=== PATIENT | female | born 1940 | race Caucasian/White ===

== ENCOUNTER → 2018-07-04 07:26 | Outpatient (CLI) | payer MEDICARE, SELFPAY | PROVIDERS: Family Provider Family Medicine; PCP Family Medicine; Visit Provider Family Medicine | DX: Z12.31 Encounter for screening mammogram for malignant neoplasm of breast (principal) | CPT/HCPCS: 77063; 77067 ==

== ENCOUNTER → 2019-07-22 07:57 | Outpatient (CLI) | payer MEDICARE, SELFPAY ==
--- NOTE | 2019-07-22 08:03 | BI_ITS ---
MAMMOGRAPHY - BILATERAL SCREENING REASON FOR EXAM: Female, 78 years old. Routine annual screening examination. PERTINENT HISTORY: Non-contributory. TECHNIQUE: Digital bilateral breast lori (3D mammographic acquisition) in the CC and MLO projections. 2-D mediolateral oblique (MLO) and craniocaudad (CC) views of both breasts were obtained. CAD: Full Field Digital Mammography with Computer Added Detection was performed. COMPARISON: Comparison is made with prior examination dated July 04, 2018 and May 07, 2017. FINDINGS: Breast Composition: There are scattered areas of fibroglandular density. There are no dominant masses or suspicious calcifications. Stable benign-appearing bilateral axillary lymph nodes. No other significant abnormalities are identified. There has been no significant change since the prior study. BI/SCREEN MAMM (CAD) W/LORI BILAT IMPRESSION: Stable bilateral screening mammogram. Yearly follow-up mammogram recommended. (A) ASSESSMENT CATEGORY: BIRADS Category 2: Benign. A letter regarding these results will be sent to the patient by the facility within 30 days. Approximately 10% of breast cancers are not detected by mammography. A normal mammogram should not delay biopsy of a clinically suspicious abnormality. [id number] Electronically Signed: Souleymane Thompson, at 10:37 EDT , Service support ,
== END ==
PROVIDERS: Family Provider Family Medicine; PCP Family Medicine; Referring Provider Physician Assistant; Visit Provider Physician Assistant
DX: Z12.31 Encounter for screening mammogram for malignant neoplasm of breast (principal)
CPT/HCPCS: 77063; 77067

== ENCOUNTER → 2020-07-28 07:44 | Outpatient (CLI) | payer MEDICARE, SELFPAY ==
--- NOTE | 2020-07-28 07:53 | BI_ITS ---
MAMMOGRAPHY - BILATERAL SCREENING REASON FOR EXAM: Female, 79 years old. Routine annual screening examination. PERTINENT HISTORY: Non-contributory. TECHNIQUE: Digital bilateral breast lori (3D mammographic acquisition) in the CC and MLO projections. 2-D mediolateral oblique (MLO) and craniocaudad (CC) views of both breasts were obtained. CAD: Full Field Digital Mammography with Computer Added Detection was performed. COMPARISON: Comparison is made with prior study 07/22/2019 and 07/04/2018. FINDINGS: Breast Composition: There are scattered areas of fibroglandular density. There are no dominant masses or suspicious calcifications. Stable benign-appearing bilateral axillary lymph nodes. No other significant abnormalities are identified. There has been no significant change since the prior study. BI/SCREEN MAMM (CAD) W/LORI BILAT IMPRESSION: Stable bilateral screening mammogram. Yearly follow-up mammogram recommended. (A) ASSESSMENT CATEGORY: BIRADS Category 2: Benign. A letter regarding these results will be sent to the patient by the facility within 30 days. Approximately 10% of breast cancers are not detected by mammography. A normal mammogram should not delay biopsy of a clinically suspicious abnormality. [id number] Electronically Signed: Souleymane Thompson, at 10:06 EDT , Service support ,
== END ==
PROVIDERS: PCP Family Medicine; Referring Provider Family Medicine; Visit Provider Family Medicine
DX: Z12.31 Encounter for screening mammogram for malignant neoplasm of breast (principal)
CPT/HCPCS: 77063; 77067

== ENCOUNTER → 2021-08-20 15:53 | Outpatient (CLI) | payer MEDICARE, SELFPAY ==
--- NOTE | 2021-08-20 16:00 | BI_ITS ---
MAMMOGRAPHY - BILATERAL SCREENING REASON FOR EXAM: Female, 80 years old. Routine annual screening examination. PERTINENT HISTORY: Non-contributory. TECHNIQUE: Digital bilateral breast lori (3D mammographic acquisition) in the CC and MLO projections. 2-D mediolateral oblique (MLO) and craniocaudad (CC) views of both breasts were obtained. CAD: Full Field Digital Mammography with Computer Added Detection was performed. COMPARISON: Comparison is made with prior study 10/27/2020 and 07/22/2019. FINDINGS: Breast Composition: There are scattered areas of fibroglandular density. There are no dominant masses or suspicious calcifications. Stable benign-appearing bilateral axillary lymph nodes. No other significant abnormalities are identified. There has been no significant change since the prior study. BI/SCRN MAMM (CAD)W/LORI BILAT IMPRESSION: Stable bilateral screening mammogram. Yearly follow-up mammogram recommended. (A) ASSESSMENT CATEGORY: BIRADS Category 2: Benign. A letter regarding these results will be sent to the patient by the facility within 30 days. Approximately 10% of breast cancers are not detected by mammography. A normal mammogram should not delay biopsy of a clinically suspicious abnormality. [id number] Electronically Signed: Souleymane Thompson MD at 8:59 EDT , Service support ,
== END ==
PROVIDERS: PCP Family Medicine; Referring Provider Family Medicine; Visit Provider Family Medicine
DX: Z12.31 Encounter for screening mammogram for malignant neoplasm of breast (principal)
CPT/HCPCS: 77063; 77067

== ENCOUNTER → 2022-08-21 | Outpatient (CLI) | payer MEDICARE, SELFPAY ==
--- NOTE | 2022-08-21 08:57 | BI_ITS ---
MAMMOGRAPHY - BILATERAL SCREENING REASON FOR EXAM: Female, 81 years old. Routine annual screening examination. PERTINENT HISTORY: Non-contributory. TECHNIQUE: Digital bilateral breast lori (3D mammographic acquisition) in the CC and MLO projections. 2-D mediolateral oblique (MLO) and craniocaudad (CC) views of both breasts were obtained. CAD: Full Field Digital Mammography with Computer Added Detection was performed. COMPARISON: Comparison is made with prior examination of 10/20/2021 and 07/28/2020. FINDINGS: Breast Composition: There are scattered areas of fibroglandular density. There are no dominant masses or suspicious calcifications. Stable benign-appearing bilateral axillary No other significant abnormalities are identified. There has been no significant change since the prior study. BI/SCRN MAMM (CAD)W/LORI BILAT IMPRESSION: Stable bilateral screening mammogram. Yearly follow-up mammogram recommended. (A) ASSESSMENT CATEGORY: BIRADS Category 2: Benign. A letter regarding these results will be sent to the patient by the facility within 30 days. Approximately 10% of breast cancers are not detected by mammography. A normal mammogram should not delay biopsy of a clinically suspicious abnormality. [id number] Electronically Signed: Souleymane Thompson MD at 11:23 EDT ,
== END | disposition home or self-care (01) ==
PROVIDERS: PCP Family Medicine; Visit Provider Family Medicine
DX: Z12.31 Encounter for screening mammogram for malignant neoplasm of breast (principal)
CPT/HCPCS: 77063; 77067

== ENCOUNTER → 2023-08-21 | Outpatient (CLI) | payer MEDICARE, SELFPAY ==
--- NOTE | 2023-08-21 07:38 | BI_ITS ---
MAMMOGRAPHY - BILATERAL SCREENING REASON FOR EXAM: Female, 82 years old. Routine annual screening examination. PERTINENT HISTORY: Non-contributory. TECHNIQUE: Digital bilateral breast lori (3D mammographic acquisition) in the CC and MLO projections. 2-D mediolateral oblique (MLO) and craniocaudad (CC) views of both breasts were obtained. CAD: Full Field Digital Mammography with Computer Added Detection was performed. COMPARISON: Comparison is made with prior study dated August 21, 2022 and August 20, 2021. FINDINGS: Breast Composition: There are scattered areas of fibroglandular density. There are no dominant masses or suspicious calcifications. Stable benign-appearing bilateral axillary lymph nodes. No other significant abnormalities are identified. There has been no significant change since the prior study. BI/SCRN MAMM (CAD)W/LORI BILAT IMPRESSION: Stable bilateral screening mammogram. Yearly follow-up mammogram recommended. (A) ASSESSMENT CATEGORY: BIRADS Category 2: Benign. A letter regarding these results will be sent to the patient by the facility within 30 days. Approximately 10% of breast cancers are not detected by mammography. A normal mammogram should not delay biopsy of a clinically suspicious abnormality. [id number] Electronically Signed: Souleymane Thompson MD at 12:05 EDT ,
== END | disposition home or self-care (01) ==
LOC: OPBI 07:36
PROVIDERS: PCP Family Medicine; Referring Provider Family Medicine; Visit Provider Family Medicine
DX: Z12.31 Encounter for screening mammogram for malignant neoplasm of breast (principal)
CPT/HCPCS: 77063; 77067

== ENCOUNTER → 2024-08-26 | Outpatient (CLI) | payer MEDICARE, SELFPAY ==
--- NOTE | 2024-08-26 09:06 | BI_ITS ---
MAMMOGRAPHY - BILATERAL SCREENING 3-D TOMOSYNTHESIS REASON FOR EXAM: Female, 83 years old. SCREENING PERTINENT HISTORY: No significant family history. TECHNIQUE: 2-D mammograms and 3-D Tomosynthesis of the breast (s) were performed. CAD was performed. COMPARISON: 08/21/2023 FINDINGS: The breast composition is composed of scattered fibroglandular density. Scattered benign calcifications are seen. 1 cm oval obscured equal density mass in the retroareolar right breast at posterior depth and focal compression views recommended for further evaluation. No dominant mass left breast. No suspicious calcifications.. No architectural distortion is identified. There is no skin thickening or retraction. BI/SCRN MAMM (CAD)W/LORI BILAT IMPRESSION: Further imaging evaluation is recommended. ASSESSMENT CATEGORY: BIRADS Category 0: Incomplete. Need additional imaging evaluation as above. A letter regarding these results will be sent to the patient by the facility within 30 days. FOLLOW UP RECOMMENDATION: Additional imaging recommended as above. (E) Approximately 10% of breast cancers are not detected by mammography. A normal mammogram should not delay biopsy of a clinically suspicious abnormality. Electronically Signed: Walt Zapata MD at 13:31 EDT ,
== END | disposition home or self-care (01) ==
PROVIDERS: PCP Family Medicine; Referring Provider Family Medicine; Visit Provider Family Medicine
DX: Z12.31 Encounter for screening mammogram for malignant neoplasm of breast (principal)
CPT/HCPCS: 77063; 77067

== ENCOUNTER → 2024-09-01 | Outpatient (CLI) | payer MEDICARE, SELFPAY ==
--- NOTE | 2024-09-01 14:22 | BI_ITS ---
MAMMOGRAPHY - UNILATERAL DIAGNOSTIC: RIGHT BREAST REASON FOR EXAM: Female, 83 years old. Abnormal screening mammogram. PERTINENT HISTORY: Abnormal screening mammogram. TECHNIQUE: Compression spot views were obtained in mediolateral and oblique views.. CAD: Full Field Digital Mammography with Computer Added Detection was performed. COMPARISON: Comparison is made with prior study August 26, 2024. FINDINGS: Breast Composition: There are scattered areas of fibroglandular density. Faint 1 cm nodule is seen in the central retroareolar region of the right breast. Sonographic correlation recommended. No other significant abnormalities are identified. BI/DIAG MAMM W/CAD, UNILAT IMPRESSION: Faint 1 cm nodule seen in the central retroareolar region of the right breast. Sonographic correlation recommended. ASSESSMENT CATEGORY: BIRADS Category 0: Incomplete. Need additional imaging evaluation. A letter regarding these results will be sent to the patient by the facility within 30 days. Approximately 10% of breast cancers are not detected by mammography. A normal mammogram should not delay biopsy of a clinically suspicious abnormality. Electronically Signed: Souleymane Thompson MD at 8:06 EDT ,
--- NOTE | 2024-09-01 14:22 | US_ITS ---
STUDY: ULTRASOUND BREAST - RIGHT REASON FOR EXAM: Female, 83 years old. Abnormal screening mammogram. TECHNIQUE: Axial and longitudinal images of the RIGHT breast were performed with a high resolution ultrasound transducer. # OF IMAGES: 17 COMPARISON: Comparison is made with prior mammogram done earlier in the day as well as prior mammogram dated August 26, 2024. FINDINGS: RIGHT Breast: The retroareolar region of the breast was examined with ultrasound. Fibroglandular tissue is seen. No sonographic antibiotic is present. Routine annual mammographic follow-up recommended. US/Breast Limited Unilateral IMPRESSION: No sonographic adenopathy is present. ASSESSMENT CATEGORY: BIRADS Category 1: Negative. A letter regarding these results will be sent to the patient by the facility within 30 days. Electronically Signed: Souleymane Thompson MD at 8:23 EDT ,
--- OUTSIDE RECORDS SUMMARY | 2024-09-01 18:05 | XMS RPT_ITS | CCD ---
Author Organization [facility] Care Team Providers Care Post Office Manager Name Role Phone PROVIDER, UNKNOWN Unavailable Unavailable NEIL ESQUEDA Unavailable Unavailable PRANEETH NEWELL, RAHEEM Primary Care Physician RAHEEM DACOSTA MD Primary Care Physician Raheem Dacosta MD Primary Care Provider Raheem Dacosta MD Primary Care Provider Raheem Dacosta MD Primary Care Provider Raheem Dacosta MD Primary Care Provider RO JONES, KAYLEN Attending Balwinder Loza MD, RAHEEM Primary Care Unavailable RO JONES, KAYLEN Attending Balwinder Loza MD, RAHEEM Primary Care Unavailable RO JONES, KAYLEN Attending Balwinder Loza MD, RAHEEM Primary Care Unavailable RO JONES, KAYLEN Attending Balwinder Loza MD, RAHEEM Primary Care Unavailable RO JONES, KAYLEN Attending Balwinder Loza MD, RAHEEM Primary Care Unavailable RO JONES, KAYLEN Attending RAHEEM Smith MD Primary Care Unavailable Ronnell Estrada PA-C Primary Care Provider [phone] Raheem Dacosta MD Primary Care Provider Raheem Dacosta MD Primary Care Provider Ronnell ESTRADA Attending Unavailable RAHEEM DACOSTA Primary Care Unavailable PATRICIA VYAS Attending Unavailable RAHEEM DACOSTA Primary Care Unavailable RAHEEM DACOSTA Attending Unavailable Ronnell ESTRADA Primary Care Unavailable Ronnell ESTRADA Primary Care Unavailable Ronnell ESTRADA Referring Unavailable Ronnell ESTRADA Primary Care Unavailable Ronnell ESTRADA Referring Unavailable Medications Current Medications Medication Drug Class(es) Dates Sig (Normalized) Sig (Original) Aluminum Hydroxide / magnesium carbonate (4 sources) Start: 10-19-2020 take 1 tablet by mouth twice daily as needed Gaviscon Extra Strength 160 mg-105 mg oral tablet, chewable Dose = 2 tab(s), Chewed, BID, PRN for indigestion, # 100 tab(s), 0 Refill(s) Start Date: 10/19/20 Status: Ordered aluminum hydroxide 160 mg / magnesium carbonate 105 mg chewable tablet (6 sources) Start: 10-19-2020 take 1 tablet by mouth twice daily as needed Gaviscon Extra Strength 160 mg-105 mg oral tablet, chewable Dose = 2 tab(s), Chewed, BID, PRN for indigestion, # 100 tab(s), 0 Refill(s) Start Date: 10/19/20 Status: Ordered atorvastatin 10 mg oral tablet (20 sources) HMG-CoA Reductase Inhibitor Start: 05-30-2023 End: 08-14-2023 take 1 tablet by mouth once daily at bedtime for hyperlipidemia atorvastatin (LIPITOR) 10 mg tablet Indications: Mixed hyperlipidemia , Hyperglycemia Take 1 tablet by mouth daily at bedtime. For cholesterol. 90 tablet 3 08/14/2023 Active Start: 10-19-2020 End: 01-22-2023 take 1 tablet by mouth once daily at bedtime for hyperlipidemia atorvastatin (LIPITOR) 10 mg tablet Indications: Mixed hyperlipidemia , Hyperglycemia Take 1 tablet by mouth daily at bedtime. For cholesterol. 90 tablet 0 10/23/2022 01/22/2023 Discontinued Start: 03-14-2020 End: 09-07-2020 take 1 tablet by mouth once daily at bedtime for hyperlipidemia atorvastatin (LIPITOR) 10 mg tablet Indications: Mixed hyperlipidemia , Hyperglycemia Take 1 tablet by mouth daily at bedtime. For cholesterol. 90 tablet 1 03/14/2020 09/07/2020 Discontinued Comment on above: Take 1 tablet by micha th daily at bedtime. For cholesterol. enteric contrast (will be provided with radiology test) (4 sources) Start: 2 End: 2 enteric contrast (will be provided with radiology test) For CT ABD/PEL W IVCON Routine order Administer, As Directed One Time Only, via Oral, Rectal, both Oral and Rectal, Enteric Tube, Stoma or Indwelling Catheter, Enteric Contrast as designated per enteric contrast guidelines 1 Each 0 07/12/2022 07/13/2022 Active Comment on above: For CT ABD/PEL W IVC ON Routine order Administer, As Directed One Time Only, via Oral, Rectal, both Oral and Rectal, Enteric Tube, Stoma or Indwelling Catheter, Enteric Contrast as designated per enteric contrast guidelines famotidine 20 mg oral tablet (20 sources) Histamine-2 Receptor Antagonist Start: take 1 tablet by mouth once daily at bedtime famotidine (PEPCID) 20 mg tablet Take 1 tablet by mouth daily at bedtime. 90 tablet 3 08/14/2023 Active Start: 05-02-2023 End: 07-31-2023 take 1 tablet by mouth once daily at bedtime famotidine (PEPCID) 20 mg tablet Take 1 tablet by mouth daily at bedtime. 30 tablet 2 05/02/2023 07/31/2023 Active Start: 10-23-2022 End: 04-22-2023 take 1 tablet by mouth once daily at bedtime famotidine (PEPCID) 20 mg tablet Take 1 tablet by mouth daily at bedtime. 30 tablet 2 10/23/2022 01/22/2023 Discontinued Start: 07-17-2022 End: 10-15-2022 take 1 tablet by mouth once daily at bedtime famotidine (PEPCID) 20 mg tablet Take 1 tablet by mouth daily at bedtime. 30 tablet 2 07/17/2022 10/15/2022 Active Comment on above: Take 1 tablet by micha th daily at bedtime. FLUoxetine 40 mg oral capsule (20 sources) Serotonin Reuptake Inhibitor Start: 07-26-2024 End: 07-26-2025 take 1 capsule by mouth once daily FLUoxetine (PROZAC) 40 mg capsule Take 1 capsule by mouth once daily. 90 capsule 3 07/26/2024 07/26/2025 Active Start: 09-08-2023 End: 07-26-2024 take 1 capsule by mouth once daily FLUoxetine (PROZAC) 20 mg capsule Take 1 capsule by mouth once daily. 90 capsule 1 03/09/2024 07/26/2024 Discontinued Start: 10-19-2020 End: 03-18-2023 take 1 capsule by mouth once daily FLUoxetine (PROZAC) 20 mg capsule Take 1 capsule by mouth once daily. 90 capsule 1 08/30/2022 03/18/2023 Discontinued Start: 03-14-2020 End: 09-25-2020 take 1 capsule by mouth once daily FLUoxetine (PROZAC) 20 mg capsule Take 1 capsule by mouth once daily. 90 capsule 1 03/14/2020 09/25/2020 Discontinued Comment on above: Take 1 capsule by [facility] once daily. hydroCHLOROthiazide 25 mg / triamterene 37.5 mg oral capsule (20 sources) Potassium-sparing Diuretic, Thiazide Diuretic Start: 0 End: 4 take 1 capsule by mouth once daily triamterene-hyd roCHLOROthiazid e (DYAZIDE) 37.5-25 mg per capsule Take 1 capsule by mouth once daily. 90 capsule 3 05/31/2024 Active Start: 06-12-2020 End: 09-06-2020 take 1 capsule by mouth once daily triamterene-hydrochlorothiazide 37.5-25 mg per capsule Take 1 capsule by mouth once daily. 90 capsule 06/12/2020 09/06/2020 Discontinued Comment on above: Take 1 capsule by [facility] once daily. iv contrast (will be provided with radiology test) (4 sources) Start: 07-12-20 End: 07-13-20 iv contrast (will be provided with radiology test) CT ABD/PEL -Inject, intravenously, once for 1 dose.No IV access, insert saline lock prior to the beginning of sedation, infusion, injection of imaging exam. Discontinue saline lock post exam. If Pt. has a central line or IVAD, may access for administration according to line specific nursing protocol. Once exam is complete flush line and de-access according to line specific nursing protocol in the CT contrast administration guidelines link. 1 Each 0 07/12/2022 07/13/2022 Active Comment on above: CT ABD/PEL -Inject, intravenously, once for 1 dose.No IV access, insert saline lock prior to the beginning of sedation, infusion, injection of imaging exam. Discontinue saline lock post exam. If Pt. has a central line or IVAD, may access for administration according to line specific nursing protocol. Once exam is complete flush line and de-access according to line specific nursing protocol in the CT contrast administration guidelines link. levothyroxine sodium 0.088 mg oral tablet (20 sources) l-Thyroxine Start: 09-28-20 End: 03-09-20 take 1 tablet by mouth once daily levothyroxine (SYNTHROID) 88 mcg tablet Indications: Mixed hyperlipidemia , Hypothyroidism, unspecified type , Hyperglycemia Take 1 tablet by mouth once daily. 90 tablet 1 03/09/2024 Active Start: 10-19-2020 levothyroxine 88 mcg (0.088 mg) oral tablet Dose : 88 mcg = 1 tab(s), Oral, qDay, # 30 tab(s), 0 Refill(s) Start Date: 10/19/20 Status: Ordered Start: 10-18-2019 End: 10-10-2020 take 1 tablet by mouth once daily levothyroxine (SYNTHROID) 88 mcg tablet Take 1 tablet by mouth once daily. 90 tablet 3 10/18/2019 10/10/2020 Discontinued Comment on above: Take 1 tablet by micha th once daily. mag carb/aluminum hydrox/algin (GAVISCON ORAL) (20 sources) mag carb/aluminu m hydrox/algin (GAVISCON ORAL) Take by mouth. Active mag carb/aluminu m hydrox/algin (GAVISCON ORAL) Take by mouth. 0 Active Comment on above: Take by mouth. metFORMIN hydrochloride 500 mg oral tablet (20 sources) Biguanide Start: 06-20-20 End: 12-17-19 24 take 1 tablet by mouth once daily in the morning metFORMIN (GLUCOPHAGE) 500 mg tablet Indications: Controlled type 2 diabetes mellitus without complication, without long-term current use of insulin (HCC) take 1 tablet by mouth EVERY MORNING WITH BREAKFAST 90 tablet 3 10/22/2023 Active Comment on above: Take 1 tablet by micha th daily with breakfast. take 1 tablet by micha th EVERY MORNING WITH BREAKFAST naproxen sodium 220 mg oral tablet (10 sources) Nonsteroidal Anti-inflammatory Drug Start: 12-13-19 take 1 capsule by mouth every eight hours as needed for pain Aleve 220 mg oral tablet 1 cap(s), Oral, q8h, PRN as needed for pain, # 40 cap(s), 0 Refill(s) Start Date: 12/13/20 Status: Ordered pantoprazole 40 mg delayed release oral tablet (20 sources) Proton Pump Inhibitor Start: 11-11-19 End: 04-29-20 take 1 tablet by mouth once daily pantoprazole DR (PROTONIX) 40 mg tablet Indications: GERD without esophagitis Take 1 tablet by mouth once daily. 90 tablet 04/29/2024 Active Start: 07-25-2020 End: 08-05-2023 take 1 tablet by mouth once daily pantoprazole DR (PROTONIX) 40 mg tablet Indications: GERD without esophagitis Take 1 tablet by mouth once daily. 90 tablet 0 08/05/2023 Active Comment on above: Take 1 tablet by micha th once daily. polyethylene glycol 3350 539380 mg / potassium chloride 2970 mg / sodium bicarbonate 6740 mg / sodium chloride 5860 mg / sodium sulfate 34121 mg powder for oral solution (1 source) Osmotic Laxative Start: 2 End: 2 peg 3350-Electrolytes (GOLYTELY) 236-22.74-6.74 -5.86 gram suspension Indications: GERD without esophagitis , Change in bowel habit , Abdominal discomfort Take 4,000 mL by mouth one time only for 1 dose. Refer to printed prep instructions from your provider. 4000 mL 0 07/22/2022 07/22/2022 Active Comment on above: Take 4,000 mL by micha th one time only for 1 dose. Refer to printed prep instructions from your provider. tapentadol 50 mg oral tablet (20 sources) Opioid Agonist Start: 3 End: 3 take 1 tablet by mouth every six hours as needed tapentadol (NUCYNTA) 50 mg Indications: DDD (degenerative disc disease), cervical , Scoliosis, unspecified scoliosis type, unspecified spinal region Take 1 tablet by mouth every 6 hours as needed for up to 30 days. 120 tablet 07/23/2023 Active Start: 02-11-2017 End: 06-16-2023 take 1 tablet by mouth every eight hours tapentadol (NUCYNTA) 50 mg tab Take 1 tablet by mouth every 8 hours. 0 02/11/2017 06/16/2023 Discontinued Comment on above: Take 1 tablet by micha th every 8 hours. Take 1 tablet by micha th every 6 hours as needed for up to 30 days. tiZANidine 4 mg oral tablet (20 sources) Central alpha-2 Adrenergic Agonist Start: 04-16-2023 End: 10-13-2023 tiZANidine 4 mg oral tablet Dose : 4 mg = 1 tab(s), Oral, qHS, # 90 tab(s), 1 Refill(s), [facility]: [id number], Bulging of cervical intervertebral disc, 160, cm, 04/16/23 14:51:00 EDT, Height, kg, 04/16/23 14:51:00 EDT, Dosing Weight Start Date: 04/16/23 Stop Date: 10/13/23 Status: Ordered Start: 10-22-2022 End: 02-19-2023 tiZANidine 4 mg oral tablet Dose : 4 mg = 1 tab(s), Oral, qHS, # 30 tab(s), 3 Refill(s), [facility]: [id number], Bulging of cervical intervertebral disc, 160, cm, 10/22/22 7:28:00 EST, Height, kg, 10/22/22 7:28:00 EST, Dosing Weight Start Date: 10/22/22 Stop Date: 02/19/23 Status: Ordered Start: 02-15-2022 End: 06-15-2022 tiZANidine 4 mg oral tablet Dose : 4 mg = 1 tab(s), Oral, qHS, # 30 tab(s), 3 Refill(s), [facility]: [id number], Bulging of cervical intervertebral disc, 155, cm, 02/15/22 7:26:00 EDT, Height, kg, 02/15/22 7:26:00 EDT, Dosing Weight Start Date: 02/15/22 Stop Date: 06/15/22 Status: Ordered Start: 06-18-2021 End: 02-12-2022 tiZANidine 4 mg oral tablet Dose : 4 mg = 1 tab(s), Oral, qHS, # 30 tab(s), 3 Refill(s), [facility], Bulging of cervical intervertebral disc, 162.6, cm, 10/15/21 8:53:00 EST, Height, kg, 10/15/21 8:53:00 EST, Dosing Weight Start Date: 10/15/21 Stop Date: 02/12/22 Status: Ordered Start: 02-11-2017 End: 03-02-2024 take 1 capsule by mouth once daily at bedtime tiZANidine HCl 4 mg capsule Take 1 capsule by mouth daily at bedtime. 02/11/2017 03/02/2024 Discontinued (Course of therapy completed) Comment on above: Take 1 capsule by mo uth daily at bedtime. Completed/Discontinued Medications Medication Drug Class(es) Dates Sig (Normalized) Sig (Original) CPAP (20 sources) Start: 10-16-2022 End: 03-02-2024 CPAP Indications: BALJINDER (obstructive sleep apnea) Initiate Auto PAP @ 5-20 cm of water with humidification. Mask (per patient preference) optional chin strap (if indicated) , filters, tubing, humidifier and lifetime supplies. 1 Each 0 10/16/2022 03/02/2024 Discontinued Start: 10-16-2022 CPAP Indicatio ns: BALJINDER (obstructive sleep apnea) Initiate Auto PAP @ 5-20 cm of water with humidification. Mask (per patient preference) optional chin strap (if indicated) , filters, tubing, humidifier and lifetime supplies. 1 Each 0 10/16/2022 Active Comment on above: Initiate Auto PAP @ 5-20 cm of water with humidification. Mask (per patient preference) optional chin strap (if indicated) , filters, tubing, humidifier and lifetime supplies. Problems Active Problems Problem Classification Problem Date Documented Da te Episodic/Chronic Abdominal pain (5 sources) Abdominal discomfort; Translations: [Unspecified abdominal pain] Episodic Cardiac dysrhythmias (1 source) Palpitations; Translations: [Palpitations] Onset: 8 Episodic Chronic kidney disease (20 sources) Chronic kidney disease stage 3; Translations: [Chronic kidney disease (CKD), stage III (moderate)] Onset: 8 07-30-2018 Chronic Chronic kidney disease (2 sources) Chronic kidney disease; Translations: [Stage 3a chronic kidney disease (HCC)] Onset: 8 Deficiency and other anemia (2 sources) Anemia; Translations: [Anemia, unspecified] Episodic Diabetes mellitus without complication (2 sources) Type 2 diabetes mellitus without complication; Translations: [Type 2 diabetes mellitus without complications] 06-20-2023 Chronic Disorders of lipid metabolism (20 sources) Hyperlipidemia; Translations: [Hyperlipidemia, unspecified] Onset: 2 01-01-2012 Chronic Diverticulosis and diverticulitis (20 sources) Diverticulosis of colon; Translations: [Diverticulosis of large intestine without perforation or abscess without bleeding] Onset: 9 11-24-2008 Chronic Esophageal disorders (20 sources) Gastroesophageal reflux disease; Translations: [Gastro-esophageal reflux disease without esophagitis] Onset: 2 Resolved: 2 09-16-2012 Chronic Essential hypertension (20 sources) Essential (primary) hypertension; Translations: [Hypertensive disorder] Onset: 7 10-19-2020 Chronic Hypertension with complications and secondary hypertension (11 sources) Chronic kidney disease stage 3 due to hypertension; Translations: [Hypertensive chronic kidney disease with stage 1 through stage 4 chronic kidney disease, or unspecified chronic kidney disease] Onset: 1 Resolved: 2 01-09-2022 Chronic Immunizations and screening for infectious disease (2 sources) Needs influenza immunization; Translations: [Encounter for immunization] Onset: 4 08-23-2024 Episodic Malaise and fatigue (1 source) Fatigue; Translations: [Other fatigue] Episodic Miscellaneous mental health disorders (2 sources) Chronic insomnia; Translations: [Psychophysiologic insomnia] Onset: 4 08-23-2024 Chronic Mood disorders (20 sources) Recurrent major depression in partial remission; Translations: [Major depressive disorder, recurrent, in partial remission] Onset: 6 10-25-2015 Chronic Other acquired deformities (20 sources) Scoliosis deformity of spine; Translations: [Scoliosis, unspecified] Onset: 3 02-15-2022 Chronic Other aftercare (1 source) Drug therapy finding; Translations: [Other group home (current) drug therapy] 03-02-2024 Episodic Other and unspecified benign neoplasm (20 sources) History of polyp of colon; Translations: [Personal history of colonic polyps] 08-23-2008 Episodic Other gastrointestinal disorders (4 sources) Alteration in bowel elimination; Translations: [Change in bowel habit] Episodic Other hereditary and degenerative nervous system conditions (20 sources) Essential tremor; Translations: [Essential tremor] Onset: 4 10-19-2020 Chronic Other hereditary and degenerative nervous system conditions (20 sources) Restless legs; Translations: [Restless legs syndrome] Onset: 3 01-21-2023 Chronic Other hereditary and degenerative nervous system conditions (1 source) Essential tremor; Translations: [Essential tremor] Onset: 4 Chronic Other hereditary and degenerative nervous system conditions (1 source) Restless legs syndrome; Translations: [RLS (restless legs syndrome)] Onset: 3 Chronic Other liver diseases (1 source) Fatty (change of) liver, not elsewhere classified; Translations: [Other chronic nonalcoholic liver disease] 03-02-2024 Chronic Other lower respiratory disease (2 sources) Shortness of breath; Translations: [Other forms of dyspnea] Onset: 8 Episodic Other lower respiratory disease (1 source) Rib pain; Translations: [Pleurodynia] 08-28-2020 Episodic Other nervous system disorders (1 source) Impairment of balance; Translations: [Other abnormalities of gait and mobility] 11-13-2022 Episodic Other nervous system disorders (1 source) Ataxia; Translations: [Ataxia, unspecified] 11-13-2022 Episodic Residual codes; unclassified (20 sources) Obstructive sleep apnea syndrome; Translations: [Obstructive sleep apnea (adult) (pediatric)] Onset: 2 Chronic Residual codes; unclassified (1 source) Sleep apnea; Translations: [Sleep apnea, unspecified] Chronic Residual codes; unclassified (1 source) Obstructive sleep apnea (adult) (pediatric); Translations: [BALJINDER (obstructive sleep apnea)] Onset: 2 Chronic Residual codes; unclassified (1 source) Amnesia; Translations: [Other amnesia] 11-13-2022 Episodic Spondylosis; intervertebral disc disorders; other back problems (20 sources) Displacement of cervical intervertebral disc; Translations: [Other cervical disc displacement, unspecified cervical region] Onset: 7 Chronic Spondylosis; intervertebral disc disorders; other back problems (10 sources) Myofascial pain syndrome of neck 08-20-2021 Episodic Thyroid disorders (20 sources) Hypothyroidism; Translations: [Hypothyroidism, unspecified] Onset: 2 01-01-2012 Chronic Varicose veins of lower extremity (1 source) Varicose veins of bilateral lower limbs; Translations: [Asymptomatic varicose veins of bilateral lower extremities] 07-26-2024 Episodic Past or Other Problems Problem Classification Problem Date Documented Date Episodic/Chronic Abdominal hernia (20 sources) Hiatal hernia; Translations: [Diaphragmatic hernia without obstruction or gangrene] Onset: 09-16-2012 09-16-2012 Episodic Diabetes mellitus without complication (20 sources) Prediabetes; Translations: [Prediabetes] Onset: 09-27-2010 08-14-2017 Episodic Fluid and electrolyte disorders (2 sources) Dehydration; Translations: [Dehydration] Onset: 06-01-2024 03-15-2024 Episodic Gastritis and duodenitis (12 sources) Acute gastritis; Translations: [Acute gastritis without bleeding] Onset: 11-13-2005 Resolved: 09-16-2012 09-16-2012 Episodic Other aftercare (1 source) Other group home (current) drug therapy; Translations: [Current use of proton pump inhibitor] Onset: 03-09-2024 Episodic Other and unspecified benign neoplasm (12 sources) Benign neoplasm of colon; Translations: [Benign neoplasm of colon, unspecified] Onset: 11-24-2008 Resolved: 01-09-2022 01-09-2022 Episodic Other connective tissue disease (12 sources) Muscle pain; Translations: [Myalgia, other site] Onset: 08-21-2021 Resolved: 06-16-2023 Episodic Other liver diseases (12 sources) Elevated levels of transaminase & lactic acid dehydrogenase; Translations: [Nonspecific elevation of levels of transaminase or lactic acid dehydrogenase (LDH)] Onset: 10-10-2005 Resolved: 01-09-2022 01-09-2022 Episodic Other screening for suspected conditions (not mental disorders or infectious disease) (20 sources) Patient encounter status; Translations: [Encounter for screening mammogram for malignant neoplasm of breast] Onset: 08-23-2022 Episodic Results Test Name Value Interpretation Reference Range Facility [facility] NENA MANDUJANO ([id number]) 1940 F Date Time Provider Department 08/27/24 RAHEEM DACOSTA During your visit today, we recorded the following information about you: Raheem Dacosta MD 08/27/2024 11:33 AM Signed Mammogram shows she needs additional views of the right breast. Is [facility] automatically ordering or do they require an order from us. Tiffany Theodore LPN 08/27/2024 12:25 PM Signed Left message for Cathi to be sure she was notified by [facility]. I believe the hospital takes care of follow up care and we do not have to send any orders. Tiffany Theodore LPN 08/30/2024 2:41 PM Signed [facility] shows patient scheduled. Allergies As of Date: 08/27/2024 (No Known Allergies) Date Reviewed: 08/23/2024 Reviewed by: Patricia Vyas APRN.PHOTO TECHNOLOGIST - Fully Assessed Reason for Visit: Results [95] Prescriptions as of 08/30/2024 - FLUoxetine (PROZAC) 40 mg capsule Take 1 capsule by mouth once daily. - triamterene-hydroCHLOROthi azide (DYAZIDE) 37.5-25 mg per capsule Take 1 capsule by mouth once daily. - pantoprazole DR (PROTONIX) 40 mg tablet Take 1 tablet by mouth once daily. - levothyroxine (SYNTHROID) 88 mcg tablet Take 1 tablet by mouth once daily. - metFORMIN (GLUCOPHAGE) 500 mg tablet take 1 tablet by mouth EVERY MORNING WITH BREAKFAST - famotidine (PEPCID) 20 mg tablet Take 1 tablet by mouth daily at bedtime. - atorvastatin (LIPITOR) 10 mg tablet Take 1 tablet by mouth daily at bedtime. For cholesterol. - tapentadol (NUCYNTA) 50 mg Take 1 tablet by mouth every 6 hours as needed for up to 30 days. - mag carb/aluminum hydrox/algin (GAVISCON ORAL) Take by mouth. Problem List As Of Date 08/27/2024 Noted Resolved Nonspecific elevation of levels of transaminase*10/10/2005 01/09/2022 Acute gastritis without mention of hemorrhage [*11/13/2005 09/16/2012 Recurrent major depression in partial remission*09/27/2006 Reflux esophagitis [K21.00] 09/16/2012 PERS HX COLONIC POLYPS [Z86.0100] Benign neoplasm of colon [D12.6] 11/24/2008 01/09/2022 DIVERTICULOSIS OF COLON W/O BLEED [K57.30] 11/24/2008 Prediabetes [R73.03] 09/27/2010 Hypothyroidism [E03.9] 01/01/2012 Hyperlipidemia [E78.5] 01/01/2012 GERD (gastroesophageal reflux disease) [K21.9] 09/16/2012 Hiatal hernia [K44.9] 09/16/2012 Essential tremor [G25.0] 11/29/2013 Essential hypertension [I10] 02/11/2017 DDD (degenerative disc disease), cervical [M50.*08/14/2017 CKD (chronic kidney disease) Stage 3, GFR 30-59*07/30/2018 Hypertensive kidney disease with chronic kidney*06/26/2021 01/09/2022 BALJINDER (obstructive sleep apnea) [G47.33] 10/16/2022 RLS (restless legs syndrome) [G25.81] 01/21/2023 Encounter for screening mammogram for malignant*08/23/2022 Diagnosed: 06/16/2023 Muscle pain [M79.10] 08/21/2021 06/16/2023 Diagnosed: 06/16/2023 Scoliosis deformity of spine [M41.9] 06/16/2023 Diagnosed: 06/16/2023 Encounter Status:Closed by TIFFANY THEODORE on 08/30/24 [facility] 08-23-2024 CNOV Office Visit (FAMPWS ) -- NENA MANDUJANO ([id number]) 1940 F Date Time Provider Department 08/23/24 9:20 AM PATRICIA VYAS During your visit today, we recorded the following information about you: Pulse Respiration Blood pressure Weight 73/minute 16/minute 116/70 77.6 kg Patricia Vyas APRN.CNP 08/23/2024 9:59 AM Signed This is a 83 year old female who presents today with: Patient presents with: Depression: 4 week medication follow up HISTORY OF PRESENT ILLNESS: Nena Mandujano is a 83 year old female. 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 They had Covid a couple weeks ago. Mood is so much better. Sleep not as good as she would like. 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 Gets only about 4 hours of sleep a night PAST MEDICAL HISTORY: PAST MEDICAL HISTORY Diagnosis Date Arthritis Benign neoplasm of colon Benign neoplasm of colon Cervical spinal stenosis Diverticulosis of colon (without mention of hemorrhage) Esophageal reflux Essential (primary) hypertension History of transfusion Nonspecific elevation of levels of transaminase or lactic acid dehydrogenase (LDH) Elevated LFT's Occasional tremors essential tremors Other specified gastritis Personal history of colonic polyps Reflux esophagitis Scoliosis (and kyphoscoliosis), idiopathic Scoliosis associated with other condition Thyroid disease PAST SURGICAL HISTORY Procedure Laterality Date APPENDECTOMY APPENDECTOMY HX CHOLECYSTECTOMY Cholecystectomy COLONOSCOPY 01/28/2014 COLONOSCOPY 02/19/2017 COLONOSCOPY 08/19/2022 COLONOSCOPY FLX DX W/COLLJ SPEC WHEN PFRMD 09/2000 Colonoscopy COLONOSCOPY W/BIOPSY SINGLE/MULTIPLE 11/24/2008 EGD 02/19/2017 EGD TRANSORAL BIOPSY SINGLE/MULTIPLE 01/12/2007 EGD TRANSORAL BIOPSY SINGLE/MULTIPLE 03/17/2008 EGD W/O BRSH SPEC VARICIES INJ 08/19/2022 ESOPHAGOGASTRODUODENOSCOPY TRANSORAL DIAGNOSTIC 08/19/2012 EGD GASTROESOPHAG REFLX TEST W/TELEMTRY PH ELTRD 03/17/2008 SKIN BIOPSY HX TOTAL ABDOMINAL HYSTERECT W/WO RMVL TUBE OVARY Hysterectomy, WILLIE VAGINAL HYSTERECTOMY ALLERGIES Patient has no known allergies. MEDICATIONS Current Outpatient Medications Medication Sig FLUoxetine (PROZAC) 40 mg capsule Take 1 capsule by mouth once daily. triamterene-hydroCHLOROthi azide (DYAZIDE) 37.5-25 mg per capsule Take 1 capsule by mouth once daily. pantoprazole DR (PROTONIX) 40 mg tablet Take 1 tablet by mouth once daily. levothyroxine (SYNTHROID) 88 mcg tablet Take 1 tablet by mouth once daily. metFORMIN (GLUCOPHAGE) 500 mg tablet take 1 tablet by mouth EVERY MORNING WITH BREAKFAST famotidine (PEPCID) 20 mg tablet Take 1 tablet by mouth daily at bedtime. atorvastatin (LIPITOR) 10 mg tablet Take 1 tablet by mouth daily at bedtime. For cholesterol. tapentadol (NUCYNTA) 50 mg Take 1 tablet by mouth every 6 hours as needed for up to 30 days. mag carb/aluminum hydrox/algin (GAVISCON ORAL) Take by mouth. No current facility-administered medications for this visit. FAMILY HISTORY Problem Relation Age of Onset Heart Father of heart attack 65 Coronary Artery Disease Father fatal [place] Alcohol/Drug Father Cancer Maternal Grandfather pancreatic, 70 Cancer Paternal Grandfather pancreatic 65 Heart Paternal Grandfather Diabetes Paternal Grandmother 90 other (healthy) Mother healthly and living Social History Tobacco Use Smoking status: Former Types: Cigarettes Smokeless tobacco: Never Vaping Use Vaping status: Never Used Substance Use Topics Alcohol use: Yes Comment: rare Drug use: No EXAM: BP 116/70 Pulse 73 Resp 16 Wt 77.6 kg (171 lb) SpO2 98% BMI 30.30 kg/m? PHYSICAL EXAM: Physical Exam Vitals reviewed. Constitutional: Appearance: Normal appearance. HENT: Head: Normocephalic. Cardiovascular: Rate and Rhythm: Normal rate and regular rhythm. Pulses: Normal pulses. Heart sounds: Normal heart sounds. Pulmonary: Effort: Pulmonary effort is normal. Breath sounds: Normal breath sounds. Abdominal: General: Bowel sounds are normal. There is no distension. Palpations: Abdomen is soft. Tenderness: There is no abdominal tenderness. There is no guarding. Musculoskeletal: Comments: Scoliosis- remains active Moves all ext. Without difficulty Skin: General: Skin is warm and dry. Neurological: General: No focal deficit present. Mental Status: She is alert and oriented to person, place, and time. Psychiatric: Mood and Affect: Mood normal. Behavior: Behavior normal. LABS: ASSESSMENT/PLAN: 1. Essential tremor - ICD9: 333.1, ICD10: G25.0 (primary diagnosis) Stable 2. Essential hypertension - ICD9: 401.9, ICD10: I10 - Controlled - Recommend home blood pressure monitoring, to bring resu (more content not included)... [facility] -- NENA MANDUJANO ([id number]) 1940 F Date Time Provider Department 07/26/24 8:20 AM RAHEEM DACOSTA FAMPWS During your visit today, we recorded the following information about you: Pulse Blood pressure Weight 71/minute 112/72 79.2 kg Raheem Dacosta MD 07/26/2024 8:46 AM Signed Patient presents with: Bump HPI: Patient presents today for office visit for acute visit. Depression: Caring for spouse and feels that may need to increase her depression medication. Fatigue just a lack of energy. Seems to have isolated herself some from her friends. Thinking about placement for him but still on the fence about this. gets angry. She does still safe safe at home. Has a good support system at home. Still working. She is looking at [facility] ideas. Declines counseling. No suicidal ideation, Has lumps that show up different places on her body. Not painful. Come and go. Has been noticing them for about 3 months at least. Usually come and go and pop up for a short while. Mostly on legs. Not red or warm or tender. Sometimes can occur with arms. Scheduled for routine follow up visit next month MEDICATIONS: Current Outpatient Medications Medication Sig triamterene-hydroCHLOROthi azide (DYAZIDE) 37.5-25 mg per capsule Take 1 capsule by mouth once daily. pantoprazole DR (PROTONIX) 40 mg tablet Take 1 tablet by mouth once daily. levothyroxine (SYNTHROID) 88 mcg tablet Take 1 tablet by mouth once daily. FLUoxetine (PROZAC) 20 mg capsule Take 1 capsule by mouth once daily. metFORMIN (GLUCOPHAGE) 500 mg tablet take 1 tablet by mouth EVERY MORNING WITH BREAKFAST famotidine (PEPCID) 20 mg tablet Take 1 tablet by mouth daily at bedtime. atorvastatin (LIPITOR) 10 mg tablet Take 1 tablet by mouth daily at bedtime. For cholesterol. tapentadol (NUCYNTA) 50 mg Take 1 tablet by mouth every 6 hours as needed for up to 30 days. mag carb/aluminum hydrox/algin (GAVISCON ORAL) Take by mouth. No current facility-administered medications for this visit. ALLERGIES: ALLERGIES No Known Allergies PAST MEDICAL HISTORY Diagnosis Date Arthritis Benign neoplasm of colon Benign neoplasm of colon Cervical spinal stenosis Diverticulosis of colon (without mention of hemorrhage) Esophageal reflux Essential (primary) hypertension History of transfusion Nonspecific elevation of levels of transaminase or lactic acid dehydrogenase (LDH) Elevated LFT's Occasional tremors essential tremors Other specified gastritis Personal history of colonic polyps Reflux esophagitis Scoliosis (and kyphoscoliosis), idiopathic Scoliosis associated with other condition Thyroid disease PAST SURGICAL HISTORY Procedure Laterality Date APPENDECTOMY APPENDECTOMY HX CHOLECYSTECTOMY Cholecystectomy COLONOSCOPY 01/28/2014 COLONOSCOPY 02/19/2017 COLONOSCOPY 08/19/2022 COLONOSCOPY FLX DX W/COLLJ SPEC WHEN PFRMD 09/2000 Colonoscopy COLONOSCOPY W/BIOPSY SINGLE/MULTIPLE 11/24/2008 EGD 02/19/2017 EGD TRANSORAL BIOPSY SINGLE/MULTIPLE 01/12/2007 EGD TRANSORAL BIOPSY SINGLE/MULTIPLE 03/17/2008 EGD W/O BRSH SPEC VARICIES INJ 08/19/2022 ESOPHAGOGASTRODUODENOSCOPY TRANSORAL DIAGNOSTIC 08/19/2012 EGD GASTROESOPHAG REFLX TEST W/TELEMTRY PH ELTRD 03/17/2008 SKIN BIOPSY HX TOTAL ABDOMINAL HYSTERECT W/WO RMVL TUBE OVARY Hysterectomy, WILLIE VAGINAL HYSTERECTOMY FAMILY HISTORY Problem Relation Age of Onset Heart Father of heart attack 65 Coronary Artery Disease Father fatal [place] Alcohol/Drug Father Cancer Maternal Grandfather pancreatic, 70 Cancer Paternal Grandfather pancreatic 65 Heart Paternal Grandfather Diabetes Paternal Grandmother 90 other (healthy) Mother healthly and living Social History Tobacco Use Smoking status: Former Types: Cigarettes Smokeless tobacco: Never Vaping Use Vaping status: Never Used Substance Use Topics Alcohol use: Yes Comment: rare Drug use: No Reviewed current medications, allergies, past medical history, surgical history, family history and social history today. REVIEW OF SYSTEMS All other reviewed and negative other than HPI. HEALTH MAINTENANCE: Reviewed health maintenance issues today and recommended the following in detail. Anxiety Screening Never done DTaP,Tdap,Td Vaccine(1 - Tdap) Never done RSV Vaccine(1 - 1-dose 60+ series) Never done Shingrix Vaccine(2 of 3) due on 04/24/2012 Advance Directive Discussion due on 11/10/2023 Covid-19 Vaccine(2022- season) due on 07/11/2024 Influenza Vaccine(1) due on 07/11/2024 VITALS: BP 112/72 Pulse 71 Wt 79.2 kg (174 lb 9.7 oz) SpO2 95% BMI 30.94 kg/m? Last 4 Encounter Wt Readings: Date: Wt: 03/02/2024 76.7 kg (169 lb) 09/01/2023 82.6 kg (182 lb) 08/01/2023 83.6 kg (184 lb 6.4 oz) 06/16/2023 87 kg (191 lb 12.8 oz (more content not included)... Normal [facility] Basic metabolic 2000 panelon 06-01-2024 Anion gap [Moles/Vol] 13 mmol/L Normal 8-15 [facility] Comment on above: Order Comment: Speci men Type: BLOOD SPECIMEN Ordering Facility: [facility] Address: [address] [place] [address] Performed By: #### 2 4321-2 #### [facility] CLIA [id number] [address] [place] [address] [place] Calcium [Mass/Vol] 9.2 mg/dL Normal 8.5-10.2 [facility] Comment on above: Order Comment: Speci men Type: BLOOD SPECIMEN Ordering Facility: [facility] Address: [address] [place] [address] Performed By: #### 2 4321-2 #### [facility] CLIA [id number] [address] [place] [address] [place] Chloride [Moles/Vol] 103 mmol/L Normal 98-107 [facility] Comment on above: Order Comment: Speci men Type: BLOOD SPECIMEN Ordering Facility: [facility] Address: [address] [place] [address] Performed By: #### 2 4321-2 #### [facility] CLIA [id number] [address] [place] [address] [place] CO2 [Moles/Vol] 26 mmol/L Normal 22-30 [facility] Comment on above: Order Comment: Speci men Type: BLOOD SPECIMEN Ordering Facility: [facility] Address: [address] [place] [address] Performed By: #### 2 4321-2 #### [facility] CLIA [id number] [address] [place] [address] [place] Creatinine [Mass/Vol] 1.06 mg/dL High 0.58-0.96 [facility] Comment on above: Order Comment: Speci men Type: BLOOD SPECIMEN Ordering Facility: [facility] Address: [address] [place] [address] Performed By: #### 2 4321-2 #### [facility] CLIA [id number] [address] [place] [address] [place] Creatinine and Glomerular filtration rate.predicted panel (S/P/Bld) 53 mL/min/1.73m??? Low >=60 [facility] Comment on above: Order Comment: Speci men Type: BLOOD SPECIMEN Ordering Facility: [facility] Address: [address] [place] [address] Result Comment: Gina mated Glomerular Filtration Rate (eGFR) is calculated using the 2020 CKD-EPI creatinine equation. This equation utilizes serum creatinine, sex, and age as parameters. The creatinine assay has traceable calibration to isotope dilution-mass spectrometry. Refer to KDIGO guidelines for clinical interpretation. In patients with unstable renal function, e.g. those with acute kidney injury, the eGFR may not accurately reflect actual GFR. Performed By: #### 2 4321-2 #### [facility] CLIA [id number] [address] [place] [address] [place] Glucose [Mass/Vol] 115 mg/dL High 74-99 [facility] Comment on above: Order Comment: Speci men Type: BLOOD SPECIMEN Ordering Facility: [facility] Address: [address] [id number] Result Comment: The [place] Diabetes Association (ADA) provides guidance for cutoff values for fasting glucose and random glucose. The ADA defines fasting as no caloric intake for at least 8 hours. Fasting plasma glucose results between 100 to 125 mg/dL indicate increased risk for diabetes (prediabetes). Fasting plasma glucose results greater than or equal to 126 mg/dL meet the criteria for diagnosis of diabetes. In the absence of unequivocal hyperglycemia, results should be confirmed by repeat testing. In a patient with classic symptoms of hyperglycemia or hyperglycemic crisis, random plasma glucose results greater than or equal to 200 mg/dL meet the criteria for diagnosis of diabetes. Reference: Standards of Medical Care in Diabetes 2016, [place] Diabetes Association. Diabetes Care. 2016.39(Suppl 1). Performed By: #### 2 4321-2 #### [facility] CLIA [id number] [address] [place] [address] [place] Potassium [Moles/Vol] 4.1 mmol/L Normal 3.7-5.1 [facility] Comment on above: Order Comment: Speci men Type: BLOOD SPECIMEN Ordering Facility: [facility] Address: [address] [place] [address] Performed By: #### 2 4321-2 #### [facility] CLIA [id number] [address] [place] [address] [place] Sodium [Moles/Vol] 142 mmol/L Normal 136-144 [facility] Comment on above: Order Comment: Speci men Type: BLOOD SPECIMEN Ordering Facility: [facility] Address: [address] [place] [address] Performed By: #### 2 4321-2 #### [facility] CLIA [id number] [address] [place] [address] [place] Urea nitrogen [Mass/Vol] 25 mg/dL High 7-21 [facility] Comment on above: Order Comment: Speci men Type: BLOOD SPECIMEN Ordering Facility: [facility] Address: [address] [place] [address] Performed By: #### 2 4321-2 #### [facility] CLIA [id number] [address] [place] [address] [place] HbA1c (Bld)on 06-01-2024 Average glucose Estimated from glycated hemoglobin (Bld) [Mass/Vol] 134 mg/dL Normal [facility] Comment on above: Order Comment: Jorden ochoa Type: BLOOD SPECIMEN Ordering Facility: [facility] Address: [address] [place] [address] Result Comment: eAG: (Estimated average glucose) is a calculated value from HgbA1c and is personal financial representative of the average blood glucose level in the last 2-3 month period. Performed By: #### 2 4323-8, 3016-3, 20089-3, #### [facility] CLIA [id number] [address] [place] [address] HbA1c (Bld) [Mass fraction] 6.3 % High 4.3-5.6 [facility] Comment on above: Order Comment: Jorden ochoa Type: BLOOD SPECIMEN Ordering Facility: [facility] Address: [address] [place] [address] Result Comment: Amer [place] Diabetes Association guidelines indicate that patients with HgbA1c in the range 5.7-6.4% are at increased risk for development of diabetes, and intervention by lifestyle modification may be beneficial. HgbA1c greater or equal to 6.5% is considered diagnostic of diabetes. Performed By: #### 2 4323-8, 3016-3, 24680-7, #### [facility] CLIA [id number] [address] [place] [address] [place] CNPGabby 03-15-2024 CNPN Telephone (FAMPWS) -- STACIEDEVINNENA Tapia ([id number]) 1940 F Date Time Provider Department 03/15/24 Ronnell ESTRADA During your visit today, we recorded the following information about you: Ronnell Estrada PA-C 03/15/2024 7:43 AM Signed BUN is dehydrated range- push fluids and recheck in 4 weeks. Likely from [facility]Z Telephone on 03/15/24 BASIC METABOLIC PANEL Thanks, MUKESH Moore Gillian, OCCA 03/15/2024 9:14 AM Signed TC no answer. Left VM to return call. CLARISSA Edward Jacqueline, LPN 03/16/2024 4:25 PM Signed Patient read [facility] message. Allergies As of Date: 03/15/2024 (No Known Allergies) Date Reviewed: 03/02/2024 Reviewed by: Patricia Mancia LPN - Fully Assessed Reason for Visit: Results [95] Primary Visit Diagnosis:Dehydration [E86.0] Order(s):BASIC METABOLIC PANEL [SQBMP] Order #: [id number] FUTURE Prescriptions as of 03/16/2024 - levothyroxine (SYNTHROID) 88 mcg tablet Take 1 tablet by mouth once daily. - FLUoxetine (PROZAC) 20 mg capsule Take 1 capsule by mouth once daily. - pantoprazole DR (PROTONIX) 40 mg tablet Take 1 tablet by mouth once daily. - metFORMIN (GLUCOPHAGE) 500 mg tablet take 1 tablet by mouth EVERY MORNING WITH BREAKFAST - famotidine (PEPCID) 20 mg tablet Take 1 tablet by mouth daily at bedtime. - atorvastatin (LIPITOR) 10 mg tablet Take 1 tablet by mouth daily at bedtime. For cholesterol. - tapentadol (NUCYNTA) 50 mg Take 1 tablet by mouth every 6 hours as needed for up to 30 days. - triamterene-hydroCHLOROthi azide (DYAZIDE) 37.5-25 mg per capsule Take 1 capsule by mouth once daily. - mag carb/aluminum hydrox/algin (GAVISCON ORAL) Take by mouth. Problem List As Of Date 03/15/2024 Noted Resolved Nonspecific elevation of levels of transaminase*10/10/2005 01/09/2022 Acute gastritis without mention of hemorrhage [*11/13/2005 09/16/2012 Recurrent major depression in partial remission*09/27/2006 Reflux esophagitis [K21.00] 09/16/2012 PERS HX COLONIC POLYPS [Z86.010] Benign neoplasm of colon [D12.6] 11/24/2008 01/09/2022 DIVERTICULOSIS OF COLON W/O BLEED [K57.30] 11/24/2008 Prediabetes [R73.03] 09/27/2010 Hypothyroidism [E03.9] 01/01/2012 Hyperlipidemia [E78.5] 01/01/2012 GERD (gastroesophageal reflux disease) [K21.9] 09/16/2012 Hiatal hernia [K44.9] 09/16/2012 Essential tremor [G25.0] 11/29/2013 Essential hypertension [I10] 02/11/2017 DDD (degenerative disc disease), cervical [M50.*08/14/2017 CKD (chronic kidney disease) Stage 3, GFR 30-59*07/30/2018 Hypertensive kidney disease with chronic kidney*06/26/2021 01/09/2022 BALJINDER (obstructive sleep apnea) [G47.33] 10/16/2022 RLS (restless legs syndrome) [G25.81] 01/21/2023 Encounter for screening mammogram for malignant*08/23/2022 Muscle pain [M79.10] 08/21/2021 06/16/2023 Scoliosis deformity of spine [M41.9] 06/16/2023 Encounter Status:Closed by PATRICIA MANCIA on 03/16/24 Normal [facility] CBC W Auto Differential pane l (Bld)on 03-09-2024 Basophils (Bld) [#/Vol] 0.06 10*3/uL Normal <0.11 [facility] Comment on above: Order Comment: Speci men Type: BLOOD SPECIMEN Ordering Facility: [facility] Address: [address] [place] [address] Performed By: #### 2 4323-8, 3016-3, 35480-5, 17158-2 #### [facility] CLIA [id number] [address] [place] [address] [place] [address] [place] Basophils/100 WBC (Bld) 0.8 % Normal [facility] Comment on above: Order Comment: Speci men Type: BLOOD SPECIMEN Ordering Facility: [facility] Address: [address] [place] [address] Performed By: #### 2 4323-8, 3016-3, 96228-4, 60459-7 #### [facility] CLIA [id number] [address] [place] [address] [place] Differential cell count method Nom (Bld) Auto Normal [facility] Comment on above: Order Comment: Speci men Type: BLOOD SPECIMEN Ordering Facility: [facility] Address: [address] [place] [address] Performed By: #### 2 4323-8, 3016-3, 90566-9, #### [facility] CLIA [id number] [address] [place] [address] [place] Eosinophils (Bld) [#/Vol] 0.14 10*3/uL Normal <0.46 [facility] Comment on above: Order Comment: Speci men Type: BLOOD SPECIMEN Ordering Facility: [facility] Address: [address] [place] [address] Performed By: #### 2 4323-8, 3016-3, 88037-3, #### [facility] CLIA [id number] [address] [place] [address] [place] Eosinophils/100 WBC (Bld) 1.9 % Normal [facility] Comment on above: Order Comment: Speci men Type: BLOOD SPECIMEN Ordering Facility: [facility] Address: [address] [place] [address] Performed By: #### 2 4323-8, 3016-3, 29774-3, #### [facility] CLIA [id number] [address] [place] [address] [place] Erythrocyte distribution width (RBC) [Ratio] 14.6 % Normal 11.5-15.0 [facility] Comment on above: Order Comment: Speci men Type: BLOOD SPECIMEN Ordering Facility: [facility] Address: [address] [place] [address] Performed By: #### 2 4323-8, 3016-3, 55505-1, 18288-9 #### [facility] CLIA [id number] [address] [place] [address] [place] Hematocrit (Bld) [Volume fraction] 39.3 % Normal 36.0-46.0 [facility] Comment on above: Order Comment: Speci men Type: BLOOD SPECIMEN Ordering Facility: [facility] Address: [address] [place] [address] Performed By: #### 2 4323-8, 3016-3, 40488-2, #### [facility] CLIA [id number] [address] [place] [address] [place] Hemoglobin (Bld) [Mass/Vol] 12.3 g/dL Normal 11.5-15.5 [facility] Comment on above: Order Comment: Speci men Type: BLOOD SPECIMEN Ordering Facility: [facility] Address: [address] [place] [address] Performed By: #### 2 4323-8, 3016-3, 42740-6, 21735-8 #### [facility] CLIA [id number] [address] [place] [address] [place] Immature granulocytes (Bld) [#/Vol] 10*3/uL Normal <0.10 [facility] Comment on above: Order Comment: Speci men Type: BLOOD SPECIMEN Ordering Facility: [facility] Address: [address] [place] [address] Performed By: #### 2 4323-8, 3016-3, 44690-3, 66226-5 #### [facility] CLIA [id number] [address] [place] [address] [place] Immature granulocytes/100 WBC (Bld) 0.3 % Normal [facility] Comment on above: Order Comment: Speci men Type: BLOOD SPECIMEN Ordering Facility: [facility] Address: [address] [place] [address] Performed By: #### 2 4323-8, 3016-3, 84385-7, 99209-6 #### [facility] CLIA [id number] [address] [place] [address] [place] Lymphocytes (Bld) [#/Vol] 2.35 10*3/uL Normal 1.00-4.00 [facility] Comment on above: Order Comment: Speci men Type: BLOOD SPECIMEN Ordering Facility: [facility] Address: [address] [place] [address] Performed By: #### 2 4323-8, 3016-3, 21340-6, 43031-2 #### [facility] CLIA [id number] [address] [place] [address] [place] Lymphocytes/100 WBC (Bld) 31.6 % Normal [facility] Comment on above: Order Comment: Speci men Type: BLOOD SPECIMEN Ordering Facility: [facility] Address: [address] [place] [address] Performed By: #### 2 4323-8, 3016-3, 31414-4, 99211-0 #### [facility] CLIA [id number] [address] [place] [address] [place] MCH (RBC) [Entitic mass] 27.2 pg Normal 26.0-34.0 [facility] Comment on above: Order Comment: Speci men Type: BLOOD SPECIMEN Ordering Facility: [facility] Address: [address] [place] [address] Performed By: #### 2 4323-8, 3016-3, 29253-1, 16850-4 #### [facility] CLIA [id number] [address] [place] [address] [place] MCHC (RBC) [Mass/Vol] 31.3 g/dL Normal 30.5-36.0 [facility] Comment on above: Order Comment: Speci men Type: BLOOD SPECIMEN Ordering Facility: [facility] Address: [address] [place] [address] Performed By: #### 2 4323-8, 3016-3, 35034-1, 88045-8 #### [facility] CLIA [id number] [address] [place] [address] [place] MCV (RBC) [Entitic vol] 86.9 fL Normal 80.0-100.0 [facility] Comment on above: Order Comment: Speci men Type: BLOOD SPECIMEN Ordering Facility: [facility] Address: [address] [place] [address] Performed By: #### 2 4323-8, 3016-3, 96843-0, #### [facility] CLIA [id number] [address] [place] [address] [place] Monocytes (Bld) [#/Vol] 0.71 10*3/uL Normal <0.87 [facility] Comment on above: Order Comment: Speci men Type: BLOOD SPECIMEN Ordering Facility: [facility] Address: [address] [place] [address] Performed By: #### 2 4323-8, 3016-3, 05451-3, #### [facility] CLIA [id number] [address] [place] [address] [place] Monocytes/100 WBC (Bld) 9.5 % Normal [facility] Comment on above: Order Comment: Speci men Type: BLOOD SPECIMEN Ordering Facility: [facility] Address: [address] [place] [address] Performed By: #### 2 4323-8, 3016-3, 58437-5, 96710-7 #### [facility] CLIA [id number] [address] [place], [place] [address] [place] Neutrophils (Bld) [#/Vol] 4.16 10*3/uL Normal 1.45-7.50 [facility] Comment on above: Order Comment: Speci men Type: BLOOD SPECIMEN Ordering Facility: [facility] Address: [address] [place] [address] Performed By: #### 2 4323-8, 3016-3, 02719-5, 76041-1 #### [facility] CLIA [id number] [address] [place] [address] [place] Neutrophils/100 WBC (Bld) 55.9 % Normal [facility] Comment on above: Order Comment: Speci men Type: BLOOD SPECIMEN Ordering Facility: [facility] Address: [address] [place] [address] Performed By: #### 2 4323-8, 3016-3, 56122-5, 56263-5 #### [facility] CLIA [id number] [address] [place] [address] [place] Nucleated RBC (Bld) [#/Vol] 10*3/uL Normal <0.01 [facility] Comment on above: Order Comment: Speci men Type: BLOOD SPECIMEN Ordering Facility: [facility] Address: [address] [place] [address] Performed By: #### 2 4323-8, 3016-3, 03513-4, 05523-4 #### [facility] CLIA [id number] [address] [place] [address] [place] Nucleated RBC/100 WBC (Bld) [Ratio] 0.0 /100 WBC Normal [facility] Comment on above: Order Comment: Speci men Type: BLOOD SPECIMEN Ordering Facility: [facility] Address: [address] [place] [address] Performed By: #### 2 4323-8, 3016-3, 34999-1, 50554-0 #### [facility] CLIA [id number] [address] [place] [address] [place] Platelet mean volume (Bld) [Entitic vol] 11.7 fL Normal 9.0-12.7 [facility] Comment on above: Order Comment: Speci men Type: BLOOD SPECIMEN Ordering Facility: [facility] Address: [address] [place] [address] Performed By: #### 2 4323-8, 3016-3, 26491-0, 92196-0 #### [facility] CLIA [id number] [address] [place] [address] [place] Platelets (Bld) [#/Vol] 258 10*3/uL Normal 150-400 [facility] Comment on above: Order Comment: Speci men Type: BLOOD SPECIMEN Ordering Facility: [facility] Address: [address] [place] [address] Performed By: #### 2 4323-8, 3016-3, 37232-6, 32056-5 #### [facility] CLIA [id number] [address] [place] [address] [place] RBC (Bld) [#/Vol] 4.52 10*6/uL Normal 3.90-5.20 [facility] Comment on above: Order Comment: Speci men Type: BLOOD SPECIMEN Ordering Facility: [facility] Address: [address] [place] [address] Performed By: #### 2 4323-8, 3016-3, 90497-0, 12303-4 #### [facility] CLIA [id number] [address] [place] [address] [place] WBC (Bld) [#/Vol] 7.44 10*3/uL Normal 3.70-11.00 [facility] Comment on above: Order Comment: Speci men Type: BLOOD SPECIMEN Ordering Facility: [facility] Address: [address] [place] [address] Performed By: #### 2 4323-8, 3016-3, 74053-9, 80867-1 #### [facility] CLIA [id number] [address] [place] [address] [place] Comprehensive metabolic 2000 panelon 03-09-2024 Albumin [Mass/Vol] 4.0 g/dL Normal 3.9-4.9 [facility] Comment on above: Order Comment: Speci men Type: BLOOD SPECIMEN Ordering Facility: [facility] Address: [address] [place] [address] Performed By: #### 2 4323-8, 6-3, 33727-9, #### [facility] CLIA [id number] [address] [place] [address] [place] ALP [Catalytic activity/Vol] 82 U/L Normal 34-123 [facility] Comment on above: Order Comment: Speci men Type: BLOOD SPECIMEN Ordering Facility: [facility] Address: [address] [place] [address] Performed By: #### 2 4323-8, 6-3, 97426-0, #### [facility] CLIA [id number] [address] [place] [address] [place] ALT [Catalytic activity/Vol] 13 U/L Normal 7-38 [facility] Comment on above: Order Comment: Speci men Type: BLOOD SPECIMEN Ordering Facility: [facility] Address: [address] [place] [address] Performed By: #### 2 4323-8, 3016-3, 38129-4, #### [facility] CLIA [id number] [address] [place] [address] [place] Anion gap [Moles/Vol] 10 mmol/L Normal 9-18 [facility] Comment on above: Order Comment: Speci men Type: BLOOD SPECIMEN Ordering Facility: [facility] Address: [address] [place] [address] Performed By: #### 2 4323-8, 3016-3, 53508-5, 60704-8 #### [facility] CLIA [id number] [address] [place] [address] [place] AST [Catalytic activity/Vol] 21 U/L Normal 13-35 [facility] Comment on above: Order Comment: Speci men Type: BLOOD SPECIMEN Ordering Facility: [facility] Address: [address] [place] [address] Performed By: #### 2 4323-8, 3016-3, 86749-7, 66927-6 #### [facility] CLIA [id number] [address] [place] [address] [place] Bilirubin [Mass/Vol] 0.4 mg/dL Normal 0.2-1.3 [facility] Comment on above: Order Comment: Speci men Type: BLOOD SPECIMEN Ordering Facility: [facility] Address: [address] [place] [address] Performed By: #### 2 4323-8, 3016-3, 94955-0, #### [facility] CLIA [id number] [address] [place] [address] [place] Calcium [Mass/Vol] 9.5 mg/dL Normal 8.5-10.2 [facility] Comment on above: Order Comment: Speci men Type: BLOOD SPECIMEN Ordering Facility: [facility] Address: [address] [place] [address] Performed By: #### 2 4323-8, 3016-3, 26948-3, #### [facility] CLIA [id number] [address] [place] [address] [place] Chloride [Moles/Vol] 100 mmol/L Normal 97-105 [facility] Comment on above: Order Comment: Speci men Type: BLOOD SPECIMEN Ordering Facility: [facility] Address: [address] [place] [address] Performed By: #### 2 4323-8, 3016-3, 66419-9, #### [facility] CLIA [id number] [address] [place] [address] [place] CO2 [Moles/Vol] 29 mmol/L Normal 22-30 [facility] Comment on above: Order Comment: Speci men Type: BLOOD SPECIMEN Ordering Facility: [facility] Address: [address] [place] [address] Performed By: #### 2 4323-8, 3016-3, 79466-2, #### [facility] CLIA [id number] [address] [place] [address] [place] Creatinine [Mass/Vol] 1.20 mg/dL High 0.58-0.96 [facility] Comment on above: Order Comment: Speci men Type: BLOOD SPECIMEN Ordering Facility: [facility] Address: [address] [place] [address] Performed By: #### 2 4323-8, 3016-3, 83521-5, #### [facility] CLIA [id number] [address] [place] [address] [place] Creatinine and Glomerular filtration rate.predicted panel (S/P/Bld) 45 mL/min/1.73m??? Low >=60 [facility] Comment on above: Order Comment: Speci men Type: BLOOD SPECIMEN Ordering Facility: [facility] Address: [address] [place] [address] Result Comment: Gina mated Glomerular Filtration Rate (eGFR) is calculated using the 2020 CKD-EPI creatinine equation. This equation utilizes serum creatinine, sex, and age as parameters. The creatinine assay has traceable calibration to isotope dilution-mass spectrometry. Refer to KDIGO guidelines for clinical interpretation. In patients with unstable renal function, e.g. those with acute kidney injury, the eGFR may not accurately reflect actual GFR. Performed By: #### 2 4323-8, 3016-3, 91612-1, #### [facility] CLIA [id number] [address] [place] [address] [place] Glucose [Mass/Vol] 108 mg/dL High 74-99 [facility] Comment on above: Order Comment: Jorden ochoa Type: BLOOD SPECIMEN Ordering Facility: [facility] Address: [address] [place] [address] Result Comment: The [place] Diabetes Association (ADA) provides guidance for cutoff values for fasting glucose and random glucose. The ADA defines fasting as no caloric intake for at least 8 hours. Fasting plasma glucose results between 100 to 125 mg/dL indicate increased risk for diabetes (prediabetes). Fasting plasma glucose results greater than or equal to 126 mg/dL meet the criteria for diagnosis of diabetes. In the absence of unequivocal hyperglycemia, results should be confirmed by repeat testing. In a patient with classic symptoms of hyperglycemia or hyperglycemic crisis, random plasma glucose results greater than or equal to 200 mg/dL meet the criteria for diagnosis of diabetes. Reference: Standards of Medical Care in Diabetes 2016, [place] Diabetes Association. Diabetes Care. 2016.39(Suppl 1). Performed By: #### 2 4323-8, 3016-3, 68102-2, 03774-6 #### [facility] CLIA [id number] [address] [place] [address] [place] Potassium [Moles/Vol] 4.2 mmol/L Normal 3.7-5.1 [facility] Comment on above: Order Comment: Jorden ochoa Type: BLOOD SPECIMEN Ordering Facility: [facility] Address: [address] [place] [address] Performed By: #### 2 4323-8, 3016-3, 50213-5, 09331-9 #### [facility] CLIA [id number] [address] [place] [address] [place] Protein [Mass/Vol] 7.0 g/dL Normal 6.3-8.0 [facility] Comment on above: Order Comment: Jorden ochoa Type: BLOOD SPECIMEN Ordering Facility: [facility] Address: [address] [place] [address] Performed By: #### 2 4323-8, 3016-3, 55676-1, 82467-1 #### [facility] CLIA [id number] [address] [place] [address] [place] Sodium [Moles/Vol] 139 mmol/L Normal 136-144 [facility] Comment on above: Order Comment: Speci men Type: BLOOD SPECIMEN Ordering Facility: [facility] Address: [address] [place] [address] Performed By: #### 2 4323-8, 3016-3, 26261-0, #### [facility] CLIA [id number] [address] [place] [address] [place] Urea nitrogen [Mass/Vol] 37 mg/dL High 7-21 [facility] Comment on above: Order Comment: Speci men Type: BLOOD SPECIMEN Ordering Facility: [facility] Address: [address] [place] [address] Performed By: #### 2 4323-8, 3016-3, 15412-8, #### [facility] CLIA [id number] [address] [place] [address] [place] Lipid 1996 panelon 4 Cholesterol [Mass/Vol] 180 mg/dL Normal <200 [facility] Comment on above: Order Comment: Speci men Type: BLOOD SPECIMEN Ordering Facility: [facility] Address: [address] [place] [address] Result Comment: <200 mg/dL, Desirable 200-239 mg/dL, Borderline high >239 mg/dL, High Performed By: #### 2 4323-8, 3016-3, 79704-4, #### [facility] CLIA [id number] [address] [place] [address] [place] Cholesterol in HDL [Mass/Vol] 86 mg/dL Normal >39 [facility] Comment on above: Order Comment: Speci men Type: BLOOD SPECIMEN Ordering Facility: [facility] Address: [address] [place] [address] Result Comment: 40-5 9 mg/dL, Acceptable >59 mg/dL, High: Negative risk factor for coronary heart disease <40 mg/dL, Low: Positive risk factor for coronary heart disease Performed By: #### 2 4323-8, 3016-3, 20621-9, #### [facility] CLIA [id number] [address] [place] [address] [place] Cholesterol in LDL [Mass/Vol] 85 mg/dL Normal <100 [facility] Comment on above: Order Comment: Jorden ochoa Type: BLOOD SPECIMEN Ordering Facility: [facility] Address: [address] [place] [address] Result Comment: <100 mg/dL, Optimal 100-129 mg/dL, Near optimal/above optimal 130-159 mg/dL, Borderline high 160-189 mg/dL, High >189 mg/dL, Very high Secondary prevention optimal LDL Cholesterol levels are recommended to be < 70 mg/dL Performed By: #### 2 4323-8, 3016-3, 94378-0, #### [facility] CLIA [id number] [address] [place] [address] [place] Cholesterol in LDL/Cholesterol in HDL [Mass ratio] 0.99 {ratio} Normal <2.54 [facility] Comment on above: Order Comment: Jorden ochoa Type: BLOOD SPECIMEN Ordering Facility: [facility] Address: [address] [place] [address] Result Comment: Refe rence: 1. National Cholesterol Education Program ATP III Guideline At-A-Glance Quick Desk Reference: National Heart, Lung, and Blood [place]. National Institutes of Health. 2001: NIH Publication No. 01-3305. 2. An International Atherosclerosis Society position paper: global recommendations for the management of dyslipidemia: executive summary, Atherosclerosis. 2014: 232(2):410-413. Performed By: #### 2 4323-8, 3016-3, 92556-0, #### [facility] CLIA [id number] [address] [place], [place] [address] [place] Cholesterol in VLDL [Mass/Vol] 9 mg/dL Normal <30 [facility] Comment on above: Order Comment: Speci men Type: BLOOD SPECIMEN Ordering Facility: [facility] Address: [address] [place], [place] [id number] Performed By: #### 2 4323-8, 3016-3, 85704-0, #### [facility] CLIA [id number] [address] [place], [place] [address] [place] Cholesterol non HDL [Mass/Vol] 94 mg/dL Normal <130 [facility] Comment on above: Order Comment: Speci men Type: BLOOD SPECIMEN Ordering Facility: [facility] Address: [address] [place] [address] Result Comment: <130 mg/dL, Optimal 130-159 mg/dL, Near optimal/above optimal 160-189 mg/dL, Borderline high 190-219 mg/dL, High >219 mg/dL, Very high Secondary prevention optimal non HDL Cholesterol levels are recommended to be <100 mg/dL Performed By: #### 2 4323-8, 6-3, 91490-9, #### [facility] CLIA [id number] [address] [place] [address] [place] Cholesterol.total/ Cholesterol in HDL [Mass ratio] 2.09 {ratio} Normal <5.10 [facility] Comment on above: Order Comment: Speci men Type: BLOOD SPECIMEN Ordering Facility: [facility] Address: [address] [place], [place] [address] Performed By: #### 2 4323-8, 3016-3, 67765-5, #### [facility] CLIA [id number] [address] [place] [address] [place] FASTING TIME 11 hrs Normal [facility] Comment on above: Order Comment: Speci men Type: BLOOD SPECIMEN Ordering Facility: [facility] Address: [address] [place] [address] Performed By: #### 2 4323-8, 3016-3, 80059-2, #### [facility] CLIA [id number] [address] [place] [address] [place] Triglyceride [Mass/Vol] 46 mg/dL Normal <150 [facility] Comment on above: Order Comment: Speci men Type: BLOOD SPECIMEN Ordering Facility: [facility] Address: [address] [place] [address] Result Comment: <150 mg/dL, Normal 150-199 mg/dL, Borderline high 200-499 mg/dL, High >499 mg/dL, Very high Performed By: #### 2 4323-8, 6-3, 08571-0, #### [facility] CLIA [id number] [address] [place] [address] [place] Magnesium SerPl-mCncon 03-09 Magnesium [Mass/Vol] 2.0 mg/dL Normal 1.7-2.3 [facility] Comment on above: Order Comment: Speci men Type: BLOOD SPECIMEN Ordering Facility: [facility] Address: [address] [place] [address] Performed By: #### 2 4323-8, 6-3, 54280-6, #### [facility] CLIA [id number] [address] [place] [address] [place] TSH SerPl-aCncon 03-09-2024 TSH Qn 3.030 m[IU]/L Normal 0.270-4.200 [facility] Comment on above: Order Comment: Speci men Type: BLOOD SPECIMEN Ordering Facility: [facility] Address: [address] [place] [address] Performed By: #### 2 4323-8, 3016-3, 61148-1, #### [facility] CLIA [id number] [address] [place] [address] [facility] CNOVon 03-02-2024 CNOV Office Visit ([facility]AMP[facility] ) -- NENA MANDUJANO ([id number]) 1940 F Date Time Provider Department 03/02/24 8:00 AM [facility] During your visit today, we recorded the following information about you: Pulse Respiration Blood pressure Weight 75/minute 16/minute 136/72 76.7 kg Ronnell Estrada PA-C 03/02/2024 12:18 PM Signed 83 year old female with c/o 6 month follow up Hit a brick wall, taking care of Ray, forgetful, trouble knowing where the bathroom or bedroom is. If they go out, makes comments without filter, like talks about fat people. Makes similar comments to her. Doesn't want to go to bed or get out of bed Only one who does anything. Going to caregivers support group for caregivers. Tired but otherwise doing okay Baljinder (obstructive sleep apnea) (primary encounter diagnosis) CPAP Essential hypertension Stage 3 chronic kidney disease, unspecified whether stage 3a or 3b ckd (hcc): Current meds: Triamterene-HCTZ 37.5-HCTZ 25mg daily Patient is compliant with meds No Monitors bp at home: No. If yes, readings: Denies side effects: No. Chest pain: No. Dyspnea: No. Edema: No. Palpitations: No. Syncope: No. Headache: No. Dizziness: No. Last 3 Encounter BP Readings: Date: BP: 03/02/2024 136/72 09/01/2023 132/74 08/01/2023 122/72 Last 2 Encounter Wt Readings: Date: Wt: 03/02/2024 76.7 kg (169 lb) 09/01/2023 82.6 kg (182 lb) Mixed hyperlipidemia Current medication Atorvastatin 10mg daily Taking medication consistently Yes Observing low cholesterol high fiber diet No Muscle aches No Stomach complaints/ diarrhea No Last 2 Lipids: Latest Ref Rng 01/04/2022 06/19/2023 Cholesterol, Total <200 mg/dL 182 174 Triglyceride <150 mg/dL 57 71 HDL Cholesterol >39 mg/dL 80 69 LDL Cholesterol <100 mg/dL 91 91 Non HDL Cholesterol <130 mg/dL 102 105 Fasting Time hrs 12 13 VLDL Cholesterol <30 mg/dL 11 14 TC:HDL Ratio <5.10 2.28 2.52 LDL:HDL Ratio <2.54 1.14 1.32 Prediabetes Current medications: Metformin 500mg daily Watching diet, nice weight loss Hemoglobin A1C (%) Date Value 06/19/2023 6.5 07/11/2022 6.3 09/01/2020 6.4 09/29/2019 6.4 Hypothyroidism, unspecified type Current medication: Levothyroxine 88mcg daily Taking as directed on an empty stomach? Yes. Thyroid pain: No. Mass effect: No. Change in energy level/ fatigue? 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 Sleep disturbance ?4-5 hours, interrupted by stress, bathroom. Temperature Intolerance: cold No, hot Yes. Change in bowel habits? No. Usually every other day, no issues Weight changes?Yes. intentional Change in hair or skin? Note losing hair. If yes: Other symptoms: TSH Date Value 06/19/2023 3.120 mIU/L 07/12/2022 2.830 mIU/L 01/04/2022 2.980 uU/mL 09/01/2020 3.660 uU/mL ) Gastroesophageal reflux disease without esophagitis Hiatal hernia Current medication: Pantoprazole DR 40mg daily. Current symptoms: so far, so good Still using gaviscon 4 times a day Better with weight loss, no eating fried foods or greasy foods. Last Mg level if on PPI chronically: due. Heartburn is controlled: Yes. Dysphagia: No. Bloody or black stools: No. Bowel changes: No. Rls (restless legs syndrome) Current medications: Tapentadol 50mg daily Dr. Callejas (retired) pain management in [place] initially Takes edge of pain to where she can function Seeing Dr. Almaguer Getting foraminal injections in tailbone. HISTORIES FAMILY HISTORY Problem Relation Age of Onset Heart Father of heart attack 65 Coronary Artery Disease Father fatal [place] Alcohol/Drug Father Cancer Maternal Grandfather pancreatic, 70 Cancer Paternal Grandfather pancreatic 65 Heart Paternal Grandfather Diabetes Paternal Grandmother 90 other (healthy) Mother healthly and living PAST MEDICAL HISTORY Diagnosis Date Arthritis Benign neoplasm of colon Benign neoplasm of colon Cervical spinal stenosis Diverticulosis of colon (without mention of hemorrhage) Esophageal reflux Essential (primary) hypertension History of transfusion Nonspecific elevation of levels of transaminase or lactic acid dehydrogenase (LDH) Elevated LFT's Occasional tremors essential tremors Other specified gastritis Personal history of colonic polyps Reflux esophagitis Scoliosis (and kyphoscoliosis), idiopathic Scoliosis associated with other condition Thyroid disease PAST SURGICAL HISTORY Procedure Laterality Date APPENDECTOMY APPENDECTOMY HX CHOLECYSTECTOMY Cholecystectomy COLONOSCOPY 01/28/2014 COLONOSCOPY 02/19/2017 COLONOSCOPY 08/19/2022 COLONOSCOPY FLX DX W/COLLJ SPEC WHEN PFRMD 09/2000 Colonoscopy COLONOSCOPY W/BIOPSY SINGLE/MULTIPLE 11/24/2008 EGD 02/19/2017 EGD TRANSORAL BIOPSY SINGLE/MULTI (more content not included)... Normal [facility] No Panel Informationon 09-03 IMPRESSION: Moderate-severe lumbar scoliosis with moderately advanced multilevel lumbar spondylosis. Cytotechnologist Supervisor: PSCB Transcribe Date/Time: Sep 03 2023 10:39A Dictated by : MICH LEDESMA DO This examination was interpreted and the report reviewed and electronically signed by: MICH LEDESMA DO on Sep 03 2023 10:52AM [facility] DIVISION OF RADIOLOGY [facility] XR Lumbar spine AP and Later zeb 09-03-2023 * * *Final Report* * * DATE OF EXAM: Sep 01 2023 9:47AM WOX 5229 - XR LUMBAR 2V AP/LAT / PROCEDURE REASON: m51.37 * * * * Physician Interpretation * * * * EXAMINATION: XR LUMBAR 2V AP/LAT, XR THORACIC 3V AP/LAT/SWIMMERS PATIENT/TECHNOLOGIST PROVIDED HISTORY: Chronic left sided back pain and scoliosis. Left toe numbness CLINICAL INFORMATION: 82 years old Female with m51.37 TECHNIQUE: XR LUMBAR 2V AP/LAT, XR THORACIC 3V AP/LAT/SWIMMERS Laterality: NOT APPLICABLE Number of different views (projections): 3 views of the thoracic spine and 2 views of the lumbar spine. COMPARISON: CT abdomen pelvis 07/12/2022 RESULT: Thoracic Spine: Counting reference: 12 paired ribs with vertebral body articulating with first set of ribs designated as T1. Post-op assessment: N/A Alignment: Alignment is satisfactory. Vertebral bodies: Vertebral body heights are maintained. Spine articulations: Mild multilevel endplate degenerative changes throughout the thoracic spine. Other: Cervical spine degenerative changes better evaluated on concurrently performed cervical spine radiographs. Atherosclerotic calcification of the thoracic aorta. Lumbar spine: Counting reference: Lumbosacral junction. For the purposes of this report, L4-5 is considered the level of the iliac crest and there are 5 lumbar-type vertebrae. 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 Post-op assessment: N/A Alignment: Moderate-severe scoliosis with levoconvex curvature of the upper lumbar spine and lateral convex curvature of the lower lumbar spine. Leftward lateral listhesis of L2 on L3 and L3 on L4. Exaggeration of the lumbar lordosis. Vertebral bodies: Vertebral body heights are difficult to assess due to significant curvature. Bones appear demineralized. Spine articulations: Multilevel disc height loss with endplate degenerative changes and facet degenerative changes throughout the lumbar spine. Other: Sacroiliac joints are within normal limits. Atherosclerotic calcification of the abdominal aorta. DIVISION OF RADIOLOGY Provider, [facility] - 09/03/2023 * * *Final Report* * * DATE OF EXAM: Sep 01 2023 9:47AM WOX 5229 - XR LUMBAR 2V AP/LAT / PROCEDURE REASON: m51.37 * * * * Physician Interpretation * * * * EXAMINATION: XR LUMBAR 2V AP/LAT, XR THORACIC 3V AP/LAT/SWIMMERS PATIENT/TECHNOLOGIST PROVIDED HISTORY: Chronic left sided back pain and scoliosis. Left toe numbness CLINICAL INFORMATION: 82 years old Female with m51.37 TECHNIQUE: XR LUMBAR 2V AP/LAT, XR THORACIC 3V AP/LAT/SWIMMERS Laterality: NOT APPLICABLE Number of different views (projections): 3 views of the thoracic spine and 2 views of the lumbar spine. COMPARISON: CT abdomen pelvis 07/12/2022 RESULT: Thoracic Spine: Counting reference: 12 paired ribs with vertebral body articulating with first set of ribs designated as T1. Post-op assessment: N/A Alignment: Alignment is satisfactory. Vertebral bodies: Vertebral body heights are maintained. Spine articulations: Mild multilevel endplate degenerative changes throughout the thoracic spine. Other: Cervical spine degenerative changes better evaluated on concurrently performed cervical spine radiographs. Atherosclerotic calcification of the thoracic aorta. Lumbar spine: Counting reference: Lumbosacral junction. For the purposes of this report, L4-5 is considered the level of the iliac crest and there are 5 lumbar-type vertebrae. 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 Post-op assessment: N/A Alignment: Moderate-severe scoliosis with levoconvex curvature of the upper lumbar spine and lateral convex curvature of the lower lumbar spine. Leftward lateral listhesis of L2 on L3 and L3 on L4. Exaggeration of the lumbar lordosis. Vertebral bodies: Vertebral body heights are difficult to assess due to significant curvature. Bones appear demineralized. Spine articulations: Multilevel disc height loss with endplate degenerative changes and facet degenerative changes throughout the lumbar spine. Other: Sacroiliac joints are within normal limits. Atherosclerotic calcification of the abdominal aorta. IMPRESSION IMPRESSION: Moderate-severe lumbar scoliosis with moderately advanced multilevel lumbar spondylosis. Cytotechnologist Supervisor: KIARRA Transcribe Date/Time: Sep 03 2023 10:39A Dictated by : MICH LEDESMA DO This examination was interpreted and the report reviewed and electronically signed by: MICH LEDESMA DO on Sep 03 2023 10:52AM [facility] XR Thoracic spine AP and Lat eral and [place] 09-03-2023 * * *Final Report* * * DATE OF EXAM: Sep 01 2023 9:47AM WOX 5261 - XR THORACIC 3V AP/LAT/SWIMMERS / PROCEDURE REASON: m51.34 * * * * Physician Interpretation * * * * EXAMINATION: XR LUMBAR 2V AP/LAT, XR THORACIC 3V AP/LAT/SWIMMERS PATIENT/TECHNOLOGIST PROVIDED HISTORY: Chronic left sided back pain and scoliosis. Left toe numbness CLINICAL INFORMATION: 82 years old Female with m51.37 TECHNIQUE: XR LUMBAR 2V AP/LAT, XR THORACIC 3V AP/LAT/SWIMMERS Laterality: NOT APPLICABLE Number of different views (projections): 3 views of the thoracic spine and 2 views of the lumbar spine. COMPARISON: CT abdomen pelvis 07/12/2022 RESULT: Thoracic Spine: Counting reference: 12 paired ribs with vertebral body articulating with first set of ribs designated as T1. Post-op assessment: N/A Alignment: Alignment is satisfactory. Vertebral bodies: Vertebral body heights are maintained. Spine articulations: Mild multilevel endplate degenerative changes throughout the thoracic spine. Other: Cervical spine degenerative changes better evaluated on concurrently performed cervical spine radiographs. Atherosclerotic calcification of the thoracic aorta. Lumbar spine: Counting reference: Lumbosacral junction. For the purposes of this report, L4-5 is considered the level of the iliac crest and there are 5 lumbar-type vertebrae. 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 Post-op assessment: N/A Alignment: Moderate-severe scoliosis with levoconvex curvature of the upper lumbar spine and lateral convex curvature of the lower lumbar spine. Leftward lateral listhesis of L2 on L3 and L3 on L4. Exaggeration of the lumbar lordosis. Vertebral bodies: Vertebral body heights are difficult to assess due to significant curvature. Bones appear demineralized. Spine articulations: Multilevel disc height loss with endplate degenerative changes and facet degenerative changes throughout the lumbar spine. Other: Sacroiliac joints are within normal limits. Atherosclerotic calcification of the abdominal aorta. DIVISION OF RADIOLOGY Provider, [facility] - 09/03/2023 * * *Final Report* * * DATE OF EXAM: Sep 01 2023 9:47AM WOX 5261 - XR THORACIC 3V AP/LAT/SWIMMERS / PROCEDURE REASON: m51.34 * * * * Physician Interpretation * * * * EXAMINATION: XR LUMBAR 2V AP/LAT, XR THORACIC 3V AP/LAT/SWIMMERS PATIENT/TECHNOLOGIST PROVIDED HISTORY: Chronic left sided back pain and scoliosis. Left toe numbness CLINICAL INFORMATION: 82 years old Female with m51.37 TECHNIQUE: XR LUMBAR 2V AP/LAT, XR THORACIC 3V AP/LAT/SWIMMERS Laterality: NOT APPLICABLE Number of different views (projections): 3 views of the thoracic spine and 2 views of the lumbar spine. COMPARISON: CT abdomen pelvis 07/12/2022 RESULT: Thoracic Spine: Counting reference: 12 paired ribs with vertebral body articulating with first set of ribs designated as T1. Post-op assessment: N/A Alignment: Alignment is satisfactory. Vertebral bodies: Vertebral body heights are maintained. Spine articulations: Mild multilevel endplate degenerative changes throughout the thoracic spine. Other: Cervical spine degenerative changes better evaluated on concurrently performed cervical spine radiographs. Atherosclerotic calcification of the thoracic aorta. Lumbar spine: Counting reference: Lumbosacral junction. For the purposes of this report, L4-5 is considered the level of the iliac crest and there are 5 lumbar-type vertebrae. 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 Post-op assessment: N/A Alignment: Moderate-severe scoliosis with levoconvex curvature of the upper lumbar spine and lateral convex curvature of the lower lumbar spine. Leftward lateral listhesis of L2 on L3 and L3 on L4. Exaggeration of the lumbar lordosis. Vertebral bodies: Vertebral body heights are difficult to assess due to significant curvature. Bones appear demineralized. Spine articulations: Multilevel disc height loss with endplate degenerative changes and facet degenerative changes throughout the lumbar spine. Other: Sacroiliac joints are within normal limits. Atherosclerotic calcification of the abdominal aorta. IMPRESSION IMPRESSION: Moderate-severe lumbar scoliosis with moderately advanced multilevel lumbar spondylosis. Cytotechnologist Supervisor: KIARRA Transcribe Date/Time: Sep 03 2023 10:39A Dictated by : MICH LEDESMA DO This examination was interpreted and the report reviewed and electronically signed by: MICH LEDESMA DO on Sep 03 2023 10:52AM [facility] XR Cervical spine AP and Lat [facility] 09-02-2023 IMPRESSION: DEGENERATIVE CHANGE AND ALIGNMENT ABNORMALITIES DESCRIBED. MILD REVERSAL OF THE NORMAL LORDOSIS Cytotechnologist Supervisor: KIARRA Transcribe Date/Time: Sep 02 2023 5:03P Dictated by : MARY GOETZ MD This examination was interpreted and the report reviewed and electronically signed by: MARY GOETZ MD on Sep 02 2023 5:05PM [facility] DIVISION OF RADIOLOGY * * *Final Report* * * DATE OF EXAM: Sep 01 2023 9:47AM WOX 5308 - XR CERVICAL 2V AP/LAT / PROCEDURE REASON: m50.30 * * * * Physician Interpretation * * * * Examination: XR CERVICAL 2V AP/LAT History: m50.30 Technique: XR CERVICAL 2V AP/LAT Comparison: None RESULT: Straightening of the normal lordosis is seen. Mild anterior position of C3 on C4. Mild reversal of the curve in the mid cervical region. Moderate disc space narrowing and osteophytosis at C4-5 and C5-6. No fracture or prevertebral swelling. DIVISION OF RADIOLOGY Provider, Corey Connell - 09/02/2023 * * *Final Report* * * DATE OF EXAM: Sep 01 2023 9:47AM WOX 5308 - XR CERVICAL 2V AP/LAT / PROCEDURE REASON: m50.30 * * * * Physician Interpretation * * * * Examination: XR CERVICAL 2V AP/LAT History: m50.30 Technique: XR CERVICAL 2V AP/LAT Comparison: None RESULT: Straightening of the normal lordosis is seen. Mild anterior position of C3 on C4. Mild reversal of the curve in the mid cervical region. Moderate disc space narrowing and osteophytosis at C4-5 and C5-6. No fracture or prevertebral swelling. IMPRESSION IMPRESSION: DEGENERATIVE CHANGE AND ALIGNMENT ABNORMALITIES DESCRIBED. MILD REVERSAL OF THE NORMAL LORDOSIS Cytotechnologist Supervisor: [facility] Transcribe Date/Time: Sep 02 2023 5:03P Dictated by : MARY GOETZ MD This examination was interpreted and the report reviewed and electronically signed by: MARY GOETZ MD on Sep 02 2023 5:05PM EST [facility] XR Cervical spine AP and Lat eralOrdered By: [facility] Provider on 09-02-2023 [facility] No Panel Informationon 09-01 Radiology Study observation (narrative) [facility] No Panel Informationon 11-13 [facility] COLONOSCOPY (THERAPEUTIC)on 08-19-2022 [facility] EGD DIAGNOSTICon 08-19-2022 [facility] Basic metabolic 2000 panelon 07-12-2022 Anion gap [Moles/Vol] 9 mmol/L Normal 9-18 [facility] Comment on above: Order Comment: Speci men Type: BLOOD SPECIMEN Ordering Facility: [facility] Address: [address] [place] [address] Performed By: #### 2 4325-3, 3040-3, 53517-9, 3016-3 #### [facility] CLIA [id number] [address] [place] [address] [place] Calcium [Mass/Vol] 9.2 mg/dL Normal 8.5-10.2 [facility] Comment on above: Order Comment: Speci men Type: BLOOD SPECIMEN Ordering Facility: [facility] Address: [address] [place] [address] Performed By: #### 2 4325-3, 3040-3, 22745-3, 3016-3 #### [facility] CLIA [id number] [address] [place] [address] [place] Chloride [Moles/Vol] 102 mmol/L Normal 97-105 [facility] Comment on above: Order Comment: Speci men Type: BLOOD SPECIMEN Ordering Facility: [facility] Address: [address] [place] [address] Performed By: #### 2 4325-3, 3040-3, 59840-5, 3016-3 #### [facility] CLIA [id number] [address] [place] [address] [place] CO2 [Moles/Vol] 31 mmol/L High 22-30 [facility] Comment on above: Order Comment: Speci men Type: BLOOD SPECIMEN Ordering Facility: [facility] Address: [address] [place] [address] Performed By: #### 2 4325-3, 3040-3, 02510-4, 3016-3 #### [facility] CLIA [id number] [address] [place] [address] [place] Creatinine [Mass/Vol] 1.05 mg/dL High 0.58-0.96 [facility] Comment on above: Order Comment: Speci men Type: BLOOD SPECIMEN Ordering Facility: [facility] Address: [address] [place] [address] Performed By: #### 2 4325-3, 3040-3, 82027-0, 3016-3 #### [facility] CLIA [id number] [address] [facility] [place] [address] [place] ESTIMATED GLOMERULAR FILTRATION RATE 54 mL/min/1.73m??? Low >=60 [facility] Comment on above: Order Comment: Jorden ochoa Type: BLOOD SPECIMEN Ordering Facility: [facility] Address: [address] [place] [address] Result Comment: Gina mated Glomerular Filtration Rate (eGFR) is calculated using the 2020 CKD-EPI creatinine equation. This equation utilizes serum creatinine, sex, and age as parameters. The creatinine assay has traceable calibration to isotope dilution-mass spectrometry. Refer to KDIGO guidelines for clinical interpretation. In patients with unstable renal function, e.g. those with acute kidney injury, the eGFR may not accurately reflect actual GFR. Performed By: #### 2 4325-3, 3040-3, 73236-6, 3016-3 #### [facility] CLIA [id number] [address] [place] [address] [place] Glucose [Mass/Vol] 104 mg/dL High 74-99 [facility] Comment on above: Order Comment: Jorden ochoa Type: BLOOD SPECIMEN Ordering Facility: [facility] Address: [address] [place] [address] Result Comment: The [place] Diabetes Association (ADA) provides guidance for cutoff values for fasting glucose and random glucose. The ADA defines fasting as no caloric intake for at least 8 hours. Fasting plasma glucose results between 100 to 125 mg/dL indicate increased risk for diabetes (prediabetes). Fasting plasma glucose results greater than or equal to 126 mg/dL meet the criteria for diagnosis of diabetes. In the absence of unequivocal hyperglycemia, results should be confirmed by repeat testing. In a patient with classic symptoms of hyperglycemia or hyperglycemic crisis, random plasma glucose results greater than or equal to 200 mg/dL meet the criteria for diagnosis of diabetes. Reference: Standards of Medical Care in Diabetes 2016, [place] Diabetes Association. Diabetes Care. 2016.39(Suppl 1). Performed By: #### 2 4325-3, 3040-3, 64223-2, 6-3 #### [facility] CLIA [id number] [address] [place] [address] [place] Potassium [Moles/Vol] 4.1 mmol/L Normal 3.7-5.1 [facility] Comment on above: Order Comment: Jorden ochoa Type: BLOOD SPECIMEN Ordering Facility: [facility] Address: [address] [place] [address] Performed By: #### 2 4325-3, 3040-3, 66269-7, 3016-3 #### [facility] CLIA [id number] [address] [place] [address] [place] Sodium [Moles/Vol] 142 mmol/L Normal 136-144 [facility] Comment on above: Order Comment: Speci men Type: BLOOD SPECIMEN Ordering Facility: [facility] Address: [address] [place] [address] Performed By: #### 2 4325-3, 3040-3, 76966-9, 3016-3 #### [facility] CLIA [id number] [address] [place] Urea nitrogen [Mass/Vol] 21 mg/dL Normal 7-21 [facility] Comment on above: Order Comment: Speci men Type: BLOOD SPECIMEN Ordering Facility: [facility] Address: [address] [place] [address] Performed By: #### 2 4325-3, 3040-3, 09113-5, 3016-3 #### [facility] CLIA [id number] [address] [place] [address] [place] CBC W Auto Differential pane l (Bld)on 07-12-2022 Basophils (Bld) [#/Vol] 10*3/uL Normal <0.11 [facility] Comment on above: Order Comment: Speci men Type: BLOOD SPECIMEN Ordering Facility: [facility] Address: [address] [place] [address] Performed By: #### 5 7021-8 #### [facility] CLIA [id number] [address] [place] [address] [place] Basophils/100 WBC (Bld) 0.4 % Normal [facility] Comment on above: Order Comment: Speci men Type: BLOOD SPECIMEN Ordering Facility: [facility] Address: [address] [place] [address] Performed By: #### 5 7021-8 #### [facility] CLIA [id number] [address] [place] Differential cell count method Nom (Bld) Auto Normal [facility] Comment on above: Order Comment: Speci men Type: BLOOD SPECIMEN Ordering Facility: [facility] Address: [address] [place] [address] Performed By: #### 5 7021-8 #### [facility] CLIA [id number] [address] [place] [address] [place] Eosinophils (Bld) [#/Vol] 0.10 10*3/uL Normal <0.46 [facility] Comment on above: Order Comment: Speci men Type: BLOOD SPECIMEN Ordering Facility: [facility] Address: [address] [place] [address] Performed By: #### 5 7021-8 #### [facility] CLIA [id number] [address] [place] [address] Eosinophils/100 WBC (Bld) 1.9 % Normal [facility] Comment on above: Order Comment: Speci men Type: BLOOD SPECIMEN Ordering Facility: [facility] Address: [address] [place] [address] Performed By: #### 5 7021-8 #### [facility] CLIA [id number] [address] [place] Erythrocyte distribution width (RBC) [Ratio] 13.8 % Normal 11.5-15.0 [facility] Comment on above: Order Comment: Speci men Type: BLOOD SPECIMEN Ordering Facility: [facility] Address: [address] [place] [address] Performed By: #### 5 7021-8 #### [facility] CLIA [id number] [address] [place] [address] [facility] [place] Hematocrit (Bld) [Volume fraction] 35.6 % Low 36.0-46.0 [facility] Comment on above: Order Comment: Speci men Type: BLOOD SPECIMEN Ordering Facility: [facility] Address: [address] [place] [address] Performed By: #### 5 7021-8 #### [facility] CLIA [id number] [address] [place] [id number] [place] [address] [place] Hemoglobin (Bld) [Mass/Vol] 11.1 g/dL Low 11.5-15.5 [facility] Comment on above: Order Comment: Speci men Type: BLOOD SPECIMEN Ordering Facility: [facility] Address: [address] [place] [address] Performed By: #### 5 7021-8 #### [facility] CLIA [id number] [address] [place] [address] [place] Lymphocytes (Bld) [#/Vol] 1.75 10*3/uL Normal 1.00-4.00 [facility] Comment on above: Order Comment: Speci men Type: BLOOD SPECIMEN Ordering Facility: [facility] Address: [address] [place] [address] Performed By: #### 5 7021-8 #### [facility] CLIA [id number] [address] [place] [address] Lymphocytes/100 WBC (Bld) 33.8 % Normal [facility] Comment on above: Order Comment: Speci men Type: BLOOD SPECIMEN Ordering Facility: [facility] Address: [address] [place] [address] Performed By: #### 5 7021-8 #### [facility] CLIA [id number] [address] [place] MCH (RBC) [Entitic mass] 26.7 pg Normal 26.0-34.0 [facility] Comment on above: Order Comment: Speci men Type: BLOOD SPECIMEN Ordering Facility: [facility] Address: [address] [place] [address] Performed By: #### 5 7021-8 #### [facility] CLIA [id number] [address] [place] [facility] MCHC (RBC) [Mass/Vol] 31.2 g/dL Normal 30.5-36.0 [facility] Comment on above: Order Comment: Speci men Type: BLOOD SPECIMEN Ordering Facility: [facility] Address: [address] [place] [address] Performed By: #### 5 7021-8 #### [facility] CLIA [id number] [address] [place] [address] [place] MCV (RBC) [Entitic vol] 85.8 fL Normal 80.0-100.0 [facility] Comment on above: Order Comment: Speci men Type: BLOOD SPECIMEN Ordering Facility: [facility] Address: [address] [place] [address] Performed By: #### 5 7021-8 #### [facility] CLIA [id number] [address] [place] [address] [place] Monocytes (Bld) [#/Vol] 0.49 10*3/uL Normal <0.87 [facility] Comment on above: Order Comment: Speci men Type: BLOOD SPECIMEN Ordering Facility: [facility] Address: [address] [place] [address] Performed By: #### 5 7021-8 #### [facility] CLIA [id number] [address] [place] [address] Monocytes/100 WBC (Bld) 9.5 % Normal [facility] Comment on above: Order Comment: Speci men Type: BLOOD SPECIMEN Ordering Facility: [facility] Address: [address] [place] [address] Performed By: #### 5 7021-8 #### [facility] CLIA [id number] [address] [place] Neutrophils (Bld) [#/Vol] 2.82 10*3/uL Normal 1.45-7.50 [facility] Comment on above: Order Comment: Speci men Type: BLOOD SPECIMEN Ordering Facility: [facility] Address: [address] [place] [address] Performed By: #### 5 7021-8 #### [facility] CLIA [id number] [address] [place] [address] [place] Neutrophils/100 WBC (Bld) 54.4 % Normal [facility] Comment on above: Order Comment: Speci men Type: BLOOD SPECIMEN Ordering Facility: [facility] Address: [address] [place] [address] Performed By: #### 5 7021-8 #### [facility] CLIA [id number] [address] [place] [address] [place] Platelet mean volume (Bld) [Entitic vol] 10.6 fL Normal 9.0-12.7 [facility] Comment on above: Order Comment: Speci men Type: BLOOD SPECIMEN Ordering Facility: [facility] Address: [address] [place] [address] Performed By: #### 5 7021-8 #### [facility] CLIA [id number] [address] [place] [address] [place] Platelets (Bld) [#/Vol] 220 10*3/uL Normal 150-400 [facility] Center Comment on above: Order Comment: Speci men Type: BLOOD SPECIMEN Ordering Facility: [facility] Address: [address] [place] [address] Performed By: #### 5 7021-8 #### [facility] CLIA [id number] [address] [place] [address] [place] RBC (Bld) [#/Vol] 4.15 10*6/uL Normal 3.90-5.20 [facility] Comment on above: Order Comment: Speci men Type: BLOOD SPECIMEN Ordering Facility: [facility] Address: [address] [place] [address] Performed By: #### 5 7021-8 #### [facility] CLIA [id number] [address] [place] [address] [place] WBC (Bld) [#/Vol] 5.18 10*3/uL Normal 3.70-11.00 [facility] Comment on above: Order Comment: Speci men Type: BLOOD SPECIMEN Ordering Facility: [facility] Address: [address] [place] [address] [place] [address] Performed By: #### 5 7021-8 #### [facility] CLIA [id number] [address] [place] [address] [facility] [place] Basophils (Bld) [#/Vol] <0.11 k/uL [facility] Basophils/100 WBC (Bld) 0.4 % [facility] Differential cell count method Nom (Bld) Auto [facility] Eosinophils (Bld) [#/Vol] 0.10 10*3/uL <0.46 k/uL [facility] Eosinophils/100 WBC (Bld) 1.9 % [facility] Erythrocyte distribution width (RBC) [Ratio] 13.8 % 11.5 - 15.0 % [facility] Hematocrit (Bld) [Volume fraction] 35.6 % Low 36.0 - 46.0 % [facility] Hemoglobin (Bld) [Mass/Vol] 11.1 g/dL Low 11.5 - 15.5 g/dL [facility] Lymphocytes (Bld) [#/Vol] 1.75 10*3/uL 1.00 - 4.00 k/uL [facility] Lymphocytes/100 WBC (Bld) 33.8 % [facility] MCH (RBC) [Entitic mass] 26.7 pg 26.0 - 34.0 pg [facility] MCHC (RBC) [Mass/Vol] 31.2 g/dL 30.5 - 36.0 g/dL [facility] MCV (RBC) [Entitic vol] 85.8 fL 80.0 - 100.0 fL [facility] Monocytes (Bld) [#/Vol] 0.49 10*3/uL <0.87 k/uL [facility] Monocytes/100 WBC (Bld) 9.5 % [facility] Neutrophils (Bld) [#/Vol] 2.82 10*3/uL 1.45 - 7.50 k/uL [facility] Neutrophils/100 WBC (Bld) 54.4 % [facility] Platelet mean volume (Bld) [Entitic vol] 10.6 fL 9.0 - 12.7 fL [facility] Platelets (Bld) [#/Vol] 220 10*3/uL 150 - 400 k/uL [facility] RBC (Bld) [#/Vol] 4.15 10*6/uL 3.90 - 5.2 0 m/uL [facility] WBC (Bld) [#/Vol] 5.18 10*3/uL 3.70 - 11. 00 k/uL [facility] CT ABD/PEL W IVCONon 022 CT ABD/PEL W IVCON * * *Final Report* * * DATE OF EXAM: Jul 12 2022 3:26PM [facility] 0530 - CT ABD/PEL W IVCON / PROCEDURE REASON: Abdominal discomfort * * * * Physician Interpretation * * * * EXAMINATION: CT ABDOMEN AND PELVIS WITH IV CONTRAST CLINICAL HISTORY: Change in bowel movements; upper abdominal pain TECHNIQUE: CT of the abdomen and pelvis was performed using standard technique, scanning from just above the dome of the diaphragm to the symphysis pubis. MQ: CTAP_3 Contrast: IV: 100 ml of Omnipaque 350 Oral: 50 ml of 50ML Omnipaque [address] Radiation dose: Integrated Dose-length product (DLP) for this visit = 881.32 mGy*cm. CT Dose Reduction Employed: Automated exposure control (AEC) COMPARISON: None. RESULT: Liver: No mass. Biliary: No bile duct dilation. Cholecystectomy. Spleen: No mass. No splenomegaly. Pancreas: No mass or duct dilation. Adrenals: No mass. Kidneys: No mass, calculus or hydronephrosis. GI tract: There is a small sliding-type hiatal hernia. The stomach is otherwise unremarkable. No small bowel dilatation, focal wall thickening or evidence of obstruction. Mild colonic diverticulosis.. Appendix is not well visualized, however there is no evidence of acute appendicitis. Lymph nodes: No abdominal or pelvic lymphadenopathy. Mesentery/Peritoneum: No ascites or mass. Retroperitoneum: No mass. Vasculature: No aortic aneurysm. Pelvis: Prior hysterectomy. Bones/Soft Tissues: There is severe scoliotic curvature of the lumbar spine with multilevel degenerative disc disease. No acute osseous injury is seen. Lower thorax: Unremarkable. [employer] (topogram) images: IMPRESSION: 1. No acute intra-abdominal abnormality is seen. 2. Small hiatal hernia 3. Mild colonic diverticulosis Cytotechnologist Supervisor: KIARRA Transcribe Date/Time: Jul 12 2022 4:29P Dictated by : CARITO MUNSON MD This examination was interpreted and the report reviewed and electronically signed by: CARITO MUNSON MD on Jul 12 2022 4:38PM EST [id number] Normal [facility] Hepatic function 2000 panelo n 07-12-2022 Albumin [Mass/Vol] 4.2 g/dL Normal 3.9-4.9 [facility] Comment on above: Order Comment: Speci men Type: BLOOD SPECIMEN Ordering Facility: [facility] Address: [address] [place] [address] Performed By: #### 2 4325-3, 3040-3, 93331-7, 3016-3 #### [facility] CLIA [id number] [address] [place] [id number] [place] [address] [facility] ALP [Catalytic activity/Vol] 121 U/L Normal 34-123 [facility] Comment on above: Order Comment: Speci men Type: BLOOD SPECIMEN Ordering Facility: [facility] Address: [address] [place] [address] Performed By: #### 2 4325-3, 3040-3, 41598-8, 3016-3 #### [facility] CLIA [id number] [address] [place] [id number] [place] [address] [facility] ALT With P-5'-P [Catalytic activity/Vol] 12 U/L Normal 7-38 [facility] Comment on above: Order Comment: Speci men Type: BLOOD SPECIMEN Ordering Facility: [facility] Address: [address] [place] [address] Performed By: #### 2 4325-3, 3040-3, 32293-2, 3016-3 #### [facility] CLIA [id number] [address] [place] [address] [facility] AST With P-5'-P [Catalytic activity/Vol] 20 U/L Normal 13-35 [facility] Comment on above: Order Comment: Speci men Type: BLOOD SPECIMEN Ordering Facility: [facility] Address: [address] [place] [address] Performed By: #### 2 4325-3, 3040-3, 59265-2, 3016-3 #### [facility] CLIA [id number] [address] [place] [address] [place] Bilirubin [Mass/Vol] 0.4 mg/dL Normal 0.2-1.3 [facility] Comment on above: Order Comment: Speci men Type: BLOOD SPECIMEN Ordering Facility: [facility] Address: [address] [place] [address] Performed By: #### 2 4325-3, 3040-3, 04277-3, 3016-3 #### [facility] CLIA [id number] [address] [place] [address] [place] Bilirubin.direct [Mass/Vol] mg/dL Normal <0.2 [facility] Comment on above: Order Comment: Speci men Type: BLOOD SPECIMEN Ordering Facility: [facility] Address: [address] [place] [address] Performed By: #### 2 4325-3, 3040-3, 97640-8, 3016-3 #### [facility] CLIA [id number] [address] [place] [address] [place] Protein [Mass/Vol] 6.8 g/dL Normal 6.3-8.0 [facility] Comment on above: Order Comment: Speci men Type: BLOOD SPECIMEN Ordering Facility: [facility] Address: [address] [place] [address] Performed By: #### 2 4325-3, 3040-3, 57050-6, 3016-3 #### [facility] CLIA [id number] [address] [place] [address] [place] Lipase SerPl-cCncon 07-12-20 22 Lipase [Catalytic activity/Vol] 27 U/L Normal 16-61 [facility] Comment on above: Order Comment: Speci men Type: BLOOD SPECIMEN Ordering Facility: [facility] Address: [address] [place] [address] Performed By: #### 2 4325-3, 3040-3, 68974-2, 3016-3 #### [facility] CLIA [id number] [address] [place] [address] [facility] [place] TSH SerPl-aCncon 07-12-2022 TSH Qn 2.830 m[IU]/L Normal 0.270-4.200 [facility] Comment on above: Order Comment: Speci men Type: BLOOD SPECIMEN Ordering Facility: [facility] Address: [address] [place] [address] Performed By: #### 2 4325-3, 3040-3, 52107-7, 3016-3 #### [facility] CLIA [id number] [address] [place] Urinalysis complete panel (U )on 07-12-2022 Bilirubin Ql (U) Negative Normal Negative [facility] Comment on above: Order Comment: Speci men Type: URINE SPECIMEN Ordering Facility: [facility] Address: [address] [place] [address] Performed By: #### 2 4356-8 #### [facility] CLIA [id number] [address] [place] [address] [place] Clarity (Unsp spec) Clear Normal Clear [facility] Comment on above: Order Comment: Speci men Type: URINE SPECIMEN Ordering Facility: [facility] Address: [address] [place] [address] Performed By: #### 2 4356-8 #### [facility] CLIA [id number] [address] [place] [address] [facility] Color (U) Yellow Normal Yellow [facility] Comment on above: Order Comment: Speci men Type: URINE SPECIMEN Ordering Facility: [facility] Address: [address] [place] [address] Performed By: #### 2 4356-8 #### [facility] CLIA [id number] [address] [place] [address] [facility] [place] Glucose Test strip (U) [Mass/Vol] Negative Normal Negative [facility] Comment on above: Order Comment: Speci men Type: URINE SPECIMEN Ordering Facility: [facility] Address: [address] [place] [address] Performed By: #### 2 4356-8 #### [facility] CLIA [id number] [address] [place] [address] [place] Hemoglobin Ql (U) Negative Normal Negative [facility] Comment on above: Order Comment: Speci men Type: URINE SPECIMEN Ordering Facility: [facility] Address: [address] [place] [address] Performed By: #### 2 4356-8 #### [facility] CLIA [id number] [address] [place] [address] [place] Ketones Ql (U) Negative Normal Negative [facility] Comment on above: Order Comment: Speci men Type: URINE SPECIMEN Ordering Facility: [facility] Address: [address] [place] [address] Performed By: #### 2 4356-8 #### [facility] CLIA [id number] [address] [place] [address] [place] Leukocyte esterase Test strip Ql (U) Negative Normal Negative [facility] Comment on above: Order Comment: Speci men Type: URINE SPECIMEN Ordering Facility: [facility] Address: [address] [place] [address] Performed By: #### 2 4356-8 #### [facility] CLIA [id number] [address] [place] [address] [place] Nitrite Ql (U) Negative Normal Negative [facility] Comment on above: Order Comment: Speci men Type: URINE SPECIMEN Ordering Facility: [facility] Address: [address] [place] [address] Performed By: #### 2 4356-8 #### [facility] CLIA [id number] [address] pH (U) 6.0 [pH] Normal 5.0-8.0 [facility] Comment on above: Order Comment: Speci men Type: URINE SPECIMEN Ordering Facility: [facility] Address: [address] [place] [address] Performed By: #### 2 4356-8 #### [facility] CLIA [id number] [address] STATES [facility] Protein (U) [Mass/Vol] Negative Normal Negative [facility] Comment on above: Order Comment: Speci men Type: URINE SPECIMEN Ordering Facility: [facility] Address: [address] [place] [address] Performed By: #### 2 4356-8 #### [facility] CLIA [id number] [address] STATES [facility] RBC LM.HPF (Urine sed) [#/Area] 0-3 /HPF Normal 0-3 /HPF [facility] Comment on above: Order Comment: Speci men Type: URINE SPECIMEN Ordering Facility: [facility] Address: [address] [place] [address] Performed By: #### 2 4356-8 #### [facility] CLIA [id number] [address] [place] [address] [place] Specific gravity (U) [Rel density] 1.015 Normal 1.005-1.030 [facility] Comment on above: Order Comment: Speci men Type: URINE SPECIMEN Ordering Facility: [facility] Address: [address] [place] [address] Performed By: #### 2 4356-8 #### [facility] CLIA [id number] [address] [place] [id number] [facility] Urobilinogen Ql (U) 0.2 EU/dL Normal 0.2-1.0 EU/dL [facility] Comment on above: Order Comment: Speci men Type: URINE SPECIMEN Ordering Facility: [facility] Address: [address] [place], [place] [id number] Performed By: #### 2 4356-8 #### [facility] CLIA [id number] [address] [place] [id number] [facility] WBC LM.HPF (Urine sed) [#/Area] 0-5 /HPF Normal 0-5 /HPF [facility] Comment on above: Order Comment: Speci men Type: URINE SPECIMEN Ordering Facility: [facility] Address: [address] [place] [address] Performed By: #### 2 4356-8 #### [facility] CLIA [id number] [address] [place] [id number] [facility] XR Ribs - right Views and est PAon 08-28-2020 IMPRESSION: Negative ribs. Cytotechnologist Supervisor: KIARRA Transcribe Date/Time: Aug 28 2020 6:29P Dictated by : CARL ALEJANDRO MD This examination was interpreted and the report reviewed and electronically signed by: CARL ALEJANDRO MD on Aug 28 2020 6:34PM [facility] DIVISION OF RADIOLOGY * * *Final Report* * * DATE OF EXAM: Aug 28 2020 10:42AM WOX [id number] - XR RIB/CHST 3V AP RIB/OBL/CHST R / PROCEDURE REASON: Rib pain on right side * * * * Physician Interpretation * * * * EXAMINATION: XR RIB/CHST 3V AP RIB/OBL/CHST R HISTORY: low right anterior rib pain for 6 months. Rib pain on right side. TECHNIQUE: XR RIB/CHST 3V AP RIB/OBL/CHST R Laterality: RIGHT Number of different views (projections): 3 M: XB_1 COMPARISON: There are no prior studies for comparison RESULT: Frontal radiograph of the chest and dedicated views of the right ribs show no evidence of pneumothorax, hemothorax or pulmonary contusion. The visualized bony structures are intact without apparent displaced or nondisplaced rib fracture. DIVISION OF RADIOLOGY Provider, [facility]cf Faby Connell - 08/28/2020 * * *Final Report* * * DATE OF EXAM: Aug 28 2020 10:42AM WOX [id number] - XR RIB/CHST 3V AP RIB/OBL/CHST R / PROCEDURE REASON: Rib pain on right side * * * * Physician Interpretation * * * * EXAMINATION: XR RIB/CHST 3V AP RIB/OBL/CHST R HISTORY: low right anterior rib pain for 6 months. Rib pain on right side. TECHNIQUE: XR RIB/CHST 3V AP RIB/OBL/CHST R Laterality: RIGHT Number of different views (projections): 3 M: XB_1 COMPARISON: There are no prior studies for comparison RESULT: Frontal radiograph of the chest and dedicated views of the right ribs show no evidence of pneumothorax, hemothorax or pulmonary contusion. The visualized bony structures are intact without apparent displaced or nondisplaced rib fracture. IMPRESSION IMPRESSION: Negative ribs. Cytotechnologist Supervisor: PSCB Transcribe Date/Time: Aug 28 2020 6:29P Dictated by : CARL ALEJANDRO MD This examination was interpreted and the report reviewed and electronically signed by: CARL ALEJANDRO MD on Aug 28 2020 6:34PM EST [facility] Radiology Study observation (narrative) [facility] XR Ribs - right Views and Ch est PAOrdered By: Ccf Provider on 08-28-2020 [facility] NM CARDIAC PERF STRESS/PHARM on 04-16-2018 NM CARDIAC PERF STRESS/PHARM * * *Final Report* * *DATE OF EXAM: Apr 16 2018 10:35AM [facility]IA GUADALU[facility] 0006 - NM CARDIAC PERF STRESS/PHARM / REASON: multiple diagnoses * * * * Physician Interpretation * * * * PATIENT:Name: NENA Soriano MICHAELN: [id number]: 77 yearsGender: FCONCLUSIONS: 1. SPECT Perfusion Study: Normal. 2. There is no scintigraphic evidence for inducible ischemia. 3. No evidence of scarred myocardium. 4. Functional capacity N/A (pharmacological). 5. Left ventricle is normal in size. The left ventricle systolic function is normal. 6. Right ventricle is normal in size. 7. This is a low risk scan. LVEF % 71Prior Study Comparison Prior nuclear cardiology exam was performed on 07/22/12.Nuclear Med Report:1-Day Tc-Tetrofosmin Gated SPECT Myocardial Perfusion with Regadenoson Stress: Myocardial perfusion imaging was performed at rest 30 minutes following the IV injection of Tc-99m tetrofosmin. The patient received 0.4 mg of regadenoson, via rapid IV push, immediately followed by Tc-99m tetrofosmin IV. Gated post stress tomographic imaging was performed 30 to 60 minutes later. See administered doses below.[facility]: 04/16/2018 8:33:44 AMAccession #: [id number]: Dyspnea.Interpreting physician: Zay Martinez DOPatient History:History of hypertension, diabetes mellitus, dyslipidemia and Prior smoker. Medications currently taking are statins and diuretic.Height: 162.56 cm BSA: 2.06 m?Weight: 93.90 kg BMI: 35.5 kg/m?Imaging ProtocolLimitation Reason G.I. uptake and Breast attenuation.Primary Rhythm: Sinus.Secondary Rhythm: Sinus. Exam Type: Rest Stress Radiopharm: Tc-99m Tetrofosmin Tc-99m Tetrofosmin Dosage(mCi): 13.8 33.9Atten Correction: not performed not performed Stress Agent: Regadenoson 0.4mg Supply provided from [facility] PharmacyResting Heart Rate: 62 bpmResting Blood Press: 185/82 mmHgImage QualityThe overall study imaging quality was deemed to be poor. The following technical issues were noted: G.I. uptake and Breast attenuation.FINDINGS:LVEF: 71 %LEFT VENTRICLEThe left ventricle is normal in size. Left ventricular systolic function is normal.Right VentricleThe right ventricle is normal in size.Stress Test Findings:There is no scintigraphic evidence for inducible ischemia. There is no evidence of scarring.The stress test was terminated due to the following: End of Protocol.Peak HR 90 bpm. (63 % MPHR)Peak BP 169 mmHg/82 mmHgPatient experienced shortness of breath and headache during stress.Stress ECG normal ST segment response and normal sinus rhythm.Stress complications: none. Final Cytotechnologist Supervisor: SHAKILATransregino Date/Time: Apr 16 2018 8:33ADictated by : Dona CAPONE examination was interpreted and the report reviewed and electronically signed by: ZAY MARTINEZ DO on Apr 16 2018 4:10PM [id number] [facility] NUCLEAR STRESS LEXISCAN (CAR D)on 04-16-2018 NUCLEAR STRESS LEXISCAN (CARD) NAME : STACIEDEVINNENA TapiaJANE : [id number] : 1940 Gender : FemaleRace : ORD : [id number] Procedure Date : Apr 16 2018 09:12:58Edit Date : Apr 20 2018 10:44:58 Conclusions:PLEASE REFER TO IMAGING SECTION IN EPIC FOR COMPLETE INTERPRETATION OF STRESS TEST AND MYOCARDIAL PERFUSION IMAGING Protocol Name : LEXISCAN Time In Exercise Phase : 00:06:00 Max. Systolic BP : 185 mmHgMax Diastolic BP : 82 mmHgMax Heart Rate : 90 BPMMax Predicted Heart Rate : 144 BPMRecovery ECG Response (OLD) : Reason For Termination : End of Protocol Test Reason : Dyspnea with Exercise Location :NSL Overread By : ZAY MARTINEZ D.O.Edited By : Sera Cr By : NEIL ESQUEDAAcquired by : JEANNE ROWELL [facility] Pankaj 04-15-2018 CNPN Telephone (CDLBME) PAWEL MANDUJANO ([id number]) 1940 FDate Time Provider Department04/15/18 MELODY ARECHIGA (RN) ESTELALBME During your visit today, we recorded the following information about you:Melody Arechiga RN, RN 04/15/2018 12:48 PM SignedSpoke with patient regarding reminder for stress test tomorrow and giveninstructionsAllergies As of Date: 04/15/2018(No Known Allergies)Date Reviewed: 03/27/2018Reviewed by: Uriel Mcmillan - Fully AssessedReason for Visit: Reminder Call [[id number]]Prescriptions as of 04/15/2018 Sig: OMEPRAZOLE MAGNESIUM 20 MG TA* Take 1 tablet by mouth daily * ATORVASTATIN 10 MG TABLET Take 1 tablet by mouth daily * TRIAMTERENE 37.5 MG-HYDROCHLO* Take 1 capsule by mouth once * FLUOXETINE 20 MG CAPSULE TAKE 1 CAPSULE BY MOUTH ONCE * LEVOTHYROXINE 88 MCG TABLET TAKE 1 TABLET BY MOUTH ONCE D* TIZANIDINE 4 MG CAPSULE Take 1 capsule by mouth daily* TAPENTADOL 50 MG TABLET Take 1 tablet by mouth every * ESOMEPRAZOLE MAGNESIUM 20 MG * Take 20 mg by mouth DAILY (6 * COMPOUNDED PRESCRIPTION Gaviscon, take as directed.Problem List As Of Date 04/15/2018 Noted Resolved ELEV TRANSAMINASE/LDH [R74.0] INVALID FOR* Acute gastritis without mention of hemorrhage [*INVALID FOR*09/16/2012 Recurrent major depression in partial remission*INVALID FOR* Reflux esophagitis [K21.0] 09/16/2012 PERS HX COLONIC POLYPS [Z86.010] More... BENIGN NEOPLASM LG BOWEL [D12.6] INVALID FOR* DIVERTICULOSIS OF COLON W/O BLEED [K57.30] INVALID FOR* Prediabetes [R73.03] INVALID FOR* Hypothyroidism [E03.9] INVALID FOR* Hyperlipidemia [E78.5] INVALID FOR* GERD (gastroesophageal reflux disease) [K21.9] INVALID FOR* Hiatal hernia [K44.9] INVALID FOR* Essential tremor [G25.0] INVALID FOR* Essential hypertension [I10] INVALID FOR* DDD (degenerative disc disease), cervical [M50.*INVALID FOR* More... Status:Closed by MELODY ARECHIGA on 04/15/18 [facility] Pankaj 03-27-2018 CNP Telephone (CDLBME) PAWEL MANDUJANO ([id number]) 1940 FDate Time Provider Department03/27/18 MELODY ARECHIGA (RN) CDLBME During your visit today, we recorded the following information about you:Melody Arechiga RN, RN 03/27/2018 12:39 PM SignedLeft message regarding reminder for stress test tomorrow and given instructionsAllergies As of Date: 03/27/2018(No Known Allergies)Date Reviewed: 03/27/2018Reviewed by: Otf) Hipolito - Fully AssessedReason for Visit: Reminder Call [[id number]]Prescriptions as of 03/27/2018 Sig: OMEPRAZOLE MAGNESIUM 20 MG TA* Take 1 tablet by mouth daily * ATORVASTATIN 10 MG TABLET Take 1 tablet by mouth daily * TRIAMTERENE 37.5 MG-HYDROCHLO* Take 1 capsule by mouth once * FLUOXETINE 20 MG CAPSULE TAKE 1 CAPSULE BY MOUTH ONCE * LEVOTHYROXINE 88 MCG TABLET TAKE 1 TABLET BY MOUTH ONCE D* TIZANIDINE 4 MG CAPSULE Take 1 capsule by mouth daily* TAPENTADOL 50 MG TABLET Take 1 tablet by mouth every * ESOMEPRAZOLE MAGNESIUM 20 MG * Take 20 mg by mouth DAILY (6 * COMPOUNDED PRESCRIPTION Gaviscon, take as directed.Problem List As Of Date 03/27/2018 Noted Resolved ELEV TRANSAMINASE/LDH [R74.0] INVALID FOR* Acute gastritis without mention of hemorrhage [*INVALID FOR*09/16/2012 Recurrent major depression in partial remission*INVALID FOR* Reflux esophagitis [K21.0] 09/16/2012 PERS HX COLONIC POLYPS [Z86.010] More... BENIGN NEOPLASM LG BOWEL [D12.6] INVALID FOR* DIVERTICULOSIS OF COLON W/O BLEED [K57.30] INVALID FOR* Prediabetes [R73.03] INVALID FOR* Hypothyroidism [E03.9] INVALID FOR* Hyperlipidemia [E78.5] INVALID FOR* GERD (gastroesophageal reflux disease) [K21.9] INVALID FOR* Hiatal hernia [K44.9] INVALID FOR* Essential tremor [G25.0] INVALID FOR* Essential hypertension [I10] INVALID FOR* DDD (degenerative disc disease), cervical [M50.*INVALID FOR* More... Status:Closed by MELODY ARECHIGA on 03/27/18 [facility] Vital Signs Date Time Vital Sign Value Performing [facility] Facility 08-23-2024 09:06-0400 Body mass index (BMI) [Ratio] 30.3 kg/m2 Patricia Suppan DISABILITY HEARING OFFICER.PHOTO TECHNOLOGIST Work Phone: [facility] 08-23-2024 09:06-0400 Body weight 77.56 kg Patricia Suppan DISABILITY HEARING OFFICER.PHOTO TECHNOLOGIST Work Phone: [facility] 08-23-2024 09:06-0400 Diastolic blood pressure 70 mm[Hg] Patricia Suppan DISABILITY HEARING OFFICER.PHOTO TECHNOLOGIST Work Phone: [facility] 08-23-2024 09:06-0400 Heart rate 73 /min Patricia Suppan DISABILITY HEARING OFFICER.PHOTO TECHNOLOGIST Work Phone: [facility] 08-23-2024 09:06-0400 Respiratory rate 16 /min Patricia Suppan DISABILITY HEARING OFFICER.PHOTO TECHNOLOGIST Work Phone: [facility] 08-23-2024 09:06-0400 SaO2% (BldA) [Mass fraction] 98 % Patricia Suppan DISABILITY HEARING OFFICER.PHOTO TECHNOLOGIST Work Phone: [facility] 08-23-2024 09:06-0400 Systolic blood pressure 116 mm[Hg] Patricia Suppan DISABILITY HEARING OFFICER.PHOTO TECHNOLOGIST Work Phone: [facility] 07-26-2024 08:03-0400 Body mass index (BMI) [Ratio] 30.94 kg/m2 Raheem Dacosta MD Work Phone: [facility] 07-26-2024 08:03-0400 Body weight 79.2 kg Raheem Daocsta MD Work Phone: [facility] 07-26-2024 08:03-0400 Diastolic blood pressure 72 mm[Hg] Raheem Dacosta MD Work Phone: [facility] 07-26-2024 08:03-0400 Heart rate 71 /min Raheem Dacosta MD Work Phone: [facility] 07-26-2024 08:03-0400 SaO2% (BldA) [Mass fraction] 95 % Raheem Dacosta MD Work Phone: [facility] 07-26-2024 08:03-0400 Systolic blood pressure 112 mm[Hg] Raheem Dacosta MD Work Phone: [facility] 03-02-2024 08:01-0400 Body mass index (BMI) [Ratio] 29.95 kg/m2 NA Estrada PA-C Work Phone: [facility] 03-02-2024 08:01-0400 Body weight 76.66 kg NA Estrada PA-C Work Phone: [facility] 03-02-2024 08:01-0400 Diastolic blood pressure 72 mm[Hg] NA Estrada PA-C Work Phone: [facility] 03-02-2024 08:01-0400 Heart rate 75 /min NA Estrada PA-C Work Phone: [facility] 03-02-2024 08:01-0400 Respiratory rate 16 /min NA Estrada PA-C Work Phone: [facility] 03-02-2024 08:01-0400 SaO2% (BldA) [Mass fraction] 98 % NA Estrada PA-C Work Phone: [facility] 03-02-2024 08:01-0400 Systolic blood pressure 136 mm[Hg] NA Estrada PA-C Work Phone: [facility] 09-01-2023 08:36-0400 Body weight 82.56 kg NA Estrada PA-C Work Phone: [facility] 09-01-2023 08:36-0400 Diastolic blood pressure 74 mm[Hg] NA Estrada PA-C Work Phone: [facility] 09-01-2023 08:36-0400 Heart rate 76 /min NA Estrada PA-C Work Phone: [facility] 09-01-2023 08:36-0400 Respiratory rate 16 /min NA Estrada PA-C Work Phone: [facility] 09-01-2023 08:36-0400 SaO2% (BldA) [Mass fraction] 96 % NA Estrada PA-C Work Phone: [facility] 09-01-2023 08:36-0400 Systolic blood pressure 132 mm[Hg] NA Estrada PA-C Work Phone: [facility] 08-01-2023 09:27-0400 Body weight 83.64 kg NA Estrada PA-C Work Phone: [facility] 08-01-2023 09:27-0400 Diastolic blood pressure 72 mm[Hg] NA Estrada PA-C Work Phone: [facility] 08-01-2023 09:27-0400 Heart rate 65 /min NA Estrada PA-C Work Phone: [facility] 08-01-2023 09:27-0400 Respiratory rate 16 /min NA Estrada PA-C Work Phone: [facility] 08-01-2023 09:27-0400 SaO2% (BldA) [Mass fraction] 98 % NA Estrada PA-C Work Phone: [facility] 08-01-2023 09:27-0400 Systolic blood pressure 122 mm[Hg] NA Estrada PA-C Work Phone: [facility] 06-16-2023 14:33-0400 Body height 160 cm Raheem Dacosta MD Work Phone: [facility] 06-16-2023 14:33-0400 Body weight 87 kg Raheem Dacosta MD Work Phone: [facility] 06-16-2023 14:33-0400 Diastolic blood pressure 64 mm[Hg] Raheem Dacosta MD Work Phone: [facility] 06-16-2023 14:33-0400 Heart rate 88 /min Raheem Dacosta MD Work Phone: [facility] 06-16-2023 14:33-0400 SaO2% (BldA) [Mass fraction] 96 % Raheem Dacosta MD Work Phone: [facility] 06-16-2023 14:33-0400 Systolic blood pressure 120 mm[Hg] Raheem Dacosta MD Work Phone: [facility] 01-21-2023 08:32-0400 Body height 160 cm Sadi Lew MD Work Phone: [facility] 01-21-2023 08:32-0400 Body weight 90.27 kg Sadi Lew MD Work Phone: [facility] 01-21-2023 08:32-0400 Diastolic blood pressure 74 mm[Hg] Sadi Lew MD Work Phone: [facility] 01-21-2023 08:32-0400 Heart rate 78 /min Sadi Lew MD Work Phone: [facility] 01-21-2023 08:32-0400 SaO2% (BldA) [Mass fraction] 97 % Sadi Lew MD Work Phone: [facility] 01-21-2023 08:32-0400 Systolic blood pressure 148 mm[Hg] Sadi Lew MD Work Phone: [facility] 08-27-2022 07:55-0400 Body temperature 97.5 [degF] Kp Fitzgerald MD Work Phone: [facility] 08-27-2022 07:55-0400 Body weight 89.27 kg Kp Fitzgerald MD Work Phone: [facility] 08-27-2022 07:55-0400 Diastolic blood pressure 70 mm[Hg] Kp Fitzgerald MD Work Phone: [facility] 08-27-2022 07:55-0400 Heart rate 99 /min Kp Fitzgerald MD Work Phone: [facility] 08-27-2022 07:55-0400 SaO2% (BldA) [Mass fraction] 98 % Kp Fitzgerald MD Work Phone: [facility] 08-27-2022 07:55-0400 Systolic blood pressure 114 mm[Hg] Kp Fitzgerald MD Work Phone: [facility] 08-19-2022 08:39-0400 Diastolic blood pressure 70 mm[Hg] Kp Fitzgerald MD Work Phone: [facility] 08-19-2022 08:39-0400 Heart rate 78 /min Kp Fitzgerald MD Work Phone: [facility] 08-19-2022 08:39-0400 Respiratory rate 16 /min Kp Fitzgerald MD Work Phone: [facility] 08-19-2022 08:39-0400 SaO2% (BldA) [Mass fraction] 94 % Kp Fitzgerald MD Work Phone: [facility] 08-19-2022 08:39-0400 Systolic blood pressure 149 mm[Hg] Kp Fitzgerald MD Work Phone: [facility] 08-19-2022 07:13-0400 Body temperature 97.5 [degF] Kp Fitzgerald MD Work Phone: [facility] 08-19-2022 07:13-0400 Body weight 89 kg Kp Fitzgerald MD Work Phone: [facility] 07-22-2022 13:10-0400 Body height 160 cm Kp Fitzgerald MD Work Phone: [facility] 07-22-2022 13:10-0400 Body temperature 97 [degF] Kp Fitzgerald MD Work Phone: [facility] 07-22-2022 13:10-0400 Body weight 89 kg Kp Fitzgerald MD Work Phone: [facility] 07-22-2022 13:10-0400 Diastolic blood pressure 64 mm[Hg] Kp Fitzgerald MD Work Phone: [facility] 07-22-2022 13:10-0400 Heart rate 94 /min Kp Fitzgerald MD Work Phone: [facility] 07-22-2022 13:10-0400 SaO2% (BldA) [Mass fraction] 100 % Kp Fitzgerald MD Work Phone: [facility] 07-22-2022 13:10-0400 Systolic blood pressure 122 mm[Hg] Kp Fitzgerald MD Work Phone: [facility] 07-17-2022 09:06-0400 Body height 162.6 cm Raheem Dacosta MD Work Phone: [facility] 07-17-2022 09:06-0400 Body weight 89.36 kg Raheem Dacosta MD Work Phone: [facility] 07-17-2022 09:06-0400 Diastolic blood pressure 76 mm[Hg] Raheem Dacosta MD Work Phone: [facility] 07-17-2022 09:06-0400 Heart rate 63 /min Raheem Dacosta MD Work Phone: [facility] 07-17-2022 09:06-0400 SaO2% (BldA) [Mass fraction] 98 % Raheem Dacosta MD Work Phone: [facility] 07-17-2022 09:06-0400 Systolic blood pressure 126 mm[Hg] Raheem Dacosta MD Work Phone: [facility] 07-12-2022 08:49-0400 Body weight 89.36 kg Raheem Dacosta MD Work Phone: [facility] 07-12-2022 08:49-0400 Diastolic blood pressure 72 mm[Hg] Raheem Dacosta MD Work Phone: [facility] 07-12-2022 08:49-0400 Heart rate 68 /min Raheem Dacosta MD Work Phone: [facility] 07-12-2022 08:49-0400 Systolic blood pressure 118 mm[Hg] Raheem Dacosta MD Work Phone: [facility] 08-21-2021 08:36-0400 Diastolic blood pressure 67 mm[Hg] KAYLEN STARR APRN-PHOTO TECHNOLOGIST [facility] 08-21-2021 08:36-0400 Heart rate 65 /min KAYLEN STARR APRN-PHOTO TECHNOLOGIST [facility] 08-21-2021 08:36-0400 Respiratory rate 20 /min KAYLEN STARR DISABILITY HEARING OFFICER-PHOTO TECHNOLOGIST [facility] 08-21-2021 08:36-0400 Systolic blood pressure 150 mm[Hg] KAYLEN STARR DISABILITY HEARING OFFICER-PHOTO TECHNOLOGIST [facility] 08-21-2021 08:34-0400 Reason For Taking VItal Signs KAYLEN STARR DISABILITY HEARING OFFICER-PHOTO TECHNOLOGIST [facility] 08-21-2021 08:30-0400 Diastolic Blood Pressure NBP 70 1 KAYLEN STARR DISABILITY HEARING OFFICER-PHOTO TECHNOLOGIST [facility] 08-21-2021 08:30-0400 Heart rate 72 /min KAYLEN STARR DISABILITY HEARING OFFICER-PHOTO TECHNOLOGIST [facility] 08-21-2021 08:30-0400 Respiratory rate 16 /min KAYLEN STARR DISABILITY HEARING OFFICER-PHOTO TECHNOLOGIST [facility] 08-21-2021 08:30-0400 Systolic Blood Pressure NBP 138 1 KAYLEN STARR DISABILITY HEARING OFFICER-PHOTO TECHNOLOGIST [facility] 08-21-2021 08:23-0400 Diastolic Blood Pressure NBP 49 1 KAYLEN STARR DISABILITY HEARING OFFICER-PHOTO TECHNOLOGIST [facility] 08-21-2021 08:23-0400 Heart rate 67 /min KAYLEN STARR DISABILITY HEARING OFFICER-PHOTO TECHNOLOGIST [facility] 08-21-2021 08:23-0400 Respiratory rate 16 /min KAYLEN STARR DISABILITY HEARING OFFICER-PHOTO TECHNOLOGIST [facility] 08-21-2021 08:23-0400 Systolic Blood Pressure NBP 128 1 KAYLEN STARR DISABILITY HEARING OFFICER-PHOTO TECHNOLOGIST [facility] 08-21-2021 07:57-0400 Body height 162.6 cm KAYLEN STARR DISABILITY HEARING OFFICER-PHOTO TECHNOLOGIST [facility] 08-21-2021 07:57-0400 Body weight 87.6 kg KAYLEN STARR DISABILITY HEARING OFFICER-PHOTO TECHNOLOGIST [facility] 08-21-2021 07:57-0400 Body weight 33.13 kg/m2 KAYLEN STARR DISABILITY HEARING OFFICER-PHOTO TECHNOLOGIST [facility] 08-21-2021 07:57-0400 diastolic 78 mm[Hg] KAYLEN STARR DISABILITY HEARING OFFICER-PHOTO TECHNOLOGIST [facility] 08-21-2021 07:57-0400 Heart rate 84 /min KAYLEN STARR DISABILITY HEARING OFFICER-PHOTO TECHNOLOGIST [facility] 08-21-2021 07:57-0400 systolic 148 mm[Hg] KAYLEN STARR DISABILITY HEARING OFFICER-PHOTO TECHNOLOGIST [facility] Encounters Encounter Date Encounter Type Care Provider Facility Start: 08-27-2024 End: 08-30-2024 Telephone encounter Raheem Dacosta MD Work Phone: [facility] [place] Comment on above: Results Start: 08-23-2024 End: 08-23-2024 Office outpatient visit 15 minutes Patricia Vyas APRN.CNP Work Phone: [facility] [place] Comment on above: Essential tremor (Pr imary Dx); Essential hypertension; Stage 3a chronic kidney disease (HCC); Gastroesophageal reflux disease, unspecified whether esophagitis present; Recurrent major depression in partial remission (HCC); DDD (degenerative disc disease), cervical; Chronic insomnia; Encounter for screening mammogram for malignant neoplasm of breast; Need for influenza vaccination Start: 08-23-2024 End: 08-23-2024 ambulatory PATRICIA VYAS Facility:[facility] Start: 08-10-2024 End: 08-10-2024 ambulatory Raheem Dacosta MD Work Phone: [facility] [place] Comment on above: Mammogram request Start: 07-26-2024 End: 07-26-2024 ambulatory RAHEEM DACOSTA Facility:[facility] Start: 07-26-2024 End: 07-26-2024 Patient encounter procedure Raheem Dacosta MD Work Phone: [facility] [place] Comment on above: Recurrent major depr ession in partial remission (HCC) (Primary Dx); Encounter for screening examination for other mental health and behavioral disorders; DDD (degenerative disc disease), cervical; Scoliosis, unspecified scoliosis type, unspecified spinal region; Varicose veins of both lower extremities, unspecified whether complicated Start: 06-01-2024 End: 06-01-2024 ambulatory Ronnell ESTRADA Facility:[facility] Start: 05-31-2024 Refill Raheem Dacosta MD Work Phone: [facility] [place] Comment on above: Refill Request Start: 04-29-2024 Refill Ronnell MAYEN-C Work Phone: [facility] [place] Comment on above: Refill Request Start: 03-15-2024 Telephone encounter Ronnell Estrada PA-C Work Phone: [facility] [place] Comment on above: Results Start: 03-09-2024 End: 03-09-2024 Refill Raheem Dacosta MD Work Phone: [facility] [place] Comment on above: Refill Request Start: 03-02-2024 End: 03-02-2024 ambulatory Ronnell LAURAJERAMY ESTRADA Facility:[facility] Start: 03-02-2024 End: 03-02-2024 Patient encounter procedure Ronnell Laura Sean PA-C Work Phone: [facility] [place] Comment on above: BALJINDER (obstructive sle ep apnea) (Primary Dx); Essential hypertension; Stage 3 chronic kidney disease, unspecified whether stage 3a or 3b CKD (HCC); Mixed hyperlipidemia; Prediabetes; Hypothyroidism, unspecified type; Gastroesophageal reflux disease without esophagitis; Hiatal hernia; RLS (restless legs syndrome); Fatty liver disease, nonalcoholic; GERD without esophagitis; Current use of proton pump inhibitor Start: 02-03-2024 Refill Raheem Dacosta MD Work Phone: [facility] [place] Comment on above: Refill Request Start: 10-22-2023 Refill Raheem Dacosta MD Work Phone: [facility] [place] Comment on above: Med Change Request Start: 09-16-2023 Refill Ronnell MarieLaura Neto del rio PA-C Work Phone: [facility] [place] Comment on above: Refill Request Start: 09-01-2023 End: 09-01-2023 Subsequent hospital visit by physician Janneth [facility] [place] Work Phone: Radiology Start: 09-01-2023 End: 09-01-2023 Patient encounter procedure Ronnell Estrada PA-C Work Phone: [facility] [place] Comment on above: Essential hypertensi on (Primary Dx); Encounter for immunization Start: 08-21-2023 ambulatory Ronnell del rio PA-C Work Phone: [facility] [place] Comment on above: mammogram. Start: 08-21-2023 E-mail encounter fro m caregiver Ronnell Estrada PA-C Work Phone: [facility] [place] Start: 08-14-2023 Refill Raheem Dacosta MD Work Phone: [facility] [place] Comment on above: Refill Request Start: 08-05-2023 Refill Ronnell Duque on PA-C Work Phone: [facility] [place] Comment on above: Refill Request Start: 08-01-2023 ambulatory No Pcp ELIANA nascimento [place] Start: 08-01-2023 End: 08-01-2023 Patient encounter procedure Ronnell Duqueon PA-C Work Phone: [facility] [place] Comment on above: Essential hypertensi on (Primary Dx); Stage 3 chronic kidney disease, unspecified whether stage 3a or 3b CKD (HCC) Start: 07-23-2023 ambulatory Raheem Dacosta MD Work Phone: [facility] [place] Comment on above: M Start: 07-16-2023 ambulatory Raheem Dacosta MD Work Phone: [facility] [place] Start: 07-16-2023 Patient encounter procedure Raheem Dacosta MD Work Phone: [facility] [place] Comment on above: Referral Start: 07-01-2023 Refill Ronnell Duque on PA-C Work Phone: [facility] [place] Comment on above: Refill Request Start: 06-20-2023 Telephone encounter Raehem Dacosta MD Work Phone: [facility] [place] Comment on above: Results Start: 06-16-2023 End: 06-16-2023 Patient encounter procedure Raheem Dacosta MD Work Phone: [facility] [place] Comment on above: Essential tremor (Pr imary Dx); Essential hypertension; Mixed hyperlipidemia; BALJINDER (obstructive sleep apnea); Recurrent major depression in partial remission (HCC); Prediabetes; Hypothyroidism, unspecified type; DDD (degenerative disc disease), cervical; Medication monitoring encounter; Scoliosis, unspecified scoliosis type, unspecified spinal region Start: 06-02-2023 Refill Raheem Dacosta MD Work Phone: [facility] [place] Comment on above: Refill Request Start: 05-02-2023 Refill Raheem Dacosta MD Work Phone: Family Medicine [place] Comment on above: Refill Request Start: 04-16-2023 End: 04-17-2023 ambulatory KAYLEN STARR APRN-JUMA Facility:A Start: 04-16-2023 End: 04-16-2023 Patient encounter procedure KAYLEN STARR APRN-JUMA [facility] Start: 03-18-2023 Refill Raheem Dacosta MD Work Phone: [facility] [place] Comment on above: Refill Request Start: 03-10-2023 ambulatory Raheem Dacosta MD Work Phone: [facility] [place] Comment on above: Mega Mandujano [birth year] Start: 02-18-2023 End: 02-19-2023 ambulatory KAYLEN STARR APRN-JUMA Facility:A Start: 02-18-2023 End: 02-18-2023 Patient encounter procedure KALYEN STARR APRN-JUMA [facility] Start: 02-13-2023 ambulatory Raheem Dacosta MD Work Phone: [facility] [place] Comment on above: Lupillo Lind i April 08, 1941 Start: 02-06-2023 Refill Raheem Dacosta MD Work Phone: [facility] [place] Comment on above: Refill Request Start: 01-22-2023 Refill Raheem Dacosta MD Work Phone: [facility] [place] Comment on above: Refill Request Start: 01-21-2023 Telephone encounter [facility] Work Phone: Neurology Comment on above: Appointment (Kvngloa d Pap Therapy Follow Up) Start: 01-21-2023 End: 01-21-2023 Patient encounter procedure Sadi Lew MD Work Phone: Neurology Comment on above: BALJINDER (obstructive sle ep apnea) (Primary Dx); RLS (restless legs syndrome); Essential hypertension; Recurrent major depression in partial remission (HCC) Start: 12-23-2022 End: 12-24-2022 ambulatory KAYLEN STARR APRN-PHOTO TECHNOLOGIST Facility:A Start: 12-23-2022 End: 12-23-2022 Patient encounter procedure KAYLEN STARR APRN-PHOTO TECHNOLOGIST [facility] Start: 11-22-2022 Telephone encounter Raheem Dacosta MD Work Phone: [facility] [place] Comment on above: Forms Start: 11-13-2022 End: 11-13-2022 Subsequent hospital visit by physician [facility] [employer] [facility] (I-Stat/1.5t) Work Phone: Radiology Comment on above: Balance disorder [R2 6.89] Start: 10-22-2022 End: 10-23-2022 ambulatory KAYLEN STARR APRN-PHOTO TECHNOLOGIST Facility:A Start: 10-22-2022 End: 10-22-2022 Patient encounter procedure KAYLEN STARR APRN-PHOTO TECHNOLOGIST [facility] Start: 10-16-2022 Telephone encounter Raheem Dacosta MD Work Phone: [facility] [place] Comment on above: Results Start: 10-09-2022 End: 10-09-2022 Subsequent hospital visit by physician [employer] [employer] [facility] (I-Stat/1.5t) Work Phone: Radiology Comment on above: Balance disorder [R2 6.89] Start: 09-24-2022 Refill Raheem Dacosta MD Work Phone: [facility] [place] Comment on above: Refill Request Start: 09-17-2022 [facility] Work Phone: Neurology Start: 09-16-2022 ambulatory Raheem Dacosta MD Work Phone: [facility] [place] Comment on above: home sleep apnea ben t Start: 08-30-2022 Refill Ronnell Duque on PA-C Work Phone: [facility] [place] Comment on above: Refill Request Start: 08-29-2022 End: 08-30-2022 ambulatory KAYLEN STARR DISABILITY HEARING OFFICER-PHOTO TECHNOLOGIST Facility:A Start: 08-27-2022 End: 08-27-2022 Patient encounter procedure Kp Fitzgerald MD Work Phone: General Surgery Comment on above: GERD without esophag itis (Primary Dx); Hiatal hernia; Sleep apnea, unspecified type Start: 08-19-2022 End: 08-19-2022 Subsequent hospital visit by physician Kp Fitzgerald MD Work Phone: Ambulatory Surgery Comment on above: GERD without esophag itis [K21.9] Start: 08-08-2022 ambulatory Raheem Dacosta MD Work Phone: [facility] [place] Start: 08-08-2022 Patient encounter procedure Raheem Dacosta MD Work Phone: [facility] [place] Comment on above: Appointment for Mamm ogram Start: 07-29-2022 Telephone encounter Raheem Dacosta MD Work Phone: Family [facility] [place] Comment on above: Results Start: 07-22-2022 End: 07-22-2022 Patient encounter procedure Kp Fitzgerald MD Work Phone: General Surgery Comment on above: GERD without esophag itis; Change in bowel habit; Abdominal discomfort Start: 07-18-2022 Chart abstracting [facility] Work Phone: Neurology Comment on above: HSAT Check In (Adult ) Start: 07-17-2022 End: 07-17-2022 Patient encounter procedure Raheem Dacosta MD Work Phone: [facility] [place] Comment on above: Abdominal discomfort (Primary Dx); GERD without esophagitis; Change in bowel habit; Anemia, unspecified type Start: 07-16-2022 Telephone encounter Raheem Dacosta MD Work Phone: Family [facility] [place] Comment on above: Results Start: 07-12-2022 ambulatory Raheem Dacosta MD Work Phone: Family [facility] [place] Comment on above: results Start: 07-12-2022 E-mail encounter fro m caregiver Raheem Dacosta MD Work Phone: [facility] [place] Start: 07-12-2022 End: 07-12-2022 Subsequent hospital visit by physician [facility] Work Phone: [facility] Comment on above: Abdominal discomfort [R10.9] Start: 07-12-2022 End: 07-12-2022 Patient encounter procedure Raheem Dacosta MD Work Phone: [facility] [place] Comment on above: Fatigue, unspecified type (Primary Dx); GERD without esophagitis; Mixed hyperlipidemia; Hyperglycemia; Change in bowel habit; Essential hypertension; Stage 3 chronic kidney disease, unspecified whether stage 3a or 3b CKD (HCC); Hypothyroidism, unspecified type; BALJINDER (obstructive sleep apnea); Abdominal discomfort Start: 06-28-2022 Refill Raheem Dacosta MD Work Phone: [facility] [place] Comment on above: Refill Request Start: 06-25-2022 End: 06-26-2022 [facility] Start: 06-06-2022 Refill Ronnell Duque on PA-C Work Phone: [facility] [place] Comment on above: Refill Request Start: 05-07-2022 Refill Raheem Dacosta MD Work Phone: [facility] [place] Comment on above: Refill Request Start: 04-22-2022 Refill Raheem Dacosta MD Work Phone: [facility] [place] Comment on above: Refill Request Start: 04-16-2022 End: 04-16-2022 [facility] Start: 03-29-2022 Refill Raheem Dacosta MD Work Phone: [facility] [place] Comment on above: Refill Request Start: 03-04-2022 Refill Ronnell Duque on PA-C Work Phone: [facility] [place] Comment on above: Refill Request Start: 02-15-2022 End: 04-08-2022 Patient encounter procedure KAYLEN STARR DISABILITY HEARING OFFICER-PHOTO TECHNOLOGIST [facility] Start: 01-07-2022 Chart abstracting Rhea Eng RN (R n) [facility] Comment on above: Opened In Error Start: 12-17-2021 End: 12-17-2021 Patient encounter procedure KAYLENBOBBY STARR DISABILITY HEARING OFFICER-PHOTO TECHNOLOGIST [facility] Start: 10-15-2021 End: 10-15-2021 Patient encounter procedure KAYLENBOBBY STARR DISABILITY HEARING OFFICER-PHOTO TECHNOLOGIST [facility] Start: 08-21-2021 End: 08-21-2021 Minor Procedure KAYLEN STARR DISABILITY HEARING OFFICER-PHOTO TECHNOLOGIST [facility] Start: 08-20-2021 End: 08-20-2021 Patient encounter procedure KAYLEN STARR DISABILITY HEARING OFFICER-PHOTO TECHNOLOGIST [facility] Start: 06-26-2021 Chart abstracting Rhea Eng RN (R n) [employer] Start: 08-28-2020 End: 08-28-2020 Subsequent hospital visit by physician Janneth [facility] [place] Work Phone: Radiology Comment on above: Rib pain on right si de [R07.81] Start: 04-16-2018 Ambulatory [facility] Procedures Date Procedure Procedure Detail Performing Clinician Start: 09-01-2023 Radex spine cervical 2 or 3 views [facility] Pr ovider Start: 09-01-2023 INFLUENZA VACCINE, PRSV FREE, AGE 65+ YR, HIGH DOSE, QUADRIVALENT (FLUZONE HIGH-DOSE) Ronnell Estrada PA-C Work Phone: Start: 09-01-2023 [employer] COVID-19 VACCINE ( SEASON) AGE 12+ YR Ronnell Estrada PA-C Work Phone: Start: 11-13-2022 Mri brain brain stem w/o contrast material Raheem Dacosta MD Work Phone: Start: 08-19-2022 Esophagogastroduodenoscopy transoral diagnostic Kp Fitzgerald MD Work Phone: Start: 08-19-2022 Colonoscopy flx dx w/collj spec when pfrmd Kp Fitzgerald MD Work Phone: Start: 07-12-2022 Ct abdomen & pelvis w/contrast material Raheem Dacotsa MD Work Phone: Start: 08-28-2020 Radex ribs uni w/posteroant ch minimum 3 views Raheem Dacosta MD Work Phone: Administration of SA RS-CoV-2 vaccine KAYLEN KIMBROUGHTT DISABILITY HEARING OFFICER-PHOTO TECHNOLOGIST Comment on above: pfizer Plan of Treatment Date Care Activity Detail Author Start: 06-01-2027 Diabetes Screening Diabetes Screenin g [facility] Start: 03-09-2027 Diabetes Screening Diabetes Screenin [facility] Start: 08-28-2026 Diabetes Screening Diabetes Screenin [facility] Start: 06-19-2026 DIABETES SCREEN DIABETES SCREEN [facility] Start: 06-19-2026 Diabetes Screening Diabetes Screenin g [facility] Start: 07-26-2025 Anxiety Screening Anxiety Screening [facility] Start: 07-26-2025 Covid-19 Vaccine () Covid-19 Vaccine () [facility] Comment on above: Postponed from 07/11 (Declined at this time) Start: 07-26-2025 Covid-19 Vaccine () Covid-19 Vaccine () [facility] Comment on above: Postponed from 07/11 (Declined at this time) Start: 07-26-2025 RSV Vaccine (1 - 1-d ose 60+ series) RSV Vaccine (1 - 1-dose 60+ series) [facility] Comment on above: Postponed from 12/02 (Declined at this time) Start: 07-26-2025 RSV Vaccine (1 - 1-d ose 75+ series) RSV Vaccine (1 - 1-dose 75+ series) [facility] Comment on above: Postponed from 12/02 (Declined at this time) Start: 07-26-2025 Shingrix Vaccine (2 of 3) Shingrix Vaccine (2 of 3) [facility] Comment on above: Postponed from 04/24 (Declined at this time) Start: 07-26-2025 Urine microalbumin profile DTaP,Tdap,Td Vaccine (1 - Tdap) [facility] Comment on above: Postponed from 12/02 (Declined at this time) Start: 07-12-2025 DIABETES SCREEN DIABETES SCREEN [facility] Start: 07-11-2025 DIABETES SCREEN DIABETES SCREEN [facility] Start: 05-09-2025 Influenza vaccination Influenza Vacc ine (#1) [facility] Comment on above: Postponed from 07/11 (Declined at this time) Start: 02-21-2025 End: 02-21-2025 Patient encounter procedure 02/21/2025 9:20 AM EDT Office Visit Family Medicine [place] [address] [place] [address] Raheem Dacosta MD [address] [place], [place] [address] 6 month f/u [facility] [place] Comment on above: 6 month f/u Start: 01-04-2025 DIABETES SCREEN DIABETES SCREEN [facility] Start: 11-09-2024 Advance Directive Discussion Advance Directive Discussion [facility] Comment on above: Postponed from 11/10 (Declined at this time) Start: 09-02-2024 End: 09-02-2024 Patient encounter procedure 09/02/2024 8:00 AM EDT Office Visit Family Norma Alston [address] [facility] [place] [address] Ronnell Estrada PA-C [address] [place] [address] 6 month follow up Family Medicine [place] Comment on above: 6 month follow up Start: 08-23-2024 End: 08-23-2024 Patient encounter procedure 08/23/2024 9:20 AM EDT Office Visit Family Medicine [place] [address] [place] [address] Patricia Vyas APRN.PHOTO TECHNOLOGIST [address] [address] 4 week follow up increase in fluoxetine [facility] [place] Comment on above: 4 week follow up inc rease in fluoxetine Start: 07-11-2024 Influenza vaccination Influenza Vacc ine (#1) [facility] Start: 06-16-2024 COVID-19 VACCINE (4 - Pfizer series) COVID-19 VACCINE (4 - Pfizer series) [facility] Comment on above: Postponed from 11/01 (Declined at this time) Start: 06-16-2024 SHINGRIX VACCINE (2 of 3) SHINGRIX VACCINE (2 of 3) [facility] Comment on above: Postponed from 04/24 (Declined at this time) Start: 06-16-2024 Urine microalbumin profile [facility] Comment on above: Postponed from 12/02 (Declined at this time) Start: 06-01-2024 End: 08-31-2024 Hemoglobin A1c in Blood HEMOGLOBIN A1C Lab Routine Prediabetes Expected: 06/01/2024, Expires: 08/31/2024 [facility] Comment on above: Expected: 06/01/2024 , Expires: 08/31/2024 Start: 06-01-2024 End: 06-01-2024 ambulatory 06/01/2024 7:45 AM EDT Results Only [facility] Draw Station [address] [place] [address] [facility] Start: 03-15-2024 End: 06-14-2024 Basic metabolic 2000 panel - Serum or Plasma BASIC METABOLIC PANEL Lab Routine Dehydration Expected: 03/15/2024, Expires: 06/14/2024 [facility] Work Phone: Comment on above: Expected: 03/15/2024 , Expires: 06/14/2024 Start: 03-02-2024 End: 06-01-2024 CBC W Auto Differential panel - Blood COMPLETE BLOOD COUNT AND DIFFERENTIAL Lab Routine Hypothyroidism, unspecified type Current use of proton pump inhibitor Expected: 03/02/2024, Expires: 06/01/2024 [facility] Comment on above: Expected: 03/02/2024 , Expires: 06/01/2024 Start: 03-02-2024 End: 06-01-2024 Comprehensive metabolic 2000 panel - Serum or Plasma COMPREHENSIVE METABOLIC PANEL Lab Routine Hypothyroidism, unspecified type Expected: 03/02/2024, Expires: 06/01/2024 [facility] Comment on above: Expected: 03/02/2024 , Expires: 06/01/2024 Start: 03-02-2024 End: 06-01-2024 Lipid 1996 panel - Serum or Plasma LIPID PANEL BASIC Lab Routine Mixed hyperlipidemia Expected: 03/02/2024, Expires: 06/01/2024 [facility] Comment on above: Expected: 03/02/2024 , Expires: 06/01/2024 Start: 03-02-2024 End: 06-01-2024 Magnesium [Mass/volume] in Serum or Plasma MAGNESIUM Lab Routine Current use of proton pump inhibitor Expected: 03/02/2024, Expires: 06/01/2024 [facility] Work Phone: Comment on above: Expected: 03/02/2024 , Expires: 06/01/2024 Start: 03-02-2024 End: 06-01-2024 Thyrotropin [Units/volume] in Serum or Plasma THYROID STIMULATING HORMONE Lab Routine Hypothyroidism, unspecified type Expected: 03/02/2024, Expires: 06/01/2024 [facility] Comment on above: Expected: 03/02/2024 , Expires: 06/01/2024 Start: 01-02-2024 Covid-19 Vaccine () Covid-19 Vaccine () [facility] Start: 11-10-2023 Advance Directive Discussion Advance Directive Discussion [facility] Start: 09-13-2023 ANNUAL PCP TEAM CHIEF UNIT FORESTER ORA DISEASE VISIT ANNUAL PCP TEAM CHRONIC DISEASE VISIT [facility] Start: 09-13-2023 BP CONTROLLED (<130/80) BP CONTROLLE D (<130/80) [facility] Start: 08-31-2023 End: 10-31-2023 Basic metabolic 2000 panel - Serum or Plasma BASIC METABOLIC PNL Lab Routine Essential hypertension Expected: 08/31/2023, Expires: 10/31/2023 [facility] Work Phone: Comment on above: Expected: 08/31/2023 , Expires: 10/31/2023 Start: 08-27-2023 BP CONTROLLED (<130/80) BP CONTROLLE D (<130/80) [facility] Start: 07-22-2023 BP CONTROLLED (<130/80) BP CONTROLLE D (<130/80) [facility] Start: 07-17-2023 ANNUAL PCP TEAM CHIEF UNIT FORESTER ORA DISEASE VISIT ANNUAL PCP TEAM CHRONIC DISEASE VISIT [facility] Start: 07-17-2023 BP CONTROLLED (<130/80) BP CONTROLLE D (<130/80) [facility] Start: 07-17-2023 HEMOGLOBIN/HEMATOCRIT HEMOGLOBIN/HEM ATOCRIT [facility] Start: 07-12-2023 ANNUAL PCP TEAM CHIEF UNIT FORESTER ORA DISEASE VISIT ANNUAL PCP TEAM CHRONIC DISEASE VISIT [facility] Start: 07-12-2023 BP CONTROLLED (<130/80) BP CONTROLLE D (<130/80) [facility] Start: 07-12-2023 [facility]: 07-12-2023 SERUM CREATININE SERUM CREATININE [facility] Start: 07-11-2023 Covid-19 Vaccine ( season) Covid-19 Vaccine ( season) [facility] Start: 07-11-2023 Influenza vaccination C [facility] Start: 07-11-2023 SERUM CREATININE SERUM CREATININE [facility] Start: 06-16-2023 End: 08-16-2023 CBC W Auto Differential panel - Blood CBC + DIFF Lab Routine Essential hypertension Expected: 06/16/2023, Expires: 08/16/2023 [facility] Work Phone: Comment on above: Expected: 06/16/2023 , Expires: 08/16/2023 Start: 06-16-2023 End: 08-16-2023 Comprehensive metabolic 2000 panel - Serum or Plasma COMP METABOLIC PANEL Lab Routine Essential hypertension Expected: 06/16/2023, Expires: 08/16/2023 [facility] Work Phone: Comment on above: Expected: 06/16/2023 , Expires: 08/16/2023 Start: 06-16-2023 End: 08-16-2023 Hemoglobin A1c in Blood HGB A1C Lab Routine Prediabetes Expected: 06/16/2023, Expires: 08/16/2023 [facility] Work Phone: Comment on above: Expected: 06/16/2023 , Expires: 08/16/2023 Start: 06-16-2023 End: 02-16-2024 Lipid 1996 panel - Serum or Plasma LIPID PANEL BASIC Lab Routine Essential hypertension Expected: 06/16/2023, Expires: 02/16/2024 [facility] Work Phone: Comment on above: Expected: 06/16/2023 , Expires: 02/16/2024 Start: 06-16-2023 End: 08-16-2023 Thyrotropin [Units/volume] in Serum or Plasma TSH BLD Lab Routine Hypothyroidism, unspecified type Expected: 06/16/2023, Expires: 08/16/2023 [facility] Work Phone: Comment on above: Expected: 06/16/2023 , Expires: 08/16/2023 Start: 06-16-2023 End: 08-16-2023 TOX SCREEN ROUT UR [facility] Work Phone: Comment on above: Expected: 06/16/2023 , Expires: 08/16/2023 Start: 01-09-2023 ANNUAL PCP TEAM CHIEF UNIT FORESTER ORA DISEASE VISIT ANNUAL PCP TEAM CHRONIC DISEASE VISIT [facility] Start: 01-09-2023 BP CONTROLLED (<130/80) BP CONTROLLE D (<130/80) [facility] Start: 01-04-2023 HEMOGLOBIN/HEMATOCRIT HEMOGLOBIN/HEM ATOCRIT [facility] Start: 01-04-2023 SERUM CREATININE SERUM CREATININE [facility] Start: 11-10-2022 ADVANCE DIRECTIVE DISCUSSION ADVANCE DIRECTIVE DISCUSSION [facility] Start: 08-23-2022 End: 10-23-2022 Thyrotropin [Units/volume] in Serum or Plasma TSH BLD Lab Routine Fatigue, unspecified type Expected: 08/23/2022, Expires: 10/23/2022 [facility] Work Phone: Comment on above: Expected: 08/23/2022 , Expires: 10/23/2022 Start: 07-12-2022 End: 09-11-2022 Basic metabolic 2000 panel - Serum or Plasma [facility] Work Phone: Comment on above: Expected: 07/12/2022 , Expires: 09/11/2022 Start: 07-12-2022 End: 07-12-2023 CBC W Auto Differential panel - Blood CBC + DIFF Lab Routine Anemia, unspecified type Expected: 07/12/2022, Expires: 07/12/2023 [facility] Work Phone: Comment on above: Expected: 07/12/2022 , Expires: 07/12/2023 Start: 07-12-2022 End: 07-12-2023 Cobalamin (Vitamin B12) [Mass/volume] in Serum or Plasma VITAMIN B12 BLOOD Lab Routine Anemia, unspecified type Expected: 07/12/2022, Expires: 07/12/2023 [facility] Work Phone: Comment on above: Expected: 07/12/2022 , Expires: 07/12/2023 Start: 07-12-2022 End: 07-12-2023 Ferritin [Mass/volume] in Serum or Plasma FERRITIN BLD Lab Routine Anemia, unspecified type Expected: 07/12/2022, Expires: 07/12/2023 [facility] Work Phone: Comment on above: Expected: 07/12/2022 , Expires: 07/12/2023 Start: 07-12-2022 End: 07-12-2023 Folate [Mass/volume] in Serum or Plasma FOLATE SERUM Lab Routine Anemia, unspecified type Expected: 07/12/2022, Expires: 07/12/2023 [facility] Work Phone: Comment on above: Expected: 07/12/2022 , Expires: 07/12/2023 Start: 07-12-2022 End: 07-12-2023 Hemoglobin.gastrointest inal.lower [Presence] in Stool by Immunoassay FECAL OCCULT BLOOD TEST Lab Routine Anemia, unspecified type Expected: 07/12/2022, Expires: 07/12/2023 [facility] Work Phone: Comment on above: Expected: 07/12/2022 , Expires: 07/12/2023 Start: 07-12-2022 End: 09-11-2022 Hepatic function 2000 panel - Serum or Plasma [facility] Work Phone: Comment on above: Expected: 07/12/2022 , Expires: 09/11/2022 Start: 07-12-2022 End: 07-12-2023 Iron and Iron binding capacity panel - Serum or Plasma IRON + TIBC Lab Routine Anemia, unspecified type Expected: 07/12/2022, Expires: 07/12/2023 [facility] Work Phone: Comment on above: Expected: 07/12/2022 , Expires: 07/12/2023 Start: 07-12-2022 End: 09-11-2022 Lipase [Enzymatic activity/volume] in Serum or Plasma [facility] Work Phone: Comment on above: Expected: 07/12/2022 , Expires: 09/11/2022 Start: 07-12-2022 End: 09-11-2022 Urinalysis complete panel - Urine URINALYSIS, WITH MICROSCOPIC Lab Routine GERD without esophagitis Change in bowel habit Abdominal discomfort Expected: 07/12/2022, Expires: 09/11/2022 [facility] Work Phone: Comment on above: Expected: 07/12/2022 , Expires: 09/11/2022 Start: 07-11-2022 Influenza vaccination C [facility] Start: 01-07-2022 COVID-19 VACCINE (4 - Booster for Pfizer series) COVID-19 VACCINE (4 - Booster for Pfizer series) [facility] Start: 11-10-2021 ADVANCE DIRECTIVE DISCUSSION ADVANCE DIRECTIVE DISCUSSION [facility] Start: 11-01-2021 COVID-19 VACCINE (4 - Booster for Pfizer series) COVID-19 VACCINE (4 - Booster for Pfizer series) [facility] Start: 11-01-2021 COVID-19 VACCINE (4 - Pfizer series) COVID-19 VACCINE (4 - Pfizer series) [facility] Start: 04-24-2012 SHINGRIX VACCINE (2 of 3) SHINGRIX VACCINE (2 of 3) [facility] Start: 2001 RSV Vaccine (1 - 1-d ose 60+ series) RSV Vaccine (1 - 1-dose 60+ series) [facility] Start: 1960 Urine microalbumin profile DTAP,TDAP,TD (1 - Tdap) [facility] End: 07-22-2023 Colonoscopy COLONOSCOPY (THERAPEUTIC) Endoscopy Routine GERD without esophagitis Change in bowel habit Abdominal discomfort 1 Occurrences starting 07/22/2022 until 07/22/2023 [facility] Work Phone: Comment on above: 1 Occurrences starti ng 07/22/2022 until 07/22/2023 End: 08-11-2023 Ct abdomen & pelvis w/contrast material CT ABD/PEL W IVCON Radiology STAT Abdominal discomfort 1 Occurrences starting 07/12/2022 until 08/11/2023 [facility] Work Phone: Comment on above: 1 Occurrences starti ng 07/12/2022 until 08/11/2023 End: 09-09-2025 DBT Breast - bilateral screening SVETA SCREENING W LORI Radiology Routine Encounter for screening mammogram for malignant neoplasm of breast 1 Occurrences starting 08/10/2024 until 09/09/2025 [facility] Work Phone: Comment on above: 1 Occurrences starti ng 08/10/2024 until 09/09/2025 End: 09-22-2025 DBT Breast - bilateral screening SVETA SCREENING W LORI Radiology Routine Encounter for screening mammogram for malignant neoplasm of breast 1 Occurrences starting 08/23/2024 until 09/22/2025 [facility] Work Phone: Comment on above: 1 Occurrences starti ng 08/23/2024 until 09/22/2025 End: 07-22-2023 EGD DIAGNOSTIC EGD DIAGNOSTIC Endoscopy Routine GERD without esophagitis Change in bowel habit Abdominal discomfort 1 Occurrences starting 07/22/2022 until 07/22/2023 [facility] Work Phone: Comment on above: 1 Occurrences starti ng 07/22/2022 until 07/22/2023 End: 07-12-2023 HOME SLEEP APNEA TEST (HSAT) HOME SLEEP APNEA TEST (HSAT) Procedures Routine BALJINDER (obstructive sleep apnea) 1 Occurrences starting 07/12/2022 until 07/12/2023 [facility] Work Phone: Comment on above: 1 Occurrences starti ng 07/12/2022 until 07/12/2023 End: 09-07-2023 SVETA SCREENING W LORI SVETA SCREENING W LORI Radiology Routine Encounter for screening mammogram for malignant neoplasm of breast 1 Occurrences starting 08/08/2022 until 09/07/2023 [facility] Work Phone: Comment on above: 1 Occurrences starti ng 08/08/2022 until 09/07/2023 End: 07-29-2023 Polysomnogram POLYSOMNOGRAM (PSG) Procedures Routine BALJINDER (obstructive sleep apnea) 1 Occurrences starting 07/29/2022 until 07/29/2023 [facility] Work Phone: Comment on above: 1 Occurrences starti ng 07/29/2022 until 07/29/2023 SURGICAL PATHOLOGY [facility] Work Phone: Comment on above: Release Upon Rohanin g for 1 Occurrences starting 08/19/2022, 1 completed Thyrotropin [Units/volume] in Serum or Plasma TSH BLD Lab Routine Fatigue, unspecified type 07/12/2022 1:08 PM EDT [facility] Work Phone: [facility] Immunizations Immunization Date Immunization Notes Care Provider Susan bernard 08-23-2024 influenza, high dose seasonal, preservative-free Patricia Vyas DISABILITY HEARING OFFICER.PHOTO TECHNOLOGIST Work Phone: [facility] 09-01-2023 COVID-19 vaccine, ag e 12+ yr, season ([employer]) NA Estrada PA-C Work Phone: [facility] 09-01-2023 influenza (HD-IIV4) vaccine, age 65+ yr, high dose, quadrivalent, PF (FLUZONE HIGH-DOSE) NA Estrada PA-C Work Phone: [facility] 09-01-2023 influenza virus vacc ine, unspecified formulation Raheem Dacosta MD Work Phone: [facility] 09-13-2022 influenza, high-dose , quadrivalent vaccine (FLUZONE HIGH DOSE QUADRIVALENT) Raheem Dacosta MD Work Phone: [facility] 09-13-2022 influenza virus vacc ine, unspecified formulation Raheem Dacosta MD Work Phone: [facility] 08-28-2020 influenza, high-dose , quadrivalent vaccine (FLUZONE HIGH DOSE QUADRIVALENT) NA Estrada PA-C Work Phone: [facility] 09-09-2019 influenza, high dose seasonal, preservative-free NA Estrada PA-C Work Phone: [facility] Work Phone: 07-30-2018 influenza, high dose seasonal, preservative-free NA Estrada PA-C Work Phone: [facility] 08-14-2017 influenza, high dose seasonal, preservative-free NA Estrada PA-C Work Phone: [facility] 04-24-2015 pneumococcal conjuga te vaccine, 13 valent NA Estrada PA-C Work Phone: [facility] 02-28-2012 zoster vaccine, live NA Neto on PA-C Work Phone: [facility] 01-01-2012 influenza virus vacc ine, unspecified formulation NA Estrada PA-C Work Phone: [facility] Work Phone: 09-27-2010 influenza virus vacc ine, unspecified formulation NA Estrada PA-C Work Phone: [facility] Work Phone: 09-12-2009 influenza virus vacc ine, unspecified formulation SANDER Estrada PA-C Work Phone: [facility] Work Phone: 08-23-2008 pneumococcal polysaccharide vaccine, 23 valent SANDER Estrada PA-C Work Phone: [facility] Payers Date Payer Category Payer Medicare MMO MEDICARE MMO [employer]ANTAGE O [id number] 2018-Present [phone] [address] [place] [address] O [id number] 2018 Medicare MMO MEDICARE MMO [employer] HMO [id number] 2018-Present [phone] [address] [place] [address] O [id number] 2018 Unknown [id number] 1941 Unknown [id number] 1941 Unknown [id number] 1941 Unknown [id number] 1941 Unknown [id number] 1941 Unknown [id number] 1941 Unknown [id number] Social History Date Type Detail Facility Start: 12-13-2020 End: 07-26-2024 Ex-smoker (finding) [facility] Sex Assigned At Female [facility] History of tobacco use Cigarette Smoker C [facility] Start: 01-09-2022 End: 08-23-2024 Alcohol intake Current drinker of alcohol (finding) [facility] Start: 07-14-2013 History SDOH Alcohol Comment rare [facility] Start: 1940 Sex Assigned At Not on file [facility] History of tobacco use Current smoker [facility] Start: 07-14-2013 End: 07-26-2024 Tobacco use and exposure Smokeless tobacco non-user [facility] Start: 07-11-2022 History SDOH Alcohol Frequency 1 [facility] Start: 07-11-2022 History SDOH Alcohol Std Drinks 0 [facility] Start: 07-11-2022 History SDOH Social Connections Phone 5 [facility] Start: 07-11-2022 History SDOH Social Connections Get Together 2 [facility] Start: 07-11-2022 History SDOH Social Connections Meetings 3 [facility] Start: 07-11-2022 History SDOH Financial 4 [facility] Start: 07-29-2020 End: 09-13-2022 Exposure to SARS-CoV-2 (event) Not sure [facility] Start: 07-11-2022 End: 06-09-2023 History of Social function [facility] Start: 07-11-2022 End: 06-09-2023 Social connection and isolation panel [facility] Do you belong to any clubs or organizations such as sikh groups, unions, fraternal or athletic groups, or school groups? Yes [facility] Are you now , , , , never or living with a partner? [facility] How often to you hav e a drink containing alcohol? Never [facility] How many standard dr inks containing alcohol do you have on a typical day? Patient does not drink [facility] How hard is it for y ou to pay for the very basics like food, housing, medical care, and heating Not very hard [facility] Do you feel stress - tense, restless, nervous, or anxious, or unable to sleep at night because your mind is troubled all the time - these days [OSQ] To some extent [facility] (I/We) worried wheth er (my/our) food would run out before (I/we) got money to buy more. Never true [facility] In the past 12 month s, was there a time when you were not able to pay the mortgage or rent on time? No [facility] Start: 12-16-2020 Gender identity Identifies as female gender (finding) [facility] Clinical Notes 08-28-2020 to 08-30-2024 Telephone Encounter - Tiffany Theodore LPN - 08/30/2024 2:41 PM EDTTelephone Encounter - Tiffany Theodore LPN - 08/30/2024 2:41 PM EDTTelephone Encounter - Tiffany Theodore LPN - 08/27/2024 12:25 PM EDT Note Date & Type Note Facility 08-30-2024 Telephone encounter Note [facility] shows patient scheduled. [facility] 08-30-2024 Miscellaneous Notes [facility] shows patient scheduled. Left message for Cathi to be sure she was notified by [facility]. I believe the hospital takes care of follow up care and we do not have to send any orders. Mammogram shows she needs additional views of the right breast. Is [facility] automatically ordering or do they require an order from us. documented in this encounter [facility] 08-27-2024 Telephone encounter Note Left message for Cathi to be sure she was notified by [facility]. I believe the hospital takes care of follow up care and we do not have to send any orders. [facility] 08-27-2024 Telephone encounter Note Mammogram shows she needs additional views of the right breast. Is [facility] automatically ordering or do they require an order from us. [facility] 08-23-2024 Instructions Patricia Vyas APRN.CNP - 08/23/2024 9:36 AM EDT 1) Mammogram ordered 2) Flu shot today 3) Consider OTC melatonin 1-3 mg once or twice per night to reset circadian rhythm 4) Follow up in 6 months documented in this encounter [facility] 08-23-2024 Note HNO ID: [id number] Author: PATRICIA VYAS APRN.JUMA Service: ? Author Type: Clinical Nurse Specialist Type: Progress Notes Filed: 08/23/2024 09:59 Note Text: This is a 83 year old female who presents today with: Patient presents with: Depression: 4 week medication follow up HISTORY OF PRESENT ILLNESS: Nena Mandujano is a 83 year old female. 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 They had Covid a couple weeks ago. Mood is so much better. Sleep not as good as she would like. 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 Gets only about 4 hours of sleep a night PAST MEDICAL HISTORY: PAST MEDICAL HISTORY Diagnosis Date Arthritis Benign neoplasm of colon Benign neoplasm of colon Cervical spinal stenosis Diverticulosis of colon (without mention of hemorrhage) Esophageal reflux Essential (primary) hypertension History of transfusion Nonspecific elevation of levels of transaminase or lactic acid dehydrogenase (LDH) Elevated LFT's Occasional tremors essential tremors Other specified gastritis Personal history of colonic polyps Reflux esophagitis Scoliosis (and kyphoscoliosis), idiopathic Scoliosis associated with other condition Thyroid disease PAST SURGICAL HISTORY Procedure Laterality Date APPENDECTOMY APPENDECTOMY HX CHOLECYSTECTOMY Cholecystectomy COLONOSCOPY 01/28/2014 COLONOSCOPY 02/19/2017 COLONOSCOPY 08/19/2022 COLONOSCOPY FLX DX W/COLLJ SPEC WHEN PFRMD 09/2000 Colonoscopy COLONOSCOPY W/BIOPSY SINGLE/MULTIPLE 11/24/2008 EGD 02/19/2017 EGD TRANSORAL BIOPSY SINGLE/MULTIPLE 01/12/2007 EGD TRANSORAL BIOPSY SINGLE/MULTIPLE 03/17/2008 EGD W/O BRSH SPEC VARICIES INJ 08/19/2022 ESOPHAGOGASTRODUODENOSCOPY TRANSORAL DIAGNOSTIC 08/19/2012 EGD GASTROESOPHAG REFLX TEST W/TELEMTRY PH ELTRD 03/17/2008 SKIN BIOPSY HX TOTAL ABDOMINAL HYSTERECT W/WO RMVL TUBE OVARY Hysterectomy, WILLIE VAGINAL HYSTERECTOMY ALLERGIES Patient has no known allergies. MEDICATIONS Current Outpatient Medications Medication Sig FLUoxetine (PROZAC) 40 mg capsule Take 1 capsule by mouth once daily. triamterene-hydroCHLOROthiazide (DYAZIDE) 37.5-25 mg per capsule Take 1 capsule by mouth once daily. pantoprazole DR (PROTONIX) 40 mg tablet Take 1 tablet by mouth once daily. levothyroxine (SYNTHROID) 88 mcg tablet Take 1 tablet by mouth once daily. metFORMIN (GLUCOPHAGE) 500 mg tablet take 1 tablet by mouth EVERY MORNING WITH BREAKFAST famotidine (PEPCID) 20 mg tablet Take 1 tablet by mouth daily at bedtime. atorvastatin (LIPITOR) 10 mg tablet Take 1 tablet by mouth daily at bedtime. For cholesterol. tapentadol (NUCYNTA) 50 mg Take 1 tablet by mouth every 6 hours as needed for up to 30 days. mag carb/aluminum hydrox/algin (GAVISCON ORAL) Take by mouth. No current facility-administered medications for this visit. FAMILY HISTORY Problem Relation Age of Onset Heart Father of heart attack 65 Coronary Artery Disease Father fatal [place] Alcohol/Drug Father Cancer Maternal Grandfather pancreatic, 70 Cancer Paternal Grandfather pancreatic 65 Heart Paternal Grandfather Diabetes Paternal Grandmother 90 other (healthy) Mother healthly and living Social History Tobacco Use Smoking status: Former Types: Cigarettes Smokeless tobacco: Never Vaping Use Vaping status: Never Used Substance Use Topics Alcohol use: Yes Comment: rare Drug use: No EXAM: BP 116/70 Pulse 73 Resp 16 Wt 77.6 kg (171 lb) SpO2 98% BMI 30.30 kg/m? PHYSICAL EXAM: Physical Exam Vitals reviewed. Constitutional: Appearance: Normal appearance. HENT: Head: Normocephalic. Cardiovascular: Rate and Rhythm: Normal rate and regular rhythm. Pulses: Normal pulses. Heart sounds: Normal heart sounds. Pulmonary: Effort: Pulmonary effort is normal. Breath sounds: Normal breath sounds. Abdominal: General: Bowel sounds are normal. There is no distension. Palpations: Abdomen is soft. Tenderness: There is no abdominal tenderness. There is no guarding. Musculoskeletal: Comments: Scoliosis- remains active Moves all ext. Without difficulty Skin: General: Skin is warm and dry. Neurological: General: No focal deficit present. Mental Status: She is alert and oriented to person, place, and time. Psychiatric: Mood and Affect: Mood normal. Behavior: Behavior normal. LABS: ASSESSMENT/PLAN: 1. Essential tremor - ICD9: 333.1, ICD10: G25.0 (primary diagnosis) Stable 2. Essential hypertension - ICD9: 401.9, ICD10: I10 - Controlled - Recommend home blood pressure monitoring, to bring results to next visit - Encouraged sodium restriction, DASH or Mediterranean diet - Recommend regular aerobic exercise 3. Stage 3a chronic kidney disease (HCC) - ICD9: 585.3, ICD10: N18.31 - eGFR: 53 Stable - Counseled on avoiding NSAIDs, adequate hydration 4. (more content not included)... [facility] 08-23-2024 History of Presen t illness Narrative This is a 83 year old female who presents today with: Patient presents with: Depression: 4 week medication follow up HISTORY OF PRESENT ILLNESS: Nena Mandujano is a 83 year old female. 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 They had Covid a couple weeks ago. Mood is so much better. Sleep not as good as she would like. 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 Gets only about 4 hours of sleep a night PAST MEDICAL HISTORY: PAST MEDICAL HISTORY Diagnosis Date Arthritis Benign neoplasm of colon Benign neoplasm of colon Cervical spinal stenosis Diverticulosis of colon (without mention of hemorrhage) Esophageal reflux Essential (primary) hypertension History of transfusion Nonspecific elevation of levels of transaminase or lactic acid dehydrogenase (LDH) Elevated LFT's Occasional tremors essential tremors Other specified gastritis Personal history of colonic polyps Reflux esophagitis Scoliosis (and kyphoscoliosis), idiopathic Scoliosis associated with other condition Thyroid disease PAST SURGICAL HISTORY Procedure Laterality Date APPENDECTOMY APPENDECTOMY HX CHOLECYSTECTOMY Cholecystectomy COLONOSCOPY 01/28/2014 COLONOSCOPY 02/19/2017 COLONOSCOPY 08/19/2022 COLONOSCOPY FLX DX W/COLLJ SPEC WHEN PFRMD 09/2000 Colonoscopy COLONOSCOPY W/BIOPSY SINGLE/MULTIPLE 11/24/2008 EGD 02/19/2017 EGD TRANSORAL BIOPSY SINGLE/MULTIPLE 01/12/2007 EGD TRANSORAL BIOPSY SINGLE/MULTIPLE 03/17/2008 EGD W/O BRSH SPEC VARICIES INJ 08/19/2022 ESOPHAGOGASTRODUODENOSCOPY TRANSORAL DIAGNOSTIC 08/19/2012 EGD GASTROESOPHAG REFLX TEST W/TELEMTRY PH ELTRD 03/17/2008 SKIN BIOPSY HX TOTAL ABDOMINAL HYSTERECT W/WO RMVL TUBE OVARY Hysterectomy, WILLIE VAGINAL HYSTERECTOMY ALLERGIES Patient has no known allergies. MEDICATIONS Current Outpatient Medications Medication Sig FLUoxetine (PROZAC) 40 mg capsule Take 1 capsule by mouth once daily. triamterene-hydroCHLOROthiazide (DYAZIDE) 37.5-25 mg per capsule Take 1 capsule by mouth once daily. pantoprazole DR (PROTONIX) 40 mg tablet Take 1 tablet by mouth once daily. levothyroxine (SYNTHROID) 88 mcg tablet Take 1 tablet by mouth once daily. metFORMIN (GLUCOPHAGE) 500 mg tablet take 1 tablet by mouth EVERY MORNING WITH BREAKFAST famotidine (PEPCID) 20 mg tablet Take 1 tablet by mouth daily at bedtime. atorvastatin (LIPITOR) 10 mg tablet Take 1 tablet by mouth daily at bedtime. For cholesterol. tapentadol (NUCYNTA) 50 mg Take 1 tablet by mouth every 6 hours as needed for up to 30 days. mag carb/aluminum hydrox/algin (GAVISCON ORAL) Take by mouth. No current facility-administered medications for this visit. FAMILY HISTORY Problem Relation Age of Onset Heart Father of heart attack 65 Coronary Artery Disease Father fatal [place] Alcohol/Drug Father Cancer Maternal Grandfather pancreatic, 70 Cancer Paternal Grandfather pancreatic 65 Heart Paternal Grandfather Diabetes Paternal Grandmother 90 other (healthy) Mother healthly and living Social History Tobacco Use Smoking status: Former Types: Cigarettes Smokeless tobacco: Never Vaping Use Vaping status: Never Used Substance Use Topics Alcohol use: Yes Comment: rare Drug use: No EXAM: BP 116/70 Pulse 73 Resp 16 Wt 77.6 kg (171 lb) SpO2 98% BMI 30.30 kg/m PHYSICAL EXAM: Physical Exam Vitals reviewed. Constitutional: Appearance: Normal appearance. HENT: Head: Normocephalic. Cardiovascular: Rate and Rhythm: Normal rate and regular rhythm. Pulses: Normal pulses. Heart sounds: Normal heart sounds. Pulmonary: Effort: Pulmonary effort is normal. Breath sounds: Normal breath sounds. Abdominal: General: Bowel sounds are normal. There is no distension. Palpations: Abdomen is soft. Tenderness: There is no abdominal tenderness. There is no guarding. Musculoskeletal: Comments: Scoliosis- remains active Moves all ext. Without difficulty Skin: General: Skin is warm and dry. Neurological: General: No focal deficit present. Mental Status: She is alert and oriented to person, place, and time. Psychiatric: Mood and Affect: Mood normal. Behavior: Behavior normal. LABS: ASSESSMENT/PLAN: 1. Essential tremor - ICD9: 333.1, ICD10: G25.0 (primary diagnosis) Stable 2. Essential hypertension - ICD9: 401.9, ICD10: I10 - Controlled - Recommend home blood pressure monitoring, to bring results to next visit - Encouraged sodium restriction, DASH or Mediterranean diet - Recommend regular aerobic exercise 3. Stage 3a chronic kidney disease (HCC) - ICD9: 585.3, ICD10: N18.31 - eGFR: 53 Stable - Counseled on avoiding NSAIDs, adequate hydration 4. Gastroesophageal reflux disease, unspecified whether esophagitis present - ICD9: 530.81, ICD10: K21.9 - Discussed lifestyle modifications including losing weight, limiting caffeine, no meals three hours before sleep, and head of bed elevation 5. Recurrent major depression in partial remission (HCC) - ICD9: 296.35, ICD10: F33.41 Improved with increase of fluoxetine 6. DDD (degenerative disc disease), cervical - ICD9: 722.4, ICD10: M50.30 Stable 7. Chronic insomnia - ICD9: 780.52, ICD10: F51.04 Discussed melatonin Discussed treatment plan and patient voices understanding. Patient's questions answered appropriately. Medications and potential side effects were discussed and patient voices understanding. Return to the office as scheduled or as needed for worsening/no improvement. Patricia Vyas APRN.JUMA documented in this encounter [facility] 08-10-2024 Telephone encounter Note done [facility] 08-10-2024 Miscellaneous Notes done Please see pt message. Pt had Mammogram completed last year at [facility]. There is a current order in, but this was already completed through [facility]. Pended new order. Pt would like this sent to [facility] and notified once sent via [facility] [employer]. Jennifer Basurto MA documented in this encounter [facility] 08-10-2024 Telephone encounter Note Please see pt message. Pt had Mammogram completed last year at [facility]. There is a current order in, but this was already completed through [facility]. Pended new order. Pt would like this sent to [facility] and notified once sent via [facility]. Jennifer Basurto MA [facility] 07-26-2024 Note HNO ID: [id number] Author: RAHEEM DACOSTA MD Service: ? Author Type: Physician Type: Progress Notes Filed: 07/26/2024 08:46 Note Text: Patient presents with: Bump HPI: Patient presents today for office visit for acute visit. Depression: Caring for spouse and feels that may need to increase her depression medication. Fatigue just a lack of energy. Seems to have isolated herself some from her friends. Thinking about placement for him but still on the fence about this. gets angry. She does still safe safe at home. Has a good support system at home. Still working. She is looking at [facility] ideas. Declines counseling. No suicidal ideation, Has lumps that show up different places on her body. Not painful. Come and go. Has been noticing them for about 3 months at least. Usually come and go and pop up for a short while. Mostly on legs. Not red or warm or tender. Sometimes can occur with arms. Scheduled for routine follow up visit next month MEDICATIONS: Current Outpatient Medications Medication Sig triamterene-hydroCHLOROthiazide (DYAZIDE) 37.5-25 mg per capsule Take 1 capsule by mouth once daily. pantoprazole DR (PROTONIX) 40 mg tablet Take 1 tablet by mouth once daily. levothyroxine (SYNTHROID) 88 mcg tablet Take 1 tablet by mouth once daily. FLUoxetine (PROZAC) 20 mg capsule Take 1 capsule by mouth once daily. metFORMIN (GLUCOPHAGE) 500 mg tablet take 1 tablet by mouth EVERY MORNING WITH BREAKFAST famotidine (PEPCID) 20 mg tablet Take 1 tablet by mouth daily at bedtime. atorvastatin (LIPITOR) 10 mg tablet Take 1 tablet by mouth daily at bedtime. For cholesterol. tapentadol (NUCYNTA) 50 mg Take 1 tablet by mouth every 6 hours as needed for up to 30 days. mag carb/aluminum hydrox/algin (GAVISCON ORAL) Take by mouth. No current facility-administered medications for this visit. ALLERGIES: ALLERGIES No Known Allergies PAST MEDICAL HISTORY Diagnosis Date Arthritis Benign neoplasm of colon Benign neoplasm of colon Cervical spinal stenosis Diverticulosis of colon (without mention of hemorrhage) Esophageal reflux Essential (primary) hypertension History of transfusion Nonspecific elevation of levels of transaminase or lactic acid dehydrogenase (LDH) Elevated LFT's Occasional tremors essential tremors Other specified gastritis Personal history of colonic polyps Reflux esophagitis Scoliosis (and kyphoscoliosis), idiopathic Scoliosis associated with other condition Thyroid disease PAST SURGICAL HISTORY Procedure Laterality Date APPENDECTOMY APPENDECTOMY HX CHOLECYSTECTOMY Cholecystectomy COLONOSCOPY 01/28/2014 COLONOSCOPY 02/19/2017 COLONOSCOPY 08/19/2022 COLONOSCOPY FLX DX W/COLLJ SPEC WHEN PFRMD 09/2000 Colonoscopy COLONOSCOPY W/BIOPSY SINGLE/MULTIPLE 11/24/2008 EGD 02/19/2017 EGD TRANSORAL BIOPSY SINGLE/MULTIPLE 01/12/2007 EGD TRANSORAL BIOPSY SINGLE/MULTIPLE 03/17/2008 EGD W/O BRSH SPEC VARICIES INJ 08/19/2022 ESOPHAGOGASTRODUODENOSCOPY TRANSORAL DIAGNOSTIC 08/19/2012 EGD GASTROESOPHAG REFLX TEST W/TELEMTRY PH ELTRD 03/17/2008 SKIN BIOPSY HX TOTAL ABDOMINAL HYSTERECT W/WO RMVL TUBE OVARY Hysterectomy, WILLIE VAGINAL HYSTERECTOMY FAMILY HISTORY Problem Relation Age of Onset Heart Father of heart attack 65 Coronary Artery Disease Father fatal [place] Alcohol/Drug Father Cancer Maternal Grandfather pancreatic, 70 Cancer Paternal Grandfather pancreatic 65 Heart Paternal Grandfather Diabetes Paternal Grandmother 90 other (healthy) Mother healthly and living Social History Tobacco Use Smoking status: Former Types: Cigarettes Smokeless tobacco: Never Vaping Use Vaping status: Never Used Substance Use Topics Alcohol use: Yes Comment: rare Drug use: No Reviewed current medications, allergies, past medical history, surgical history, family history and social history today. REVIEW OF SYSTEMS All other reviewed and negative other than HPI. HEALTH MAINTENANCE: Reviewed health maintenance issues today and recommended the following in detail. Anxiety Screening Never done DTaP,Tdap,Td Vaccine(1 - Tdap) Never done RSV Vaccine(1 - 1-dose 60+ series) Never done Shingrix Vaccine(2 of 3) due on 04/24/2012 Advance Directive Discussion due on 11/10/2023 Covid-19 Vaccine( season) due on 07/11/2024 Influenza Vaccine(1) due on 07/11/2024 VITALS: BP 112/72 Pulse 71 Wt 79.2 kg (174 lb 9.7 oz) SpO2 95% BMI 30.94 kg/m? Last 4 Encounter Wt Readings: Date: Wt: 03/02/2024 76.7 kg (169 lb) 09/01/2023 82.6 kg (182 lb) 08/01/2023 83.6 kg (184 lb 6.4 oz) 06/16/2023 87 kg (191 lb 12.8 oz) PHYSICAL EXAMINATION: General appearance: Well appearing, alert, in no acute distress, well-hydrated, well nourished. Skin: Skin color, texture, turgor normal, no suspicious rashes or lesions Lungs: Lungs clear to auscultation. No wheezing, rho (more content not included)... [facility] 07-26-2024 History of Presen t illness Narrative Patient presents with: Bump HPI: Patient presents today for office visit for acute visit. Depression: Caring for spouse and feels that may need to increase her depression medication. Fatigue just a lack of energy. Seems to have isolated herself some from her friends. Thinking about placement for him but still on the fence about this. gets angry. She does still safe safe at home. Has a good support system at home. Still working. She is looking at [facility] ideas. Declines counseling. No suicidal ideation, Has lumps that show up different places on her body. Not painful. Come and go. Has been noticing them for about 3 months at least. Usually come and go and pop up for a short while. Mostly on legs. Not red or warm or tender. Sometimes can occur with arms. Scheduled for routine follow up visit next month MEDICATIONS: Current Outpatient Medications Medication Sig triamterene-hydroCHLOROthiazide (DYAZIDE) 37.5-25 mg per capsule Take 1 capsule by mouth once daily. pantoprazole DR (PROTONIX) 40 mg tablet Take 1 tablet by mouth once daily. levothyroxine (SYNTHROID) 88 mcg tablet Take 1 tablet by mouth once daily. FLUoxetine (PROZAC) 20 mg capsule Take 1 capsule by mouth once daily. metFORMIN (GLUCOPHAGE) 500 mg tablet take 1 tablet by mouth EVERY MORNING WITH BREAKFAST famotidine (PEPCID) 20 mg tablet Take 1 tablet by mouth daily at bedtime. atorvastatin (LIPITOR) 10 mg tablet Take 1 tablet by mouth daily at bedtime. For cholesterol. tapentadol (NUCYNTA) 50 mg Take 1 tablet by mouth every 6 hours as needed for up to 30 days. mag carb/aluminum hydrox/algin (GAVISCON ORAL) Take by mouth. No current facility-administered medications for this visit. ALLERGIES: ALLERGIES No Known Allergies PAST MEDICAL HISTORY Diagnosis Date Arthritis Benign neoplasm of colon Benign neoplasm of colon Cervical spinal stenosis Diverticulosis of colon (without mention of hemorrhage) Esophageal reflux Essential (primary) hypertension History of transfusion Nonspecific elevation of levels of transaminase or lactic acid dehydrogenase (LDH) Elevated LFT's Occasional tremors essential tremors Other specified gastritis Personal history of colonic polyps Reflux esophagitis Scoliosis (and kyphoscoliosis), idiopathic Scoliosis associated with other condition Thyroid disease PAST SURGICAL HISTORY Procedure Laterality Date APPENDECTOMY APPENDECTOMY HX CHOLECYSTECTOMY Cholecystectomy COLONOSCOPY 01/28/2014 COLONOSCOPY 02/19/2017 COLONOSCOPY 08/19/2022 COLONOSCOPY FLX DX W/COLLJ SPEC WHEN PFRMD 09/2000 Colonoscopy COLONOSCOPY W/BIOPSY SINGLE/MULTIPLE 11/24/2008 EGD 02/19/2017 EGD TRANSORAL BIOPSY SINGLE/MULTIPLE 01/12/2007 EGD TRANSORAL BIOPSY SINGLE/MULTIPLE 03/17/2008 EGD W/O BRSH SPEC VARICIES INJ 08/19/2022 ESOPHAGOGASTRODUODENOSCOPY TRANSORAL DIAGNOSTIC 08/19/2012 EGD GASTROESOPHAG REFLX TEST W/TELEMTRY PH ELTRD 03/17/2008 SKIN BIOPSY HX TOTAL ABDOMINAL HYSTERECT W/WO RMVL TUBE OVARY Hysterectomy, WILLIE VAGINAL HYSTERECTOMY FAMILY HISTORY Problem Relation Age of Onset Heart Father of heart attack 65 Coronary Artery Disease Father fatal [place] Alcohol/Drug Father Cancer Maternal Grandfather pancreatic, 70 Cancer Paternal Grandfather pancreatic 65 Heart Paternal Grandfather Diabetes Paternal Grandmother 90 other (healthy) Mother healthly and living Social History Tobacco Use Smoking status: Former Types: Cigarettes Smokeless tobacco: Never Vaping Use Vaping status: Never Used Substance Use Topics Alcohol use: Yes Comment: rare Drug use: No Reviewed current medications, allergies, past medical history, surgical history, family history and social history today. REVIEW OF SYSTEMS All other reviewed and negative other than HPI. HEALTH MAINTENANCE: Reviewed health maintenance issues today and recommended the following in detail. Anxiety Screening Never done DTaP,Tdap,Td Vaccine(1 - Tdap) Never done RSV Vaccine(1 - 1-dose 60+ series) Never done Shingrix Vaccine(2 of 3) due on 04/24/2012 Advance Directive Discussion due on 11/10/2023 Covid-19 Vaccine( season) due on 07/11/2024 Influenza Vaccine(1) due on 07/11/2024 VITALS: BP 112/72 Pulse 71 Wt 79.2 kg (174 lb 9.7 oz) SpO2 95% BMI 30.94 kg/m Last 4 Encounter Wt Readings: Date: Wt: 03/02/2024 76.7 kg (169 lb) 09/01/2023 82.6 kg (182 lb) 08/01/2023 83.6 kg (184 lb 6.4 oz) 06/16/2023 87 kg (191 lb 12.8 oz) PHYSICAL EXAMINATION: General appearance: Well appearing, alert, in no acute distress, well-hydrated, well nourished. Skin: Skin color, texture, turgor normal, no suspicious rashes or lesions Lungs: Lungs clear to auscultation. No wheezing, rhonchi, rales Heart: RRR without murmur, gallop, or rubs. No ectopy Abdomen: Normal abdominal exam, Abdomen soft, non-tender. Bowel sounds normal. No masses, organomegaly Extremities: No deformities, edema, skin discoloration, clubbing or cyanosis. Good capillary refill. , No cords. No calf tenderness. Ping's sign negative. Has a few varicose veins. Appear normal. Tearful. ASSESSMENT/PLAN: 1. Recurrent major depression in partial remission (HCC) - ICD9: 296.35, ICD10: F33.41 (primary diagnosis) - increase prozac. Offered counseling. Recheck next month and for check up. 2. Encounter for screening examination for other mental health and behavioral disorders - ICD9: V79.8, ICD10: Z13.39 - ANXIETY SCREENING 3. DDD (degenerative disc disease), cervical - ICD9: 722.4, ICD10: M50.30 - stable. 4. Scoliosis, unspecified scoliosis type, unspecified spinal region - ICD9: 737.30, ICD10: M41.9 - stable. 5. Varicose veins of both lower extremities, unspecified whether complicated - ICD9: 454.9, ICD10: I83.93 - asymptomatic. Red flags for re-assessment reviewed with patient in detail. . Raheem Dacosta MD documented in this encounter [facility] 05-31-2024 Telephone encounter Note Prescription Refill Information The patient has been identified by name and date of : Yes Caregiver verified no other encounters exist for this prescription request: Yes Caregiver confirmed with patient/requestor that no other refills are due, in the near future, with this provider at this time: Yes The last office visit in the department: 02/2024 Does the patient have a future office visit with this provider/department: Yes 08/2024 Last refill: 05/2023 Requested Prescriptions Pending Prescriptions Disp Refills triamterene-hydroCHLOROthiazide (DYAZIDE) 37.5-25 mg per capsule 90 capsule 3 Sig: Take 1 capsule by mouth once daily. Claudia Miller MA May 31, 2024 8:56 AM [facility] 05-31-2024 Miscellaneous Notes Prescription Refill Information The patient has been identified by name and date of : Yes Caregiver verified no other encounters exist for this prescription request: Yes Caregiver confirmed with patient/requestor that no other refills are due, in the near future, with this provider at this time: Yes The last office visit in the department: 02/2024 Does the patient have a future office visit with this provider/department: Yes 08/2024 Last refill: 05/2023 Requested Prescriptions Pending Prescriptions Disp Refills triamterene-hydroCHLOROthiazide (DYAZIDE) 37.5-25 mg per capsule 90 capsule 3 Sig: Take 1 capsule by mouth once daily. Claudia Miller MA May 31, 2024 8:56 AM documented in this encounter [facility] 04-29-2024 Telephone encounter Note Prescription Refill Information The patient has been identified by name and date of : Yes Caregiver verified no other encounters exist for this prescription request: Yes Caregiver confirmed with patient/requestor that no other refills are due, in the near future, with this provider at this time: No The last office visit in the department: 03/02/24 Does the patient have a future office visit with this provider/department: Yes 09/02/24 Requested Prescriptions Pending Prescriptions Disp Refills pantoprazole DR (PROTONIX) 40 mg tablet 90 tablet 0 Sig: Take 1 tablet by mouth once daily. Milagros Burton MA April 29, 2024 11:01 AM [facility] 04-29-2024 Miscellaneous Notes Prescription Refill Information The patient has been identified by name and date of : Yes Caregiver verified no other encounters exist for this prescription request: Yes Caregiver confirmed with patient/requestor that no other refills are due, in the near future, with this provider at this time: No The last office visit in the department: 03/02/24 Does the patient have a future office visit with this provider/department: Yes 09/02/24 Requested Prescriptions Pending Prescriptions Disp Refills pantoprazole DR (PROTONIX) 40 mg tablet 90 tablet 0 Sig: Take 1 tablet by mouth once daily. Milagros Burton MA April 29, 2024 11:01 AM documented in this encounter [facility] 03-16-2024 Telephone encounter Note Patient read [facility] message. [facility] 03-16-2024 Miscellaneous Notes Patient read [facility] message. TC no answer. Left VM to return call. CLARISSA Edward BUN is dehydrated range- push fluids and recheck in 4 weeks. Likely from HCTZ Telephone on 03/15/24 BASIC METABOLIC PANEL Frank White PA-C documented in this encounter [facility] 03-15-2024 Telephone encounter Note TC no answer. Left VM to return call. CLARISSA Edward [facility] 03-15-2024 Telephone encounter Note BUN is dehydrated range- push fluids and recheck in 4 weeks. Likely from HCTZ Telephone on 03/15/24 BASIC METABOLIC PANEL Frank White PA-C [facility] 03-09-2024 Telephone encounter Note Patient has been identified by name and date of : Yes Patient phones for refill(s): Requested Prescriptions Pending Prescriptions Disp Refills FLUoxetine (PROZAC) 20 mg capsule 90 capsule 1 Sig: Take 1 capsule by mouth once daily. Date of last office visit in primary care: 03/02/2024 Date of next office visit in primary care: 09/02/2024 Please advise. Thank you. Bryce Cole LPN. [facility] 03-09-2024 Miscellaneous Notes Patient has been identified by name and date of : Yes Patient phones for refill(s): Requested Prescriptions Pending Prescriptions Disp Refills FLUoxetine (PROZAC) 20 mg capsule 90 capsule 1 Sig: Take 1 capsule by mouth once daily. Date of last office visit in primary care: 03/02/2024 Date of next office visit in primary care: 09/02/2024 Please advise. Thank you. Bryce Cole LPN. documented in this encounter [facility] 03-09-2024 Telephone encounter Note Patient has been identified by name and date of : Yes Patient phones for refill(s): Requested Prescriptions Pending Prescriptions Disp Refills levothyroxine (SYNTHROID) 88 mcg tablet 90 tablet 1 Sig: Take 1 tablet by mouth once daily. Date of last office visit in primary care: 03/02/2024 Date of next office visit in primary care: 09/02/2024 Please advise. Thank you. Bryce Cole LPN. [facility] 03-09-2024 Miscellaneous Notes Patient has been identified by name and date of : Yes Patient phones for refill(s): Requested Prescriptions Pending Prescriptions Disp Refills levothyroxine (SYNTHROID) 88 mcg tablet 90 tablet 1 Sig: Take 1 tablet by mouth once daily. Date of last office visit in primary care: 03/02/2024 Date of next office visit in primary care: 09/02/2024 Please advise. Thank you. Bryce Cole LPN. documented in this encounter [facility] 03-02-2024 History of Presen t illness Narrative 83 year old female with c/o 6 month follow up Hit a brick wall, taking care of Ray, forgetful, trouble knowing where the bathroom or bedroom is. If they go out, makes comments without filter, like talks about fat people. Makes similar comments to her. Doesn't want to go to bed or get out of bed Only one who does anything. Going to caregivers support group for caregivers. Tired but otherwise doing okay Baljinder (obstructive sleep apnea) (primary encounter diagnosis) CPAP Essential hypertension Stage 3 chronic kidney disease, unspecified whether stage 3a or 3b ckd (hcc): Current meds: Triamterene-HCTZ 37.5-HCTZ 25mg daily Patient is compliant with meds No Monitors bp at home: No. If yes, readings: Denies side effects: No. Chest pain: No. Dyspnea: No. Edema: No. Palpitations: No. Syncope: No. Headache: No. Dizziness: No. Last 3 Encounter BP Readings: Date: BP: 03/02/2024 136/72 09/01/2023 132/74 08/01/2023 122/72 Last 2 Encounter Wt Readings: Date: Wt: 03/02/2024 76.7 kg (169 lb) 09/01/2023 82.6 kg (182 lb) Mixed hyperlipidemia Current medication Atorvastatin 10mg daily Taking medication consistently Yes Observing low cholesterol high fiber diet No Muscle aches No Stomach complaints/ diarrhea No Last 2 Lipids: Latest Ref Rng 01/04/2022 06/19/2023 Cholesterol, Total <200 mg/dL 182 174 Triglyceride <150 mg/dL 57 71 HDL Cholesterol >39 mg/dL 80 69 LDL Cholesterol <100 mg/dL 91 91 Non HDL Cholesterol <130 mg/dL 102 105 Fasting Time hrs 12 13 VLDL Cholesterol <30 mg/dL 11 14 TC:HDL Ratio <5.10 2.28 2.52 LDL:HDL Ratio <2.54 1.14 1.32 Prediabetes Current medications: Metformin 500mg daily Watching diet, nice weight loss Hemoglobin A1C (%) Date Value 06/19/2023 6.5 07/11/2022 6.3 09/01/2020 6.4 09/29/2019 6.4 Hypothyroidism, unspecified type Current medication: Levothyroxine 88mcg daily Taking as directed on an empty stomach? Yes. Thyroid pain: No. Mass effect: No. Change in energy level/ fatigue? 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 Sleep disturbance ?4-5 hours, interrupted by stress, bathroom. Temperature Intolerance: cold No, hot Yes. Change in bowel habits? No. Usually every other day, no issues Weight changes?Yes. intentional Change in hair or skin? Note losing hair. If yes: Other symptoms: TSH Date Value 06/19/2023 3.120 mIU/L 07/12/2022 2.830 mIU/L 01/04/2022 2.980 uU/mL 09/01/2020 3.660 uU/mL ) Gastroesophageal reflux disease without esophagitis Hiatal hernia Current medication: Pantoprazole DR 40mg daily. Current symptoms: so far, so good Still using gaviscon 4 times a day Better with weight loss, no eating fried foods or greasy foods. Last Mg level if on PPI chronically: due. Heartburn is controlled: Yes. Dysphagia: No. Bloody or black stools: No. Bowel changes: No. Rls (restless legs syndrome) Current medications: Tapentadol 50mg daily Dr. Callejas (retired) pain management in [place] initially Takes edge of pain to where she can function Seeing Dr. Almaguer Getting foraminal injections in tailbone. HISTORIES FAMILY HISTORY Problem Relation Age of Onset Heart Father of heart attack 65 Coronary Artery Disease Father fatal [place] Alcohol/Drug Father Cancer Maternal Grandfather pancreatic, 70 Cancer Paternal Grandfather pancreatic 65 Heart Paternal Grandfather Diabetes Paternal Grandmother 90 other (healthy) Mother healthly and living PAST MEDICAL HISTORY Diagnosis Date Arthritis Benign neoplasm of colon Benign neoplasm of colon Cervical spinal stenosis Diverticulosis of colon (without mention of hemorrhage) Esophageal reflux Essential (primary) hypertension History of transfusion Nonspecific elevation of levels of transaminase or lactic acid dehydrogenase (LDH) Elevated LFT's Occasional tremors essential tremors Other specified gastritis Personal history of colonic polyps Reflux esophagitis Scoliosis (and kyphoscoliosis), idiopathic Scoliosis associated with other condition Thyroid disease PAST SURGICAL HISTORY Procedure Laterality Date APPENDECTOMY APPENDECTOMY HX CHOLECYSTECTOMY Cholecystectomy COLONOSCOPY 01/28/2014 COLONOSCOPY 02/19/2017 COLONOSCOPY 08/19/2022 COLONOSCOPY FLX DX W/COLLJ SPEC WHEN PFRMD 09/2000 Colonoscopy COLONOSCOPY W/BIOPSY SINGLE/MULTIPLE 11/24/2008 EGD 02/19/2017 EGD TRANSORAL BIOPSY SINGLE/MULTIPLE 01/12/2007 EGD TRANSORAL BIOPSY SINGLE/MULTIPLE 03/17/2008 EGD W/O BRSH SPEC VARICIES INJ 08/19/2022 ESOPHAGOGASTRODUODENOSCOPY TRANSORAL DIAGNOSTIC 08/19/2012 EGD GASTROESOPHAG REFLX TEST W/TELEMTRY PH ELTRD 03/17/2008 SKIN BIOPSY HX TOTAL ABDOMINAL HYSTERECT W/WO RMVL TUBE OVARY Hysterectomy, WILLIE VAGINAL HYSTERECTOMY Social History Tobacco Use Smoking status: Former Years: 5 Types: Cigarettes Smokeless tobacco: Never Vaping Use Vaping Use: Never used Substance Use Topics Alcohol use: Yes Comment: rare Drug use: No ACTIVE PROBLEM LIST Recurrent Major Depression in Partial Remission (Hcc) Personal History of Colonic Polyps Diverticulosis of Colon (Without Mention of Hemorrhage) Prediabetes Hypothyroidism Hyperlipidemia Gerd (Gastroesophageal Reflux Disease) Hiatal Hernia Essential Tremor Essential Hypertension Ddd (Degenerative Disc Disease), Cervical CKD (chronic kidney disease) Stage 3, GFR 30-59 ml/min Baljinder (Obstructive Sleep Apnea) Rls (Restless Legs Syndrome) Encounter for Screening Mammogram for Malignant Neoplasm of Breast Scoliosis Deformity of Spine Current Outpatient Medications Medication Sig Dispense Refill pantoprazole DR (PROTONIX) 40 mg tablet Take 1 tablet by mouth once daily. 90 tablet 0 metFORMIN (GLUCOPHAGE) 500 mg tablet take 1 tablet by mouth EVERY MORNING WITH BREAKFAST 90 tablet 3 FLUoxetine (PROZAC) 20 mg capsule Take 1 capsule by mouth once daily. 90 capsule 1 famotidine (PEPCID) 20 mg tablet Take 1 tablet by mouth daily at bedtime. 90 tablet 3 atorvastatin (LIPITOR) 10 mg tablet Take 1 tablet by mouth daily at bedtime. For cholesterol. 90 tablet 3 tapentadol (NUCYNTA) 50 mg Take 1 tablet by mouth every 6 hours as needed for up to 30 days. 120 tablet 0 levothyroxine (SYNTHROID) 88 mcg tablet Take 1 tablet by mouth once daily. 90 tablet 1 triamterene-hydroCHLOROthiazide (DYAZIDE) 37.5-25 mg per capsule Take 1 capsule by mouth once daily. (Patient not taking: Reported on 09/01/2023) 90 capsule 3 CPAP Initiate Auto PAP @ 5-20 cm of water with humidification. Mask (per patient preference) optional chin strap (if indicated) , filters, tubing, humidifier and lifetime supplies. (Patient not taking: Reported on 06/16/2023) 1 Each 0 mag carb/aluminum hydrox/algin (GAVISCON ORAL) Take by mouth. tiZANidine HCl 4 mg capsule Take 1 capsule by mouth daily at bedtime. No current facility-administered medications for this visit. RSV Vaccine(1 - 1-dose 60+ series) Never done Advance Directive Discussion due on 11/10/2023 EXAM: BP 136/72 Pulse 75 Resp 16 Wt 76.7 kg (169 lb) SpO2 98% BMI 29.95 kg/m Pleasant older adult woman in no acute distress. Alert and oriented all spheres. Normal affect and cognition. Speech normal. No deficits to learning or comprehension. Skin warm, dry, pink to lips and nailbeds. Normal turgor. Respirations regular and unlabored. HEENT: NCAT. No scleral icterus or conjunctival injection. TM's clear. Nose and oropharynx free from injection or lesion. Oral membranes moist and pink. No cervical lymph nodes. Thyroid non-tender, no masses, or enlargement. Carotids pulses 2+/4+ without bruits. No JVD with HOB at 30 degrees. Chest is normal shape. Lungs are clear to all lara with good air exchange through out. HRRR without murmur or gallop. No lifts, heaves, or rubs. Extrem: no clubbing or cyanosis. Edema: none. Extremities are warm and pink with prompt capillary refill. ASSESSMENT/PLAN: 1. BALJINDER (obstructive sleep apnea) - ICD9: 327.23, ICD10: G47.33 (primary diagnosis) Stopped due to need to be available to care for 2. Essential hypertension - ICD9: 401.9, ICD10: I10 - Controlled - Continue current medications - Recommend home blood pressure monitoring, to bring results to next visit - Encouraged sodium restriction, DASH or Mediterranean diet - Recommend regular aerobic exercise 3. Stage 3 chronic kidney disease, unspecified whether stage 3a or 3b CKD (HCC) - ICD9: 585.3, ICD10: N18.30 - eGFR: 45 Stable - Counseled on avoiding NSAIDs, adequate hydration 4. Mixed hyperlipidemia - ICD9: 272.2, ICD10: E78.2 - Controlled - Continue current medications - Counseled on healthy diet and regular exercise 5. Prediabetes - ICD9: 790.29, ICD10: R73.03 - HEMOGLOBIN A1C 6. Hypothyroidism, unspecified type - ICD9: 244.9, ICD10: E03. Controlled, CPM 7. Gastroesophageal reflux disease without esophagitis - ICD9: 530.81, ICD10: K21.9 8. Hiatal hernia - ICD9: 553.3, ICD10: K44.9 Increase pantoprazole 450mg to twice a day ac. Instructed not to use antacids within 4 hours of PPI 9. RLS (restless legs syndrome) - ICD9: 333.94, ICD10: G25.81 Controlled on Nuctynta 10. Fatty liver disease, nonalcoholic - ICD9: 571.8, ICD10: K76.0 No elevation liver enzymes. 11. GERD without esophagitis - ICD9: 530.81, ICD10: K21.9 As above, complimented on great efforts with weight loss. - PANTOPRAZOLE 40 MG TABLET,DELAYED RELEASE 12. Current use of proton pump inhibitor - ICD9: V58.69, ICD10: Z79.899 Check magnesium 50 minute visit Education and emotional support with reflective listening 20 minutes F/u 6 months Some of this note may have been copied and pasted for the purpose of history context and comparison. All questions listed were asked and adjusted for changes in prior data. Ronnell Estrada PA-C documented in this encounter [facility] 03-02-2024 Note HNO ID: [id number] Author: Ronnell ESTRADA PA-C Service: ? Author Type: Physician Uke Driver Type: Progress Notes Filed: 03/02/2024 12:18 Note Text: 83 year old female with c/o 6 month follow up Hit a brick wall, taking care of Ray, forgetful, trouble knowing where the bathroom or bedroom is. If they go out, makes comments without filter, like talks about fat people. Makes similar comments to her. Doesn't want to go to bed or get out of bed Only one who does anything. Going to caregivers support group for caregivers. Tired but otherwise doing okay Baljinder (obstructive sleep apnea) (primary encounter diagnosis) CPAP Essential hypertension Stage 3 chronic kidney disease, unspecified whether stage 3a or 3b ckd (hcc): Current meds: Triamterene-HCTZ 37.5-HCTZ 25mg daily Patient is compliant with meds No Monitors bp at home: No. If yes, readings: Denies side effects: No. Chest pain: No. Dyspnea: No. Edema: No. Palpitations: No. Syncope: No. Headache: No. Dizziness: No. Last 3 Encounter BP Readings: Date: BP: 03/02/2024 136/72 09/01/2023 132/74 08/01/2023 122/72 Last 2 Encounter Wt Readings: Date: Wt: 03/02/2024 76.7 kg (169 lb) 09/01/2023 82.6 kg (182 lb) Mixed hyperlipidemia Current medication Atorvastatin 10mg daily Taking medication consistently Yes Observing low cholesterol high fiber diet No Muscle aches No Stomach complaints/ diarrhea No Last 2 Lipids: Latest Ref Rng 01/04/2022 06/19/2023 Cholesterol, Total <200 mg/dL 182 174 Triglyceride <150 mg/dL 57 71 HDL Cholesterol >39 mg/dL 80 69 LDL Cholesterol <100 mg/dL 91 91 Non HDL Cholesterol <130 mg/dL 102 105 Fasting Time hrs 12 13 VLDL Cholesterol <30 mg/dL 11 14 TC:HDL Ratio <5.10 2.28 2.52 LDL:HDL Ratio <2.54 1.14 1.32 Prediabetes Current medications: Metformin 500mg daily Watching diet, nice weight loss Hemoglobin A1C (%) Date Value 06/19/2023 6.5 07/11/2022 6.3 09/01/2020 6.4 09/29/2019 6.4 Hypothyroidism, unspecified type Current medication: Levothyroxine 88mcg daily Taking as directed on an empty stomach? Yes. Thyroid pain: No. Mass effect: No. Change in energy level/ fatigue? 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 Sleep disturbance ?4-5 hours, interrupted by stress, bathroom. Temperature Intolerance: cold No, hot Yes. Change in bowel habits? No. Usually every other day, no issues Weight changes?Yes. intentional Change in hair or skin? Note losing hair. If yes: Other symptoms: TSH Date Value 06/19/2023 3.120 mIU/L 07/12/2022 2.830 mIU/L 01/04/2022 2.980 uU/mL 09/01/2020 3.660 uU/mL ) Gastroesophageal reflux disease without esophagitis Hiatal hernia Current medication: Pantoprazole DR 40mg daily. Current symptoms: so far, so good Still using gaviscon 4 times a day Better with weight loss, no eating fried foods or greasy foods. Last Mg level if on PPI chronically: due. Heartburn is controlled: Yes. Dysphagia: No. Bloody or black stools: No. Bowel changes: No. Rls (restless legs syndrome) Current medications: Tapentadol 50mg daily HS Dr. Callejas (retired) pain management in [place] initially Takes edge of pain to where she can function Seeing Dr. Almaguer Getting foraminal injections in tailbone. HISTORIES FAMILY HISTORY Problem Relation Age of Onset Heart Father of heart attack 65 Coronary Artery Disease Father fatal [place] Alcohol/Drug Father Cancer Maternal Grandfather pancreatic, 70 Cancer Paternal Grandfather pancreatic 65 Heart Paternal Grandfather Diabetes Paternal Grandmother 90 other (healthy) Mother healthly and living PAST MEDICAL HISTORY Diagnosis Date Arthritis Benign neoplasm of colon Benign neoplasm of colon Cervical spinal stenosis Diverticulosis of colon (without mention of hemorrhage) Esophageal reflux Essential (primary) hypertension History of transfusion Nonspecific elevation of levels of transaminase or lactic acid dehydrogenase (LDH) Elevated LFT's Occasional tremors essential tremors Other specified gastritis Personal history of colonic polyps Reflux esophagitis Scoliosis (and kyphoscoliosis), idiopathic Scoliosis associated with other condition Thyroid disease PAST SURGICAL HISTORY Procedure Laterality Date APPENDECTOMY APPENDECTOMY HX CHOLECYSTECTOMY Cholecystectomy COLONOSCOPY 01/28/2014 COLONOSCOPY 02/19/2017 COLONOSCOPY 08/19/2022 COLONOSCOPY FLX DX W/COLLJ SPEC WHEN PFRMD 09/2000 Colonoscopy COLONOSCOPY W/BIOPSY SINGLE/MULTIPLE 11/24/2008 EGD 02/19/2017 EGD TRANSORAL BIOPSY SINGLE/MULTIPLE 01/12/2007 EGD TRANSORAL BIOPSY SINGLE/MULTIPLE 03/17/2008 EGD W/O BRSH SPEC VARICIES INJ 08/19/2022 ESOPHAGOGASTRODUODENOSCOPY TRANSORAL DIAGNOSTIC 08/19/2012 EGD GASTROESOPHAG REFLX TEST W/TELEMTRY PH ELTRD 03/17/2008 SKIN BIOPSY HX TOTAL ABDOMINAL HYSTEREC (more content not included)... [facility] 02-03-2024 Miscellaneous Notes Patient has been identified by name and date of : Patient phones for refill(s): Requested Prescriptions Pending Prescriptions Disp Refills pantoprazole DR (PROTONIX) 40 mg tablet 90 tablet 0 Sig: Take 1 tablet by mouth once daily. Date of last office visit in primary care: 09/01/2023 Date of next office visit in primary care: 03/02/2024 Please advise. Thank you. Dian Lerma. documented in this encounter [facility] 10-22-2023 Miscellaneous Notes Pharmacy requesting 90 day supply. DARA 09/01/23 NOV 03/02/24 Yuli Harry MA documented in this encounter [facility] 09-01-2023 History of Presen t illness Narrative Radiology Service Progress Note PATIENT NAME: Nena Mandujano DATE OF SERVICE: September 01, 2023 TIME: 9:47 AM PATIENT IDENTITY VERIFICATION COMPLETED USING TWO (2) IDENTIFIERS: Name and Date of confirmed by patient verbally. FALL SCREENING: Has the patient had 2 falls in the last year or 1 fall with injury or currently using an Ambulatory Assistive Device (Walker, Cane, Wheelchair, Crutches, etc.)? No PATIENT GENDER DATA: Female. status: : No status: NO. PATIENT RELEVANT IMPLANT DATA REVIEWED: Yes RADIOLOGY DEPARTMENT: General X-ray: Exam(s) Completed: Spine X-Ray(s): Cervical AP / LAT , Thoracic, and Lumbar AP / LAT / L5-S1 PERIPHERAL IV DATA: Not applicable SIGNED BY: RT Anju(R) September 01, 2023 9:47 AM documented in this encounter [facility] 09-01-2023 History of Presen t illness Narrative 82 year old female with c/o 4 week f/u off BP medication HTN: Current meds: Triamterene-HCTZ 37.5-25mg daily d/c Patient is compliant with meds Yes Monitors bp at home: Yes. If yes, readings: 120-130/76 Denies side effects: No. Chest pain: No. Dyspnea: No. Edema: No. Palpitations: No. Syncope: No. Headache: No. Dizziness: No. Last 3 Encounter BP Readings: Date: BP: 08/01/2023 122/72 06/16/2023 120/64 01/21/2023 148/74 Last 2 Encounter Wt Readings: Date: Wt: 08/01/2023 83.6 kg (184 lb 6.4 oz) 06/16/2023 87 kg (191 lb 12.8 oz) Going for xrays today, starting injections. HISTORIES FAMILY HISTORY Problem Relation Age of Onset Heart Father of heart attack 65 Coronary Artery Disease Father fatal [place] Alcohol/Drug Father Cancer Maternal Grandfather pancreatic, 70 Cancer Paternal Grandfather pancreatic 65 Heart Paternal Grandfather Diabetes Paternal Grandmother 90 other (healthy) Mother healthly and living PAST MEDICAL HISTORY Diagnosis Date Arthritis Benign neoplasm of colon Benign neoplasm of colon Cervical spinal stenosis Diverticulosis of colon (without mention of hemorrhage) Esophageal reflux Essential (primary) hypertension History of transfusion Nonspecific elevation of levels of transaminase or lactic acid dehydrogenase (LDH) Elevated LFT's Occasional tremors essential tremors Other specified gastritis Personal history of colonic polyps Reflux esophagitis Scoliosis (and kyphoscoliosis), idiopathic Scoliosis associated with other condition Thyroid disease PAST SURGICAL HISTORY Procedure Laterality Date APPENDECTOMY APPENDECTOMY HX CHOLECYSTECTOMY Cholecystectomy COLONOSCOPY 01/28/2014 COLONOSCOPY 02/19/2017 COLONOSCOPY 08/19/2022 COLONOSCOPY FLX DX W/COLLJ SPEC WHEN PFRMD 09/2000 Colonoscopy COLONOSCOPY W/BIOPSY SINGLE/MULTIPLE 11/24/2008 EGD 02/19/2017 EGD TRANSORAL BIOPSY SINGLE/MULTIPLE 01/12/2007 EGD TRANSORAL BIOPSY SINGLE/MULTIPLE 03/17/2008 EGD W/O BRSH SPEC VARICIES INJ 08/19/2022 ESOPHAGOGASTRODUODENOSCOPY TRANSORAL DIAGNOSTIC 08/19/2012 EGD GASTROESOPHAG REFLX TEST W/TELEMTRY PH ELTRD 03/17/2008 SKIN BIOPSY HX TOTAL ABDOMINAL HYSTERECT W/WO RMVL TUBE OVARY Hysterectomy, WILLIE VAGINAL HYSTERECTOMY Social History Tobacco Use Smoking status: Former Years: 5 Types: Cigarettes Smokeless tobacco: Never Vaping Use Vaping Use: Never used Substance Use Topics Alcohol use: Yes Comment: rare Drug use: No ACTIVE PROBLEM LIST Recurrent Major Depression in Partial Remission (Hcc) Personal History of Colonic Polyps Diverticulosis of Colon (Without Mention of Hemorrhage) Prediabetes Hypothyroidism Hyperlipidemia Gerd (Gastroesophageal Reflux Disease) Hiatal Hernia Essential Tremor Essential Hypertension Ddd (Degenerative Disc Disease), Cervical CKD (chronic kidney disease) Stage 3, GFR 30-59 ml/min Baljinder (Obstructive Sleep Apnea) Rls (Restless Legs Syndrome) Encounter for Screening Mammogram for Malignant Neoplasm of Breast Scoliosis Deformity of Spine Current Outpatient Medications Medication Sig Dispense Refill famotidine (PEPCID) 20 mg tablet Take 1 tablet by mouth daily at bedtime. 90 tablet 3 atorvastatin (LIPITOR) 10 mg tablet Take 1 tablet by mouth daily at bedtime. For cholesterol. [address] (PROTONIX) 40 mg tablet Take 1 tablet by mouth once daily. 90 tablet 0 tapentadol (NUCYNTA) 50 mg Take 1 tablet by mouth every 6 hours as needed for up to 30 days. 120 tablet 0 levothyroxine (SYNTHROID) 88 mcg tablet Take 1 tablet by mouth once daily. 90 tablet 1 metFORMIN (GLUCOPHAGE) 500 mg tablet Take 1 tablet by mouth daily with breakfast. 30 tablet 5 triamterene-hydroCHLOROthiazide (DYAZIDE) 37.5-25 mg per capsule Take 1 capsule by mouth once daily. 90 capsule 3 FLUoxetine (PROZAC) 20 mg capsule Take 1 capsule by mouth once daily. 90 capsule 1 CPAP Initiate Auto PAP @ 5-20 cm of water with humidification. Mask (per patient preference) optional chin strap (if indicated) , filters, tubing, humidifier and lifetime supplies. (Patient not taking: Reported on 06/16/2023) 1 Each 0 mag carb/aluminum hydrox/algin (GAVISCON ORAL) Take by mouth. tiZANidine HCl 4 mg capsule Take 1 capsule by mouth daily at bedtime. No current facility-administered medications for this visit. RSV Vaccine(1 - 1-dose 60+ series) Never done Influenza Vaccine(1) due on 07/11/2023 Covid-19 Vaccine( - season) due on 07/11/2023 EXAM: BP 132/74 Pulse 76 Resp 16 Wt 82.6 kg (182 lb) SpO2 96% BMI 32.25 kg/m Pleasant overweight adult woman in no acute distress. Alert and oriented all spheres. Normal affect and cognition. Speech normal. No deficits to learning or comprehension. Skin warm, dry, pink to lips and nailbeds. Normal turgor. Respirations regular and unlabored. Chest is normal shape. Lungs are clear to all lara with good air exchange through out. HRRR without murmur or gallop. No lifts, heaves, or rubs. Extrem: no clubbing or cyanosis. Edema: none. Extremities are warm and pink with prompt capillary refill.ASSESSMENT/PLAN: 1. Essential hypertension - ICD9: 401.9, ICD10: I10 (primary diagnosis) - Controlled - Continue off dyazide and monitor home BP: notify if persistently > 140/90 - Recommend home blood pressure monitoring, to bring results to next visit - Encouraged sodium restriction, DASH or Mediterranean diet - Recommend regular aerobic exercise 2. Encounter for immunization - ICD9: V03.89, ICD10: Z23 - INFLUENZA VACCINE, PRSV FREE, AGE 65+ YR, HIGH DOSE, QUADRIVALENT (FLUZONE HIGH-DOSE) - [employer] COVID-19 VACCINE ( SEASON) AGE 12+ YR Discussed various vaccines she could receive. F/u 6 months and as needed- will wait for RSV and Zostrix. Ronnell Estrada PA-C documented in this encounter [facility] 08-14-2023 Miscellaneous Notes Patient has been identified by name and date of : Yes Requested Prescriptions Pending Prescriptions Disp Refills famotidine (PEPCID) 20 mg tablet 30 tablet 2 Sig: Take 1 tablet by mouth daily at bedtime. RX INSTRUCTIONS: Patient aware RX will be sent to pharmacy. No need to notify patient. Tiffany Theodore LPN documented in this encounter [facility] 08-14-2023 Miscellaneous Notes Patient has been identified by name and date of : Yes Requested Prescriptions Pending Prescriptions Disp Refills atorvastatin (LIPITOR) 10 mg tablet 90 tablet 0 Sig: Take 1 tablet by mouth daily at bedtime. For cholesterol. RX INSTRUCTIONS: Patient aware RX will be sent to pharmacy. No need to notify patient. DARA 08/01/23 Component Latest Ref Rng & Units 06/19/2023 Cholesterol, Total <200 mg/dL 174 Triglyceride <150 mg/dL 71 HDL Cholesterol >39 mg/dL 69 Non HDL Cholesterol <130 mg/dL 105 Fasting Time hrs 13 VLDL Cholesterol <30 mg/dL 14 TC:HDL Ratio <5.10 2.52 LDL Cholesterol <100 mg/dL 91 LDL:HDL Ratio <2.54 1.32 Tiffany Theodore LPN documented in this encounter [facility] 08-05-2023 Miscellaneous Notes Patient has been identified by name and date of : Yes Requested Prescriptions Pending Prescriptions Disp Refills pantoprazole DR (PROTONIX) 40 mg tablet 90 tablet 0 Sig: Take 1 tablet by mouth once daily. RX INSTRUCTIONS: Patient aware RX will be sent to pharmacy. No need to notify patient. Patient last office visit: 08/01/23 Patient next office visit: 09/01/23 Yuli Harry MA documented in this encounter [facility] 08-01-2023 History of Presen t illness Narrative POPULATION HEALTH NAVIGATION OUTREACH Action/I [place] Support: Called pt to schedule an appt in Pain Management. See s provider closer to home Patient Identified by Name and : YES, via phone Outreach Outcome/Action Spoke to patient / parent / legal guardian: Patient declined Did you use a PCP flex slot to schedule this appointment? No Reason for Outreach Care Gap or Scheduling/Wellness visits Payer: [place]or[place] [facility] [place] Plan[place] MMO MEDADVANTAGE HMO / Product Type: HMO / Care Gap Reviewed:: Specialty Scheduling Reminder: Reminder note to check Health Maintenance for items below Health Maintenance items due: Influenza Vaccine(1) due on 07/11/2023 Navigation Signature: Danyelle Palacios August 01, 2023 4:51 PM documented in this encounter [facility] 08-01-2023 Instructions Ronnell Estrada PA-C - 08/01/2023 9:54 AM EDT Hold Dyazide x 4 weeks and recheck BP. Home BP reading once a day. 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 Has gotten mean, grouchy, forgetful. HISTORIES FAMILY HISTORY Problem Relation Age of Onset Heart Father of heart attack 65 Coronary Artery Disease Father fatal [place] Alcohol/Drug Father Cancer Maternal Grandfather pancreatic, 70 Cancer Paternal Grandfather pancreatic 65 Heart Paternal Grandfather Diabetes Paternal Grandmother 90 other (healthy) Mother healthly and living PAST MEDICAL HISTORY Diagnosis Date Arthritis Benign neoplasm of colon Benign neoplasm of colon Cervical spinal stenosis Diverticulosis of colon (without mention of hemorrhage) Esophageal reflux Essential (primary) hypertension History of transfusion Nonspecific elevation of levels of transaminase or lactic acid dehydrogenase (LDH) Elevated LFT's Occasional tremors essential tremors Other specified gastritis Personal history of colonic polyps Reflux esophagitis Scoliosis (and kyphoscoliosis), idiopathic Scoliosis associated with other condition Thyroid disease PAST SURGICAL HISTORY Procedure Laterality Date APPENDECTOMY APPENDECTOMY HX CHOLECYSTECTOMY Cholecystectomy COLONOSCOPY 01/28/2014 COLONOSCOPY 02/19/2017 COLONOSCOPY 08/19/2022 COLONOSCOPY FLX DX W/COLLJ SPEC WHEN PFRMD 09/2000 Colonoscopy COLONOSCOPY W/BIOPSY SINGLE/MULTIPLE 11/24/2008 EGD 02/19/2017 EGD TRANSORAL BIOPSY SINGLE/MULTIPLE 01/12/2007 EGD TRANSORAL BIOPSY SINGLE/MULTIPLE 03/17/2008 EGD W/O BRSH SPEC VARICIES INJ 08/19/2022 ESOPHAGOGASTRODUODENOSCOPY TRANSORAL DIAGNOSTIC 08/19/2012 EGD GASTROESOPHAG REFLX TEST W/TELEMTRY PH ELTRD 03/17/2008 SKIN BIOPSY HX TOTAL ABDOMINAL HYSTERECT W/WO RMVL TUBE OVARY Hysterectomy, WILLIE VAGINAL HYSTERECTOMY Social History Tobacco Use Smoking status: Former Years: 5 Types: Cigarettes Smokeless tobacco: Never Vaping Use Vaping Use: Never used Substance Use Topics Alcohol use: Yes Comment: rare Drug use: No ACTIVE PROBLEM LIST Recurrent Major Depression in Partial Remission (Hcc) Personal History of Colonic Polyps Diverticulosis of Colon (Without Mention of Hemorrhage) Prediabetes Hypothyroidism Hyperlipidemia Gerd (Gastroesophageal Reflux Disease) Hiatal Hernia Essential Tremor Essential Hypertension Ddd (Degenerative Disc Disease), Cervical CKD (chronic kidney disease) Stage 3, GFR 30-59 ml/min Baljinder (Obstructive Sleep Apnea) Rls (Restless Legs Syndrome) Encounter for Screening Mammogram for Malignant Neoplasm of Breast Scoliosis Deformity of Spine Current Outpatient Medications Medication Sig Dispense Refill tapentadol (NUCYNTA) 50 mg Take 1 tablet by mouth every 6 hours as needed for up to 30 days. 120 tablet 0 levothyroxine (SYNTHROID) 88 mcg tablet Take 1 tablet by mouth once daily. 90 tablet 1 metFORMIN (GLUCOPHAGE) 500 mg tablet Take 1 tablet by mouth daily with breakfast. 30 tablet 5 triamterene-hydroCHLOROthiazide (DYAZIDE) 37.5-25 mg per capsule Take 1 capsule by mouth once daily. 90 capsule 3 atorvastatin (LIPITOR) 10 mg tablet Take 1 tablet by mouth daily at bedtime. For cholesterol. [address] (PROTONIX) 40 mg tablet Take 1 tablet by mouth once daily. 90 tablet 0 FLUoxetine (PROZAC) 20 mg capsule Take 1 capsule by mouth once daily. 90 capsule 1 CPAP Initiate Auto PAP @ 5-20 cm of water with humidification. Mask (per patient preference) optional chin strap (if indicated) , filters, tubing, humidifier and lifetime supplies. (Patient not taking: Reported on 06/16/2023) 1 Each 0 mag carb/aluminum hydrox/algin (GAVISCON ORAL) Take by mouth. tiZANidine HCl 4 mg capsule Take 1 capsule by mouth daily at bedtime. No current facility-administered medications for this visit. Influenza Vaccine(1) due on 07/11/2023 EXAM: BP 122/72 Pulse 65 Resp 16 Wt 83.6 kg (184 lb 6.4 oz) SpO2 98% BMI 32.68 kg/m Pleasant older adult woman who seems much younger than stated age in no acute distress. Alert and oriented all spheres. Normal affect and cognition. Speech normal. No deficits to learning or comprehension. Skin warm, dry, pink to lips and nailbeds. Normal turgor. Respirations regular and unlabored. Chest is normal shape. Lungs are clear to all lara with good air exchange through out. HRRR without murmur or gallop. No lifts, heaves, or rubs. Extrem: no clubbing or cyanosis. Edema: none. Extremities are warm and pink with prompt capillary refill. ASSESSMENT/PLAN: 1. Essential hypertension - ICD9: 401.9, ICD10: I10 - Controlled - Continuing current medications brought up by patient who feels she never had high blood pressure inpast, wonders if she has to be on medication. Reviewing pattern with high BP, focal elevations occurred x 2 in 2017 160/100, 164/87 with only a few other slight elevations in 140-150.sys I think we would be safe stopping medication for 4 weeks and reassessing. - Recommend home blood pressure monitoring, to bring results to next visit - Encouraged sodium restriction, DASH or Mediterranean diet - Recommend regular aerobic exercise - BASIC METABOLIC PNL 2. Stage 3 chronic kidney disease, unspecified whether stage 3a or 3b CKD (HCC) - ICD9: 585.3, ICD10: N18.30 - eGFR: 50 Stable Numbers are skewed by diuretic effect, see above Ronnell Estrada PA-C Some of this note may have been copied and pasted for the purpose of history context and comparison. documented in this encounter [facility] 08-01-2023 Evaluation note Diagnosis Essential hypertension- Primary Unspecified essential hypertension Stage 3 chronic kidney disease, unspecified whether stage 3a or 3b CKD (HCC) documented in this encounter [facility]09-13-2023 Miscellaneous Notes* Addendum Note - Raheem Dacosta MD - 07/23/2023 3:55 PM EDTAddended by: RAHEEM DACOSTA on: 07/23/2023 03:55 PM Modules accepted: Orders * Addendum Note - Homer Hester MA - 07/23/2023 2:37 PM EDTAddended by: HOMER HESTER on: 07/23/2023 02:37 PM Modules accepted: Orders * Telephone Encounter - Homer Hester MA - 07/23/2023 2:27 PM EDT DARA: 06/16/23 with PCP NOV: 08/01/23-6 week F/U with GB Last refill: 06/16/23 With 120 and 0 refills Homer Hester MA [facility] Miscellaneous Notes* Telephone Encounter - Ronnell Estrada PA-C - 07/18/2023 2:08 PM EDT Get Medical Advice on 07/16/23 CONSULT TO PAIN MGT Chritsopher, Frank Estrada PA-C * Telephone Encounter - Shanthi Velez - 07/16/2023 2:36 PM EDT Pended consult. Patient would like to see Dr. Almaguer with [facility]. Shatnhi Velez [facility] Miscellaneous Notes* Telephone Encounter - Bryce Cole LPN - 07/02/2023 12:59 PM EDT Left message to return call to office. message sent as well. Bryce Cole LPN * Telephone Encounter - Bryce Cole LPN - 06/24/2023 4:43 PM EDT Left detailed message on secure voicemail. Pt to return call to office for appt. Leaving encounter open until pt schedules follow up appt. Bryce Cole LPN * Telephone Encounter - Rolanda Paul OCCA - 06/23/2023 11:47 AM EDT Second attempt to reach patient by phone with no answer. Left additional VM to return call to office. CLARISSA Edward * Telephone Encounter - Shanthi Velez - 06/20/2023 4:54 PM EDT Message left for patient to return call. Shanthi Velez * Telephone Encounter - Raheem Dacosta MD - 06/20/2023 1:24 PM EDT See other te. Add metformin. Follow up in six weeks. Watch diet. [facility] Miscellaneous Notes* Telephone Encounter - Patricia Mancia LPN - 07/01/2023 8:54 AM EDT Patient has been identified by name and date of : Yes Patient phones for refill(s): Requested Prescriptions Pending Prescriptions Disp Refills levothyroxine (SYNTHROID) 88 mcg tablet 90 tablet 1 Sig: Take 1 tablet by mouth once daily. Date of last office visit in primary care: 06/16/2023 Last 2 Encounter Wt Readings: Date: Wt: 06/16/2023 87 kg (191 lb 12.8 oz) 01/21/2023 90.3 kg (199 lb) Previous labs/tests for medication: Thyroid: TSH Date Value 06/19/2023 3.120 mIU/L 01/04/2022 2.980 uU/mL Please advise. Thank you. Patricia Mancia LPN [facility] Miscellaneous Notes* Telephone Encounter - Trini Cheung - 06/20/2023 1:12 PM EDT Patient understands she is on the verge of DM and is willing to add medication. Her preferred pharmacy is [facility] in [place]. Trini Cheung * Telephone Encounter - Raheem Dacosta MD - 06/20/2023 12:25 PM EDT Labs are stable. Sugars are now higher right at verge of DM. Is she willing to add a med to help with sugars-metformin.? [facility] History of Present illness Narrative* Raheem Dacosta MD - 06/16/2023 2:23 PM EDT Patient presents with: Follow Up HPI: Patient presents today for office visit for follow up. SCOLIOSIS: Followed by pain mgt at [facility]. Appt in Aug. Needing refill. Using TENS unit and heating pad. She is in between pain management and they have asked us to refill until she can see the new physician. Has an appt scheduled. We just need to fill temporarily until she gets moved to new office. Oarrrs done. Uses them chronically. Aware of risks and benefits. Uses them prn. Signed controlled substance agreement. HLD: Continues on Atorvastatin 10 mg daily. No Myalgias. BALJINDER: Turned in CPAP to DME. Not using. Tried it and can't sleep with it. Discussed risks of not using it. HTN: Does not monitor BP Denies chest pain and shortness of breath Memory : Hasn't had any more trouble with words or sentences. It's mainly peoples names. Overall is stable. Has done labs. Occasional off balance. No falls. No headaches. No vision or speech changes. Prediabetes: sugars have been ok. PSYCH: emotionally is doing well MRI: IMPRESSION: No acute intracranial process. No acute infarct. Chronic changes as described. MEDICATIONS: Current Outpatient Medications Medication Sig triamterene-hydroCHLOROthiazide (DYAZIDE) 37.5-25 mg per capsule Take 1 capsule by mouth once daily. atorvastatin (LIPITOR) 10 mg tablet Take 1 tablet by mouth daily at bedtime. For cholesterol. famotidine (PEPCID) 20 mg tablet Take 1 tablet by mouth daily at bedtime. pantoprazole DR (PROTONIX) 40 mg tablet Take 1 tablet by mouth once daily. levothyroxine (SYNTHROID) 88 mcg tablet Take 1 tablet by mouth once daily. FLUoxetine (PROZAC) 20 mg capsule Take 1 capsule by mouth once daily. CPAP Initiate Auto PAP @ 5-20 cm of water with humidification. Mask (per patient preference) optional chin strap (if indicated) , filters, tubing, humidifier and lifetime supplies. mag carb/aluminum hydrox/algin (GAVISCON ORAL) Take by mouth. tiZANidine HCl 4 mg capsule Take 1 capsule by mouth daily at bedtime. tapentadol (NUCYNTA) 50 mg tab Take 1 tablet by mouth every 8 hours. No current facility-administered medications for this visit. ALLERGIES: ALLERGIES No Known Allergies PAST MEDICAL HISTORY Diagnosis Date Arthritis Benign neoplasm of colon Benign neoplasm of colon Cervical spinal stenosis Diverticulosis of colon (without mention of hemorrhage) Esophageal reflux Essential (primary) hypertension History of transfusion Nonspecific elevation of levels of transaminase or lactic acid dehydrogenase (LDH) Elevated LFT's Occasional tremors essential tremors Other specified gastritis Personal history of colonic polyps Reflux esophagitis Scoliosis (and kyphoscoliosis), idiopathic Scoliosis associated with other condition Thyroid disease PAST SURGICAL HISTORY Procedure Laterality Date APPENDECTOMY APPENDECTOMY HX CHOLECYSTECTOMY Cholecystectomy COLONOSCOPY 01/28/2014 COLONOSCOPY 02/19/2017 COLONOSCOPY 08/19/2022 COLONOSCOPY FLX DX W/COLLJ SPEC WHEN PFRMD 09/2000 Colonoscopy COLONOSCOPY W/BIOPSY SINGLE/MULTIPLE 11/24/2008 EGD 02/19/2017 EGD TRANSORAL BIOPSY SINGLE/MULTIPLE 01/12/2007 EGD TRANSORAL BIOPSY SINGLE/MULTIPLE 03/17/2008 EGD W/O BRSH SPEC VARICIES INJ 08/19/2022 ESOPHAGOGASTRODUODENOSCOPY TRANSORAL DIAGNOSTIC 08/19/2012 EGD GASTROESOPHAG REFLX TEST W/TELEMTRY PH ELTRD 03/17/2008 SKIN BIOPSY HX TOTAL ABDOMINAL HYSTERECT W/WO RMVL TUBE OVARY Hysterectomy, WILLIE VAGINAL HYSTERECTOMY FAMILY HISTORY Problem Relation Age of Onset Heart Father of heart attack 65 Coronary Artery Disease Father fatal [place] Alcohol/Drug Father Cancer Maternal Grandfather pancreatic, 70 Cancer Paternal Grandfather pancreatic 65 Heart Paternal Grandfather Diabetes Paternal Grandmother 90 other (healthy) Mother healthly and living Social History Tobacco Use Smoking status: Former Years: 5.00 Types: Cigarettes Smokeless tobacco: Never Vaping Use Vaping Use: Never used Substance Use Topics Alcohol use: Yes Comment: rare Drug use: No Reviewed current medications, allergies, past medical history, surgical history, family history andsocial history today. REVIEW OF SYSTEMS All other reviewed and negative other than HPI. HEALTH MAINTENANCE: Reviewed health maintenance issues today and recommended the following in detail. DTAP,TDAP,TD(1 - Tdap) Never done SHINGRIX VACCINE(2 of 3) due on 04/24/2012 COVID-19 VACCINE(4 - Pfizer series) due on 11/01/2021 ADVANCE DIRECTIVE DISCUSSION- sonCarlos Eduardo is dpoa. VITALS: BP 120/64 Pulse 88 Ht 160 cm (5' 2.99 ) Wt 87 kg (191 lb 12.8 oz) SpO2 96% BMI 33.99 kg/m Last 4 Encounter Wt Readings: Date: Wt: 01/21/2023 90.3 kg (199 lb) 09/13/2022 89.6 kg (197 lb 9.6 oz) 08/27/2022 89.3 kg (196 lb 12.8 oz) 08/19/2022 89 kg (196 lb 3.4 oz) PHYSICAL EXAMINATION: General appearance: Well appearing, alert, in no acute distress, well-hydrated, well nourished. Skin: Skin color, texture, turgor normal, no suspicious rashes or lesions Head: Normocephalic, no masses, lesions, tenderness or abnormalities Lungs: Lungs clear to auscultation. No wheezing, rhonchi, rales Heart: RRR without murmur, gallop, or rubs. No ectopy Abdomen: Normal abdominal exam, Abdomen soft, non-tender. Bowel sounds normal. No masses, organomegaly Extremities: No deformities, edema, skin discoloration, clubbing or cyanosis. Good capillary refill. Musculoskeletal: No joint swelling, deformity, or tenderness ASSESSMENT/PLAN: 1. Essential tremor - ICD9: 333.1, ICD10: G25.0 (primary diagnosis) - stable. 2. Essential hypertension - ICD9: 401.9, ICD10: I10 - Controlled - Continue current medications 3. Mixed hyperlipidemia - ICD9: 272.2, ICD10: E78.2 - Controlled - Continue current medications 4. BALJINDER (obstructive sleep apnea) - ICD9: 327.23, ICD10: G47.33 - stable. 5. Recurrent major depression in partial remission (HCC) - ICD9: 296.35, ICD10: F33.41 - continue meds. 6. Prediabetes - ICD9: 790.29, ICD10: R73.03 - stable. 7. DDD of lumbar spine and scoliosis. Refill nucynta. Will refill until sees new pain management. Oarrs done. Will do tox screen. Contract performedd. Check labs. Raheem Dacosta MD documented in [facility] Miscellaneous Notes* Telephone Encounter - Claudia Miller MA - 06/02/2023 8:42 AM EDT Patient has been identified by name and date of : Yes Requested Prescriptions Pending Prescriptions Disp Refills triamterene-hydroCHLOROthiazide (DYAZIDE) 37.5-25 mg per capsule 90 capsule 3 Sig: Take 1 capsule by mouth once daily. RX INSTRUCTIONS: Patient aware RX will be sent to pharmacy. No need to notify patient. Claudia Miller MA [facility] 09/2022 Nov 06/2023 Last refill: 05/2022 documented in this encounterM[facility]06-[facility]23 Miscellaneous Notes* Telephone Encounter - Laura Mendez LPN - 05/02/2023 10:39 AM EDT Dara--09/13/22 Nov--nothing scheduled Last refill--pantoprazole --02/06/23 90 with 0 refills Famotidine-- 01/22/23 90 with 0 refills Last labs--07/17/22 documented in this encounterM[facility]05-[facility]-2023 Miscellaneous Notes* Telephone Encounter - Patricia Mancia LPN - 03/18/2023 1:33 PM EDT Patient has been identified by name and date of : Yes Patient phones for refill(s): Requested Prescriptions Pending Prescriptions Disp Refills FLUoxetine (PROZAC) 20 mg capsule 90 capsule 1 Sig: Take 1 capsule by mouth once daily. Date of last office visit in primary care: 09/13/2022 Please advise. Thank you. Patricia Mancia LPN documented in this encounterM[facility]05-[facility]-2023 Miscellaneous Notes* Telephone Encounter - Jodee Aguilera Ma - 03/10/2023 10:13 AM EDT Closed and transferred to correct chart. documented in this encounterM[facility]03-30-2023 Miscellaneous Notes* Telephone Encounter - Nargis Byrne LPN - 02/06/2023 8:59 AM EDT Patient phones requesting refills as follows: Requested Prescriptions Pending Prescriptions Disp Refills pantoprazole DR (PROTONIX) 40 mg tablet 90 tablet 0 Sig: Take 1 tablet by mouth once daily. DARA-09/13/22 Labs-07/17/22 NOV-none med filled 10/23/22 Please review and advise. Nargis Byrne LPN documented in this encounterM[facility]03-15-2023 Miscellaneous Notes* Telephone Encounter - Yuli Harry MA - 01/22/2023 9:06 AM EDT Patient has been identified by name and date of : Yes Requested Prescriptions Pending Prescriptions Disp Refills atorvastatin (LIPITOR) 10 mg tablet 90 tablet 0 Sig: Take 1 tablet by mouth daily at bedtime. For cholesterol. famotidine (PEPCID) 20 mg tablet 30 tablet 2 Sig: Take 1 tablet by mouth daily at bedtime. RX INSTRUCTIONS: Patient aware RX will be sent to pharmacy. No need to notify patient. Patient last office visit: 09/13/22 Patient next office visit: none scheduled at this time Yuli Harry MA documented in this encounterM[facility]03-14-2023 Instructions* Patient Instructions* Cristiane Martinez MD - 01/21/2023 10:00 AM EDT You were seen today for BALJINDER evaluation We encouranged continued use of CPAP therapy to get better control in your hypertension and sleep apnea. Continue PAP Therapy - Continue Auto CPAP at 5-20 cmH2O. - Remember to clean your mask and equipment regularly, as directed. - You should be eligible for new supplies approximately every 3-6 months, depending on your insurance coverage. Contact your [employer] (DME) company for new supplies as needed. - Follow up in [address] Lew. - Check iron studies today (ferritin, total iron, TIBC) in 2-3 months. Low iron stores (indicated by a ferritin level below 50 may be making your RLS symptoms worse. It may help to take iron supplements. - Start taking ferrous sulfate 325mg (65mg elemental iron) two to three times a day with vitamin C 100mg (to help absorption). If your stomach is irrtitated, you can take it with meals. - Will recheck your ferritin level in 3-6 months. Your most recent body mass index (BMI) that we have on record is 35.26 kg/m2. Obstructive sleep apnea (BALJINDER) worsens with an increase in weight; reduction in weight may improve or resolve your BALJINDER. Ifyou are not already seeking treatment, there are resources available at the [facility] such as a nutrition consultation or referral to weight management programs at our [facility] [place]. Please let us know if we can assist with a referral. Safety for both patients and bed partners is the paramount concern. Firearms should not be accessible, and sharp or easily breakable items (such as lamps) should be removed from the immediate sleeping area. In the event of continued vigorous behaviors, sleeping alone is advised. Can use padded bed rails or sleeping in a sleeping bag.Exiting the bed while acting out a dream is a high- risk behaviorthat may result in traumatic injury. A bed alarm that delivers a customized calming message at the onset of dream enactment can prevent a patient from exiting the bed and avert sleep-related injury. documented in this encounterM[facility]03-14-2023 Miscellaneous Notes* Telephone Encounter - Florencia Edmond LPN - 01/21/2023 9:00 AM EDT Images from the original note were not included. documented in this [facility] History of Present illness Narrative* Sadi Lew MD - 01/21/2023 8:52 AM EDT Images from the original note were not included. [facility] New Patient Evaluation PATIENT NAME: Nena Mandujano DATE OF SERVICE: January 21, 2023 CONSULTING PROVIDER: Raheem Dacosta [address] [facility] [address] REASON FOR CONSULT: Raheem Dacosta sends the patient for an opinion about sleep apnea. My findings and recommendations will be transmitted electronically via shared medical record to the consulting provider. HPI: Nena Mandujano is a 82 year old female with PMH significant for Arthritis, Obesity, Thyroid disease, Scoliosis, Reflux, Gastritis, Tremors, Hypertension Sleep-related history: The patient is a 81 year old female with a history of snoring, witnessed apneas, waking up choking,snorting, and waking up with dry mouth/sore throat. The patient endorses being a habitual side sleeper. HSAT on 10/08/2022 showed at least mild BALJINDER with total CLYDE 8.8, supine RDI 6.1, of supine RDI 12.1,O2 caitlin 82%. She has also noticed more frequent dreams, occurring 5 nights/week, started in the last couple of months, often dreams about being chased and noticed her screaming at night . She finds herself running in her dreams . She reports having an urge to move the legs. The urge to move the legs only occurs in the evening or nighttime. The urge to move the legs begins or worsens during periods of rest or inactivity (e.g. lying or sitting). The urge to move the legs is partially or totally relieved by movements such as walking or stretching, at least as long as the activity continues. The urge to move the legs occurs 1-2 nights per week and began 2 years ago. There is no history of iron deficiency or anemia. She has not been told that she has leg kicking during sleep. Regarding his CPAP usage, patient is inconsistent with the CPAP usage due to pressure intolerance and dry mouth. While using the PAP therapy, patient feels the mask moves with her hand during sleeping in the side position and she feels a gush of air which wakes her up. She also wakes up with dry mouth consistently with PAP therapy and that is 5 has not used it in the last 4-5 weeks. Patient has [employer]Med AutoPap 5-20 through [employer] and compliance report over the last 90 days shows 31% daily usage, greater than 4-hour usage 8%, average usage 3 hours 15 minutes, residual AHI 0.3, 95th percentile pressure 9.2, 95th percentile leak 3.7. SLEEP-WAKE SCHEDULE She is a self-described morning person. Bedtime: 10 PM. She does not have a hard time falling asleep. Wake time: 4.30 AM, without an alarm. After falling asleep: she wakes up 1-2 time(s) per night, because of the need to urinate. On weekends, she maintains the same sleep schedule. Average total sleep time (in a 24 hour period): 5 hours. SLEEP-RELATED DETAILS Preferred sleep position: side Breathing disturbances and other behaviors during sleep: snoring, stopping breathing during sleep, and acting out dreams. Bruxism: Yes GERD or aspiration: No Waking up with heart pounding or racing: No Anxiety or rumination: No She denies any history of parasomnias. Daytime sleepiness is not a problem. She does not report sleep paralysis or sleep-related hallucinations or cataplexy . 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 She does not take naps. She does not drink caffeinated beverages. There has not been a recent change in weight. Patient Questionnaires Sleep Scores Sleep Questions 01/14/2023 Reason for visit: Sleep apnea Average hours slept in 24 hours: 5 Average hours of CPAP per night: 4.5 Percent of nights CPAP used at least 4 hours: 20 Accidents or near accidents due to drowsy drivin [place] Sleepiness Scale 01/14/2023 Score Incomplete PROMIS CAT Sleep Disturbance 01/14/2023 PROMIS Sleep Disturbance T-Score 54 (within normal limits) Restless Leg Syndrome 01/14/2023 Score Incomplete PHQ-9 07/14/2013 01/14/2023 Score 2 2 PROMIS Global Health - (T-Scores - the mean of general population = 50. Five points is a clinicallymeaningful difference.) 07/11/2022 01/14/2023 Physical T-Score 44.9 42.3 Mental T-Score 50.8 45.8 PAST TREATMENTS: None PAST MEDICAL HISTORY Diagnosis Date Arthritis Benign neoplasm of colon Benign neoplasm of colon Cervical spinal stenosis Diverticulosis of colon (without mention of hemorrhage) Esophageal reflux Essential (primary) hypertension History of transfusion Nonspecific elevation of levels of transaminase or lactic acid dehydrogenase (LDH) Elevated LFT's Occasional tremors essential tremors Other specified gastritis Personal history of colonic polyps Reflux esophagitis Scoliosis (and kyphoscoliosis), idiopathic Scoliosis associated with other condition Thyroid disease PAST SURGICAL HISTORY Procedure Laterality Date APPENDECTOMY APPENDECTOMY HX CHOLECYSTECTOMY Cholecystectomy COLONOSCOPY 01/28/2014 COLONOSCOPY 02/19/2017 COLONOSCOPY 08/19/2022 COLONOSCOPY FLX DX W/COLLJ SPEC WHEN PFRMD 09/2000 Colonoscopy COLONOSCOPY W/BIOPSY SINGLE/MULTIPLE 11/24/2008 EGD 02/19/2017 EGD TRANSORAL BIOPSY SINGLE/MULTIPLE 01/12/2007 EGD TRANSORAL BIOPSY SINGLE/MULTIPLE 03/17/2008 EGD W/O BRSH SPEC VARICIES INJ 08/19/2022 ESOPHAGOGASTRODUODENOSCOPY TRANSORAL DIAGNOSTIC 08/19/2012 EGD GASTROESOPHAG REFLX TEST W/TELEMTRY PH ELTRD 03/17/2008 SKIN BIOPSY HX TOTAL ABDOMINAL HYSTERECT W/WO RMVL TUBE OVARY Hysterectomy, WILLIE VAGINAL HYSTERECTOMY ACTIVE PROBLEM LIST Recurrent Major Depression in Partial Remission (Hcc) Personal History of Colonic Polyps Diverticulosis of Colon (Without Mention of Hemorrhage) Prediabetes Hypothyroidism Hyperlipidemia Gerd (Gastroesophageal Reflux Disease) Hiatal Hernia Essential Tremor Essential Hypertension Ddd (Degenerative Disc Disease), Cervical CKD (chronic kidney disease) Stage 3, GFR 30-59 ml/min Balijnder (Obstructive Sleep Apnea) Rls (Restless Legs Syndrome) Allergies As of Date: 01/21/2023 (No Known Allergies) Fully Assessed 01/21/2023 CURRENT MEDICATIONS: pantoprazole DR (PROTONIX) 40 mg tablet Take 1 tablet by mouth once daily. atorvastatin (LIPITOR) 10 mg tablet Take 1 tablet by mouth daily at bedtime. For cholesterol. famotidine (PEPCID) 20 mg tablet Take 1 tablet by mouth daily at bedtime. CPAP Initiate Auto PAP @ 5-20 cm of water with humidification. Mask (per patient preference) optional chin strap (if indicated) , filters, tubing, humidifier and lifetime supplies. FLUoxetine (PROZAC) 20 mg capsule Take 1 capsule by mouth once daily. levothyroxine (SYNTHROID) 88 mcg tablet Take 1 tablet by mouth once daily. triamterene-hydroCHLOROthiazide (DYAZIDE) 37.5-25 mg per capsule Take 1 capsule by mouth once daily. mag carb/aluminum hydrox/algin (GAVISCON ORAL) Take by mouth. tiZANidine HCl 4 mg capsule Take 1 capsule by mouth daily at bedtime. tapentadol (NUCYNTA) 50 mg tab Take 1 tablet by mouth every 8 hours. Prior Hypersomnia/Narcolepsy Medications (20 years) Some values may be hidden. Unless noted otherwise, only the newest values recorded on each date aredisplayed. Hypersomnia/Narcolepsy Medications No data to display. Prior RLS Medications (last 20 years) Some values may be hidden. Unless noted otherwise, only the newest values recorded on each date aredisplayed. RLS Medications tapentadol (NUCYNTA) 50 mg Tab Dose: 50 mg EVERY 8 HOURS Starting date: Ending date: 02/11/2017 (Discontinued) tapentadol (NUCYNTA) 50 mg tab Dose: 50 mg EVERY 8 HOURS Starting date: 02/11/2017 (active) VICODIN 5 MG-500 MG TAB Dose: 1-2 tabs a day for severe pain Starting date: 01/18/2006 Ending date: 07/09/2013 (Discontinued) Prior Insomnia Medications (last 20 years) Some values may be hidden. Unless noted otherwise, only the newest values recorded on each date aredisplayed. Insomnia Medications AMITRIPTYLINE 10 MG TAB Dose: one tablet every day at bedtime Starting date: 11/13/2005 Ending date: 11/16/2009 (Discontinued) FLUoxetine (PROZAC) 10 mg capsule Dose: 10 mg DAILY Starting date: 04/24/2015 Ending date: 04/25/2016(Discontinued) fluoxetine (PROZAC) 20 mg ORAL capsule Dose: Take one(1) tablet daily. Starting date: 11/22/2010 Ending date: 12/10/2010 (Discontinued) fluoxetine (PROZAC) 20 mg ORAL capsule Dose: Take one(1) tablet daily. Starting date: 12/10/2010 Ending date: 11/25/2011 (Discontinued) fluoxetine (PROZAC) 20 mg ORAL capsule Dose: 20 mg DAILY Starting date: 11/25/2011 Ending date: 01/01/2012 (Discontinued) fluoxetine (PROZAC) 20 mg ORAL capsule Dose: 20 mg DAILY Starting date: 01/01/2012 Ending date: 03/31/2012 (Discontinued) fluoxetine (PROZAC) 20 mg capsule Dose: 20 mg DAILY Starting date: 03/31/2012 Ending date: 03/15/2013 (Discontinued) FLUoxetine (PROZAC) 20 mg capsule Dose: 20 mg DAILY Starting date: 03/15/2013 Ending date: 09/22/2013(Discontinued) FLUoxetine (PROZAC) 20 mg capsule Dose: 20 mg DAILY Starting date: 09/22/2013 Ending date: 03/14/2014(Discontinued) FLUoxetine (PROZAC) 20 mg capsule Dose: 20 mg DAILY Starting date: 03/14/2014 Ending date: 09/08/2014(Discontinued) FLUoxetine (PROZAC) 20 mg capsule Dose: 20 mg DAILY Starting date: 09/08/2014 Ending date: 04/07/2015 (Discontinued) FLUoxetine (PROZAC) 20 mg capsule Dose: 20 mg DAILY Starting date: 04/07/2015 Ending date: 04/24/2015(Discontinued) FLUoxetine (PROZAC) 20 mg capsule Dose: 20 mg DAILY Starting date: 07/12/2015 Ending date: 04/25/2016 (Discontinued) FLUoxetine (PROZAC) 20 mg capsule Dose: TAKE 1 CAPSULE BY MOUTH ONCE DAILY. Starting date: 10/11/2015 Ending date: 04/12/2016 (Discontinued) FLUoxetine (PROZAC) 20 mg capsule Dose: 20 mg DAILY Starting date: 04/12/2016 Ending date: 10/21/2016(Discontinued) FLUoxetine (PROZAC) 20 mg capsule Dose: TAKE 1 CAPSULE BY MOUTH ONCE DAILY. Starting date: 10/22/2016 Ending date: 10/28/2017 (Discontinued) FLUoxetine (PROZAC) 20 mg capsule Dose: TAKE 1 CAPSULE BY MOUTH ONCE DAILY. Starting date: 10/28/2017 Ending date: 12/08/2018 (Discontinued) FLUoxetine (PROZAC) 20 mg capsule Dose: 20 mg DAILY Starting date: 12/08/2018 Ending date: 03/26/2019(Discontinued) FLUoxetine (PROZAC) 20 mg capsule Dose: 20 mg DAILY Starting date: 03/26/2019 Ending date: 12/24/2019(Discontinued) FLUoxetine (PROZAC) 20 mg capsule Dose: 20 mg DAILY Starting date: 12/24/2019 Ending date: 03/14/2020 (Discontinued) FLUoxetine (PROZAC) 20 mg capsule Dose: 20 mg DAILY Starting date: 03/14/2020 Ending date: 09/25/2020(Discontinued) FLUoxetine (PROZAC) 20 mg capsule Dose: 20 mg DAILY Starting date: 09/25/2020 Ending date: 03/13/2021(Discontinued) FLUoxetine (PROZAC) 20 mg capsule Dose: 20 mg DAILY Starting date: 03/13/2021 Ending date: 08/31/2021(Discontinued) FLUoxetine (PROZAC) 20 mg capsule Dose: 20 mg DAILY Starting date: 08/31/2021 Ending date: 03/04/2022 (Discontinued) FLUoxetine (PROZAC) 20 mg capsule Dose: 20 mg DAILY Starting date: 03/04/2022 Ending date: 08/30/2022 (Discontinued) FLUoxetine (PROZAC) 20 mg capsule Dose: 20 mg DAILY Starting date: 08/30/2022 (active) midazolam (PF) 1-5 mg injection (VERSED) Dose: 1-5 mg DIRECTED DOSING DIRECTED BY PHYSICIAN FOR PROCEDURAL SEDATION ONLY Starting date: 08/19/2022 Ending date: 08/19/2022 PROZAC 20 MG CAP Dose: Take one(1) tablet daily. Starting date: 11/13/2005 Ending date: 09/27/2006 (Discontinued) PROZAC 20 MG CAP Dose: Take one(1) tablet daily. Starting date: 09/27/2006 Ending date: 10/16/2007 (Discontinued) fluoxetine hcl(PROZAC 20 MG CAP) Dose: Take one(1) tablet daily. Starting date: 10/16/2007 Ending date: 10/10/2008 (Discontinued) fluoxetine hcl(PROZAC 20 MG CAP) Dose: Take one(1) tablet daily. Starting date: 10/10/2008 Ending date: 11/30/2009 (Discontinued) fluoxetine hcl(PROZAC 20 MG CAP) Dose: Take one(1) tablet daily. Starting date: 11/30/2009 Ending date: 11/22/2010 (Discontinued) Medication marked as long-term SOCIAL HISTORY: Social History Tobacco Use Smoking status: Former Years: 5.00 Types: Cigarettes Smokeless tobacco: Never Vaping Use Vaping Use: Never used Substance Use Topics Alcohol use: Yes Comment: rare Drug use: No FAMILY HISTORY: FAMILY HISTORY Problem Relation Age of Onset Heart Father of heart attack 65 Coronary Artery Disease Father fatal [place] Alcohol/Drug Father Cancer Maternal Grandfather pancreatic, 70 Cancer Paternal Grandfather pancreatic 65 Heart Paternal Grandfather Diabetes Paternal Grandmother 90 other (healthy) Mother healthly and living There is no family history of sleep disorders. PHYSICAL EXAMINATION: BP: 148/74 Pulse: 78 SpO2: 97 % PHYSICAL EXAM: General appearance: No apparent distress Mental status: AAOx3 Constitutional: Pleasant ENT : Nasal congestion absent, Posterior airspace: Rivero tongue position 3, retrognathia absent. Chest: Regular S1 and S2, Lungs clear to auscultation Abdomen: Soft nontender Neuro: No focal neurologic deficits IMPRESSION/PLAN: G47.33 BALJINDER (obstructive sleep apnea) (primary encounter diagnosis) G25.81 RLS (restless legs syndrome) I10 Essential hypertension F33.41 Recurrent major depression in partial remission (HCC) 82-year-old female with PMH significant for hypertension, hyperlipidemia, BALJINDER, hypothyroidism who presents today for BALJINDER evaluation. Patient was diagnosed recently with at least mild BALJINDER through an HSAT with total CLYDE 8.8, supine CLYDE 6.1, O2 caitlin 82%. Patient was prescribed AutoPap 5-20 cm H2O through [facility] but has been inconsistent with the PAP therapy due to pressure intolerance due to mask misalignment and dry mouth. Patient also describes episodes of frequent dreaming where she is being chased and she is running and screaming, the screaming has been heard by her from another room but there is no mention of dream enactment behavior and any injury sustained while sleeping. She also reports symptoms of restless leg syndrome which are mild and occur 1-2 nights per week with recent lab work showing low ferritin levels. For BALJINDER - We discussed the importance of continued PAP therapy usage and getting better control of her blood pressure and preventin long-term complications of untreated sleep apnea. - Patient is interested in giving a dedicated trial to PAP therapy. - We adjusted patient's humidification on her device today for concerns of dry mouth. - Continue Auto CPAP at 5-20 cmH2O. - Remember to clean your mask and equipment regularly, as directed. - You should be eligible for new supplies approximately every 3-6 months, depending on your insurance coverage. Contact your Durable Medical Equipment (DME) company for new supplies as needed. For RLS - Start taking ferrous sulfate 325mg (65mg elemental iron) two to three times a day with vitamin C 100mg (to help absorption). If your stomach is irrtitated, you can take it with meals. - Will recheck your ferritin level in 3-6 months. - Nonmedical therapy for restless legs syndrome includes : cold/warm compresses, warm/hot baths or showers, gentle massage, mild leg stretching at nighttime, or magnesium supplements ( 250- 1000 mg at nighttime daily). Mentally alerting activities help too. Note the caffeine, alcohol, nicotine, antidepressants, anti-nausea meds and antihistamines can cause or worsen symptoms. For frequent dreams - History is not suggestive of RBD. - Provided instructions on safe sleeping habits to prevent injury during sleep - Advised to follow up with us in case you develop dream enactment behavior in future. Follow-up in 3 months for BALJINDER. Cristiane Martinez MD Sleep Medicine Fellow Case discussed with Dr. Lew, who agrees with the assessment and plan. Please see her attestation below for further recommendations. Attending Note I evaluated the patient and personally participated in the marie components. I agree with the fellow's findings and plan as documented and have discussed the case and management of the patient's care with the fellow. Sadi Lew MD Clinical Clerical Secretaryinformatica architect [facility] documented in this [facility]02-28-[facility]23 Miscellaneous Notes* Telephone Encounter - Yuli Harry MA - 01/07/2023 1:39 PM EST See 11/22/22 telephone encounter. Yuli Harry MA * Telephone Encounter - Raheem Dacosta MD - 01/07/2023 12:36 PM EST Do we know if was handled. * Telephone Encounter - Lu Aldrich Ma - 10/16/2022 12:13 PM EST Spoke to patient who is going to call [employer] to get information on medical supply in network Patient will call back so we can fax information Lu Aldrich Ma * Telephone Encounter - Raheem Dacosta MD - 10/16/2022 8:13 AM EST Sleep study shows sleep apnea. Start autopap and then follow with sleep med after. documented in this encounterM[facility]01-13-2023 Miscellaneous Notes* Telephone Encounter - Tiffany Theodore LPN - 11/22/2022 11:18 AM EST Completed and faxed back as requested. * Telephone Encounter - Tiffany Theodore LPN - 11/22/2022 8:55 AM EST Patient has been identified by name and date of : Yes, Provider Praneeth Date 11/22/22 Type of form: [employer] CPAP supplies Form received via: Fax When form is completed, fax form to fax number provided. Form has been forwarded to: Provider's desk. Provider name: Praneeth Theodore LPN documented in this [facility]01-04-[facility] History of Present illness Narrative* Jodee Magallanes, RT(R) - 11/13/2022 10:20 AM EST Radiology Service Progress Note PATIENT NAME: Nena Mandujano DATE OF SERVICE: November 13, 2022 TIME: 10:24 AM PATIENT IDENTITY VERIFICATION COMPLETED USING TWO (2) IDENTIFIERS: Name and Date of confirmedby patient verbally. FALL SCREENING: Has the patient had 2 falls in the last year or 1 fall with injury or currently using an Ambulatory Assistive Device (Walker, Cane, Wheelchair, Crutches, etc.)? No PATIENT GENDER DATA: Female. status: : No status: NO. PATIENT RELEVANT IMPLANT DATA REVIEWED: Yes RADIOLOGY DEPARTMENT: MR; Exam(s) Completed: Head: Routine Brain PERIPHERAL IV DATA: Not applicable SIGNED BY: RT Kali(R) November 13, 2022 10:24 AM documented in this encounterM[facility]12-[facility]-2022 History of Present illness Narrative* Vani Shen - 10/10/2022 11:11 AM EST Sleep Study Check-In Documentation Date: October 10, 2022 Name: Nena Mandujano Comments: HST was returned in working order with all sleep questionnaires Vani Shen documented in this [facility]11-21-2022 History of Present illness Narrative* Shemar Chowdary - 09/30/2022 9:27 AM EST Opened in error. documented [facility] this [facility]11-15-[facility] Miscellaneous Notes* Telephone Encounter - Erma Vidal LPN - 09/24/2022 2:32 PM EST Spoke with pharmacy and pt has 1 refill left. Pt should received medication in the next couple days. Erma Vidal LPN documented in this [facility]11-08-2022 History of Present illness Narrative* Srinivas Taveras MD - 09/17/2022 1:34 PM EST September 17, 2022 Standing PSG Orders signed in the last 90 days None Future PSG Orders signed in the last 90 days Ordered Auth. provider POLYSOMNOGRAM (PSG) [[id number]] 07/29/22 Raheem Dacosta MD Assoc. diagnoses: BALJINDER (obstructive sleep apnea) [G47.33] Q: Indications - Select All That Apply: A: Obstructive sleep apnea Q: STOP-BANG conditions - Select All That Apply: A: AGE > 50 A2: high blood PRESSURE A3: SNORINGthat is loud or disruptive A4: TIREDNESS, fatigue or sleepiness during the day Q: Comorbidities: A: NONE Q: Is the patient non-ambulatory or will they be accompanied by a caregiver?: A: No Q: Current use of supplemental oxygen during sleep period?: A: No Q: Add supplemental oxygen if needed per sleep lab policy?: A: Yes Q: Is this a repeat Sleep Study?: A: No Comment: Unable to do home study. Failed attempting to use it. HOME SLEEP APNEA TEST (HSAT) [[id number]] 09/13/22 Raheem Dacosta MD Assoc. diagnoses: BALJINDER (obstructive sleep apnea) [G47.33] Q: Indications: A: Obstructive sleep apnea Q: STOP-BANG conditions - Select All That Apply: A: AGE > 50 A2: high blood PRESSURE A3: SNORINGthat is loud or disruptive A4: TIREDNESS, fatigue or sleepiness during the day A5: OBSERVED sleep apnea Q: Current use of supplemental oxygen during sleep period?: A: No All Prior Sleep Studies (past 365 days) Some values may be hidden. Unless noted otherwise, only the newest values recorded on each date aredisplayed. Sleep Studies HOME SLEEP APNEA TEST (HSAT) Date: 07/23/22 HOME SLEEP APNEA TEST (HSAT) Future Expected: Expires: 09/13/23 POLYSOMNOGRAM (PSG) Future Expected: Expires: 07/29/23 BMI Readings from Last 2 Encounters: 09/13/22 : 35.00 kg/m 08/27/22 : 34.86 kg/m PAST MEDICAL HISTORY Diagnosis Date Arthritis Benign neoplasm of colon Benign neoplasm of colon Cervical spinal stenosis Diverticulosis of colon (without mention of hemorrhage) Esophageal reflux Essential (primary) hypertension History of transfusion Nonspecific elevation of levels of transaminase or lactic acid dehydrogenase (LDH) Elevated LFT's Occasional tremors essential tremors Other specified gastritis Personal history of colonic polyps Reflux esophagitis Scoliosis (and kyphoscoliosis), idiopathic Scoliosis associated with other condition Thyroid disease The medical record was reviewed to determine if the proposed sleep study conforms to the [facility] Practice Parameters for the Indications for Polysomnography and Related Procedures, or if the sleep studyis indicated for other reasons. Indications for study: BALJINDER suspected without comorbid medical or sleep disorders Sleep study to be performed: Home Sleep Apnea Test (HSAT) Special instructions: None-follow laboratory protocol Clinic note states that pt wants to re attempt HSAT [facility] Staff Note: I have read the above protocol, edited as needed, and agree to the plan. Srinivas Taveras MD 10:07 AM, 09/18/2022 * Shelley Kerns - 09/17/2022 11:58 AM EST September 17, 2022 An order has been received for Home Sleep Apnea Test (HSAT) from Dr. Raheem Dacosta MD, a B. [facility] Staff. Visit prep complete. Comments :No The sleep study is scheduled for 10/01. Insurance: Payor: MMO MEDICARE / Plan: MMO MEDADVANTAGE HMO / Product Type: HMO / Payer/Plan Subscr Sex Relation Sub. Ins. ID Effective Group Num 1. MMO MEDICARE * PAWEL MANDUJANO* 1940 Female Self [id number] 08/[birth year]/18 [id number] [address] Shelley Kerns documented in this encounterM[facility]10-21-2022 Miscellaneous Notes* Telephone Encounter - Bryce Cole LPN - 08/30/2022 9:47 AM EDT Patient phones requesting refills as follows: Requested Prescriptions Pending Prescriptions Disp Refills FLUoxetine (PROZAC) 20 mg capsule 90 capsule 1 Sig: Take 1 capsule by mouth once daily. DARA 07/17/22 NOV no upcoming appt Please review and advise. Bryce Cole LPN documented in this encounterMiddletown Hospital10-18-2022 History of Present illness Narrative* Kp Fitzgerald MD - 08/27/2022 7:56 AM EDT Subjective: Patient is status post an upper and lower endoscopy upper endoscopy showed a small hiatal hernia biopsies for H. pylori were negative there was no dysplasia in the stomach random colon biopsies were also performed which did not show any signs of microscopic colitis. Patient states that she has still been having some significant problems with reflux particularly atnighttime. In addition she is in the process of getting worked up for sleep apnea but actually has not had a test yet. Objective:Blood pressure 114/70, pulse 99, temperature 36.4 C (97.5 F), weight 89.3 kg (196 lb 12.8oz), SpO2 98 %. Abdomen is soft and nontender Objective:Gerd without esophagitis (primary encounter diagnosis) Hiatal hernia Sleep apnea, unspecified type Plan: I think we do prioritize things here the best thing to do and the easiest thing to do is get her sleep apnea diagnosed and actively treated. I have encouraged her to use nasal pillows as opposed to a facemask I think that works the best. Once this is been done and she has been on her CPAP forabout a month I like to see her back and then at that time I think I will order both esophageal manometry and we will do an EGD with 48-hour pH probe. documented in this encounterM[facility]10[facility]22 Nurse Note* Madison Bell RN - 08/19/2022 8:09 AM EDT Patient arrived laying on left side. Patient's abdomen appears to be nondistended and soft to touch. Patient denied pain at this time. documented in this encounterM[facility]10-10-2022 History and physical note * Kp Fitzgerald MD - 08/19/2022 7:30 AM EDT Images from the original note were not included. HISTORY AND PHYSICAL Nena Soriano Eli 1940 REFERRING PHYSICIAN: Raheem Dacosta MD CHIEF COMPLAINT: Consult (GERD, change in bowel habits) HPI: The patient is a 81 year old female referred for endoscopy. Patient presents today for office visit for follow up on upper abdominal pain. Had CT on 07/12/22. Still complains of some discomfort. Still having fluctuating bowel changes. No bloody or black stools. Still worse with stress. She feels she is doing ok with her stress. No fever or chills. Her appetite. Discomfort is still epigastric and luq quadrant. Occasionally on the right. Better when lying down. Does have ddd on her ct. Discomfort comes and goes. Still on her protonix. Did have to take more gaviscon this weekend. No nausea or vomiting. No weight loss. Reviewed her labs below. See previous ov: HPI: Patient presents today for office visit for follow up. Feeling very tired for several months. Has wondered if it is age related. Worse in the am. She does snore. Has had ? Apneic spells. No recent covid. Had it in 2020 over a year ago. 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 Is stressed. No depression. No hair or skin or weight changes. No urinary issues. No fever or chills or swollen glands. Has noted bowel changes. Now fluctuating between diarrhea and constipation. Having either no bowel movement or sporadic liquid stools. Has some mild discomfort across her upper abdomen. She wonders if it is scoliosis. Has a hx of polyps. Last colonoscopy was 2016. Has chronic gerd. Has gurgling from time to time. Still taking protonix. No black or bloody stools. Discomfort comes and goes. Can last up to a half hour or so. Not really sure anything makes it worse. Laying down in bed or heating pad helps. HYPERTENSION:no chest pain or shortness of breath. No edema. PSYCH:emotionally stable. Sees Pain management. CKD: numbers are stable. Endo: discussed diet. CT: IMPRESSION: 1. No acute intra-abdominal abnormality is seen. 2. Small hiatal hernia 3. Mild colonic diverticulosis Component Latest Ref Rng & Units 07/12/2022 WBC 3.70 - 11.00 k/uL 5.18 RBC 3.90 - 5.20 m/uL 4.15 Hemoglobin 11.5 - 15.5 g/dL 11.1 (L) Hematocrit 36.0 - 46.0 % 35.6 (L) MCV 80.0 - 100.0 fL 85.8 MCH 26.0 - 34.0 pg 26.7 MCHC 30.5 - 36.0 g/dL 31.2 RDW-CV 11.5 - 15.0 % 13.8 Platelet Count 150 - 400 k/uL 220 MPV 9.0 - 12.7 fL 10.6 Neut% % 54.4 Abs Neut (ANC) 1.45 - 7.50 k/uL 2.82 Lymph% % 33.8 Abs Lymph 1.00 - 4.00 k/uL 1.75 Rutherford% % 9.5 Abs Rutherford <0.87 k/uL 0.49 Eosin% % 1.9 Abs Eosin <0.46 k/uL 0.10 Baso% % 0.4 Abs Baso <0.11 k/uL <0.03 DTYPE Auto Color Yellow Yellow Clarity Clear Clear Glucose, Urine Negative Negative Bilirubin, Urine Negative Negative Ketones, Urine Negative Negative Specific [place], Ur 1.005 - 1.030 1.015 Hemoglobin/Blood,Ur Negative Negative pH, Urine 5.0 - 8.0 6.0 Protein, Urine Negative Negative Urobilinogen 0.2-1.0 EU/dL 0.2 EU/dL Nitrites Negative Negative Leukest Negative Negative WBC, Urine 0-5 /HPF 0-5 /HPF RBC, Urine 0-3 /HPF 0-3 /HPF Glucose 74 - 99 mg/dL 104 (H) BUN 7 - 21 mg/dL 21 Creatinine 0.58 - 0.96 mg/dL 1.05 (H) Sodium 136 - 144 mmol/L 142 Potassium 3.7 - 5.1 mmol/L 4.1 Chloride 97 - 105 mmol/L 102 CO2 22 - 30 mmol/L 31 (H) Anion Gap 9 - 18 mmol/L 9 Calcium 8.5 - 10.2 mg/dL 9.2 eGFR >=60 mL/min/1.73m 54 (L) Albumin 3.9 - 4.9 g/dL 4.2 Bilirubin, Total 0.2 - 1.3 mg/dL 0.4 Bilirubin, Conjug <0.2 mg/dL <0.2 Alkaline Phosphatase 34 - 123 U/L 121 AST 13 - 35 U/L 20 ALT 7 - 38 U/L 12 Protein, Total 6.3 - 8.0 g/dL 6.8 Lipase 16 - 61 U/L 27 TSH 0.270 - 4.200 mIU/L 2.830 Nena has undergone prior endoscopy. 2016 The patient is being seen by me today at the request of Dr. Raheem Dacosta MD for my opinion and advice regarding Gerd without esophagitis Change in bowel habit Abdominal discomfort. PAST MEDICAL HISTORY 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 Cervical spinal stenosis Diverticulosis of colon (without mention of hemorrhage) Esophageal reflux Essential (primary) hypertension Nonspecific elevation of levels of transaminase or lactic acid dehydrogenase (LDH) Elevated LFT's Occasional tremors essential tremors Other specified gastritis Personal history of colonic polyps Reflux esophagitis Scoliosis (and kyphoscoliosis), idiopathic Scoliosis associated with other condition PAST SURGICAL HISTORY PAST SURGICAL HISTORY Procedure Laterality Date APPENDECTOMY CHOLECYSTECTOMY Cholecystectomy COLONOSCOPY 01/28/2014 COLONOSCOPY 02/19/2017 COLONOSCOPY FLX DX W/COLLJ SPEC WHEN PFRMD Colonoscopy COLONOSCOPY W/BIOPSY SINGLE/MULTIPLE 11/24/08 EGD 02/19/2017 EGD TRANSORAL BIOPSY SINGLE/MULTIPLE 01/12/07 EGD TRANSORAL BIOPSY SINGLE/MULTIPLE 03/17/08 ESOPHAGOGASTRODUODENOSCOPY TRANSORAL DIAGNOSTIC 08/19/2012 EGD GASTROESOPHAG REFLX TEST W/TELEMTRY PH ELTRD 03/17/08 TOTAL ABDOMINAL HYSTERECT W/WO RMVL TUBE OVARY Hysterectomy, WILLIE CURRENT MEDICATIONS Current Outpatient Medications Medication Sig famotidine (PEPCID) 20 mg tablet Take 1 tablet by mouth daily at bedtime. pantoprazole DR (PROTONIX) 40 mg tablet Take 1 tablet by mouth once daily. atorvastatin (LIPITOR) 10 mg tablet Take 1 tablet by mouth daily at bedtime. For cholesterol. levothyroxine (SYNTHROID) 88 mcg tablet Take 1 tablet by mouth once daily. triamterene-hydroCHLOROthiazide (DYAZIDE) 37.5-25 mg per capsule Take 1 capsule by mouth once daily. FLUoxetine (PROZAC) 20 mg capsule Take 1 capsule by mouth once daily. mag carb/aluminum hydrox/algin (GAVISCON ORAL) Take by mouth. tiZANidine HCl 4 mg capsule Take 1 capsule by mouth daily at bedtime. tapentadol (NUCYNTA) 50 mg tab Take 1 tablet by mouth every 8 hours. peg 3350-Electrolytes (GOLYTELY) 236-22.74-6.74 -5.86 gram suspension Take 4,000 mL by mouth one time only for 1 dose. Refer to printed prep instructions from your provider. No current facility-administered medications for this visit. ALLERGIES: Patient has no known allergies. PERSONAL HISTORY: SOCIAL HISTORY Social History Tobacco Use Smoking status: Former Years: 5.00 Types: Cigarettes Smokeless tobacco: Never Vaping Use Vaping Use: Never used Substance Use Topics Alcohol use: Yes Comment: rare Drug use: No FAMILY HISTORY: FAMILY HISTORY FAMILY HISTORY Problem Relation Age of Onset Heart Father of heart attack 65 Coronary Artery Disease Father fatal [place] Alcohol/Drug Father Cancer Maternal Grandfather pancreatic, 70 Cancer Paternal Grandfather pancreatic 65 Heart Paternal Grandfather Diabetes Paternal Grandmother 90 other (healthy) Mother healthly and living REVIEW OF SYMPTOMS: The review of systems data was entered by the nurse and reviewed by ks Nursing Notes: Pilar Vazquez RN 07/22/2022 1:15 PM Signed REVIEW OF SYSTEMS: General: The patient denies fatigue, denies weight loss, denies weight gain, denies feeling hot, and denies feelings of cold. Eyes: The patient denies glaucoma, denies eye injury/surgery, wears glasses or contacts. Ear/Nose/Throat: The patient denies allergies, denies hayfever, denies ear infections, and denies bloody noses. Cardiovascular: The patient denies chest pain, denies heart disease, NOTES high blood pressure,denies cardiac stent, denies prior heart attack, denies irregular heart beat, denies high cholesterol, denies poor circulation, denies heart failure, other cardiac issues, denies claudication, denies coldfeet, denies peripheral arterial stent. Respiratory: The patient denies tuberculosis, denies pneumonia, denies frequent cough, denies pulmonary embolism, denies shortness of breath, and denies coughing up blood. Gastrointestinal: The patient denies difficulty swallowing, NOTES acid reflux, denies ulcers, denies vomiting, denies jaundice/hepatitis, denies gallbladder problems, denies black or tarry stools, denies hemorrhoids, denies bleeding from rectum, denies diverticulitis, NOTES constipation, NOTES diarrhea, NOTES loss of stool control, and denies hernias. Kidney/Bladder: The patient denies kidney stones, denies urine infections, and denies bloody urine. Skin: The patient denies a history of skin cancer, denies bleeding/changing moles, and denies a history of skin rash. Neurologic: The patient denies a history of epilepsy/convulsions, denies headaches, denies head/spinal injuries, and denies stroke/TIA. Psychiatric: The patient denies psychiatric medications, NOTES depression, and denies voices, denies substance abuse. Endocrine: The patient denies thyroid disorders, denies diabetes, and denies hormonal problems. Hematologic: The patient denies a history of bruising, denies bleeding, and denies anemia, denies blood clots. Infections: The patient NOTES a history of measles and mumps, denies rheumatic fever, and denies sexually transmitted diseases. Musculoskeletal: The patient denies back pain/injury, NOTES back problems, denies sciatica, NOTES knee/foot trouble, NOTES arthritis, or denies gout. When was patient's last Mammogram screening? 08/2021 Last Colonoscopy: 02/19/2017 Pilar Vazquez RN PHYSICAL EXAMINATION: General: The patient is 81 year old female, well nourished, well hydrated in no acute distress. Thepatient is oriented to time, place, and person. VITALS: Blood pressure 122/64, pulse 94, temperature 36.1 C (97 F), height 160 cm (5' 3 ), weight 89 kg (196 lb 3.2 oz), SpO2 100 %. Body mass index is 34.76 kg/m . HEENT: Normal cephalic, ataumatic, pupils are equally round, sclera are anicteric, mucous membranesare moist, oropharynx is clear. Neck has no masses, asymmetry or lymphadenopathy. Thyroid is unremarkable. Respiratory: Clear to auscultation and percussion. Normal respiratory excursion and pattern. Cardiac: Examination is regular rate and rhythm. Abdominal exam: Soft, nontender, with no palpable masses. No hepatosplenomegaly. No palpable hernias. Rectal exam: exam deferred Extremities: no clubbing, cyanosis or edema. No adenopathy. Other: LABORATORY VALUES: As Noted RADIOLOGIC STUDIES: As Noted Assessment IMPRESSION: Gerd without esophagitis Change in bowel habit Abdominal discomfort PLAN: I plan to perform upper and lower endoscopy. We discussed the risks and benefits of the planned endoscopy. I have informed the patient that complications can occur including failure to completethe endoscopy and perforation. The patient had the opportunity to ask questions concerning the planned endoscopy. My staff has also explained the procedure to the patient in understandable terms and has given the patient printed material concerning the procedure. The patient freely consents to surgery. I plan to use golytely bowel preparation for endoscopy Diagnoses: (K21.9) GERD without esophagitis (R19.4) Change in bowel habit (R10.9) Abdominal discomfort My findings have been communicated to Dr. Raheem Dacosta MD via shared medical record. This note will be forwarded to Dr. Raheem Dacosta MD. Return to Clinic: The patient is instructed to follow-up with me 1 week post operatively. COVID (Procedure Consent) Procedure Criteria Procedure Criteria: Yes Elective The surgeon/proceduralist and patient have discussed in detail therisk of exposure to and/or potential harm posed by the COVID-19 virus with having a surgery/procedure at this time versus the risk of delaying the surgery/procedure. It is not possible to know eitherthe risk of delaying the surgery or procedure or chance of getting an infection with perfect accuracy, but a joint decision was made between the patient and the surgeon/proceduralist to proceed at this time with the scheduled surgery/procedure as indicated on the consent form. Kp Fitzgerald III, MD UPDATED HISTORY AND PHYSICAL EXAMINATION SERVICE DATE: 08/19/2022 SERVICE TIME: 7:22 AM PHYSICAL EXAM MUST BE COMPLETED ON ADMISSION The History and Physical (completed in the past 30 days) has been reviewed and the patient has beenexamined. The contents accurately reflect the patient's condition with the following additions or revisions since the H&P was completed. Examination indicates no changes. This H&P can be found in the attached. SIGNATURE: Kp Fitzgerald III, MD PATIENT NAME: Nena Mandujano DATE: August 19, 2022 TIME: 7:22 AM documented in this [facility] Miscellaneous Notes* Telephone Encounter - Jodee Aguilera Ma - 08/08/2022 5:16 PM EDT faxed * Telephone Encounter - Raheem Dacosta MD - 08/08/2022 4:35 PM EDT done documented in this [facility]-22-2022 Miscellaneous Notes* Telephone Encounter - Charu Joseph - 08/01/2022 3:52 PM EDT Attempted to call patient to schedule sleep study,voice mail full. hCaru Joseph * Telephone Encounter - Bryce Cole LPN - 07/29/2022 2:04 PM EDT Schedulers please assist pt with scheduling in lab sleep study. Bryce Cole LPN * Telephone Encounter - Raheem Dacosta MD - 07/29/2022 1:58 PM EDT Was unable to do home sleep study. See if we can set her up for an in lab documented in this encounterM[facility]09-19-2022 History of Present illness Narrative* Geraldine Spears - 07/29/2022 1:52 PM EDT Sleep Study Check-In Documentation Date: July 29, 2022 Name: Nena Mandujano Comments: HST was returned in work order. Study did not occur. Device was blank. Pt stated that shehad a hard time getting everything hooked up and working so she is going to reach out to her doctorabout a PSG order. Geraldine Spears * Shemar Chowdary - 07/23/2022 12:51 PM EDT [facility]# [id number] , date shipped out 07/23 Tracking mailout: [id number] Tracking return: [id number] * Justin Burris III, PhD - 07/18/2022 9:53 PM EDT July 18, 2022 Standing PSG Orders signed in the last 90 days None Future PSG Orders signed in the last 90 days Ordered Auth. provider HOME SLEEP APNEA TEST (HSAT) [[id number]] 07/12/22 Raheem Dacosta MD Assoc. diagnoses: BALJINDER (obstructive sleep apnea) [G47.33] Q: Indications: A: Obstructive sleep apnea Q: STOP-BANG conditions - Select All That Apply: A: AGE > 50 A2: high blood PRESSURE A3: SNORINGthat is loud or disruptive A4: TIREDNESS, fatigue or sleepiness during the day A5: OBSERVED sleep apnea Q: Current use of supplemental oxygen during sleep period?: A: Yes Q: Supplemental oxygen will mask the appearance of respiratory events. Indicate whether oxygen may be held during testing.: A: No All Prior Sleep Studies (past 365 days) Some values may be hidden. Unless noted otherwise, only the newest values recorded on each date aredisplayed. Sleep Studies HOME SLEEP APNEA TEST (HSAT) Future Expected: Expires: 07/12/23 BMI Readings from Last 2 Encounters: 09/07/22 : 33.81 kg/m 07/12/22 : 33.81 kg/m 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 Cervical spinal stenosis Diverticulosis of colon (without mention of hemorrhage) Esophageal reflux Essential (primary) hypertension Nonspecific elevation of levels of transaminase or lactic acid dehydrogenase (LDH) Elevated LFT's Occasional tremors essential tremors Other specified gastritis Personal history of colonic polyps Reflux esophagitis Scoliosis (and kyphoscoliosis), idiopathic Scoliosis associated with other condition The medical record was reviewed to determine if the proposed sleep study conforms to the [facility] Practice Parameters for the Indications for Polysomnography and Related Procedures, or if the sleep studyis indicated for other reasons. Indications for study: BALJINDER suspected without comorbid medical or sleep disorders Sleep study to be performed: Home Sleep Apnea Test (HSAT) Special instructions: None-follow laboratory protocol Len Guillermo RPSGT,RST Sleep Medicine Staff Note: I have read the above protocol, edited as needed, and agree to the plan. Justin Burris III, PhD 12:02 PM, 07/19/2022 * Bev WEBSTER - 07/18/2022 5:42 PM EDT July 18, 2022 An order has been received for Home Sleep Apnea Test (HSAT) from lisa Oscar. [facility] Staff. Visit prep complete. Comments :No The sleep study is scheduled for 07/24. Insurance: Payor: MMO MEDICARE / Plan: MMO MEDADVANTAGE HMO / Product Type: HMO / Payer/Plan Subscr Sex Relation Sub. Ins. ID Effective Group Num 1. MMO MEDICARE * GRAHAM MANDUJANONile* 1940 Female Self [id number] 08[birth year]18 [id number] [address] Bev WEBSTER documented in this encounterM[facility]09-12-[facility]22 Instructions* Patient Instructions* Kp Fitzgerald MD - 07/22/2022 1:43 PM EDT Images from the original note were not included. Bowel Preparation Instructions for: Golytely, Nulytely, Trilyte or Colyte (polyethylene glycol 3350and electrolytes) IF YOU DO NOT FOLLOW THESE DIRECTIONS, YOUR COLONOSCOPY WILL BE CANCELLED. Marie Instructions: Your bowel must be empty so that your doctor can clearly view your colon. Follow all of the instructions in this handout EXACTLY as they are written. Do NOT eat any solid food the ENTIRE day before your colonoscopy. Drink only clear liquids. Buy your bowel preparation at least 5 days before your colonoscopy. TRANSPORTATION on the Day of Your Exam A responsible person MUST be present with you at Check In prior to your colonoscopy and REMAIN in the endoscopy area until you are discharged. You are NOT ALLOWED to drive, take a taxi or bus, or leave the Endoscopy Center ALONE. If you do not have a responsible delivery route driver (family member or friend) with you to take you home, your exam cannot be done with sedation and will be cancelled. Please bring a list of all of your current medications, including any Over-the Counter medications with you. Medications If you take insulin, diabetic medications or blood thinners such as Coumadin (warfarin), Plavix (clopidogrel), Ticlid (ticlopidine hydrochloride), Agrylin (anagrelide), Xarelto (Rivaroxaban), Pradaxa(Dabigatran), Eliquis (Apixaban), and Effient (Prasugrel). You MUST call the doctors who orders those medicines for instructions on altering the dosage before your colonoscopy. All other medications should be taken the day of the exam with a sip of water including ASPIRIN. Five (5) Days Before Your Colonoscopy Do NOT take medicines that stop diarrhea - such as Imodium, Kaopectate, or Pepto Bismol. Do NOT take fiber supplements - such as Metamucil, Citrucel, or Perdiem. Do NOT take products that contain iron - such as multi-vitamins (the label lists what is in the products). Do NOT take Vitamin E. Buy the prescription bowel preparation solution at your local pharmacy or drugstore pharmacy. 1 10/2019 Bowel Preparation Instructions for: Golytely, Nulytely, Trilyte or Colyte (polyethylene glycol 3350and electrolytes) Three (3) Days Before Your Colonoscopy Do NOT eat high-fiber foods - such as popcorn, beans, seeds (flax, sunflower, quinoa), multigrain bread, nuts, salad/vegetables, or fresh and dried fruit. One (1) Day Before Your Colonoscopy Only drink clear liquids the ENTIRE DAY before your colonoscopy. Do NOT eat any solid foods. Drink at least 8 ounces of clear liquids every hour after waking up. The clear liquids you can drink include: Clear Liquid (NO RED LIQUIDS) DO NOT DRINK Gatorade, Pedialyte or Powerade Clear broth or bouillon Coffee or tea (no milk or non-dairy creamer) Carbonated and non-carbonated soft drinks Rancho-Aid or other fruit flavored drinks Strained fruit juices (no pulp) Jell-O, popsicles, hard candy Water Alcohol Milk or non-dairy creamers Noodles or vegetables in soup Juice with pulp Liquid you cannot see through Do not use tobacco/vaping products The bowel preparation solution will be consumed in two parts. Mix the solution the evening before your colonoscopy and refrigerate before drinking. You may add the flavor pack that came with the bowel preparation. Do NOT add ice, sugar or any other flavorings to the solution. Part 1 At 6:00 PM - Evening before your colonoscopy Drink an 8-oz glass of bowel preparation every 10 minutes for a total of 8 glasses. You may continue to drink clear liquids until midnight. Part 2 On the day of your colonoscopy you may drink clear liquids up to (three) 3 hours before your procedure. 4 1/2 hours before your colonoscopy Drink an 8-oz glass of bowel preparation every 10 minutes for a total of 8 glasses. Fifteen (15) minutes later, drink an 8-oz glass of clear liquids every 15 minutes for a total of 2 glasses. You may continue to drink clear liquids up to (three) 3 hours before your exam. 2 10/2019 documented in this encounterM[facility]09-12-2022 History of Present illness Narrative* Kp Fitzgerald MD - 07/22/2022 1:29 PM EDT HISTORY AND PHYSICAL Nena Mandujano 1940 REFERRING PHYSICIAN: Raheem Dacosta MD CHIEF COMPLAINT: Consult (GERD, change in bowel habits) HPI: The patient is a 81 year old female referred for endoscopy. Patient presents today for office visit for follow up on upper abdominal pain. Had CT on 07/12/22. Still complains of some discomfort. Still having fluctuating bowel changes. No bloody or black stools. Still worse with stress. She feels she is doing ok with her stress. No fever or chills. Her appetite. Discomfort is still epigastric and luq quadrant. Occasionally on the right. Better when lying down. Does have ddd on her ct. Discomfort comes and goes. Still on her protonix. Did have to take more gaviscon this weekend. No nausea or vomiting. No weight loss. Reviewed her labs below. See previous ov: HPI: Patient presents today for office visit for follow up. Feeling very tired for several months. Has wondered if it is age related. Worse in the am. She does snore. Has had ? Apneic spells. No recent covid. Had it in 2020 over a year ago. 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 Is stressed. No depression. No hair or skin or weight changes. No urinary issues. No fever or chills or swollen glands. Has noted bowel changes. Now fluctuating between diarrhea and constipation. Having either no bowel movement or sporadic liquid stools. Has some mild discomfort across her upper abdomen. She wonders if it is scoliosis. Has a hx of polyps. Last colonoscopy was 2016. Has chronic gerd. Has gurgling from time to time. Still taking protonix. No black or bloody stools. Discomfort comes and goes. Can last up to a half hour or so. Not really sure anything makes it worse. Laying down in bed or heating pad helps. HYPERTENSION:no chest pain or shortness of breath. No edema. PSYCH:emotionally stable. Sees Pain management. CKD: numbers are stable. Endo: discussed diet. CT: IMPRESSION: 1. No acute intra-abdominal abnormality is seen. 2. Small hiatal hernia 3. Mild colonic diverticulosis Component Latest Ref Rng & Units 07/12/2022 WBC 3.70 - 11.00 k/uL 5.18 RBC 3.90 - 5.20 m/uL 4.15 Hemoglobin 11.5 - 15.5 g/dL 11.1 (L) Hematocrit 36.0 - 46.0 % 35.6 (L) MCV 80.0 - 100.0 fL 85.8 MCH 26.0 - 34.0 pg 26.7 MCHC 30.5 - 36.0 g/dL 31.2 RDW-CV 11.5 - 15.0 % 13.8 Platelet Count 150 - 400 k/uL 220 MPV 9.0 - 12.7 fL 10.6 Neut% % 54.4 Abs Neut (ANC) 1.45 - 7.50 k/uL 2.82 Lymph% % 33.8 Abs Lymph 1.00 - 4.00 k/uL 1.75 [place]utherford% % 9.5 Abs [place] <0.87 k/uL 0.49 Eosin% % 1.9 Abs Eosin <0.46 k/uL 0.10 Baso% % 0.4 Abs Baso <0.11 k/uL <0.03 DTYPE Auto Color Yellow Yellow Clarity Clear Clear Glucose, Urine Negative Negative Bilirubin, Urine Negative Negative Ketones, Urine Negative Negative Specific [place], Ur 1.005 - 1.030 1.015 Hemoglobin/Blood,Ur Negative Negative pH, Urine 5.0 - 8.0 6.0 Protein, Urine Negative Negative Urobilinogen 0.2-1.0 EU/dL 0.2 EU/dL Nitrites Negative Negative Leukest Negative Negative WBC, Urine 0-5 /HPF 0-5 /HPF RBC, Urine 0-3 /HPF 0-3 /HPF Glucose 74 - 99 mg/dL 104 (H) BUN 7 - 21 mg/dL 21 Creatinine 0.58 - 0.96 mg/dL 1.05 (H) Sodium 136 - 144 mmol/L 142 Potassium 3.7 - 5.1 mmol/L 4.1 Chloride 97 - 105 mmol/L 102 CO2 22 - 30 mmol/L 31 (H) Anion Gap 9 - 18 mmol/L 9 Calcium 8.5 - 10.2 mg/dL 9.2 eGFR >=60 mL/min/1.73m 54 (L) Albumin 3.9 - 4.9 g/dL 4.2 Bilirubin, Total 0.2 - 1.3 mg/dL 0.4 Bilirubin, Conjug <0.2 mg/dL <0.2 Alkaline Phosphatase 34 - 123 U/L 121 AST 13 - 35 U/L 20 ALT 7 - 38 U/L 12 Protein, Total 6.3 - 8.0 g/dL 6.8 Lipase 16 - 61 U/L 27 TSH 0.270 - 4.200 mIU/L 2.830 Nena has undergone prior endoscopy. 2016 The patient is being seen by me today at the request of Dr. Raheem Dacosta MD for my opinion and advice regarding Gerd without esophagitis Change in bowel habit Abdominal discomfort. 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 Cervical spinal stenosis Diverticulosis of colon (without mention of hemorrhage) Esophageal reflux Essential (primary) hypertension Nonspecific elevation of levels of transaminase or lactic acid dehydrogenase (LDH) Elevated LFT's Occasional tremors essential tremors Other specified gastritis Personal history of colonic polyps Reflux esophagitis Scoliosis (and kyphoscoliosis), idiopathic Scoliosis associated with other condition PAST SURGICAL HISTORY Procedure Laterality Date APPENDECTOMY CHOLECYSTECTOMY Cholecystectomy COLONOSCOPY 01/28/2014 COLONOSCOPY 02/19/2017 COLONOSCOPY FLX DX W/COLLJ SPEC WHEN PFRMD Colonoscopy COLONOSCOPY W/BIOPSY SINGLE/MULTIPLE 11/24/08 EGD 02/19/2017 EGD TRANSORAL BIOPSY SINGLE/MULTIPLE 01/12/07 EGD TRANSORAL BIOPSY SINGLE/MULTIPLE 03/17/08 ESOPHAGOGASTRODUODENOSCOPY TRANSORAL DIAGNOSTIC 08/19/2012 EGD GASTROESOPHAG REFLX TEST W/TELEMTRY PH ELTRD 03/17/08 TOTAL ABDOMINAL HYSTERECT W/WO RMVL TUBE OVARY Hysterectomy, WILLIE Current Outpatient Medications Medication Sig famotidine (PEPCID) 20 mg tablet Take 1 tablet by mouth daily at bedtime. pantoprazole DR (PROTONIX) 40 mg tablet Take 1 tablet by mouth once daily. atorvastatin (LIPITOR) 10 mg tablet Take 1 tablet by mouth daily at bedtime. For cholesterol. levothyroxine (SYNTHROID) 88 mcg tablet Take 1 tablet by mouth once daily. triamterene-hydroCHLOROthiazide (DYAZIDE) 37.5-25 mg per capsule Take 1 capsule by mouth once daily. FLUoxetine (PROZAC) 20 mg capsule Take 1 capsule by mouth once daily. mag carb/aluminum hydrox/algin (GAVISCON ORAL) Take by mouth. tiZANidine HCl 4 mg capsule Take 1 capsule by mouth daily at bedtime. tapentadol (NUCYNTA) 50 mg tab Take 1 tablet by mouth every 8 hours. peg 3350-Electrolytes (GOLYTELY) 236-22.74-6.74 -5.86 gram suspension Take 4,000 mL by mouth one time only for 1 dose. Refer to printed prep instructions from your provider. No current facility-administered medications for this visit. ALLERGIES: Patient has no known allergies. PERSONAL HISTORY: Social History Tobacco Use Smoking status: Former Years: 5.00 Types: Cigarettes Smokeless tobacco: Never Vaping Use Vaping Use: Never used Substance Use Topics Alcohol use: Yes Comment: rare Drug use: No FAMILY HISTORY: FAMILY HISTORY Problem Relation Age of Onset Heart Father of heart attack 65 Coronary Artery Disease Father fatal [place] Alcohol/Drug Father Cancer Maternal Grandfather pancreatic, 70 Cancer Paternal Grandfather pancreatic 65 Heart Paternal Grandfather Diabetes Paternal Grandmother 90 other (healthy) Mother healthly and living REVIEW OF SYMPTOMS: The review of systems data was entered by the nurse and reviewed by ks Nursing Notes: Pilar Vazquez RN 07/22/2022 1:15 PM Signed REVIEW OF SYSTEMS: General: The patient denies fatigue, denies weight loss, denies weight gain, denies feeling hot, and denies feelings of cold. Eyes: The patient denies glaucoma, denies eye injury/surgery, wears glasses or contacts. Ear/Nose/Throat: The patient denies allergies, denies hayfever, denies ear infections, and denies bloody noses. Cardiovascular: The patient denies chest pain, denies heart disease, NOTES high blood pressure,denies cardiac stent, denies prior heart attack, denies irregular heart beat, denies high cholesterol, denies poor circulation, denies heart failure, other cardiac issues, denies claudication, denies coldfeet, denies peripheral arterial stent. Respiratory: The patient denies tuberculosis, denies pneumonia, denies frequent cough, denies pulmonary embolism, denies shortness of breath, and denies coughing up blood. Gastrointestinal: The patient denies difficulty swallowing, NOTES acid reflux, denies ulcers, denies vomiting, denies jaundice/hepatitis, denies gallbladder problems, denies black or tarry stools, denies hemorrhoids, denies bleeding from rectum, denies diverticulitis, NOTES constipation, NOTES diarrhea, NOTES loss of stool control, and denies hernias. Kidney/Bladder: The patient denies kidney stones, denies urine infections, and denies bloody urine. Skin: The patient denies a history of skin cancer, denies bleeding/changing moles, and denies a history of skin rash. Neurologic: The patient denies a history of epilepsy/convulsions, denies headaches, denies head/spinal injuries, and denies stroke/TIA. Psychiatric: The patient denies psychiatric medications, NOTES depression, and denies voices, denies substance abuse. Endocrine: The patient denies thyroid disorders, denies diabetes, and denies hormonal problems. Hematologic: The patient denies a history of bruising, denies bleeding, and denies anemia, denies blood clots. Infections: The patient NOTES a history of measles and mumps, denies rheumatic fever, and denies sexually transmitted diseases. Musculoskeletal: The patient denies back pain/injury, NOTES back problems, denies sciatica, NOTES knee/foot trouble, NOTES arthritis, or denies gout. When was patient's last Mammogram screening? 08/2021 Last Colonoscopy: 02/19/2017 Pilar Vazquez RN PHYSICAL EXAMINATION: General: The patient is 81 year old female, well nourished, well hydrated in no acute distress. Thepatient is oriented to time, place, and person. VITALS: Blood pressure 122/64, pulse 94, temperature 36.1 C (97 F), height 160 cm (5' 3 ), weight 89 kg (196 lb 3.2 oz), SpO2 100 %. Body mass index is 34.76 kg/m . HEENT: Normal cephalic, ataumatic, pupils are equally round, sclera are anicteric, mucous membranesare moist, oropharynx is clear. Neck has no masses, asymmetry or lymphadenopathy. Thyroid is unremarkable. Respiratory: Clear to auscultation and percussion. Normal respiratory excursion and pattern. Cardiac: Examination is regular rate and rhythm. Abdominal exam: Soft, nontender, with no palpable masses. No hepatosplenomegaly. No palpable hernias. Rectal exam: exam deferred Extremities: no clubbing, cyanosis or edema. No adenopathy. Other: LABORATORY VALUES: As Noted RADIOLOGIC STUDIES: As Noted Assessment IMPRESSION: Gerd without esophagitis Change in bowel habit Abdominal discomfort PLAN: I plan to perform upper and lower endoscopy. We discussed the risks and benefits of the planned endoscopy. I have informed the patient that complications can occur including failure to completethe endoscopy and perforation. The patient had the opportunity to ask questions concerning the planned endoscopy. My staff has also explained the procedure to the patient in understandable terms and has given the patient printed material concerning the procedure. The patient freely consents to surgery. I plan to use golytely bowel preparation for endoscopy Diagnoses: (K21.9) GERD without esophagitis (R19.4) Change in bowel habit (R10.9) Abdominal discomfort My findings have been communicated to Dr. Raheem Dacosta MD via shared medical record. This note will be forwarded to Dr. Raheem Dacosta MD. Return to Clinic: The patient is instructed to follow-up with me 1 week post operatively. COVID (Procedure Consent) Procedure Criteria Procedure Criteria: Yes Elective The surgeon/proceduralist and patient have discussed in detail therisk of exposure to and/or potential harm posed by the COVID-19 virus with having a surgery/procedure at this time versus the risk of delaying the surgery/procedure. It is not possible to know eitherthe risk of delaying the surgery or procedure or chance of getting an infection with perfect accuracy, but a joint decision was made between the patient and the surgeon/proceduralist to proceed at this time with the scheduled surgery/procedure as indicated on the consent form. Kp Fitzgerald III, MD documented in this encounterM[facility]-12-[facility]22 Nurse Note* Pilar Vazquez RN - 07/22/2022 1:13 PM EDT REVIEW OF SYSTEMS: General: The patient denies fatigue, denies weight loss, denies weight gain, denies feeling hot, and denies feelings of cold. Eyes: The patient denies glaucoma, denies eye injury/surgery, wears glasses or contacts. Ear/Nose/Throat: The patient denies allergies, denies hayfever, denies ear infections, and denies bloody noses. Cardiovascular: The patient denies chest pain, denies heart disease, NOTES high blood pressure,denies cardiac stent, denies prior heart attack, denies irregular heart beat, denies high cholesterol, denies poor circulation, denies heart failure, other cardiac issues, denies claudication, denies coldfeet, denies peripheral arterial stent. Respiratory: The patient denies tuberculosis, denies pneumonia, denies frequent cough, denies pulmonary embolism, denies shortness of breath, and denies coughing up blood. Gastrointestinal: The patient denies difficulty swallowing, NOTES acid reflux, denies ulcers, denies vomiting, denies jaundice/hepatitis, denies gallbladder problems, denies black or tarry stools, denies hemorrhoids, denies bleeding from rectum, denies diverticulitis, NOTES constipation, NOTES diarrhea, NOTES loss of stool control, and denies hernias. Kidney/Bladder: The patient denies kidney stones, denies urine infections, and denies bloody urine. Skin: The patient denies a history of skin cancer, denies bleeding/changing moles, and denies a history of skin rash. Neurologic: The patient denies a history of epilepsy/convulsions, denies headaches, denies head/spinal injuries, and denies stroke/TIA. Psychiatric: The patient denies psychiatric medications, NOTES depression, and denies voices, denies substance abuse. Endocrine: The patient denies thyroid disorders, denies diabetes, and denies hormonal problems. Hematologic: The patient denies a history of bruising, denies bleeding, and denies anemia, denies blood clots. Infections: The patient NOTES a history of measles and mumps, denies rheumatic fever, and denies sexually transmitted diseases. Musculoskeletal: The patient denies back pain/injury, NOTES back problems, denies sciatica, NOTES knee/foot trouble, NOTES arthritis, or denies gout. When was patient's last Mammogram screening? 08/2021 Last Colonoscopy: 02/19/2017 Pilar Vazquez RN documented in this encounterM[facility]09-07-2022 Miscellaneous Notes* Telephone Encounter - Tiffany Theodore LPN - 07/17/2022 11:58 AM EDT Seen in office today. * Telephone Encounter - Jennifer Basurto Ma - 07/16/2022 1:06 PM EDT Called pt unable to LM due to VM being full at this time. Will try calling again later. PCP wrote message to pt on 07/12. Pt to come in this week if able to complete additional labs. Jennifer Basurto Ma * Telephone Encounter - Raheem Dacosta MD - 07/16/2022 12:49 PM EDT Let her know below. She did not nut picker her my chart message I sent her\: Your ct is overall ok. Your labs show you are slightly anemic. Keep the follow up visits we mentioned. Please come in next week for additional labs next week as well to work up the mild anemia. If you have any questions, let me know. Dr. Dacosta documented in this encounterM[facility]09-07-2022 History of Present illness Narrative* Raheem Dacosta MD - 07/17/2022 9:06 AM EDT Patient presents with: Abdominal Pain: 1wk f/u HPI: Patient presents today for office visit for follow up on upper abdominal pain. Had CT on 07/12/22. Still complains of some discomfort. Still having fluctuating bowel changes. No bloody or black stools. Still worse with stress. She feels she is doing ok with her stress. No fever or chills. Her appetite. Discomfort is still epigastric and luq quadrant. Occasionally on the right. Better when lying down. Does have ddd on her ct. Discomfort comes and goes. Still on her protonix. Did have to take more gaviscon this weekend. No nausea or vomiting. No weight loss. Reviewed her labs below. See previous ov: HPI: Patient presents today for office visit for follow up. Feeling very tired for several months. Has wondered if it is age related. Worse in the am. She does snore. Has had ? Apneic spells. No recent covid. Had it in 2020 over a year ago. 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 Is stressed. No depression. No hair or skin or weight changes. No urinary issues. No fever or chills or swollen glands. Has noted bowel changes. Now fluctuating between diarrhea and constipation. Having either no bowel movement or sporadic liquid stools. Has some mild discomfort across her upper abdomen. She wonders if it is scoliosis. Has a hx of polyps. Last colonoscopy was 2016. Has chronic gerd. Has gurgling from time to time. Still taking protonix. No black or bloody stools. Discomfort comes and goes. Can last up to a half hour or so. Not really sure anything makes it worse. Laying down in bed or heating pad helps. HYPERTENSION:no chest pain or shortness of breath. No edema. PSYCH:emotionally stable. Sees Pain management. CKD: numbers are stable. Endo: discussed diet. CT: IMPRESSION: 1. No acute intra-abdominal abnormality is seen. 2. Small hiatal hernia 3. Mild colonic diverticulosis Component Latest Ref Rng & Units 07/12/2022 WBC 3.70 - 11.00 k/uL 5.18 RBC 3.90 - 5.20 m/uL 4.15 Hemoglobin 11.5 - 15.5 g/dL 11.1 (L) Hematocrit 36.0 - 46.0 % 35.6 (L) MCV 80.0 - 100.0 fL 85.8 MCH 26.0 - 34.0 pg 26.7 MCHC 30.5 - 36.0 g/dL 31.2 RDW-CV 11.5 - 15.0 % 13.8 Platelet Count 150 - 400 k/uL 220 MPV 9.0 - 12.7 fL 10.6 Neut% % 54.4 Abs Neut (ANC) 1.45 - 7.50 k/uL 2.82 Lymph% % 33.8 Abs Lymph 1.00 - 4.00 k/uL 1.75 [place]uther[place]% % 9.5 Abs [place] <0.87 k/uL 0.49 Eosin% % 1.9 Abs Eosin <0.46 k/uL 0.10 Baso% % 0.4 Abs Baso <0.11 k/uL <0.03 DTYPE Auto Color Yellow Yellow Clarity Clear Clear Glucose, Urine Negative Negative Bilirubin, Urine Negative Negative Ketones, Urine Negative Negative Specific [place], Ur 1.005 - 1.030 1.015 Hemoglobin/Blood,Ur Negative Negative pH, Urine 5.0 - 8.0 6.0 Protein, Urine Negative Negative Urobilinogen 0.2-1.0 EU/dL 0.2 EU/dL Nitrites Negative Negative Leukest Negative Negative WBC, Urine 0-5 /HPF 0-5 /HPF RBC, Urine 0-3 /HPF 0-3 /HPF Glucose 74 - 99 mg/dL 104 (H) BUN 7 - 21 mg/dL 21 Creatinine 0.58 - 0.96 mg/dL 1.05 (H) Sodium 136 - 144 mmol/L 142 Potassium 3.7 - 5.1 mmol/L 4.1 Chloride 97 - 105 mmol/L 102 CO2 22 - 30 mmol/L 31 (H) Anion Gap 9 - 18 mmol/L 9 Calcium 8.5 - 10.2 mg/dL 9.2 eGFR >=60 mL/min/1.73m 54 (L) Albumin 3.9 - 4.9 g/dL 4.2 Bilirubin, Total 0.2 - 1.3 mg/dL 0.4 Bilirubin, Conjug <0.2 mg/dL <0.2 Alkaline Phosphatase 34 - 123 U/L 121 AST 13 - 35 U/L 20 ALT 7 - 38 U/L 12 Protein, Total 6.3 - 8.0 g/dL 6.8 Lipase 16 - 61 U/L 27 TSH 0.270 - 4.200 mIU/L 2.830 MEDICATIONS: Current Outpatient Medications Medication Sig pantoprazole DR (PROTONIX) 40 mg tablet Take 1 tablet by mouth once daily. atorvastatin (LIPITOR) 10 mg tablet Take 1 tablet by mouth daily at bedtime. For cholesterol. levothyroxine (SYNTHROID) 88 mcg tablet Take 1 tablet by mouth once daily. triamterene-hydroCHLOROthiazide (DYAZIDE) 37.5-25 mg per capsule Take 1 capsule by mouth once daily. FLUoxetine (PROZAC) 20 mg capsule Take 1 capsule by mouth once daily. mag carb/aluminum hydrox/algin (GAVISCON ORAL) Take by mouth. tiZANidine HCl 4 mg capsule Take 1 capsule by mouth daily at bedtime. tapentadol (NUCYNTA) 50 mg tab Take 1 tablet by mouth every 8 hours. No current facility-administered medications for this visit. 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 Cervical spinal stenosis Diverticulosis of colon (without mention of hemorrhage) Esophageal reflux Essential (primary) hypertension Nonspecific elevation of levels of transaminase or lactic acid dehydrogenase (LDH) Elevated LFT's Occasional tremors essential tremors Other specified gastritis Personal history of colonic polyps Reflux esophagitis Scoliosis (and kyphoscoliosis), idiopathic Scoliosis associated with other condition PAST SURGICAL HISTORY Procedure Laterality Date APPENDECTOMY CHOLECYSTECTOMY Cholecystectomy COLONOSCOPY 01/28/2014 COLONOSCOPY 02/19/2017 COLONOSCOPY FLX DX W/COLLJ SPEC WHEN PFRMD Colonoscopy COLONOSCOPY W/BIOPSY SINGLE/MULTIPLE 11/24/08 EGD 02/19/2017 EGD TRANSORAL BIOPSY SINGLE/MULTIPLE 01/12/07 EGD TRANSORAL BIOPSY SINGLE/MULTIPLE 03/17/08 ESOPHAGOGASTRODUODENOSCOPY TRANSORAL DIAGNOSTIC 08/19/2012 EGD GASTROESOPHAG REFLX TEST W/TELEMTRY PH ELTRD 03/17/08 TOTAL ABDOMINAL HYSTERECT W/WO RMVL TUBE OVARY Hysterectomy, WILLIE FAMILY HISTORY Problem Relation Age of Onset Heart Father of heart attack 65 Coronary Artery Disease Father fatal [place] Alcohol/Drug Father Cancer Maternal Grandfather pancreatic, 70 Cancer Paternal Grandfather pancreatic 65 Heart Paternal Grandfather Diabetes Paternal Grandmother 90 other (healthy) Mother healthly and living Social History Tobacco Use Smoking status: Former Years: 5.00 Types: Cigarettes Smokeless tobacco: Never Substance Use Topics Alcohol use: Yes Comment: rare Drug use: No Reviewed current medications, allergies, past medical history, surgical history, family history andsocial history today. REVIEW OF SYSTEMS All other reviewed and negative other than HPI. VITALS: BP 126/76 Pulse 63 Ht 162.6 cm (5' 4 ) Wt 89.4 kg (197 lb) SpO2 98% BMI 33.81 kg/m Last 4 Encounter Wt Readings: Date: Wt: 07/12/2022 89.4 kg (197 lb) 01/09/2022 89.8 kg (198 lb) 06/24/2021 86.4 kg (190 lb 6.4 oz) 08/28/2020 90.7 kg (200 lb) PHYSICAL EXAMINATION: General appearance: Well appearing, alert, in no acute distress, well-hydrated, well nourished. Skin: Skin color, texture, turgor normal, no suspicious rashes or lesions Head: Normocephalic, no masses, lesions, tenderness or abnormalities Lungs: Lungs clear to auscultation. No wheezing, rhonchi, rales Heart: RRR without murmur, gallop, or rubs. No ectopy Abdomen: Normal abdominal exam, Abdomen soft, non-tender. Bowel sounds normal. No masses, organomegaly Extremities: No deformities, edema, skin discoloration, clubbing or cyanosis. Good capillary refill. Musculoskeletal: No joint swelling, deformity, or tenderness Peripheral pulses: Normal ASSESSMENT/PLAN: 1. Abdominal discomfort - ICD9: 789.00, ICD10: R10.9 (primary diagnosis) - add pepcid to protonix. - Red flags for re-assessment reviewed with patient in detail. - see surgery, may need egd and colonoscopy. - check pending anemia labs and ifobt. - CONSULT TO GENERAL SURGERY 2. GERD without esophagitis - ICD9: 530.81, ICD10: K21.9 - CONSULT TO GENERAL SURGERY 3. Change in bowel habit - ICD9: 787.99, ICD10: R19.4 - CONSULT TO GENERAL SURGERY 4. Anemia, unspecified type - ICD9: 285.9, ICD10: D64.9 - CONSULT TO GENERAL SURGERY Raheem Dacosta RTO prn. documented in this encounterM[facility]09-02-[facility]22 History of Present illness Narrative* Raheem Dacosta MD - 07/12/2022 8:41 AM EDT Patient presents with: 6 Month Exam: Feeling fatigued. Bowels going between constipation and diarrhea. Pain across upper upper abd. Wondering if scoliosis effecting her because of how she leans? HPI: Patient presents today for office visit for follow up. Feeling very tired for several months. Has wondered if it is age related. Worse in the am. She does snore. Has had ? Apneic spells. No recent covid. Had it in 2020 over a year ago. 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 Is stressed. No depression. No hair or skin or weight changes. No urinary issues. No fever or chills or swollen glands. Has noted bowel changes. Now fluctuating between diarrhea and constipation. Having either no bowel movement or sporadic liquid stools. Has some mild discomfort across her upper abdomen. She wonders if it is scoliosis. Has a hx of polyps. Last colonoscopy was 2016. Has chronic gerd. Has gurgling from time to time. Still taking protonix. No black or bloody stools. Discomfort comes and goes. Can last up to a half hour or so. Not really sure anything makes it worse. Laying down in bed or heating pad helps. HYPERTENSION:no chest pain or shortness of breath. No edema. PSYCH:emotionally stable. Sees Pain management. CKD: numbers are stable. Endo: discussed diet. Component Latest Ref Rng & Units 07/11/2022 WBC 3.70 - 11.00 k/uL 4.89 RBC 3.90 - 5.20 m/uL 4.46 Hemoglobin 11.5 - 15.5 g/dL 11.7 Hematocrit 36.0 - 46.0 % 38.8 MCV 80.0 - 100.0 fL 87.0 MCH 26.0 - 34.0 pg 26.2 MCHC 30.5 - 36.0 g/dL 30.2 (L) RDW-CV 11.5 - 15.0 % 14.3 Platelet Count 150 - 400 k/uL 252 MPV 9.0 - 12.7 fL 11.6 Absolute nRBC <0.01 k/uL <0.01 Glucose 74 - 99 mg/dL 97 BUN 7 - 21 mg/dL 22 (H) Creatinine 0.58 - 0.96 mg/dL 1.05 (H) Sodium 136 - 144 mmol/L 145 (H) Potassium 3.7 - 5.1 mmol/L 4.2 Chloride 97 - 105 mmol/L 104 CO2 22 - 30 mmol/L 29 Anion Gap 9 - 18 mmol/L 12 Calcium 8.5 - 10.2 mg/dL 9.2 eGFR >=60 mL/min/1.73m 54 (L) Hemoglobin A1C 4.3 - 5.6 % 6.3 (H) Estimated Average Glucose mg/dL 134 MEDICATIONS: Current Outpatient Medications Medication Sig levothyroxine (SYNTHROID) 88 mcg tablet Take 1 tablet by mouth once daily. triamterene-hydroCHLOROthiazide (DYAZIDE) 37.5-25 mg per capsule Take 1 capsule by mouth once daily. pantoprazole DR (PROTONIX) 40 mg tablet Take 1 tablet by mouth once daily. atorvastatin (LIPITOR) 10 mg tablet Take 1 tablet by mouth daily at bedtime. For cholesterol. FLUoxetine (PROZAC) 20 mg capsule Take 1 capsule by mouth once daily. mag carb/aluminum hydrox/algin (GAVISCON ORAL) Take by mouth. tiZANidine HCl 4 mg capsule Take 1 capsule by mouth daily at bedtime. tapentadol (NUCYNTA) 50 mg tab Take 1 tablet by mouth every 8 hours. No current facility-administered medications for this visit. 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 Cervical spinal stenosis Diverticulosis of colon (without mention of hemorrhage) Esophageal reflux Essential (primary) hypertension Nonspecific elevation of levels of transaminase or lactic acid dehydrogenase (LDH) Elevated LFT's Occasional tremors essential tremors Other specified gastritis Personal history of colonic polyps Reflux esophagitis Scoliosis (and kyphoscoliosis), idiopathic Scoliosis associated with other condition PAST SURGICAL HISTORY Procedure Laterality Date APPENDECTOMY CHOLECYSTECTOMY Cholecystectomy COLONOSCOPY 01/28/2014 COLONOSCOPY 02/19/2017 COLONOSCOPY FLX DX W/COLLJ SPEC WHEN PFRMD Colonoscopy COLONOSCOPY W/BIOPSY SINGLE/MULTIPLE 11/24/08 EGD 02/19/2017 EGD TRANSORAL BIOPSY SINGLE/MULTIPLE 01/12/07 EGD TRANSORAL BIOPSY SINGLE/MULTIPLE 03/17/08 ESOPHAGOGASTRODUODENOSCOPY TRANSORAL DIAGNOSTIC 08/19/2012 EGD GASTROESOPHAG REFLX TEST W/TELEMTRY PH ELTRD 03/17/08 TOTAL ABDOMINAL HYSTERECT W/WO RMVL TUBE OVARY Hysterectomy, WILLIE FAMILY HISTORY Problem Relation Age of Onset Heart Father of heart attack 65 Coronary Artery Disease Father fatal [place] Alcohol/Drug Father Cancer Maternal Grandfather pancreatic, 70 Cancer Paternal Grandfather pancreatic 65 Heart Paternal Grandfather Diabetes Paternal Grandmother 90 other (healthy) Mother healthly and living Social History Tobacco Use Smoking status: Former Years: 5.00 Types: Cigarettes Smokeless tobacco: Never Substance Use Topics Alcohol use: Yes Comment: rare Drug use: No Reviewed current medications, allergies, past medical history, surgical history, family history andsocial history today. REVIEW OF SYSTEMS All other reviewed and negative other than HPI. HEALTH MAINTENANCE: Reviewed health maintenance issues today and recommended the following in detail. DTAP,TDAP,TD(1 - Tdap) Never done SHINGRIX VACCINE(2 of 3) due on 04/24/2012 ADVANCE DIRECTIVE DISCUSSION Never done COVID-19 VACCINE(4 - Booster for Pfizer series) due on 01/07/2022 INFLUENZA(1) due on 07/11/2022 VITALS: BP 118/72 Pulse 68 Wt 89.4 kg (197 lb) BMI 33.81 kg/m Last 4 Encounter Wt Readings: Date: Wt: 01/09/2022 89.8 kg (198 lb) 06/24/2021 86.4 kg (190 lb 6.4 oz) 08/28/2020 90.7 kg (200 lb) 02/16/2019 90.7 kg (200 lb) PHYSICAL EXAMINATION: General appearance: Well appearing, alert, in no acute distress, well-hydrated, well nourished. Skin: Skin color, texture, turgor normal, no suspicious rashes or lesions Head: Normocephalic, no masses, lesions, tenderness or abnormalities Lungs: Lungs clear to auscultation. No wheezing, rhonchi, rales Heart: RRR without murmur, gallop, or rubs. No ectopy Abdomen: epigastric and upper abd discomfort. Mild guarding. Bowel sounds positive. No masses. No definite rebound. Extremities: No deformities, edema, skin discoloration, clubbing or cyanosis. Good capillary refill. Musculoskeletal: No joint swelling, deformity, or tenderness Peripheral pulses: Normal Neuro: Gait normal. Reflexes normal and symmetric. Sensation grossly intact. ASSESSMENT/PLAN: 1. Fatigue, unspecified type - ICD9: 780.79, ICD10: R53.83 (primary diagnosis) - check labs and sleep study. - TSH BLD 2. GERD without esophagitis - ICD9: 530.81, ICD10: K21.9 - continue meds. - PANTOPRAZOLE 40 MG TABLET,DELAYED RELEASE - CONSULT TO GENERAL SURGERY - URINALYSIS, WITH MICROSCOPIC 3. Mixed hyperlipidemia - ICD9: 272.2, ICD10: E78.2 - good control - Continue current medication. - ATORVASTATIN 10 MG TABLET 4. Hyperglycemia - ICD9: 790.29, ICD10: R73.9 - ATORVASTATIN 10 MG TABLET 5. Change in bowel habit - ICD9: 787.99, ICD10: R19.4 - see surgery. - CONSULT TO GENERAL SURGERY - URINALYSIS, WITH MICROSCOPIC 6. Essential hypertension - ICD9: 401.9, ICD10: I10 - good control - Goal of BP <130/80 7. Stage 3 chronic kidney disease, unspecified whether stage 3a or 3b CKD (HCC) - ICD9: 585.3, ICD10: N18.30 - stable. Is at a level that is acceptable for dye. 8. Hypothyroidism, unspecified type - ICD9: 244.9, ICD10: E03.9 - continue meds. 9. BALJINDER (obstructive sleep apnea) - ICD9: 327.23, ICD10: G47.33 - HOME SLEEP APNEA TEST (HSAT) 10. Abdominal discomfort - ICD9: 789.00, ICD10: R10.9 - is uncomfortable enough, will follow closely. Light diet. Red flags for re- assessment reviewed with patient in detail. - do ct today to rule out obstruction, diverticulitis etc. Follow next week as well. - HEPATIC FUNCTION PNL - LIPASE BLD - CONSULT TO GENERAL SURGERY - URINALYSIS, WITH MICROSCOPIC - CBC + DIFF - BASIC METABOLIC PNL - CT ABD/PEL W IVCON Raheem Dacosta RTO in next week and prn. [facility] Miscellaneous Notes* Telephone Encounter - Laura Dowling LPN - 06/28/2022 9:59 AM EDT Last office visit: 01/09/2022 Next appointment scheduled: 07/12/22 Last labs: 01/04/22 TSH 2.980 Patient phones requesting refills as follows: Requested Prescriptions Pending Prescriptions Disp Refills levothyroxine (SYNTHROID) 88 mcg tablet 90 tablet 1 Sig: Take 1 tablet by mouth once daily. Please review and advise. Laura Dowling LPN documented in this [facility]07[facility]28[facility]22 Miscellaneous Notes* Telephone Encounter - Tiffany Theodore LPN - 06/06/2022 8:58 AM EDT Patient has been identified by name and date of : Yes Pending Prescriptions Disp Refills TRIAMTERENE 37.5 MG-HYDROCHLOROTHIAZIDE 25 MG CAPSULE 90 capsule 3 Sig: Take 1 capsule by mouth once daily. TENZIN: No RX INSTRUCTIONS: Patient aware RX will be sent to pharmacy. No need to notify patient. Tiffany Theodore LPN documented in this [facility]06[facility]28[facility]22 Miscellaneous Notes* Telephone Encounter - Patricia Mancia LPN - 05/07/2022 10:52 AM EDT Patient has been identified by name and date of : Yes Patient phones for refill(s): Pending Prescriptions Disp Refills PANTOPRAZOLE 40 MG TABLET,DELAYED RELEASE 90 tablet 0 Sig: Take 1 tablet by mouth once daily. TENZIN: No Date of last office visit in primary care:01/10/22 Patient has a follow up appointment scheduled 07/12/2022 Please advise. Thank you. Patricia Mancia LPN documented in this [facility]06-13-2022 Miscellaneous Notes* Telephone Encounter - Laura Mendez LPN - 04/22/2022 1:33 PM EDT dara- 01/09/22 Next--07/12/22 Last refill--01/14/22 90 With 0 Last labs-- 01/09/22 documented [facility]22 Miscellaneous Notes* Telephone Encounter - Laura Dowling LPN - 03/29/2022 9:10 AM EDT Last office visit 01/09/2022. Last TSH on 01/04/2022 was 2.980 Patient phones requesting refills as follows: Pending Prescriptions Disp Refills LEVOTHYROXINE 88 MCG TABLET 90 tablet 1 Sig: Take 1 tablet by mouth once daily. TENZIN: No Please review and advise. Laura Dowling LPN documented in this [facility]04[facility]25-2022 Miscellaneous Notes* Telephone Encounter - JERONIMO Edward - 03/04/2022 10:38 AM EDT Patient has been identified by name and date of : Yes Patient phones for refill(s): Pending Prescriptions Disp Refills FLUOXETINE 20 MG CAPSULE 90 capsule 1 Sig: Take 1 capsule by mouth once daily. TENZIN: No TRIAMTERENE 37.5 MG-HYDROCHLOROTHIAZIDE 25 MG CAPSULE 90 capsule 0 Sig: Take 1 capsule by mouth once daily. TENZIN: No Date of last office visit in primary care: OV on 01/09/2022 Appointment scheduled for 07/12/2022 Last 2 Encounter Wt Readings: Date: Wt: 01/09/2022 89.8 kg (198 lb) 06/24/2021 86.4 kg (190 lb 6.4 oz) Please advise. Thank you. JERONIMO Edward documented in this [facility]10[facility]12[facility] History of Past illness Narrative* Problem Noted Date Diagnosed Date Resolved Date Muscle pain 08/21/2021 06/16/2023 06/16/2023 Hypertensive kidney disease with chronic kidney disease stage III 06/26/2021 01/09/2022 Benign neoplasm of colon 11/24/200812/2021 Acute gastritis without mention of hemorrhage 11/13/19 06 09/16/2012 Nonspecific elevation of lev els of transaminase or lactic acid dehydrogenase (LDH) 10/10/2005 01/09/2022 Reflux esophagitis 2 documented as of this encounter (statuses as of 06/17/2023) [facility] Narrative* Problem Noted Date Diagnosed Date Resolved Date Muscle pain 08/21/2021 06/16/2023 06/16/2023 Hypertensive kidney disease with chronic kidney disease stage III 06/26/2021 01/09/2022 Benign neoplasm of colon 11/24/200812/2021 Acute gastritis without mention of hemorrhage 11/13/19 06 09/16/2012 Nonspecific elevation of lev els of transaminase or lactic acid dehydrogenase (LDH) 10/10/2005 01/09/2022 Reflux esophagitis 2 documented as of this encounter (statuses as of 06/21/2023) [facility] Narrative* Problem Noted Date Diagnosed Date Resolved Date Muscle pain 08/21/2021 06/16/2023 06/16/2023 Hypertensive kidney disease with chronic kidney disease stage III 06/26/2021 01/09/2022 Benign neoplasm of colon 11/24/200812/2021 Acute gastritis without mention of hemorrhage 11/13/19 06 09/16/2012 Nonspecific elevation of lev els of transaminase or lactic acid dehydrogenase (LDH) 10/10/2005 01/09/2022 Reflux esophagitis 2 documented as of this encounter (statuses as of 07/01/2023) [facility] Narrative* Problem Noted Date Diagnosed Date Resolved Date Muscle pain 08/21/2021 06/16/2023 06/16/2023 Hypertensive kidney disease with chronic kidney disease stage III 06/26/2021 01/09/2022 Benign neoplasm of colon 11/24/200812/2021 Acute gastritis without mention of hemorrhage 11/13/19 06 09/16/2012 Nonspecific elevation of lev els of transaminase or lactic acid dehydrogenase (LDH) 10/10/2005 01/09/2022 Reflux esophagitis 2 documented as of this encounter (statuses as of 07/09/2023) [facility]arrative* Problem Noted Date Diagnosed Date Resolved Date Muscle pain 08/21/2021 06/16/2023 06/16/2023 Hypertensive kidney disease with chronic kidney disease stage III 06/26/2021 01/09/2022 Benign neoplasm of colon 11/24/200812/2021 Acute gastritis without mention of hemorrhage 11/13/19 06 09/16/2012 Nonspecific elevation of lev els of transaminase or lactic acid dehydrogenase (LDH) 10/10/2005 01/09/2022 Reflux esophagitis 2 documented as of this encounter (statuses as of 07/18/2023) [facility]arrative* Problem Noted Date Diagnosed Date Resolved Date Muscle pain 08/21/2021 06/16/2023 06/16/2023 Hypertensive kidney disease with chronic kidney disease stage III 06/26/2021 01/09/2022 Benign neoplasm of colon 11/24/200812/2021 Acute gastritis without mention of hemorrhage 11/13/19 06 09/16/2012 Nonspecific elevation of lev els of transaminase or lactic acid dehydrogenase (LDH) 10/10/2005 01/09/2022 Reflux esophagitis 2 documented as of this encounter (statuses as of 07/23/2023) [facility]arrative* Problem Noted Date Diagnosed Date Resolved Date Muscle pain 08/21/2021 06/16/2023 06/16/2023 Hypertensive kidney disease with chronic kidney disease stage III 06/26/2021 01/09/2022 Benign neoplasm of colon 11/24/200812/2021 Acute gastritis without mention of hemorrhage 11/13/19 06 09/16/2012 Nonspecific elevation of lev els of transaminase or lactic acid dehydrogenase (LDH) 10/10/2005 01/09/2022 Reflux esophagitis 2 documented as of this encounter (statuses as of 08/01/2023) [facility]* Problem Noted Date Diagnosed Date Resolved Date Muscle pain 08/21/2021 06/16/2023 06/16/2023 Hypertensive kidney disease with chronic kidney disease stage III 06/26/2021 01/09/2022 Benign neoplasm of colon 11/24/200812/2021 Acute gastritis without mention of hemorrhage 11/13/19 06 09/16/2012 Nonspecific elevation of lev els of transaminase or lactic acid dehydrogenase (LDH) 10/10/2005 01/09/2022 Reflux esophagitis 2 documented as of this encounter (statuses as of 08/02/2023) [facility]* Problem Noted Date Diagnosed Date Resolved Date Muscle pain 08/21/2021 06/16/2023 06/16/2023 Hypertensive kidney disease with chronic kidney disease stage III 06/26/2021 01/09/2022 Benign neoplasm of colon 11/24/200812/2021 Acute gastritis without mention of hemorrhage 11/13/19 06 09/16/2012 Nonspecific elevation of lev els of transaminase or lactic acid dehydrogenase (LDH) 10/10/2005 01/09/2022 Reflux esophagitis 2 documented as of this encounter (statuses as of 08/06/2023) [facility]* Problem Noted Date Diagnosed Date Resolved Date Muscle pain 08/21/2021 06/16/2023 06/16/2023 Hypertensive kidney disease with chronic kidney disease stage III 06/26/2021 01/09/2022 Benign neoplasm of colon 11/24/200812/2021 Acute gastritis without mention of hemorrhage 11/13/19 06 09/16/2012 Nonspecific elevation of lev els of transaminase or lactic acid dehydrogenase (LDH) 10/10/2005 01/09/2022 Reflux esophagitis 2 documented as of this encounter (statuses as of 08/16/2023) [facility]* Problem Noted Date Diagnosed Date Resolved Date Muscle pain 08/21/2021 06/16/2023 06/16/2023 Hypertensive kidney disease with chronic kidney disease stage III 06/26/2021 01/09/2022 Benign neoplasm of colon 11/24/200812/2021 Acute gastritis without mention of hemorrhage 11/13/19 06 09/16/2012 Nonspecific elevation of lev els of transaminase or lactic acid dehydrogenase (LDH) 10/10/2005 01/09/2022 Reflux esophagitis 2 documented as of this encounter (statuses as of 08/16/2023) [facility]arr[facility]* Problem Noted Date Diagnosed Date Resolved Date Muscle pain 08/21/2021 06/16/2023 06/16/2023 Hypertensive kidney disease with chronic kidney disease stage III 06/26/2021 01/09/2022 Benign neoplasm of colon 11/24/200812/2021 Acute gastritis without mention of hemorrhage 11/13/19 06 09/16/2012 Nonspecific elevation of lev els of transaminase or lactic acid dehydrogenase (LDH) 10/10/2005 01/09/2022 Reflux esophagitis 2 documented as of this encounter (statuses as of 08/27/2023) [facility]arr[facility]* Problem Noted Date Diagnosed Date Resolved Date Muscle pain 08/21/2021 06/16/2023 06/16/2023 Hypertensive kidney disease with chronic kidney disease stage III 06/26/2021 01/09/2022 Benign neoplasm of colon 11/24/200812/2021 Acute gastritis without mention of hemorrhage 11/13/19 06 09/16/2012 Nonspecific elevation of lev els of transaminase or lactic acid dehydrogenase (LDH) 10/10/2005 01/09/2022 Reflux esophagitis 2 documented as of this encounter (statuses as of 09/01/2023) [facility]* Problem Noted Date Diagnosed Date Resolved Date Muscle pain 08/21/2021 06/16/2023 06/16/2023 Hypertensive kidney disease with chronic kidney disease stage III 06/26/2021 01/09/2022 Benign neoplasm of colon 11/24/200812/2021 Acute gastritis without mention of hemorrhage 11/13/19 06 09/16/2012 Nonspecific elevation of lev els of transaminase or lactic acid dehydrogenase (LDH) 10/10/2005 01/09/2022 Reflux esophagitis 2 documented as of this encounter (statuses as of 09/13/2023) [facility]* Problem Noted Date Diagnosed Date Resolved Date Muscle pain 08/21/2021 06/16/2023 06/16/2023 Hypertensive kidney disease with chronic kidney disease stage III 06/26/2021 01/09/2022 Benign neoplasm of colon 11/24/200812/2021 Acute gastritis without mention of hemorrhage 11/13/19 06 09/16/2012 Nonspecific elevation of lev els of transaminase or lactic acid dehydrogenase (LDH) 10/10/2005 01/09/2022 Reflux esophagitis 2 documented as of this encounter (statuses as of 09/15/2023) [facility]* Problem Noted Date Diagnosed Date Resolved Date Muscle pain 08/21/2021 06/16/2023 06/16/2023 Hypertensive kidney disease with chronic kidney disease stage III 06/26/2021 01/09/2022 Benign neoplasm of colon 11/24/200812/2021 Acute gastritis without mention of hemorrhage 11/13/19 06 09/16/2012 Nonspecific elevation of lev els of transaminase or lactic acid dehydrogenase (LDH) 10/10/2005 01/09/2022 Reflux esophagitis 2 documented as of this encounter (statuses as of 09/17/2023) [facility]arr[facility]* Problem Noted Date Diagnosed Date Resolved Date Muscle pain 08/21/2021 06/16/2023 06/16/2023 Hypertensive kidney disease with chronic kidney disease stage III 06/26/2021 01/09/2022 Benign neoplasm of colon 11/24/200812/2021 Acute gastritis without mention of hemorrhage 11/13/19 06 09/16/2012 Nonspecific elevation of lev els of transaminase or lactic acid dehydrogenase (LDH) 10/10/2005 01/09/2022 Reflux esophagitis 2 documented as of this encounter (statuses as of 10/23/2023) [facility]arrative* Problem Noted Date Diagnosed Date Resolved Date Muscle pain 08/21/2021 06/16/2023 06/16/2023 Hypertensive kidney disease with chronic kidney disease stage III 06/26/2021 01/09/2022 Benign neoplasm of colon 11/24/200812/2021 Acute gastritis without mention of hemorrhage 11/13/19 06 09/16/2012 Nonspecific elevation of lev els of transaminase or lactic acid dehydrogenase (LDH) 10/10/2005 01/09/2022 Reflux esophagitis 2 documented as of this encounter (statuses as of 02/03/2024) [facility] Discharge instructions Patient Education 08/21/2021 08:37:35 PM Discharge Instructions no lines- post-procedure ([id number]) [facility] Management Discharge Instructions POST PROCEDURE INSTRUCTIONS - Please follow all of the below: There are no general limitations to your activities. Resume regular activity. Resume your regular diet. Keep bandaid dry and remove in 24 hours. Call in 2 weeks to report progress on today's injection Continue ice 20 minutes on 20 minutes off for 2 hours to reduce any bruising sensation Remain active. Avoid bedrest. Continue Nucynta 50 mg 4 times daily Continue Zanaflex 4 mg at bedtime Continue range of motion exercises 5-6 times a day, every day for neck and shoulder girdle Continue TENS unit [facility] 08-17-2021 History of Past illness Narrative* Problem Noted Date Resolved Date Hypertensive kidney disease with chronic kidney disease stage III 06/26/2021 01/09/2022 Benign neoplasm of colon 11/24/2008 022 Acute gastritis without mention of hemorrhage 09/16/2012 Nonspecific elevation of lev els of transaminase or lactic acid dehydrogenase (LDH) 10/10/2005 01/09/2022 Reflux esophagitis 09/16/2012 documented as of this encounter (statuses as of 03/04/2022) [facility]arr[facility]* Problem Noted Date Resolved Date Hypertensive kidney disease with chronic kidney disease stage III 06/26/2021 01/09/2022 Benign neoplasm of colon 11/24/2008 022 Acute gastritis without mention of hemorrhage 09/16/2012 Nonspecific elevation of lev els of transaminase or lactic acid dehydrogenase (LDH) 10/10/2005 01/09/2022 Reflux esophagitis 09/16/2012 documented as of this encounter (statuses as of 03/29/2022) [facility] of [facility]* Problem Noted Date Resolved Date Hypertensive kidney disease with chronic kidney disease stage III 06/26/2021 01/09/2022 Benign neoplasm of colon 11/24/2008 022 Acute gastritis without mention of hemorrhage 09/16/2012 Nonspecific elevation of lev els of transaminase or lactic acid dehydrogenase (LDH) 10/10/2005 01/09/2022 Reflux esophagitis 09/16/2012 documented as of this encounter (statuses as of 04/22/2022) [facility]* Problem Noted Date Resolved Date Hypertensive kidney disease with chronic kidney disease stage III 06/26/2021 01/09/2022 Benign neoplasm of colon 11/24/2008 022 Acute gastritis without mention of hemorrhage 09/16/2012 Nonspecific elevation of lev els of transaminase or lactic acid dehydrogenase (LDH) 10/10/2005 01/09/2022 Reflux esophagitis 09/16/2012 documented as of this encounter (statuses as of 05/07/2022) [facility]* Problem Noted Date Resolved Date Hypertensive kidney disease with chronic kidney disease stage III 06/26/2021 01/09/2022 Benign neoplasm of colon 11/24/2008 022 Acute gastritis without mention of hemorrhage 09/16/2012 Nonspecific elevation of lev els of transaminase or lactic acid dehydrogenase (LDH) 10/10/2005 01/09/2022 Reflux esophagitis 09/16/2012 documented as of this encounter (statuses as of 06/06/2022) [facility]* Problem Noted Date Resolved Date Hypertensive kidney disease with chronic kidney disease stage III 06/26/2021 01/09/2022 Benign neoplasm of colon 11/24/2008 022 Acute gastritis without mention of hemorrhage 09/16/2012 Nonspecific elevation of lev els of transaminase or lactic acid dehydrogenase (LDH) 10/10/2005 01/09/2022 Reflux esophagitis 09/16/2012 documented as of this encounter (statuses as of 06/28/2022) [facility]* Problem Noted Date Resolved Date Hypertensive kidney disease with chronic kidney disease stage III 06/26/2021 01/09/2022 Benign neoplasm of colon 11/24/2008 022 Acute gastritis without mention of hemorrhage 09/16/2012 Nonspecific elevation of lev els of transaminase or lactic acid dehydrogenase (LDH) 10/10/2005 01/09/2022 Reflux esophagitis 09/16/2012 documented as of this encounter (statuses as of 07/12/2022) [facility]* Problem Noted Date Resolved Date Hypertensive kidney disease with chronic kidney disease stage III 06/26/2021 01/09/2022 Benign neoplasm of colon 11/24/2008 022 Acute gastritis without mention of hemorrhage 09/16/2012 Nonspecific elevation of lev els of transaminase or lactic acid dehydrogenase (LDH) 10/10/2005 01/09/2022 Reflux esophagitis 09/16/2012 documented as of this encounter (statuses as of 07/12/2022) [facility]arrative* Problem Noted Date Resolved Date Hypertensive kidney disease with chronic kidney disease stage III 06/26/2021 01/09/2022 Benign neoplasm of colon 11/24/2008 022 Acute gastritis without mention of hemorrhage 09/16/2012 Nonspecific elevation of lev els of transaminase or lactic acid dehydrogenase (LDH) 10/10/2005 01/09/2022 Reflux esophagitis 09/16/2012 documented as of this encounter (statuses as of 07/13/2022) [facility]* Problem Noted Date Resolved Date Hypertensive kidney disease with chronic kidney disease stage III 06/26/2021 01/09/2022 Benign neoplasm of colon 11/24/2008 022 Acute gastritis without mention of hemorrhage 09/16/2012 Nonspecific elevation of lev els of transaminase or lactic acid dehydrogenase (LDH) 10/10/2005 01/09/2022 Reflux esophagitis 09/16/2012 documented as of this encounter (statuses as of 07/13/2022) [facility]* Problem Noted Date Resolved Date Hypertensive kidney disease with chronic kidney disease stage III 06/26/2021 01/09/2022 Benign neoplasm of colon 11/24/2008 022 Acute gastritis without mention of hemorrhage 09/16/2012 Nonspecific elevation of lev els of transaminase or lactic acid dehydrogenase (LDH) 10/10/2005 01/09/2022 Reflux esophagitis 09/16/2012 documented as of this encounter (statuses as of 07/17/2022) [facility]* Problem Noted Date Resolved Date Hypertensive kidney disease with chronic kidney disease stage III 06/26/2021 01/09/2022 Benign neoplasm of colon 11/24/2008 022 Acute gastritis without mention of hemorrhage 09/16/2012 Nonspecific elevation of lev els of transaminase or lactic acid dehydrogenase (LDH) 10/10/2005 01/09/2022 Reflux esophagitis 09/16/2012 documented as of this encounter (statuses as of 07/17/2022) [facility]* Problem Noted Date Resolved Date Hypertensive kidney disease with chronic kidney disease stage III 06/26/2021 01/09/2022 Benign neoplasm of colon 11/24/2008 022 Acute gastritis without mention of hemorrhage 09/16/2012 Nonspecific elevation of lev els of transaminase or lactic acid dehydrogenase (LDH) 10/10/2005 01/09/2022 Reflux esophagitis 09/16/2012 documented as of this encounter (statuses as of 07/22/2022) [facility]* Problem Noted Date Resolved Date Hypertensive kidney disease with chronic kidney disease stage III 06/26/2021 01/09/2022 Benign neoplasm of colon 11/24/2008 022 Acute gastritis without mention of hemorrhage 09/16/2012 Nonspecific elevation of lev els of transaminase or lactic acid dehydrogenase (LDH) 10/10/2005 01/09/2022 Reflux esophagitis 09/16/2012 documented as of this encounter (statuses as of 07/29/2022) [facility]* Problem Noted Date Resolved Date Hypertensive kidney disease with chronic kidney disease stage III 06/26/2021 01/09/2022 Benign neoplasm of colon 11/24/2008 022 Acute gastritis without mention of hemorrhage 09/16/2012 Nonspecific elevation of lev els of transaminase or lactic acid dehydrogenase (LDH) 10/10/2005 01/09/2022 Reflux esophagitis 09/16/2012 documented as of this encounter (statuses as of 08/01/2022) [place] [id number] History of Past illness Narrative* Problem Noted Date Resolved Date Hypertensive kidney disease with chronic kidney disease stage III 06/26/2021 01/09/2022 Benign neoplasm of colon 11/24/2008 022 Acute gastritis without mention of hemorrhage 09/16/2012 Nonspecific elevation of lev els of transaminase or lactic acid dehydrogenase (LDH) 10/10/2005 01/09/2022 Reflux esophagitis 09/16/2012 documented as of this encounter (statuses as of 08/08/2022) [facility]* Problem Noted Date Resolved Date Hypertensive kidney disease with chronic kidney disease stage III 06/26/2021 01/09/2022 Benign neoplasm of colon 11/24/2008 022 Acute gastritis without mention of hemorrhage 09/16/2012 Nonspecific elevation of lev els of transaminase or lactic acid dehydrogenase (LDH) 10/10/2005 01/09/2022 Reflux esophagitis 09/16/2012 documented as of this encounter (statuses as of 08/20/2022) [facility]* Problem Noted Date Resolved Date Hypertensive kidney disease with chronic kidney disease stage III 06/26/2021 01/09/2022 Benign neoplasm of colon 11/24/2008 022 Acute gastritis without mention of hemorrhage 09/16/2012 Nonspecific elevation of lev els of transaminase or lactic acid dehydrogenase (LDH) 10/10/2005 01/09/2022 Reflux esophagitis 09/16/2012 documented as of this encounter (statuses as of 08/27/2022) [facility] History of Past illness Narrative* Problem Noted Date Resolved Date Hypertensive kidney disease with chronic kidney disease stage III 06/26/2021 01/09/2022 Benign neoplasm of colon 11/24/2008 022 Acute gastritis without mention of hemorrhage 09/16/2012 Nonspecific elevation of lev els of transaminase or lactic acid dehydrogenase (LDH) 10/10/2005 01/09/2022 Reflux esophagitis 09/16/2012 documented as of this encounter (statuses as of 08/30/2022) [place] [id number] History of Past illness Narrative* Problem Noted Date Resolved Date Hypertensive kidney disease with chronic kidney disease stage III 06/26/2021 01/09/2022 Benign neoplasm of colon 11/24/2008 022 Acute gastritis without mention of hemorrhage 09/16/2012 Nonspecific elevation of lev els of transaminase or lactic acid dehydrogenase (LDH) 10/10/2005 01/09/2022 Reflux esophagitis 09/16/2012 documented as of this encounter (statuses as of 09/16/2022) [facility] History of Past illness Narrative* Problem Noted Date Resolved Date Hypertensive kidney disease with chronic kidney disease stage III 06/26/2021 01/09/2022 Benign neoplasm of colon 11/24/2008 022 Acute gastritis without mention of hemorrhage 09/16/2012 Nonspecific elevation of lev els of transaminase or lactic acid dehydrogenase (LDH) 10/10/2005 01/09/2022 Reflux esophagitis 09/16/2012 documented as of this encounter (statuses as of 09/18/2022) [facility] History of Past illness Narrative* Problem Noted Date Resolved Date Hypertensive kidney disease with chronic kidney disease stage III 06/26/2021 01/09/2022 Benign neoplasm of colon 11/24/2008 022 Acute gastritis without mention of hemorrhage 09/16/2012 Nonspecific elevation of lev els of transaminase or lactic acid dehydrogenase (LDH) 10/10/2005 01/09/2022 Reflux esophagitis 09/16/2012 documented as of this encounter (statuses as of 09/24/2022) [facility] History of Past illness Narrative* Problem Noted Date Resolved Date Hypertensive kidney disease with chronic kidney disease stage III 06/26/2021 01/09/2022 Benign neoplasm of colon 11/24/2008 022 Acute gastritis without mention of hemorrhage 09/16/2012 Nonspecific elevation of lev els of transaminase or lactic acid dehydrogenase (LDH) 10/10/2005 01/09/2022 Reflux esophagitis 09/16/2012 documented as of this encounter (statuses as of 09/30/2022) [facility] History of Past illness Narrative* Problem Noted Date Resolved Date Hypertensive kidney disease with chronic kidney disease stage III 06/26/2021 01/09/2022 Benign neoplasm of colon 11/24/2008 022 Acute gastritis without mention of hemorrhage 09/16/2012 Nonspecific elevation of lev els of transaminase or lactic acid dehydrogenase (LDH) 10/10/2005 01/09/2022 Reflux esophagitis 09/16/2012 documented as of this encounter (statuses as of 10/10/2022) [facility] History of Past illness Narrative* Problem Noted Date Resolved Date Hypertensive kidney disease with chronic kidney disease stage III 06/26/2021 01/09/2022 Benign neoplasm of colon 11/24/2008 022 Acute gastritis without mention of hemorrhage 09/16/2012 Nonspecific elevation of lev els of transaminase or lactic acid dehydrogenase (LDH) 10/10/2005 01/09/2022 Reflux esophagitis 09/16/2012 documented as of this encounter (statuses as of 11/22/2022) [facility] History of Past illness Narrative* Problem Noted Date Resolved Date Hypertensive kidney disease with chronic kidney disease stage III 06/26/2021 01/09/2022 Benign neoplasm of colon 11/24/2008 022 Acute gastritis without mention of hemorrhage 09/16/2012 Nonspecific elevation of lev els of transaminase or lactic acid dehydrogenase (LDH) 10/10/2005 01/09/2022 Reflux esophagitis 09/16/2012 documented as of this encounter (statuses as of 01/07/2023) [facility] History of Past illness Narrative* Problem Noted Date Resolved Date Hypertensive kidney disease with chronic kidney disease stage III 06/26/2021 01/09/2022 Benign neoplasm of colon 11/24/2008 022 Acute gastritis without mention of hemorrhage 09/16/2012 Nonspecific elevation of lev els of transaminase or lactic acid dehydrogenase (LDH) 10/10/2005 01/09/2022 Reflux esophagitis 09/16/2012 documented as of this encounter (statuses as of 01/21/2023) [facility] History of Past illness Narrative* Problem Noted Date Resolved Date Hypertensive kidney disease with chronic kidney disease stage III 06/26/2021 01/09/2022 Benign neoplasm of colon 11/24/2008 022 Acute gastritis without mention of hemorrhage 09/16/2012 Nonspecific elevation of lev els of transaminase or lactic acid dehydrogenase (LDH) 10/10/2005 01/09/2022 Reflux esophagitis 09/16/2012 documented as of this encounter (statuses as of 01/22/2023) [facility] History of Past illness Narrative* Problem Noted Date Resolved Date Hypertensive kidney disease with chronic kidney disease stage III 06/26/2021 01/09/2022 Benign neoplasm of colon 11/24/2008 Acute gastritis without mention of hemorrhage 09/16/2012 Nonspecific elevation of lev els of transaminase or lactic acid dehydrogenase (LDH) 10/10/2005 01/09/2022 Reflux esophagitis 09/16/2012 documented as of this encounter (statuses as of 02/06/2023) [facility] History of Past illness Narrative* Problem Noted Date Resolved Date Hypertensive kidney disease with chronic kidney disease stage III 06/26/2021 01/09/2022 Benign neoplasm of colon 11/24/2008 022 Acute gastritis without mention of hemorrhage 09/16/2012 Nonspecific elevation of lev els of transaminase or lactic acid dehydrogenase (LDH) 10/10/2005 01/09/2022 Reflux esophagitis 09/16/2012 documented as of this encounter (statuses as of 02/13/2023) [facility] History of Past illness Narrative* Problem Noted Date Resolved Date Hypertensive kidney disease with chronic kidney disease stage III 06/26/2021 01/09/2022 Benign neoplasm of colon 11/24/2008 022 Acute gastritis without mention of hemorrhage 09/16/2012 Nonspecific elevation of lev els of transaminase or lactic acid dehydrogenase (LDH) 10/10/2005 01/09/2022 Reflux esophagitis 09/16/2012 documented as of this encounter (statuses as of 03/10/2023) [facility] History of Past illness Narrative* Problem Noted Date Resolved Date Hypertensive kidney disease with chronic kidney disease stage III 06/26/2021 01/09/2022 Benign neoplasm of colon 11/24/2008 022 Acute gastritis without mention of hemorrhage 09/16/2012 Nonspecific elevation of lev els of transaminase or lactic acid dehydrogenase (LDH) 10/10/2005 01/09/2022 Reflux esophagitis 09/16/2012 documented as of this encounter (statuses as of 03/18/2023) [facility] History of Past illness Narrative* Problem Noted Date Resolved Date Hypertensive kidney disease with chronic kidney disease stage III 06/26/2021 01/09/2022 Benign neoplasm of colon 11/24/2008 03 022 Acute gastritis without mention of hemorrhage 09/16/2012 Nonspecific elevation of lev els of transaminase or lactic acid dehydrogenase (LDH) 10/10/2005 01/09/2022 Reflux esophagitis 09/16/2012 documented as of this encounter (statuses as of 05/03/2023) [facility] History of Past illness Narrative* Problem Noted Date Diagnosed Date Resolved Date Hypertensive kidney disease with chronic kidney disease stage III 06/26/2021 01/09/2022 Benign neoplasm of colon 11/24/200812/2021 Acute gastritis without mention of hemorrhage 11/13/19 06 09/16/2012 Nonspecific elevation of lev els of transaminase or lactic acid dehydrogenase (LDH) 10/10/2005 01/09/2022 Reflux esophagitis 2 documented as of this encounter (statuses as of 06/02/2023) [facility] History of Present illness Narrative* Zamzam Jalloh Tech (Tech) - 08/28/2020 10:30 AM EDT Radiology Service Progress Note PATIENT NAME: Nena Mandujano DATE OF SERVICE: August 28, 2020 TIME: 10:30 AM PATIENT IDENTITY VERIFICATION COMPLETED USING TWO (2) IDENTIFIERS: Name and Date of confirmedby patient verbally. FALL SCREENING: Has the patient had 2 falls in the last year or 1 fall with injury or currently using an Ambulatory Assistive Device (Walker, Cane, Wheelchair, Crutches, etc.)? No PATIENT GENDER DATA: Female. status: : No status: NO. PATIENT RELEVANT IMPLANT DATA REVIEWED: Not Applicable RADIOLOGY DEPARTMENT: General X-ray: Exam(s) Completed: Rib X-Ray: Right PERIPHERAL IV DATA: Not applicable SIGNED BY: Frank Alejandre August 28, 2020 10:30 AM [facility] No data available for this section [facility] Evaluation + Plan note Future Appointments Appointment Date:12/17/2021 08:00:00 AM Scheduled Provider:KAYLEN STARR Location:PM Office Appointment Type:PM OV RO [place] [facility] Evaluation + Plan note Future Appointments Appointment Date:02/15/2022 07:30:00 AM Scheduled Provider:KAYLEN STARR Location:PM Office Appointment Type:PM OV RO [facility] Evaluation + Plan note Future Appointments Appointment Date:04/16/2022 07:00:00 AM Scheduled Provider:KAYLEN STARR Location:PM Office Appointment Type:PM OV RO [place] [facility] Evaluation + Plan note Future Appointments Appointment Date:06/25/2022 07:00:00 AM Scheduled Provider:KAYLEN STARR Location:PM Office Appointment Type:PM OV RO [facility] Evaluation + Plan note Future Appointments Appointment Date:08/21/2021 08:15:00 AM Scheduled Provider:NEVILLE JULIAN DO Location:Pain Management- [place] Appointment Type:PM TPI 1- 2 [facility] Evaluation + Plan note Future Appointments Appointment Date:12/23/2022 07:30:00 AM Scheduled Provider:KAYLEN STARR Location:PM Office Appointment Type:PM OV RO [facility] Management Evaluation + Plan note Future Appointments Appointment Date:02/18/2023 03:30:00 PM Scheduled Provider:KAYLEN STARR Location:PM Office Appointment Type:PM OV RO [facility] [place] [facility] Plan note Future Appointments Appointment Date:04/16/2023 03:00:00 PM Scheduled Provider:KAYLEN STARR Location:PM [facility]* Diagnosis Mixed hyperlipidemia Hypothyroidism, unspecified type Hyperglycemia Other abnormal glucose documented in this encounter [facility] note* Diagnosis Mixed hyperlipidemia Hyperglycemia Other abnormal glucose documented in this encounter [facility] note* Diagnosis GERD without esophagitis Esophageal reflux documented in this encounter [facility] note* Diagnosis Mixed hyperlipidemia Hypothyroidism, unspecified type Hyperglycemia Other abnormal glucose documented in this encounter [facility] note* Diagnosis Fatigue, unspecified type- Primary GERD without esophagitis Esophageal reflux Mixed hyperlipidemia Hyperglycemia Other abnormal glucose Change in bowel habit Essential hypertension Unspecified essential hypertension Stage 3 chronic kidney disease, unspecified whether stage 3a or 3b CKD (HCC) Hypothyroidism, unspecified type BALJINDER (obstructive sleep apnea) Obstructive sleep apnea (adult) (pediatric) Abdominal discomfort Abdominal pain, unspecified site Abdominal discomfort Abdominal pain, unspecified site documented in this encounter [facility] note* Diagnosis Anemia, unspecified type- Primary documented in this encounter [facility] note* Diagnosis Abdominal discomfort Abdominal pain, unspecified site documented in this encounter [facility] note* Diagnosis Abdominal discomfort- Primary Abdominal pain, unspecified site GERD without esophagitis Esophageal reflux Change in bowel habit Anemia, unspecified type documented in this encounter [facility] note* Diagnosis GERD without esophagitis Esophageal reflux Change in bowel habit Abdominal discomfort Abdominal pain, unspecified site documented in this encounter [facility] note* Diagnosis BALJINDER (obstructive sleep apnea)- Primary Obstructive sleep apnea (adult) (pediatric) documented in this encounter [facility] note* Diagnosis Encounter for screening mammogram for malignant neoplasm of breast- Primary Other screening mammogram documented in this encounter [facility] note* Diagnosis Gastroesophageal reflux disease, unspecified whether esophagitis present- Primary GERD without esophagitis Esophageal reflux Change in bowel habit Abdominal discomfort Abdominal pain, unspecified site documented in this encounter [facility] note* Diagnosis GERD without esophagitis- Primary Esophageal reflux Hiatal hernia Diaphragmatic hernia without mention of obstruction or gangrene Sleep apnea, unspecified type [facility] [place] [facility]* Diagnosis BALJINDER (obstructive sleep apnea)- Primary Obstructive sleep apnea (adult) (pediatric) [facility] [place] [facility]* Diagnosis BALJINDER (obstructive sleep apnea)- Primary Obstructive sleep apnea (adult) (pediatric) RLS (restless legs syndrome) Restless legs syndrome (RLS) Essential hypertension Unspecified essential hypertension Recurrent major depression in partial remission (HCC) Major depressive disorder, recurrent episode, in partial or unspecified remission [facility] [place] [facility]* Diagnosis Mixed hyperlipidemia Hyperglycemia Other abnormal glucose [facility] [place] [facility]* Diagnosis GERD without esophagitis Esophageal reflux [facility] [place] [facility]* Diagnosis GERD without esophagitis Esophageal reflux [facility] [place] [facility]* Diagnosis Essential tremor- Primary Essential and other specified forms of tremor Essential hypertension Unspecified essential hypertension Mixed hyperlipidemia BALJINDER (obstructive sleep apnea) Obstructive sleep apnea (adult) (pediatric) Recurrent major depression in partial remission (HCC) Major depressive disorder, recurrent episode, in partial or unspecified remission Prediabetes Other abnormal glucose Hypothyroidism, unspecified type DDD (degenerative disc disease), cervical Degeneration of cervical intervertebral disc Medication monitoring encounter Encounter for therapeutic drug monitoring Scoliosis, unspecified scoliosis type, unspecified spinal region documented [facility] this [facility] [place] [facility]* Diagnosis Mixed hyperlipidemia Hypothyroidism, unspecified type Hyperglycemia Other abnormal glucose [facility] [place] [facility]* Diagnosis Controlled type 2 diabetes mellitus without complication, without long-term current use of insulin (HCC)- Primary [facility] [place] [facility]* Diagnosis DDD (degenerative disc disease), cervical- Primary Degeneration of cervical intervertebral disc Scoliosis, unspecified scoliosis type, unspecified spinal region DDD (degenerative disc disease), lumbar Degeneration of lumbar or lumbosacral intervertebral disc [facility] [place] [facility]* Diagnosis DDD (degenerative disc disease), cervical Degeneration of cervical intervertebral disc Scoliosis, unspecified scoliosis type, unspecified spinal region documented [facility] this [facility] [place] [facility]* Diagnosis GERD without esophagitis Esophageal reflux [facility] [place] [facility]* Diagnosis Mixed hyperlipidemia Hyperglycemia Other abnormal glucose [facility] [place] [facility]* Diagnosis Essential hypertension- Primary Unspecified essential hypertension Encounter for immunization Need for other specified prophylactic vaccination against single bacterial disease [facility] this [facility] [place] [facility]* Diagnosis Balance disorder Other symptoms involving nervous and musculoskeletal systems Memory loss Essential tremor Essential and other specified forms of tremor Ataxia Lack of coordination [facility] [place] [facility]* Diagnosis Mixed hyperlipidemia Hypothyroidism, unspecified type Hyperglycemia Other abnormal glucose documented in this encounter [facility] [place] [facility]* Diagnosis Controlled type 2 diabetes mellitus without complication, without long-term current use of insulin ([facility]) documented in this encounter [facility] note* Diagnosis GERD without esophagitis Esophageal reflux documented in this encounter [facility] [facility] [place] [facility]* Diagnosis BALJINDER (obstructive sleep apnea)- Primary Obstructive sleep apnea (adult) (pediatric) Essential hypertension Unspecified essential hypertension Stage 3 chronic kidney disease, unspecified whether stage 3a or 3b CKD (HCC) Mixed hyperlipidemia Prediabetes Other abnormal glucose Hypothyroidism, unspecified type Gastroesophageal reflux disease without esophagitis Esophageal reflux Hiatal hernia Diaphragmatic hernia without mention of obstruction or gangrene RLS (restless legs syndrome) Restless legs syndrome (RLS) Fatty liver disease, nonalcoholic Other chronic nonalcoholic liver disease GERD without esophagitis Esophageal reflux Current use of proton pump inhibitor Encounter for long-term (current) use of other medications documented [facility] this [facility] [place] [facility]* Diagnosis Mixed hyperlipidemia Hypothyroidism, unspecified type Hyperglycemia Other abnormal glucose documented in this encounter [facility] [facility] [place] [facility]* Diagnosis Dehydration- Primary [facility] [place] [facility]* Diagnosis GERD without esophagitis Esophageal reflux documented in this encounter [facility] [facility] [place] [facility]* Diagnosis Recurrent major depression in partial remission (HCC)- Primary Major depressive disorder, recurrent episode, in partial or unspecified remission Encounter for screening examination for other mental health and behavioral disorders DDD (degenerative disc disease), cervical Degeneration of cervical intervertebral disc Scoliosis, unspecified scoliosis type, unspecified spinal region Varicose veins of both lower extremities, unspecified whether complicated [facility] [place] [facility]* Diagnosis Encounter for screening mammogram for malignant neoplasm of breast- Primary Other screening mammogram [facility] [place] [facility]* Diagnosis Rib pain on right side Chest pain, unspecified documented in this encounter [facility] [facility] [place] [facility]* Diagnosis Essential tremor- Primary Essential and other specified forms of tremor Essential hypertension Unspecified essential hypertension Stage 3a chronic kidney disease (HCC) Gastroesophageal reflux disease, unspecified whether esophagitis present Recurrent major depression in partial remission (HCC) Major depressive disorder, recurrent episode, in partial or unspecified remission DDD (degenerative disc disease), cervical Degeneration of cervical intervertebral disc Chronic insomnia Insomnia, unspecified Encounter for screening mammogram for malignant neoplasm of breast Other screening mammogram Need for influenza vaccination Need for prophylactic vaccination and inoculation against influenza documented in this encounter [facility] Discharge instructions No data available for this section [facility] Pain Management progress note No data available for this section [facility] reason for referral (narrative)* Outpatient Procedure (Routine) - Authorized Specialty Diagnoses / Procedures Referred By Beaac t Referred To Contact [facility] Diagnoses GERD without esophagitis Change in bowel habit Abdominal discomfort Procedures COLONOSCOPY (THERAPEUTIC) COLSC FLX W/NDSC US XM RCTM ET AL LMTD&ADJ STRUX Kp Fitzgerald MD [address] [place] [address] [place] [address] Referral ID Status Reason Start Date Expiration Date Visits Requested Visits Authorized [id number] Authorized Auto-Generat ed Referral 07/22/2022 07/22/2023 1 1 * Outpatient Procedure (Routine) - Authorized Specialty Diagnoses / Procedures Referred By Jennie almaraz Referred To Contact [facility] Diagnoses GERD without esophagitis Change in bowel habit Abdominal discomfort Procedures EGD DIAGNOSTIC ESOPHAGOGASTRODUODENOSC OPY TRANSORAL DIAGNOSTIC Kp Fitzgerald MD [address] [place] [address] [place] [address] Referral ID Status Reason Start Date Expiration Date Visits Requested Visits Authorized [id number] Authorized Auto-Generat ed Referral 07/22/2022 07/22/2023 1 1 [facility] for referral (narrative)* Diagnostic Procedure Only (Routine) - Pending Review Specialty Diagnoses / Procedures Referred By Contac t Referred To Contact [facility] Diagnoses Encounter for screening mammogram for malignant neoplasm of breast Procedures SVETA SCREENING W LORI SCREENING DIGITAL BREAST TOMOSYNTHESIS BI SCREENING MAMMOGRAPHY BI 2-VIEW BREAST INC CAD Praneeth, Raheem Martin MD [address] [place] [address] [facility] [address] [place] [address] Referral ID Status Reason Start Date Expiration Date Visits Requested Visits Authorized [id number] Pending Review Auto-Generat ed Referral 08/08/2022 09/07/2023 1 1 [facility] for referral (narrative)* Outpatient Procedure (Routine) - Closed Specialty Diagnoses / Procedures Referred By Jennie almaraz Referred To Contact [facility] Diagnoses GERD without esophagitis Change in bowel habit Abdominal discomfort Procedures COLONOSCOPY (THERAPEUTIC) COLSC FLX W/NDSC US XM RCTM ET AL LMTD&ADJ STRUX Kp Fitzgerald MD [address] [place] [address] [facility] [place] [address] [place] [address] Referral ID Status Reason Start Date Expiration Date V isits Requested Visits Authorized [id number] Closed Auto-Generate d Referral 07/22/2022 07/22/2023 1 1 * Outpatient Procedure (Routine) - Closed Specialty Diagnoses / Procedures Referred By Jennie almaraz Referred To Contact [facility] Diagnoses GERD without esophagitis Change in bowel habit Abdominal discomfort Procedures EGD DIAGNOSTIC ESOPHAGOGASTRODUODENOSC OPY TRANSORAL DIAGNOSTIC Kp Fitzgerald MD [address] [place] [address] [facility] Disease [address] [address] Referral ID Status Reason Start Date Expiration Date V isits Requested Visits Authorized [id number] Closed Auto-Generate d Referral 07/22/2022 07/22/2023 1 1 [facility] for referral (narrative)* Diagnostic Procedure Only (Routine) - New Request Specialty Diagnoses / Procedures Referred By Jennie almaraz Referred To Contact [facility] Diagnoses Encounter for screening mammogram for malignant neoplasm of breast Procedures SVETA SCREENING W LORI SCREENING DIGITAL BREAST TOMOSYNTHESIS BI SCREENING MAMMOGRAPHY BI 2-VIEW BREAST INC CAD Raheem Dacosta MD [address] [place] [address] Br Imaging [address] [place] [address] Referral ID Status Reason Start Date Expiration Date Visits Requested Visits Authorized [id number] New Request Auto-Generat ed Referral 08/10/2024 09/09/2025 1 1 [facility] for referral (narrative)* Diagnostic Procedure Only (Routine) - New Request Specialty Diagnoses / Procedures Referred By Jennie almaraz Referred To Contact [facility] Diagnoses Encounter for screening mammogram for malignant neoplasm of breast Procedures SVETA SCREENING W LORI SCREENING DIGITAL BREAST TOMOSYNTHESIS BI SCREENING MAMMOGRAPHY BI 2-VIEW BREAST INC CAD Patricia Vyas APRN.CNP [address] [place] [address] Br Imaging [address] [place] [phone] Referral ID Status Reason Start Date Expiration Date Visits Requested Visits Authorized [id number] New Request Auto-Generat ed Referral 09/22/2025 1 1 [facility] for visit Narrative* Outpatient Procedure (Routine) - Closed Specialty Diagnoses / Procedures Referred By Jennie almaraz Referred To Contact [facility] Diagnoses GERD without esophagitis Change in bowel habit Abdominal discomfort Procedures COLONOSCOPY (THERAPEUTIC) COLSC FLX W/NDSC US XM RCTM ET AL LMTD&ADJ STRUX Kp Fitzgerald MD [address] [facility] [place] [address] [facility] [address] [place], [place] [address], [place] [address] Referral ID Status Reason Start Date Expiration Date V isits Requested Visits Authorized [id number] Closed Auto-Generate d Referral 07/22/2022 07/22/2023 1 1 [facility] Summary Purpose Family History No Family History Records FoundNo Family History Records FoundNo Family History Records FoundNo Family History Records Found Advance Directives No Advanced Directives Records FoundNo Advanced Directives Records FoundNo Advanced Directives Records FoundNo Advanced Directives Records Found Reason for Referral Specialty Diagnoses / Procedures Referred By Contac t Referred To Contact [facility] IMAGING Diagnoses Balance disorder Memory loss Essential tremor Ataxia Procedures MRI BRAIN WO IVCON MRI BRAIN BRAIN STEM W/O CONTRAST MATERIAL Raheem Dacosta MD [address] [place] [address] [place] [address] Referral ID Status Reason Start Date Expiration Date V isits Requested Visits Authorized [id number] Closed Auto-Generate d Referral 09/13/2022 10/28/2022 1 1 Specialty Diagnoses / Procedures Referred By Contac t Referred To Contact Pain Management Diagnoses DDD (degenerative disc disease), cervical Scoliosis, unspecified scoliosis type, unspecified spinal region DDD (degenerative disc disease), lumbar Procedures CONSULT TO PAIN MGT OFFICE/OUTPATIENT [facility] 60-74 MINUTES Ronnell Estrada PA-C [address] [place] [address] Referral ID Status Reason Start Date Expiration Date Visits Requested Visits Authorized [id number] Authorized PCP Requested Referral 07/18/2023 07/15/2024 1 1 Specialty Diagnoses / Procedures Referred By Contac t Referred To Contact Diagnoses BALJINDER (obstructive sleep apnea) Procedures CONSULT TO SLEEP MEDICINE - ADULT OFFICE/OUTPATIENT [facility] MDM 60-74 MINUTES Raheem Dacosta MD [address] [place] [address] Referral ID Status Reason Start Date Expiration Date Visits Requested Visits Authorized [id number] Authorized PCP Requested Referral 10/16/2022 10/16/2023 1 1 Specialty Diagnoses / Procedures Referred By Contac t Referred To Contact CT IMAGING Diagnoses Abdominal discomfort Procedures CT ABD/PEL W IVCON CT ABD & PELVIS W/CONTRAST Raheem Dacosta MD [address] [place] [address] Ct Imaging Referral ID Status Reason Start Date Expiration Date V isits Requested Visits Authorized [id number] Closed Auto-Generate d Referral 07/12/2022 08/26/2022 1 1 Specialty Diagnoses / Procedures Referred By Contac t Referred To Contact [facility] Diagnoses BALJINDER (obstructive sleep apnea) Procedures HOME SLEEP APNEA TEST (HSAT) SLEEP STD AIRFLOW HRT RATE&O2 SAT EFFORT UNATT Raheem Dacosta MD [address] [place] [address] [facility] [address] [place] [address] Referral ID Status Reason Start Date Expiration Date Visits Requested Visits Authorized [id number] Authorized Auto-Generat ed Referral 07/12/2022 07/12/2023 1 1 Specialty Diagnoses / Procedures Referred By Contac t Referred To Contact General Surgery Diagnoses GERD without esophagitis Change in bowel habit Abdominal discomfort Procedures CONSULT TO GENERAL SURGERY OFFICE/OUTPATIENT [facility] 60-74 MINUTES Raheem Dacosta MD [address] [place] [address] Referral ID Status Reason Start Date Expiration Date Visits Requested Visits Authorized [id number] Authorized PCP Requested Referral 07/12/2022 07/12/2023 1 1 Medications Administered Section Inactive Administered Medications - up to 3 most recent administrations Medication Order MAR Action Action Date Dose Rate Site benzocaine 20% 1 Proctor (TOPEX) 1 Proctor, TOPICAL, DIRECTED, Starting on Fri08/19/22 at 0800, Until Fri08/19/22 at 1159, DOSING DIRECTED BY PHYSICIAN FOR PROCEDURAL SEDATION ONLY - Pharmaceutical Waste: Aerosol -, Intraprocedure Given 08/19/2022 7:34 AM EDT 5 Sprays diphenhydrAMINE 12.5-50 mg injection (BENADRYL) 12.5-50 mg, INTRAVENOUS, DIRECTED, Starting on Fri08/19/22 at 0800, Until Fri08/19/22 at 1159, DOSING DIRECTED BY PHYSICIAN FOR PROCEDURAL SEDATION ONLY, Intraprocedure Given 08/19/2022 7:37 AM EDT 50 mg fentaNYL 50 mcg/mL 25-100 mcg injection (SUBLIMAZE) 25-100 mcg, INTRAVENOUS, DIRECTED, Starting on Fri08/19/22 at 0800, Until Fri08/19/22 at 1159, DOSING DIRECTED BY PHYSICIAN FOR PROCEDURAL SEDATION ONLY, Intraprocedure Given 08/19/2022 7:50 AM EDT 50 mcg Given 08/19/2022 7:35 AM EDT 50 mcg lactated ringers iv infusion 30 mL/hr, INTRAVENOUS, CONTINUOUS, Starting on Fri08/19/22 at 0700, Until Fri08/19/22 at 0811, Preprocedure New Bag/Syringe/Bottle 08/19/2022 7:15 AM EDT 30 mL/hr 30 mL/hr midazolam (PF) 1-5 mg injection (VERSED) 1-5 mg, INTRAVENOUS, DIRECTED, Starting on Fri08/19/22 at 0800, Until Fri08/19/22 at 1159, DOSING DIRECTED BY PHYSICIAN FOR PROCEDURAL SEDATION ONLY, Intraprocedure Given 08/19/2022 7:54 AM EDT 1 mg Given 08/19/2022 7:52 AM EDT 1 mg Given 08/19/2022 7:46 AM EDT 2 mg Health Concerns Infection Onset Date Last Indicated Resolved Time COVID-19 Confirmed 06/24/2021 06/24/2021 8:51 PM EDT Additional Source Comments INFORMATION SOURCE (unrecogn ized section and content) DATE CREATED AUTHOR 04/28/2018 [facility] DATE CREATED AUTHOR AUTHOR'S ORGANIZ ATION 07/13/2022 [facility] DATE CREATED AUTHOR AUTHOR'S ORGANIZ ATION 04/29/2023 [facility] DATE CREATED AUTHOR AUTHOR'S ORGANIZ ATION 09/01/2024 [facility] Care Team (unrecognized sect ion and content) Post Office Manager Relationship Specialty Start Date End Date Raheem Dacosta MD [address] [place] [address] PCP - General Family Practice 04/24/15 Post Office Manager Relationship Specialty Start Date End Date Raheem Dacosta MD [address] [facility] [place] [place] [address] PCP - General Family Practice 04/24/15 Post Office Manager Relationship Specialty Start Date End Date Raheem Dacosta MD [address] [facility] [place] [address] PCP - General Family Practice 04/24/15 Post Office Manager Relationship Specialty Start Date End Date Raheem Dacosta MD [address] [facility] [place] [address] PCP - General Family Practice 04/24/15 Post Office Manager Relationship Specialty Start Date End Date Raheem Dacosta MD [address] [facility] [place] [address] PCP - General Family Practice 04/24/15 Post Office Manager Relationship Specialty Start Date End Date Raheem Dacosta MD [facility] [place] [address] PCP - General Family Practice 04/24/15 Post Office Manager Relationship Specialty Start Date End Date Raheem Dacosta MD [address] [facility] [place] [address] PCP - General Family Practice 04/24/15 Post Office Manager Relationship Specialty Start Date End Date Raheem Dacosta MD [address] [facility] [place] [address] PCP - General Family Practice 04/24/15 Post Office Manager Relationship Specialty Start Date End Date Raheem Dacosta MD [address] [facility] [place] [address] PCP - General Family Practice 04/24/15 Post Office Manager Relationship Specialty Start Date End Date Raheem Dacosta MD [address] [facility] [place] [address] PCP - General Family Practice 04/24/15 Post Office Manager Relationship Specialty Start Date End Date Raheem Dacosta MD [address] [facility] [place] [address] PCP - General Family Practice 04/24/15 Post Office Manager Relationship Specialty Start Date End Date Raheem Dacosta MD [address] [facility] [place] [address] PCP - General Family Practice 04/24/15 Post Office Manager Relationship Specialty Start Date End Date Raheem Dacosta MD [address] [facility] [place] [address] PCP - General Family Medicine 04/24/15 Post Office Manager Relationship Specialty Start Date End Date Raheem Dacosta MD [address] [facility] [place] [address] PCP - General Family Medicine 04/24/15 Post Office Manager Relationship Specialty Start Date End Date Raheem Dacosta MD [address] [facility] [place] [address] PCP - General Family Medicine 04/24/15 Post Office Manager Relationship Specialty Start Date End Date Raheem Dacosta MD [address] [facility] [place] [address] PCP - General Family Medicine 04/24/15 Post Office Manager Relationship Specialty Start Date End Date Raheem Dacosta MD [address] [facility] [place] [address] PCP - General Family Medicine 04/24/15 Post Office Manager Relationship Specialty Start Date End Date Raheem Dacosta MD [address] [facility] [place] [address] PCP - General Family Medicine 04/24/15 Post Office Manager Relationship Specialty Start Date End Date Raheem Dacosta MD [address] [facility] [place] [address] PCP - General Family Medicine 04/24/15 Post Office Manager Relationship Specialty Start Date End Date Raheem Dacosta MD [address] [facility] [place] [address] PCP - General Family Medicine 04/24/15 Post Office Manager Relationship Specialty Start Date End Date Raheem Dacosta MD [address] [facility] [place] [address] PCP - General Family Medicine 04/24/15 Post Office Manager Relationship Specialty Start Date End Date Raheem Dacosta MD [address] [facility] [place] [address] PCP - General Family Medicine 04/24/15 Post Office Manager Relationship Specialty Start Date End Date Raheem Dacosta MD [address] [facility] [place] [address] PCP - General Family Medicine 04/24/15 Post Office Manager Relationship Specialty Start Date End Date Raheem Dacosta MD [address] [facility] [place] [address] PCP - General Family Medicine 04/24/15 Post Office Manager Relationship Specialty Start Date End Date Raheem Dacosta MD [address] [facility] [place] [address] PCP - General Family Medicine 04/24/15 Post Office Manager Relationship Specialty Start Date End Date Raheem Dacosta MD [address] [facility] [place] [address] PCP - General Family Medicine 04/24/15 Post Office Manager Relationship Specialty Start Date End Date Raheem Dacosta MD [address] [facility] [place] [address] PCP - General Family Medicine 04/24/15 Post Office Manager Relationship Specialty Start Date End Date Raheem Dacosta MD [address] [facility] [place] [address] PCP - General Family Medicine 04/24/15 Post Office Manager Relationship Specialty Start Date End Date Raheem Dacosta MD [address] [place], [place] [address] PCP - General Family Medicine 04/24/15 Post Office Manager Relationship Specialty Start Date End Date Raheem Dacosta MD [address] [place], [place] [address] PCP - General Family Medicine 04/24/15 Post Office Manager Relationship Specialty Start Date End Date Raheem Dacosta MD [address] [place], [place] [address] PCP - General Family Medicine 04/24/15 Post Office Manager Relationship Specialty Start Date End Date Raheem Dacosta MD [address] [place] [address] PCP - General Family Medicine 04/24/15 Post Office Manager Relationship Specialty Start Date End Date Raheem Dacosta MD [address] [place] [address] PCP - General Family Medicine 04/24/15 Post Office Manager Relationship Specialty Start Date End Date Raheem Dacosta MD [address] [place] [address] PCP - General Family Medicine 04/24/15 Post Office Manager Relationship Specialty Start Date End Date Raheem Dacosta MD [address] [place], [place] [address] PCP - General Family Medicine 04/24/15 Post Office Manager Relationship Specialty Start Date End Date Raheem Dacosta MD [address] [place], [place] [address] PCP - General Family Medicine 04/24/15 Post Office Manager Relationship Specialty Start Date End Date Raheem Dacosta MD [address] [facility] [place] [address] PCP - General Family Medicine 04/24/15 Post Office Manager Relationship Specialty Start Date End Date Raheem Dacosta MD [address] [place] [address] PCP - General Family Medicine 04/24/15 Post Office Manager Relationship Specialty Start Date End Date Ronnell Estrada PA-C [address] [place] [address] PCP - General Family Medicine 03/02/24 Post Office Manager Relationship Specialty Start Date End Date Ronnell Estrada PA-C [address] [place] [address] PCP - General Family Medicine 03/02/24 Post Office Manager Relationship Specialty Start Date End Date Ronnell Estrada PA-C [address] [place] [address] PCP - General Family Medicine 03/02/24 Post Office Manager Relationship Specialty Start Date End Date Ronnell Estrada PA-C [address] [place] [address] PCP - General Family Medicine 03/02/24 Post Office Manager Relationship Specialty Start Date End Date Ronnell Estrada PA-C [address] [facility] [place] [address] PCP - General Family Medicine 03/02/24 Post Office Manager Relationship Specialty Start Date End Date Ronnell Estrada PA-C [address] [place] [address] PCP - General Family Medicine 03/02/24 Post Office Manager Relationship Specialty Start Date End Date Raheem Dacosta MD [address] [facility] [place] [address] PCP - General Family Medicine 07/26/24 Post Office Manager Relationship Specialty Start Date End Date Raheem Dacosta MD [address] [place] [address] PCP - General Family Medicine 04/24/15 03/01/24 Post Office Manager Relationship Specialty Start Date End Date Raheem Dacosta MD [address] [place] [address] PCP - General Family Medicine 07/26/24 Post Office Manager Relationship Specialty Start Date End Date Raheem Dacosta MD [address] [place] [address] PCP - General Family Medicine 04/24/15 03/01/24 Post Office Manager Relationship Specialty Start Date End Date Raheem Dacosta MD [address] [place] [address] PCP - General Family Medicine 07/26/24 Post Office Manager Relationship Specialty Start Date End Date Raheem Dacosta MD [address] [place] [address] PCP - General Family Medicine 07/26/24 Source Comments (unrecognize d section and content) In the event this informatio n is protected by the Federal Confidentiality of Alcohol and Drug Abuse Patient Records regulations: The Federal rules restrict any use of the information to criminally investigate or prosecute any alcohol or drug abuse patient.[facility] the event this information is protected by the Federal Confidentiality of Alcohol and Drug Abuse Patient Records regulations: The Federal rules restrict any use of the information to criminally investigate or prosecute any alcohol or drug abuse patient.[facility] HospitalIn the event this information is protected by the Federal Confidentiality of Alcohol and Drug Abuse Patient Records regulations: The Federal rules restrict any use of the information to criminally investigate or prosecute any alcohol or drug abuse patient.[facility] HospitalIn the event this information is protected by the Federal Confidentiality of Alcohol and Drug Abuse Patient Records regulations: The Federal rules restrict any use of the information to criminally investigate or prosecute any alcohol or drug abuse patient.[facility] HospitalIn the event this information is protected by the Federal Confidentiality of Alcohol and Drug Abuse Patient Records regulations: The Federal rules restrict any use of the information to criminally investigate or prosecute any alcohol or drug abuse patient.[facility] HospitalIn the event this information is protected by the Federal Confidentiality of Alcohol and Drug Abuse Patient Records regulations: The Federal rules restrict any use of the information to criminally investigate or prosecute any alcohol or drug abuse patient.[facility] HospitalIn the event this information is protected by the Federal Confidentiality of Alcohol and Drug Abuse Patient Records regulations: The Federal rules restrict any use of the information to criminally investigate or prosecute any alcohol or drug abuse patient.[facility] HospitalIn the event this information is protected by the Federal Confidentiality of Alcohol and Drug Abuse Patient Records regulations: The Federal rules restrict any use of the information to criminally investigate or prosecute any alcohol or drug abuse patient.[facility] HospitalIn the event this information is protected by the Federal Confidentiality of Alcohol and Drug Abuse Patient Records regulations: The Federal rules restrict any use of the information to criminally investigate or prosecute any alcohol or drug abuse patient.[facility] HospitalIn the event this information is protected by the Federal Confidentiality of Alcohol and Drug Abuse Patient Records regulations: The Federal rules restrict any use of the information to criminally investigate or prosecute any alcohol or drug abuse patient.[facility] HospitalIn the event this information is protected by the Federal Confidentiality of Alcohol and Drug Abuse Patient Records regulations: The Federal rules restrict any use of the information to criminally investigate or prosecute any alcohol or drug abuse patient.[facility] HospitalIn the event this information is protected by the Federal Confidentiality of Alcohol and Drug Abuse Patient Records regulations: The Federal rules restrict any use of the information to criminally investigate or prosecute any alcohol or drug abuse patient.[facility] HospitalIn the event this information is protected by the Federal Confidentiality of Alcohol and Drug Abuse Patient Records regulations: The Federal rules restrict any use of the information to criminally investigate or prosecute any alcohol or drug abuse patient.[facility] HospitalIn the event this information is protected by the Federal Confidentiality of Alcohol and Drug Abuse Patient Records regulations: The Federal rules restrict any use of the information to criminally investigate or prosecute any alcohol or drug abuse patient.[facility] HospitalIn the event this information is protected by the Federal Confidentiality of Alcohol and Drug Abuse Patient Records regulations: The Federal rules restrict any use of the information to criminally investigate or prosecute any alcohol or drug abuse patient.[facility] HospitalIn the event this information is protected by the Federal Confidentiality of Alcohol and Drug Abuse Patient Records regulations: The Federal rules restrict any use of the information to criminally investigate or prosecute any alcohol or drug abuse patient.[facility] HospitalIn the event this information is protected by the Federal Confidentiality of Alcohol and Drug Abuse Patient Records regulations: The Federal rules restrict any use of the information to criminally investigate or prosecute any alcohol or drug abuse patient.[facility] HospitalIn the event this information is protected by the Federal Confidentiality of Alcohol and Drug Abuse Patient Records regulations: The Federal rules restrict any use of the information to criminally investigate or prosecute any alcohol or drug abuse patient.[facility] HospitalIn the event this information is protected by the Federal Confidentiality of Alcohol and Drug Abuse Patient Records regulations: The Federal rules restrict any use of the information to criminally investigate or prosecute any alcohol or drug abuse patient.[facility] HospitalIn the event this information is protected by the Federal Confidentiality of Alcohol and Drug Abuse Patient Records regulations: The Federal rules restrict any use of the information to criminally investigate or prosecute any alcohol or drug abuse patient.[facility] HospitalIn the event this information is protected by the Federal Confidentiality of Alcohol and Drug Abuse Patient Records regulations: The Federal rules restrict any use of the information to criminally investigate or prosecute any alcohol or drug abuse patient.[facility] HospitalIn the event this information is protected by the Federal Confidentiality of Alcohol and Drug Abuse Patient Records regulations: The Federal rules restrict any use of the information to criminally investigate or prosecute any alcohol or drug abuse patient.[facility] HospitalIn the event this information is protected by the Federal Confidentiality of Alcohol and Drug Abuse Patient Records regulations: The Federal rules restrict any use of the information to criminally investigate or prosecute any alcohol or drug abuse patient.[facility] HospitalIn the event this information is protected by the Federal Confidentiality of Alcohol and Drug Abuse Patient Records regulations: The Federal rules restrict any use of the information to criminally investigate or prosecute any alcohol or drug abuse patient.[facility] HospitalIn the event this information is protected by the Federal Confidentiality of Alcohol and Drug Abuse Patient Records regulations: The Federal rules restrict any use of the information to criminally investigate or prosecute any alcohol or drug abuse patient.[facility] HospitalIn the event this information is protected by the Federal Confidentiality of Alcohol and Drug Abuse Patient Records regulations: The Federal rules restrict any use of the information to criminally investigate or prosecute any alcohol or drug abuse patient.[facility] HospitalIn the event this information is protected by the Federal Confidentiality of Alcohol and Drug Abuse Patient Records regulations: The Federal rules restrict any use of the information to criminally investigate or prosecute any alcohol or drug abuse patient.[facility] HospitalIn the event this information is protected by the Federal Confidentiality of Alcohol and Drug Abuse Patient Records regulations: The Federal rules restrict any use of the information to criminally investigate or prosecute any alcohol or drug abuse patient.[facility]In the event this information is protected by the Federal Confidentiality of Alcohol and Drug Abuse Patient Records regulations: The Federal rules restrict any use of the information to criminally investigate or prosecute any alcohol or drug abuse patient.[facility] HospitalIn the event this information is protected by the Federal Confidentiality of Alcohol and Drug Abuse Patient Records regulations: The Federal rules restrict any use of the information to criminally investigate or prosecute any alcohol or drug abuse patient.[facility] HospitalIn the event this information is protected by the Federal Confidentiality of Alcohol and Drug Abuse Patient Records regulations: The Federal rules restrict any use of the information to criminally investigate or prosecute any alcohol or drug abuse patient.[facility] HospitalIn the event this information is protected by the Federal Confidentiality of Alcohol and Drug Abuse Patient Records regulations: The Federal rules restrict any use of the information to criminally investigate or prosecute any alcohol or drug abuse patient.[facility] HospitalIn the event this information is protected by the Federal Confidentiality of Alcohol and Drug Abuse Patient Records regulations: The Federal rules restrict any use of the information to criminally investigate or prosecute any alcohol or drug abuse patient.[facility] HospitalIn the event this information is protected by the Federal Confidentiality of Alcohol and Drug Abuse Patient Records regulations: The Federal rules restrict any use of the information to criminally investigate or prosecute any alcohol or drug abuse patient.[facility] HospitalIn the event this information is protected by the Federal Confidentiality of Alcohol and Drug Abuse Patient Records regulations: The Federal rules restrict any use of the information to criminally investigate or prosecute any alcohol or drug abuse patient.[facility] HospitalIn the event this information is protected by the Federal Confidentiality of Alcohol and Drug Abuse Patient Records regulations: The Federal rules restrict any use of the information to criminally investigate or prosecute any alcohol or drug abuse patient.[facility] HospitalIn the event this information is protected by the Federal Confidentiality of Alcohol and Drug Abuse Patient Records regulations: The Federal rules restrict any use of the information to criminally investigate or prosecute any alcohol or drug abuse patient.[facility] HospitalIn the event this information is protected by the Federal Confidentiality of Alcohol and Drug Abuse Patient Records regulations: The Federal rules restrict any use of the information to criminally investigate or prosecute any alcohol or drug abuse patient.[facility] HospitalIn the event this information is protected by the Federal Confidentiality of Alcohol and Drug Abuse Patient Records regulations: The Federal rules restrict any use of the information to criminally investigate or prosecute any alcohol or drug abuse patient.[facility] HospitalIn the event this information is protected by the Federal Confidentiality of Alcohol and Drug Abuse Patient Records regulations: The Federal rules restrict any use of the information to criminally investigate or prosecute any alcohol or drug abuse patient.[facility] HospitalIn the event this information is protected by the Federal Confidentiality of Alcohol and Drug Abuse Patient Records regulations: The Federal rules restrict any use of the information to criminally investigate or prosecute any alcohol or drug abuse patient.[facility] HospitalIn the event this information is protected by the Federal Confidentiality of Alcohol and Drug Abuse Patient Records regulations: The Federal rules restrict any use of the information to criminally investigate or prosecute any alcohol or drug abuse patient.[facility] HospitalIn the event this information is protected by the Federal Confidentiality of Alcohol and Drug Abuse Patient Records regulations: The Federal rules restrict any use of the information to criminally investigate or prosecute any alcohol or drug abuse patient.[facility] HospitalIn the event this information is protected by the Federal Confidentiality of Alcohol and Drug Abuse Patient Records regulations: The Federal rules restrict any use of the information to criminally investigate or prosecute any alcohol or drug abuse patient.[facility] HospitalIn the event this information is protected by the Federal Confidentiality of Alcohol and Drug Abuse Patient Records regulations: The Federal rules restrict any use of the information to criminally investigate or prosecute any alcohol or drug abuse patient.[facility] HospitalIn the event this information is protected by the Federal Confidentiality of Alcohol and Drug Abuse Patient Records regulations: The Federal rules restrict any use of the information to criminally investigate or prosecute any alcohol or drug abuse patient.[facility] HospitalIn the event this information is protected by the Federal Confidentiality of Alcohol and Drug Abuse Patient Records regulations: The Federal rules restrict any use of the information to criminally investigate or prosecute any alcohol or drug abuse patient.[facility] HospitalIn the event this information is protected by the Federal Confidentiality of Alcohol and Drug Abuse Patient Records regulations: The Federal rules restrict any use of the information to criminally investigate or prosecute any alcohol or drug abuse patient.[facility] HospitalIn the event this information is protected by the Federal Confidentiality of Alcohol and Drug Abuse Patient Records regulations: The Federal rules restrict any use of the information to criminally investigate or prosecute any alcohol or drug abuse patient.[facility] HospitalIn the event this information is protected by the Federal Confidentiality of Alcohol and Drug Abuse Patient Records regulations: The Federal rules restrict any use of the information to criminally investigate or prosecute any alcohol or drug abuse patient.[facility] HospitalIn the event this information is protected by the Federal Confidentiality of Alcohol and Drug Abuse Patient Records regulations: The Federal rules restrict any use of the information to criminally investigate or prosecute any alcohol or drug abuse patient.[facility] HospitalIn the event this information is protected by the Federal Confidentiality of Alcohol and Drug Abuse Patient Records regulations: The Federal rules restrict any use of the information to criminally investigate or prosecute any alcohol or drug abuse patient.[facility] HospitalIn the event this information is protected by the Federal Confidentiality of Alcohol and Drug Abuse Patient Records regulations: The Federal rules restrict any use of the information to criminally investigate or prosecute any alcohol or drug abuse patient.[facility] HospitalIn the event this information is protected by the Federal Confidentiality of Alcohol and Drug Abuse Patient Records regulations: The Federal rules restrict any use of the information to criminally investigate or prosecute any alcohol or drug abuse patient.[facility] HospitalIn the event this information is protected by the Federal Confidentiality of Alcohol and Drug Abuse Patient Records regulations: The Federal rules restrict any use of the information to criminally investigate or prosecute any alcohol or drug abuse patient.[facility] HospitalIn the event this information is protected by the Federal Confidentiality of Alcohol and Drug Abuse Patient Records regulations: The Federal rules restrict any use of the information to criminally investigate or prosecute any alcohol or drug abuse patient.[facility] HospitalIn the event this information is protected by the Federal Confidentiality of Alcohol and Drug Abuse Patient Records regulations: The Federal rules restrict any use of the information to criminally investigate or prosecute any alcohol or drug abuse patient.[facility] HospitalIn the event this information is protected by the Federal Confidentiality of Alcohol and Drug Abuse Patient Records regulations: The Federal rules restrict any use of the information to criminally investigate or prosecute any alcohol or drug abuse patient.[facility] HospitalIn the event this information is protected by the Federal Confidentiality of Alcohol and Drug Abuse Patient Records regulations: The Federal rules restrict any use of the information to criminally investigate or prosecute any alcohol or drug abuse patient.[facility] HospitalIn the event this information is protected by the Federal Confidentiality of Alcohol and Drug Abuse Patient Records regulations: The Federal rules restrict any use of the information to criminally investigate or prosecute any alcohol or drug abuse patient.[facility] HospitalIn the event this information is protected by the Federal Confidentiality of Alcohol and Drug Abuse Patient Records regulations: The Federal rules restrict any use of the information to criminally investigate or prosecute any alcohol or drug abuse patient.[facility] HospitalIn the event this information is protected by the Federal Confidentiality of Alcohol and Drug Abuse Patient Records regulations: The Federal rules restrict any use of the information to criminally investigate or prosecute any alcohol or drug abuse patient.[facility] HospitalIn the event this information is protected by the Federal Confidentiality of Alcohol and Drug Abuse Patient Records regulations: The Federal rules restrict any use of the information to criminally investigate or prosecute any alcohol or drug abuse patient.[facility] HospitalIn the event this information is protected by the Federal Confidentiality of Alcohol and Drug Abuse Patient Records regulations: The Federal rules restrict any use of the information to criminally investigate or prosecute any alcohol or drug abuse patient.[facility] HospitalIn the event this information is protected by the Federal Confidentiality of Alcohol and Drug Abuse Patient Records regulations: The Federal rules restrict any use of the information to criminally investigate or prosecute any alcohol or drug abuse patient.[facility] Reason for Visit (unrecogniz ed section and content) Reason Onset Date Comments Refill Request 03/04/2022 Reason Onset Date Comments Refill Request 03/29/2022 Reason Onset Date Comments Refill Request 04/22/2022 Reason Onset Date Comments Refill Request 05/07/2022 Reason Onset Date Comments Refill Request 06/06/2022 Reason Onset Date Comments Refill Request 06/28/2022 Reason Comments 6 Month Exam Feeling fatigued. Lewis wels going between constipation and diarrhea. Pain across upper upper abd. Wondering if scoliosis effecting her because of how she leans? Specialty Diagnoses / Procedures Referred By Jennie almaraz Referred To Contact CT IMAGING Diagnoses Abdominal discomfort Procedures CT ABD/PEL W IVCON CT ABD & PELVIS W/CONTRAST Raheem Dacosta MD [address] [place] [address] Ct Imaging Referral ID Status Reason Start Date Expiration Date V isits Requested Visits Authorized [id number] Closed Auto-Generate d Referral 07/12/2022 08/26/2022 1 1 Reason Comments Abdominal Pain 1wk f/u Reason Comments Results Reason Comments Consult GERD, change in yaneli l habits Specialty Diagnoses / Procedures Referred By Jennie almaraz Referred To Contact General Surgery Diagnoses GERD without esophagitis Change in bowel habit Abdominal discomfort Procedures CONSULT TO GENERAL SURGERY OFFICE/OUTPATIENT [facility] 60-74 MINUTES Raheem Dacosta MD [address] [place] [address] Referral ID Status Reason Start Date Expiration Date V isits Requested Visits Authorized [id number] Closed PCP Requested Referral 07/12/2022 07/12/2023 1 1 Reason Comments HSAT Check In (Adult) Reason Comments Follow Up Follow up EGD and co leopoldo Reason Onset Date Comments Refill Request 08/30/2022 Reason Onset Date Comments Refill Request 09/24/2022 Reason Comments Opened In Error Reason Comments Forms Reason Comments Results Reason Comments Appointment Download Pap Therapy Follow Up Reason Comments New Patient Sleep apnea has cpap machine. Stop using the machine 3 weeks ago. Can not tolerate it. Specialty Diagnoses / Procedures Referred By Jennie almaraz Referred To Contact Diagnoses BALJINDER (obstructive sleep apnea) Procedures CONSULT TO SLEEP MEDICINE - ADULT OFFICE/OUTPATIENT [facility] 60-74 MINUTES Raheem Dacosta MD [address] [place] [address] Referral ID Status Reason Start Date Expiration Date V isits Requested Visits Authorized [id number] Closed PCP Requested Referral 10/16/2022 10/16/2023 1 1 Reason Onset Date Comments Refill Request 01/22/2023 Reason Onset Date Comments Refill Request 02/06/2023 Reason Onset Date Comments Refill Request 03/18/2023 Reason Onset Date Comments Refill Request 05/02/2023 Reason Onset Date Comments Refill Request 06/02/2023 Reason Comments Follow Up Reason Onset Date Comments Refill Request 07/01/2023 Reason Comments Follow Up 6 week follow up. 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] Memory loss [R41.3] Essential tremor [G25.0] Ataxia [R27.0] Procedures MRI WO NADIA B 300 ALL Raheem Dacosta MD [address] [place] [address] Radio Mri [facility] [address] [place] [address] Referral ID Status Reason Start Date Expiration Date Visits Re quested Visits Authorized [id number] Closed 11/15/2022 02/13/2023 1 1 Specialty Diagnoses / Procedures Referred By Contac t Referred To Contact MR IMAGING Diagnoses Balance disorder Memory loss Essential tremor Ataxia Procedures MRI BRAIN WO IVCON MRI BRAIN BRAIN STEM W/O CONTRAST MATERIAL Raheem Dacosta MD [address] [place] [address] [place] [address] Referral ID Status Reason Start Date Expiration Date V isits Requested Visits Authorized [id number] Closed Auto-Generate d Referral 09/13/2022 10/28/2022 1 1 Reason Onset Date Comments Refill Request 09/16/2023 Reason Comments Med Change Request Reason Onset Date Comments Refill Request 02/03/2024 Reason Comments Follow Up 6 month Reason Onset Date Comments Refill Request 03/09/2024 Reason Onset Date Comments Refill Request 04/29/2024 Reason Onset Date Comments Refill Request 05/31/2024 Reason Comments Bump Reason Comments Radiology XR Reason Onset Date Comments Depression 4 week medicatio n follow up Immunizations 08/23/2024 Flu vaccination Care Team (unrecognized sect ion and content) Care Team Personnel Name: RAHEEM DACOSTA MD Member Role: Primary Care Physician Address: Address: [facility] [address] Care Team Related Persons Name: JACINTAGIACOMOMICHAELLUPILLO RIVAS Address: Home [address] [place] [address] Care Team Personnel Name: RAHEEM DACOSTA MD Member Role: Primary Care Physician Address: Address: [facility] [address] [place] [address] Care Team Related Persons Name: JACINTALUPILLO BERMUDEZ Address: Home [address] [place], [address] FOR RECORDS PERTAINING TO PATIENTS WHO ARE OR HAVE BEEN ENROLLED IN A CHEMICAL DEPENDENCY/SUBSTANCEABUSE PROGRAM, SOME INFORMATION MAY BE OMITTED. This clinical summary was aggregated from multiple sources. Caution should be exercised in using it in the provision of clinical care. This summary normalizes information from multiple sources, and as a consequence, information in this document may materially change the coding, format and clinical context of patient data. In addition, data may be omitted in some cases. CLINICAL DECISIONS SHOULD BE BASED ON THE PRIMARY CLINICAL RECORDS. [facility] [employer] provides no warranty or guarantee of the accuracy or completeness of information in this document.
== END | disposition home or self-care (01) ==
PROVIDERS: PCP Family Medicine; Referring Provider Family Medicine; Visit Provider Family Medicine
DX: N63.10 Unspecified lump in the right breast, unspecified quadrant (principal); R92.8 Other abnormal and inconclusive findings on diagnostic imaging of breast
CPT/HCPCS: 76642; 77065

== ENCOUNTER 2024-10-27 18:22 | Emergency (ER) | payer MEDICARE, SELFPAY ==
[2024-10-27 18:22] VITALS: BP 99/49; PULSE 79; RESP 16; TEMP 36.5; O2SAT 99; BMI 32.0
[2024-10-27 19:30] VITALS: BP 134/67; PULSE 78; RESP 18; O2SAT 95
[2024-10-27 20:00] VITALS: BP 142/64; PULSE 78; RESP 16; O2SAT 94
--- NOTE | 2024-10-27 20:29 | EDS_ITS ---
HPI History of Present Illness HPI Narrative: Patient presents with bleeding from her left knee incision. Patient states she had a total knee replacement done yesterday at [facility]. Patient states that Dr. Abdi with her surgeon. Patient states she was discharged today. Patient states that when she got home she noted some increased bleeding from her incision and dressing. Patient denies any trauma or injury. Patient denies any paresthesias or weakness. Patient denies any fevers or chills. Patient denies any worsening pain. Chief Complaint: Lower Extremity Injury Informant: patient Onset/Context/Timing Onset: Today Context: Sudden Onset Timing: Continuous Quality of Pain: - (Shock like) Location: Left knee Worsened by: Movement Relieved by: Nothing Associated Symptoms Associated Symptoms: Negative for Parasthesia, Weakness or Loss of Funtion [facility] Medical History DM type 2 (diabetes mellitus, type 2) Osteoarthritis Sleep apnea Hypertension CKD (chronic kidney disease) Anemia Home Medications ?Medication ?Instructions ?Recorded ?Last Taken ?Type Al hyd-Mg tr-alg ac-sod bicarb 80 1 ea PO PRN PRN Indigestion 02/12/17 Unknown History mg-14.2 mg chewable tablet (Gaviscon) fluoxetine 20 mg capsule (Prozac) 20 mg PO DAILY 02/12/17 Unknown History levothyroxine 88 mcg tablet 88 mcg PO DAILY 02/12/17 Unknown History tapentadol 50 mg tablet (Nucynta) 50 mg PO Q6H 02/12/17 Unknown History tizanidine 4 mg capsule (Zanaflex) 4 mg PO QHS 02/12/17 Unknown History aspirin 81 mg capsule 81 mg PO BID 10/27/24 Unknown History atorvastatin 10 mg tablet 10 mg PO QHS cholesterol 10/27/24 Unknown History famotidine 20 mg tablet 20 mg PO QHS 10/27/24 Unknown History metformin 500 mg tablet 500 mg PO DAILY 10/27/24 Unknown History oxycodone 5 mg tablet 5 mg PO Q4H PRN pain 10/27/24 10/27/24 History pantoprazole 40 mg tablet,delayed 40 mg PO DAILY 10/27/24 Unknown History release sennosides 8.6 mg tablet (Senokot) 8.6 mg PO BID 12/18/24 Unknown History triamterene 37.5 1 cap PO DAILY 10/27/24 Unknown History mg-hydrochlorothiazide 25 mg capsule Allergy/AdvReac Type Severity Reaction Status Date / Time No Known Allergies Allergy Verified 10/27/24 18:23 Surgical History Hx of hysterectomy Hx of cholecystectomy Hx of appendectomy Hx of total knee replacement Social History Smoking Status: Former smoker ROS ROS ED Constitutional Constitutional ED: Denies chills or fever(s) Eyes Eyes: Denies blurry vision or change in vision ENT ENT ED: Denies rhinorrhea or sore throat Cardiovascular Cardiovascular: Denies chest pain or palpitations Respiratory/Chest Respiratory/Chest: Denies cough or dyspnea Gastrointestinal Gastrointestinal: Denies nausea or vomiting Genitourinary Genitourinary ED: Denies dysuria or hematuria Musculoskeletal Musculoskeletal: Reports back pain and neck pain Integumentary Denies abscess or rash Neurologic Neurologic: Denies headache(s) or weakness Allergic/Immunologic Allergic/Immunologic ED: Denies mouth swelling or urticaria EXAM Physical Exam Const Vital Signs: 10/27/24 18:22 10/27/24 19:30 Temperature 97.7 F L Temperature Source Oral Pulse Rate 79 78 Respiratory Rate 16 18 Blood Pressure 99/49 L 134/67 H Blood Pressure Mean 65 89 Pulse Ox 99 95 Oxygen Delivery Method Room Air Room Air Positive well nourished and well developed General Appearance ED: well developed and NAD HEENT Reports moist mucous membranes Neck full ROM and supple Extremity Extremity Narrative: Examination of the left knee shows a healing incision. [place] are in place. There is no active bleeding noted. There is no joint effusion. There is no erythema or warmth noted. Range of motion was limited in flexion of the left k nee secondary to recent surgery. Pedal pulses are equal bilaterally. Strength is 5/5 bilateral in the lower extremities. There are no sensory deficits noted. There is no calf tenderness. Neuro oriented x3, CN's II-XII intact bilaterally, moves all extremities and no sensory deficits noted Sensorium / Orientation: alert Motor Exam: strength 5/5 throughout Psych mental status grossly normal MDM MDM MDM Narrative Medical decision making narrative: Case was discussed with Dr. Bacon who was covering for Dr. Abdi. He recommended removing the dressing and cleaning the wound. This was done. There is no active bleeding. There is no sign of any infection. [employer] and gauze dressing was reapplied. Patient was instructed to follow-up with Dr. Abdi as scheduled. Patient was instructed to continue her postoperative instructions. Patient was instructed to return if worse in any way. Patient understood and was agreeable with the plan. All questions were answered Discharge Plan Triage Chief Complaint: Lower Extremity Injury Other Complaint: Wound Check ED Provider: Yahir Trinh Dx/Rx/DC Orders Clinical Impression: Postoperative bleeding from incision, Status post total left knee replacement Instructions: ED Post Op Wound Check, Bleeding Prescriptions: No Action levothyroxine 88 MCG tablet 88 mcg PO DAILY fluoxetine [Prozac] 20 MG capsule 20 mg PO DAILY tizanidine [Zanaflex] 4 MG capsule 4 mg PO QHS Nucynta 50 MG tablet 50 mg PO Q6H Gaviscon 1 EACH tablet,chewable 1 ea PO PRN PRN (Reason: Indigestion) oxycodone 5 mg tablet 5 mg PO Q4H PRN (Reason: pain) triamterene-hydrochlorothiazid 37.5-25 mg capsule 1 cap PO DAILY pantoprazole 40 mg tablet,delayed release (DR/EC) 40 mg PO DAILY aspirin 81 mg capsule 81 mg PO BID sennosides [Senokot] 8.6 mg tablet 8.6 mg PO BID metformin 500 mg tablet 500 mg PO DAILY atorvastatin 10 mg tablet 10 mg PO QHS famotidine 20 mg tablet 20 mg PO QHS Primary Care Provider: Raheem Tse Referrals: Shiraz Abdi MD [Med Staff - Active Staff] - Keep Mike appointment Raheem Tse MD [Primary Care Provider] - Print Language: Urdu Disposition Disposition: Home, Self Care
[2024-10-27 20:55] VITALS: BP 125/60; PULSE 77; RESP 16; TEMP 36.8; O2SAT 98
[2024-10-27 21:00] VITALS: BP 135/71; PULSE 79; RESP 18; O2SAT 96
== END 2024-10-27 21:13 | disposition home or self-care (01) ==
PROVIDERS: Emergency Provider Emergency Medicine; PCP Family Medicine; Visit Provider Emergency Medicine
DX: L76.22 Postprocedural hemorrhage of skin and subcutaneous tissue following other procedure (principal); E11.22 Type 2 diabetes mellitus with diabetic chronic kidney disease; Y83.8 Other surgical procedures as the cause of abnormal reaction of the patient, or of later complication, without mention of misadventure at the time of the procedure; I12.9 Hypertensive chronic kidney disease with stage 1 through stage 4 chronic kidney disease, or unspecified chronic kidney disease; N18.9 Chronic kidney disease, unspecified; M19.90 Unspecified osteoarthritis, unspecified site; G47.30 Sleep apnea, unspecified; Z79.82 Long term (current) use of aspirin; Z79.899 Other long term (current) drug therapy; Z79.84 Long term (current) use of oral hypoglycemic drugs; Z96.652 Presence of left artificial knee joint; Z90.49 Acquired absence of other specified parts of digestive tract; Z87.891 Personal history of nicotine dependence
CPT/HCPCS: 99283

== ENCOUNTER → 2025-04-14 | Outpatient (CLI) | payer MEDICARE, SELFPAY | END | disposition home or self-care (01) | LOC: SL 19:53 | PROVIDERS: PCP Family Medicine; Referring Provider Internal Medicine; Visit Provider Internal Medicine | DX: G47.30 Sleep apnea, unspecified (principal) | CPT/HCPCS: 95811 ==